=== PATIENT | female | born 1965 | race Caucasian/White ===

== ENCOUNTER 2020-02-12 15:29 | Inpatient (IN) | payer OTHER, SELFPAY ==
--- NOTE | ~2020-02-12 | XR_ITS ---
EXAMINATION: XR chest 2V DATE: 02/12/2020 16:31 INDICATION: Chest pain. TECHNIQUE: Frontal and lateral views of the chest were obtained. COMPARISON: Chest 2 views 07/15/18 FINDINGS: The chest demonstrates clear lungs without pneumonia, pleural effusion, or pneumothorax. Th e heart size is normal. Surgical clips in the right upper quadrant are likely from cholecystectomy. T here are changes of anterior fusion procedure in cervical spine. There is mild pectus excavatum. IMPRESSION: 1. No acute cardiopulmonary disease. Reviewed, dictated and finalized at location B. D WINDER
--- NOTE | ~2020-02-12 | US_ITS ---
EXAMINATION: US right upper quadrant EXAM DATE: 02/13/2020 10:02 INDICATION: Pancreatitis. TECHNIQUE: Multiple grayscale and Doppler images of the abdomen right upper quadrant were obtained (apollo y a technologist who performed the scan) and subsequently reviewed. Correlation is made to CT abdomen 2012. FINDINGS: The pancreatic head and body are normal in appearance. The pancreatic tail is not visualized. The l iver has normal echogenicity and contour. There are no focal liver lesions identified. There is mi ld intrahepatic biliary duct dilation. Portal venous flow was seen in the hepatopedal, normal direct ion and has normal Doppler waveform. No right-sided hydronephrosis. Common bile duct measures 11 mm, which is dilated, but common finding following cholecystectomy. IMPRESSION: Some biliary dilation, could be postcholecystectomy status. Obstructive CBD stone not exc ludable. Is there known explanation for patient's pancreatitis? If there is elevated bilirubin consid er MRCP. Reviewed, dictated and finalized at location B. RAL SERVICE MANAGER IMPRESSION: Some biliary dilation, could be postcholecystectomy status. Obstruc tive CBD stone not excludable. Is there known explanation for patient's pancrea titis? If there is elevated bilirubin consider MRCP.
--- NOTE | ~2020-02-12 | MR_ITS ---
EXAMINATION: MR MRCP wo/w con/w 3D wo ind DATE: 02/13/2020 15:30 INDICATION: Pancreatitis. TECHNIQUE: Magnetic resonance imaging (MRI) of the abdomen was performed without intravenous contrast . Sequences included coronal T2-weighted FS FSE, coronal T2-weighted FSE, axial T1-weighted LAVA, cor onal FS FIESTA, axial dual-echo T1-weighted SPGR, coronal lava-FLEX, sagittal T2-weighted FSE, axial T2-weighted FSE, and axial DWI. Thick-slab T2-weighted FSE images were obtained for magnetic resonanc e cholangiopancreatography (MRCP). Maximum intensity projection 3-D reconstructions of the volumetric data were created by the technologist. Postcontrast sequences included coronal LAVA-flex and time co urse of axial T1-weighted LAVA. COMPARISON: Ultrasound 02/13/2020, CT abdomen and pelvis 02/13/2012 FINDINGS: ABDOMEN MRI: There is moderate intrahepatic biliary duct dilatation. The common duct is dilated to 12 mm. No choledocholithiasis. The gallbladder is absent. The spleen, pancreas, and right adrenal gland are normal. There is a 1.8 cm mass in left adrenal gland containing microscopic fat, consistent with an adenoma. Right kidney is normal. There is a 1.5 cm cyst in left kidney. There are no dilated loop s of bowel. There are no pathologically enlarged lymph nodes. There is no free intraperitoneal fluid. ABDOMEN MRCP: The common duct is dilated to 12 mm. No choledocholithiasis. IMPRESSION: 1. Moderate intrahepatic and extrahepatic biliary duct dilatation status post cholecystectomy. No cho ledocholithiasis. Reviewed, dictated and finalized at location A. P MAINT ENG IMPRESSION: 1. Moderate intrahepatic and extrahepatic biliary duct dilatation status post c holecystectomy. No choledocholithiasis.
[2020-02-12 15:33] VITALS: BP 178/70; PULSE 63; RESP 18; TEMP 36.3; O2SAT 99
--- NOTE | 2020-02-12 16:10 | ECG_ITS ---
Measurements Intervals [place] Rate: 60 P: 83 CT: 157 QRS: 9 QRSD: 87 T: 75 QT: 459 QTc: 462 Interpretive Statements SINUS RHYTHM PEAKED T WAVES- CONSIDER HYPERKALEMIA OR ISCHEMIA BASELINE ARTIFACT- V4-V6 ABNORMAL ECG Electronically Signed On 02-13-2020 8:58:42 TANK CLEANING SUPERVISOR by Jose Osei D.O.
--- NOTE | 2020-02-12 16:36 | ED.CHESTPAIN ---
HPI - Chest Pain General Chief Complaint: Chest Pain Stated Complaint: CP Time Seen by Provider: 02/12/20 16:08 Source: patient Mode of arrival: ambulatory Limitations: no limitations History of Present Illness HPI narrative: Patient is a 54-year-old female complaining of chest pain midsternal, 6 out of 10, tightness, radiating to left arm that started today. Patient denies any shortness of breath, abdominal pain, nausea, vomiting or diaphoresis. Patient denies fever or chills. Related Data Allergies Allergy/AdvReac Type Severity Reaction Status Date / Time butalbital Allergy Unknown hives Verified 07/15/18 16:26 caffeine Allergy Unknown hives Verified 07/15/18 16:26 ibuprofen Allergy Unknown Verified 07/15/18 16:26 naproxen Allergy Unknown Verified 07/15/18 16:26 sumatriptan Allergy Unknown Verified 07/15/18 16:26 KETOROLAC TROMETHAMINE Allergy Unknown Uncoded 07/15/18 16:26 SUMATRIPTAN SUCCINATE Allergy Unknown Uncoded 07/15/18 16:26 Review of Systems Review of Systems: All systems reviewed & are unremarkable except as noted in HPI and below Constitutional: Constitutional: Denies body ache(s), Denies chills, Denies excessive sweating, Denies fatigue, Denies fever(s), Denies headache(s), Denies lethargy, Denies malaise, Denies weakness and Denies weight loss Eyes: Eyes: Denies blurry vision, Denies change in vision and Denies loss of vision ENT: Denies dizziness, Denies ear discharge, Denies headache(s), Denies lip swelling, Denies epistaxis, Denies nasal congestion, Denies neck pain, Denies throat swelling and Denies tongue swelling Cardiovascular: Cardiovascular: Denies diaphoresis, Denies rapid heart rate, Denies edema, Denies irregular heart rhythm, Denies lightheadedness, Denies palpitations, Denies dyspnea and Denies dyspnea on exertion Respiratory: Respiratory: Denies chest congestion, Denies cough, Denies hemoptysis, Denies dyspnea and Denies dyspnea on exertion Gastrointestinal: Gastrointestinal: Denies abdominal pain, Denies melena, Denies hematochezia, Denies diarrhea, Denies nausea, Denies vomiting and Denies hematemesis Musculoskeletal: Musculoskeletal: Denies abnormal gait, Denies deformity, Denies joint swelling, Denies limited range of motion, Denies neck pain and Denies numbness Neurologic: Denies Abnormal speech present, Denies abnormal gait, Denies confusion, Denies dizziness, Denies headache(s), Denies focal weakness, Denies loss of vision, Denies numbness, Denies Other visual disturbances, Denies Sensory deficit (Neuro) and Denies weakness Psychiatric: Psychiatric: Denies confusion, Denies depression, Denies auditory hallucinations, Denies homicidal ideation and Denies suicidal ideation Endocrine: Endocrine: Denies cold intolerance, Denies excessive sweating, Denies fatigue, Denies heat intolerance and Denies palpitations Hematologic/Lymphatic: Hematologic/Lymphatic: Denies easy bleeding and Denies easy bruising Allergic/Immunologic: Allergic/Immunologic: Denies lip swelling, Denies throat swelling and Denies tongue swelling Exam Const: General: cooperative, healthy appearing, comfortable, no acute distress, well developed, alert and awake; No confusion Orientation/consciousness: oriented to person, oriented to place, oriented to time, patient oriented x3 and No confusion Limitations: no limitations HENMT: Head: normal to inspection, normocephalic and atraumatic Ears: hearing grossly normal bilaterally, TM normal on the right and TM normal on the left General nose exam: Normal external nose present, Normal nares present and No nasal discharge present Face and sinus: normal facial exam Mouth: Yes Normal oral and palatal mucosa present, Yes lip normal, Yes tongue normal and Yes oropharynx normal Throat: posterior oropharynx normal, tonsils normal and uvula midline Eyes: General: appearance normal, both eyes and all related structures Pupils: Equal, round and reactive pupils present EOM: EOMs intact bilat
[2020-02-12 17:07] LABS: Basophils Absolute Auto 0.1 K/mm3 (0.0-0.1); Basophils Percent Auto 0.4 % (0.2-1.2); Eosinophils Absolute Auto 0.2 K/mm3 (0-0.3); Eosinophils Percent Auto 1.2 % (0-4.4); Hematocrit 36.9 % (37.0-47.0); Hemoglobin 12.5 g/dL (12.0-15.0); Immature Granulocyte Absolute 0.03 K/mm3 (0.00-0.031); Immature Granulocyte Percent A 0.2 % (0-0.5); Lymphocytes Percent Auto 18.2 % (18.3-44.2); Mean Corpuscular HGB Conc 33.9 g/dl (32-36); Mean Corpuscular Hemoglobin 30.9 pg (26-34); Mean Corpuscular Volume 91.1 fl (80-100); Mean Platelet Volume 9.4 fl (7.4-10.4); Monocytes Percent Auto 7.2 % (2.6-8.5); Neutrophils Percent Auto 72.8 % (45.5-73.1); Platelet Count Result 396 k/mm3 (150-375); Red Blood Count 4.05 M/mm3 (4.2-5.4); Red Cell Distribution Width 14.5 % (11.5-14.5); White Blood Count 13.7 K/mm3 (4.5-10.0)
[2020-02-12 17:10] LABS: INR 0.9
[2020-02-12 17:11] LABS: Partial Thromboplastin Time 26.6 SECONDS (22.3-36.8)
[2020-02-12 17:14] LABS: Alanine Aminotransferase 51 U/L (4-35); Albumin Level 4.4 g/dL (3.5-5.1); Alkaline Phosphatase 79 U/L (38-126); Anion Gap 5 mmol/L (8-16); Aspartate Amino Transferase 120 U/L (14-36); Bilirubin,Total 0.5 mg/dL (0.2-1.3); Blood Urea Nitrogen 12 mg/dL (7-17); Calcium 9.5 mg/dL (8.4-10.2); Carbon Dioxide 32 mmol/L (22-30); Chloride 105 mmol/L (98-107); Estimated CRCL calculation 67 ml/min; Estimated Glomerular Filt Rate > 60; Glucose 105 mg/dL (65-105); Potassium 4.1 mmol/L (3.4-5.0); Sodium 142 mmol/L (137-145)
[2020-02-12 17:26] LABS: NT Pro B Type Natriuretic Pept 218 PG/ML (5-100); Troponin I < 0.012 ng/mL (0.000-0.034)
[2020-02-12 17:56] VITALS: BP 178/80; PULSE 77; RESP 18; O2SAT 98
--- NOTE | 2020-02-12 18:12 | PC.NURSE ---
PATIENT MAKING NUMEROUS REQUESTS FOR PAIN MEDICATION. ERP AWARE NO NEW ORDER
[2020-02-12] MEDS: MORPHINE SULFATE (*CRX) 2 MG/ML INJ IV PUSH (18:29)
[2020-02-12] MEDS: ONDANSETRON INJ 4 MG/2 ML VIAL IV PUSH (19:23)
[2020-02-12 19:56] LABS: Troponin I < 0.012 ng/mL (0.000-0.034)
--- NOTE | 2020-02-12 20:42 | PM.IMHP ---
H&P: HPI History of Present Illness Date/Time: 02/12/20 20:42 Chief complaint: CP Narrative: Anny Palmer is a 54 year old female this is a patient that I have seen in the past. Patient was seen here July 2018 for complaints of chest pain. The patient stated back in 2016 she had had a heart attack but did not require any cardiac stents. She stated that she had a cardiac catheterization at [facility] where she had the catheterization but there was no intervention performed at that time. She had a borderline EKG at that time and cardiology was consulted. She was admitted for chest pain and hypokalemia at that time. The patient told me that she had had 2 cardiac stents since then. However when I read her discharge summary from the dates she was here her troponins were all negative. 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 Patient also has a lot of stress and anxiety. Her enzymes were negative and her stress echo with dobutamine infusion was negative per Cardiology at the time sure it was admitted 2018. She does not have any cardiac catheterization or stents placed here. The patient came into ER here tonight with complaints of chest pain that was midsternal 6/10. His rating aiding down her left arm. She said it went around her left breast from the midsternal to the left shoulder line. She was given morphine and stated that she had relief of discomfort. EKG was interpreted as a normal rate no ectopy number sinus rhythm. Chest x-ray was read as no acute cardiopulmonary disease. First troponin negative. Patient was nauseated when I came to the room. Pain. Date of service 02/12/2020 Review of Systems Review of Systems: All systems reviewed & are unremarkable except as noted in HPI and below Constitutional: Constitutional: Reports as per HPI and Reports no additional constitutional complaints Eyes: Eyes: Reports as per HPI and Reports no additional eye complaints ENT: Reports system reviewed and no additional complaints, except as documented and Reports Normal hearing present Cardiovascular: Cardiovascular: Reports no additional cardiovascular complaints Respiratory: Respiratory: Reports no additional respiratory complaints and Reports no additional respiratory complaints Gastrointestinal: Gastrointestinal: Reports as per HPI and Reports no additional gastrointestinal complaints Musculoskeletal: Musculoskeletal: Reports no additional musculoskeletal complaints Integumentary/Breasts: Skin/Breast: Reports system reviewed and no additional complaints, except as docu and Reports as per HPI Neurologic: Reports system reviewed and no additional complaints, except as documented, Reports as per HPI and Reports Normal hearing present Psychiatric: Psychiatric: Reports no additional psychiatric complaints and Reports as per HPI Endocrine: Endocrine: Reports no additional endocrine complaints Hematologic/Lymphatic: Hematologic/Lymphatic: Reports no additional hematologic/lymphatic complaints Allergic/Immunologic: Allergic/Immunologic: Reports no additional allergic/immunologic complaints PMFSH Past Medical History Medical History Anxiety HTN (hypertension), malignant Migraines Tobacco use Surgical History Surgical History (Updated 02/12/20 @ 21:01 by Bhumi Akins NP) H/O elbow surgery H/O: hysterectomy History of ankle surgery x2 she stated Hx of cholecystectomy Family History Family History (Updated 02/12/20 @ 21:03 by Bhumi Akins NP) Mother Hypertension Hyperlipidemia Rheumatic fever Kidney disease Heart murmur Sibling Kidney disease Alcoholism Social History Social History (Updated 02/12/20 @ 21:04 by Bhumi Akins NP) Social History: the patient stated that her is the same age and is in the snf. She has 4 sons. She has use marijuana to help with her pain to her knees and her
[2020-02-12 20:50] VITALS: BP 129/50; PULSE 72; RESP 18; O2SAT 99
--- NOTE | 2020-02-12 21:58 | ADMGEN ---
This patient, Anny Palmer, was admitted to IMU Room 202-01. Patient/family oriented to hospital policies and general routines including ID bracelet, bed and alarms, visiting hours, pain management, procedures, bathroom and other care routines, personal items, smoking policy, room service/diet, and visiting hours. Information on how to activate the Rapid Response Team has been discussed. Patient/Family are encouraged to report perceived risks to care and to ask questions if they do not understand what they are told or what they should do.
[2020-02-12 22:00] VITALS: PULSE 58
[2020-02-12 22:04] VITALS: BP 155/72; PULSE 76; RESP 18; TEMP 36.4; O2SAT 98
[2020-02-12 22:05] VITALS: BMI 21.2
[2020-02-12] MEDS: FAMOTIDINE 20 MG/2 ML VIAL IV PUSH (22:21)
[2020-02-12] MEDS: LORazepam INJ (*CRX) 2 MG/ML VIAL 0.5 MG IV PUSH (22:27)
[2020-02-12 23:19] LABS: Troponin I < 0.012 ng/mL (0.000-0.034)
[2020-02-13] VITALS (13 sets, daily range): BP systolic 119–145; BP diastolic 49–94; PULSE 48–66; RESP 13–18; TEMP 36.2–37.1; O2SAT 96–100
--- NOTE | 2020-02-13 | ECHO_ITS ---
Patient Info Name: Anny Palmer Age: 54 years : 1965 Gender: Female Ht: 67 in Wt: 135 lbs BSA: 1.70 m2 HR: 50 bpm BP: 137 / 60 mmHg Technical Quality: Good Exam Date: 02/13/2020 10:09 AM Exam Location: [facility] Patient Status: Inpatient Admit Date: 02/12/2020 Staff Ordering Physician: Titi Cochran MD Flat Cutter: Pedro Boyd RDCS, RT Attending Provider: Eliseo Tian MD Exam Type: CA echo doppler color flow Study Info Complete two-dimensional, color flow and Doppler transthoracic echocardiogram is performed. Strain analysis performed. Summary 1. Complete two-dimensional, color flow and Doppler transthoracic echocardiogram is performed. 2. Left atrial chamber dimension is moderately enlarged. 3. There is mild aortic valve stenosis with a peak velocity of 252 cm/s, mean gradient of 9 mmHg, and aortic valve area of 1.4 cm2. 4. The mitral valve has thickened leaflets. 5. There is mild mitral valve regurgitation. 6. There is mild tricuspid valve regurgitation. 7. TDS. 8. Left ventricular systolic function is hyperdynamic with an estimated ejection fraction of 6570.0 %. 9. Left ventricular chamber dimension is normal. 10. Normal left venticular systolic function with no regional wall motion abnormalities. Left Ventricle Left ventricular wall thickness is normal. Left ventricular chamber dimension is normal. Left ventricular systolic function is hyperdynamic with an estimated ejection fraction of 6570.0 %. Normal left venticular systolic function with no regional wall motion abnormalities. Right Ventricle Right ventricle chamber size, wall thickness and systolic and diastolic function are normal. Left Atria Left atrial chamber dimension is moderately enlarged. Right Atria Right atrial chamber dimension is normal. Aortic Valve There is mild aortic valve stenosis with a peak velocity of 252 cm/s, mean gradient of 9 mmHg, and aortic valve area of 1.4 cm2. Aortic valve is not well visualized. Pulmonic Valve Pulmonary valve is not well visualized. Mitral Valve The mitral valve has thickened leaflets. There is mild mitral valve regurgitation. Tricuspid Valve There is mild tricuspid valve regurgitation. The tricuspid valve is not well visualized. Pericardium/Pleural Pericardium is normal in appearance with no evidence for significant pericardial effusion. Left Ventricular Outflow Tract Name Value Normal LVOT 2D LVOT Diameter 1.9 cm LVOT Doppler LVOT Peak Gradient 6 mmHg LVOT Mean Gradient 3 mmHg LVOT VTI 30 cm LVOT VTI/AV VTI Ratio 0.5 LVOT Stroke Volume 82 ml LVOT CO 4.0 l/min LVOT CI 2.3 l/min/m2 Mitral Valve Name Value Normal MV Doppler
[2020-02-13 04:30] LABS: Basophils Percent Auto 0.5 % (0.2-1.2); Eosinophils Absolute Auto 0.1 K/mm3 (0-0.3); Eosinophils Percent Auto 1.2 % (0-4.4); Hematocrit 35.7 % (37.0-47.0); Hemoglobin 12.2 g/dL (12.0-15.0); Immature Granulocyte Absolute 0.02 K/mm3 (0.00-0.031); Immature Granulocyte Percent A 0.3 % (0-0.5); Lymphocytes Absolute Auto 1.15 K/mm3 (0.9-3.2); Lymphocytes Percent Auto 17.9 % (18.3-44.2); Mean Corpuscular HGB Conc 34.2 g/dl (32-36); Mean Corpuscular Hemoglobin 31.1 pg (26-34); Mean Corpuscular Volume 91.1 fl (80-100); Mean Platelet Volume 9.3 fl (7.4-10.4); Monocytes Absolute Auto 0.7 K/mm3 (0.1-0.6); Monocytes Percent Auto 10.2 % (2.6-8.5); Neutrophils Absolute Auto 4.5 K/mm3 (1.3-6.7); Neutrophils Percent Auto 69.9 % (45.5-73.1); Platelet Count Result 392 k/mm3 (150-375); Red Blood Count 3.92 M/mm3 (4.2-5.4); Red Cell Distribution Width 14.5 % (11.5-14.5); White Blood Count 6.4 K/mm3 (4.5-10.0)
[2020-02-13 04:57] LABS: LDL Cholesterol Direct 89 mg/dL
[2020-02-13 05:11] LABS: Alanine Aminotransferase 410 U/L (4-35); Albumin Level 4.2 g/dL (3.5-5.1); Alkaline Phosphatase 113 U/L (38-126); Anion Gap 4 mmol/L (8-16); Aspartate Amino Transferase 618 U/L (14-36); Bilirubin,Total 1.4 mg/dL (0.2-1.3); Blood Urea Nitrogen 14 mg/dL (7-17); Calcium 9.4 mg/dL (8.4-10.2); Carbon Dioxide 34 mmol/L (22-30); Chloride 103 mmol/L (98-107); Cholesterol 196 mg/dL (0-200); Estimated CRCL calculation 54 ml/min; Estimated Glomerular Filt Rate 58; Glucose 108 mg/dL (65-105); HDL Direct 77 mg/dL; Lactate Dehydrogenase 1723 U/L (313-618); Magnesium 2.2 mg/dL (1.6-2.3); Potassium 4.1 mmol/L (3.4-5.0); Sodium 141 mmol/L (137-145); Triglycerides 70 mg/dL (<150)
[2020-02-13] MEDS: MORPHINE SULFATE (*CRX) 2 MG/ML INJ 1 MG IV PUSH ×5 (05:37→23:05)
[2020-02-13 05:56] LABS: Lipase 4093 U/L (23-300)
--- NOTE | 2020-02-13 08:59 | PCCARD ---
DOBUTAMINE STRESS ECHO CANCELLED PER DR ROSEN
--- NOTE | 2020-02-13 09:07 | PM.CNCAR ---
Assessment and Plan Assessment and plan (1) Anxiety: Code(s): F41.9 - Anxiety disorder, unspecified Status: Chronic (2) Chest pain: Qualifiers: Chest pain type: chest pain due to myocardial ischemia Ischemic chest pain type: stable angina pectoris Qualified Code(s): I20.8 - Other forms of angina pectoris Code(s): R07.9 - Chest pain, unspecified Status: Acute Assessment and Plan: CE negative no acute EKG changes will arrange for ECHO to evaluate LV function and r/o WMA we will try to obtain cardiac medical records pt may benefit from further cardiac evaluation when medically stable on outpatient basis Cont meds (3) HTN (hypertension), malignant: Code(s): I10 - Essential (primary) hypertension Status: Chronic Assessment and Plan: initially now well controlled cont meds (4) Pancreatitis: Code(s): K85.90 - Acute pancreatitis without necrosis or infection, unspecified Status: Acute Assessment and Plan: Lipase > 4000 liver enzymes elevated Management per Thank you for consult. Santos coyne. (5) Elevated WBC count: Code(s): D72.829 - Elevated white blood cell count, unspecified Status: Acute (6) Positive urine drug screen: Code(s): R82.5 - Elevated urine levels of drugs, medicaments and biological substances Status: Acute History of Present Illness History of Present Illness Consult date/time: 02/13/20 Ms. Palmer is a pleasant 54 y/o WF with PMH of HTN, CAD, smoking who presented to [facility] last night due to chest discomfort. Pt is a poor historian and history is obtained predominantly from medical records and nursing staff. She states that had episodes of sharp chest discomfort not related to physical activity, States that her symptoms resolved yesterday after she was given morphine. Never took NTG for her symptoms. States that she could reproduce her symptoms when sitting up . According to notes had some nausea, no vomiting. Lab results today showed elevated lipase (> 4000) and liver enzymes. States that is allergic to ibuprofen. Pt admits that she smokes. Less than before but including MJ. Regarding her cardiac hx she states that had two stents placed in her heart about two years ago. She presented to [facility] and then was transferred to [facility] in [place]. She follows with manager data in [place]. She does not recall name. According to notes she had had two cardiac catheterizations last year. No records available at this point. Pt was seen and examined, chart was reviewed, case was d/w hospitalist (Dr. Tian) and pt's nurse. Reason For Visit: Chest Pain Review of Systems Review of Systems: All systems reviewed & are unremarkable except as noted in HPI and below Constitutional: Constitutional: Reports as per HPI Eyes: Eyes: Reports as per HPI ENT: Reports system reviewed and no additional complaints, except as documented and Reports as per HPI Cardiovascular: Cardiovascular: Reports as per HPI Respiratory: Respiratory: Reports as per HPI Gastrointestinal: Gastrointestinal: Reports as per HPI Genitourinary: Genitourinary: Reports as per HPI Musculoskeletal: Musculoskeletal: Reports as per HPI PMFSH Past Medical History Medical History Anxiety HTN (hypertension), malignant Migraines Tobacco use Surgical History Surgical History (Updated 02/12/20 @ 21:01 by Bhumi Akins NP) H/O elbow surgery H/O: hysterectomy History of ankle surgery x2 she stated Hx of cholecystectomy Family History Family History Mother Hypertension Hyperlipidemia Rheumatic fever Kidney disease Heart murmur Sibling Kidney disease Alcoholism Social History Social History (Updated 02/12/20 @ 21:04 by Bhumi Akins NP) Social History: the patient stated that her is the s
[2020-02-13] MEDS: amLODIPine BESYLATE 5 MG TABLET PO (10:13)
[2020-02-13] MEDS: ENOXAPARIN 40 MG/0.4 ML SYRINGE SUB-Q (10:13)
[2020-02-13] MEDS: FAMOTIDINE 20 MG/2 ML VIAL IV PUSH ×2 (10:13→20:55)
[2020-02-13] MEDS: GABAPENTIN 300 MG CAPSULE PO ×3 (10:13→18:10)
[2020-02-13] MEDS: hydroCHLOROthiazide 25 MG TABLET PO (10:14)
[2020-02-13] MEDS: lisinopriL 20 MG TABLET PO (10:14)
--- NOTE | 2020-02-13 12:29 | PM.IMPN ---
Progress Note: A&P Assessment and Plan (1) Pancreatitis: Code(s): K85.90 - Acute pancreatitis without necrosis or infection, unspecified Status: Acute Assessment and Plan: Patient's lipase elevated this morning at 4093. She has no hx of pancreatitis. She is s/p CCY. TG level normal. Denies alcohol use. AST 120 and ALT 51 on admission but climbed to 618 and 410 respectfully. Consider choledochylithiasis or sludge related. Consider viral. Will keep NPO and check RUQ US. Trend Lipase. GI consult RUQ showing biliary dilation. Obstructive CBD stone not excludable. MRCP recommended. MRCP moderate intrahepatic and extrahepatic biliary duct dilatation status post cholecystectomy. No choledocholithiasis. (2) Elevated liver enzymes: Code(s): R74.8 - Abnormal levels of other serum enzymes Status: Acute Assessment and Plan: Elevated LFTs as mentioned above. Continue to follow. (3) Chest pain: Qualifiers: Chest pain type: chest pain due to myocardial ischemia Ischemic chest pain type: stable angina pectoris Qualified Code(s): I20.8 - Other forms of angina pectoris Code(s): R07.9 - Chest pain, unspecified Status: Acute Assessment and Plan: CP mostly lower chest and upper abdominal region. Suspect related to pancreatitis and not cardiac. Troponin negative x3. EKG showing peaked T waves but with normal potassium. CXR clear. A stress echo was ordered but held due to the fact she more likely has pancreatitis. Discussed with cardiology and they are in agreement. Echo showing EF 65-70%. (4) HTN (hypertension), malignant: Code(s): I10 - Essential (primary) hypertension Status: Chronic Assessment and Plan: Patient's BP reviewed on 02/12. BP well controlled. Continue Norvasc, lisinopril and HCTZ. (5) Elevated WBC count: Code(s): D72.829 - Elevated white blood cell count, unspecified Status: Acute Assessment and Plan: WBC elevated to 13.7 on admission felt realted to above. Repeat value normal today. Continue to monitor. (6) Anxiety: Code(s): F41.9 - Anxiety disorder, unspecified Status: Chronic Assessment and Plan: Mood stable. Continue P.r.n. Ativan. (7) Positive urine drug screen: Code(s): R82.5 - Elevated urine levels of drugs, medicaments and biological substances Status: Acute Assessment and Plan: Patient with positive UDS for marijuana and opiates. (8) Tobacco use: Code(s): Z72.0 - Tobacco use Status: Acute Assessment and Plan: Patient educated about the benefits of smoking cessation. (9) DVT prophylaxis: Code(s): Z29.9 - Encounter for prophylactic measures, unspecified Status: Acute Assessment and Plan: Lovenox Subjective Date/time seen: 02/13/20 12:29 Interval history: Date of service 02/12 54yo female with HTN here for chest pain and found to have pancreatitis. She states her pain is lower chest and upper abd. No hx of pancreatiitis. Hx of CCY. Denies alcohol use. Recent fever last week but no other associated symptoms. No dysuria or cough. No new meds. Feels better today. Exam Narrative: Exam Narrative: AF 98.6 121/49 51 16 96% ra Gen - NARD Chest - CTA bilaterally, nml RR CV - RRR S1/S2 Abd - Soft, ND, minimal epigastric pain. Ext - No pedal edema, 2+ DP bilaterally Psych - Nml mood and affect Skin - Warm and dry Objective Data Vital Signs Vital Signs: Vital Signs - 24 hr 02/12/20 15:33 02/12/20 17:56 02/12/20 20:50 Temperature 97.3 F L Pulse Rate 63 77 72 Respiratory Rate 18 18 18 Blood Pressure 178/70 H 178/80 H 129/50 L Pulse Oximetry 99 98 99 02/12/20 22:00 02/12/20 22:04 02/13/20 00:00 Temperature 97.6 F 97.1 F L Pulse Rate 58 L 76 66 Respiratory Rate 18 18 Blood Pressure 155/72 H 122/59 L Pulse Oximetry 98 97 02/13/20 02:00 02/12
--- NOTE | 2020-02-13 14:40 | PC.NURSE ---
Patient received from IMU after she received her MRI, patient resting, call light within reach
--- NOTE | 2020-02-13 15:31 | PC.NURSE ---
This patient, Anny Palmer, was transferred to [[facility] ] on 02/13/20 at 1430. Personal belongings sent with patient. Report given to [Kamla ]. Appropriate documentation sent with patient.
--- NOTE | 2020-02-13 16:41 | WPDGICN ---
Assessment and Plan Assessment and plan (1) Pancreatitis: Code(s): K85.90 - Acute pancreatitis without necrosis or infection, unspecified Status: Acute Assessment and Plan: mrcp reviewed, expected dilated BD from previous cholecystectomy, no need to proceed with ercp she is hungry, ok to try liquid diet and continue to monitor liver enzymes she denies drinking alcohol, no previous h/o pancreatiits TG level normal (2) Chest pain: Qualifiers: Chest pain type: chest pain due to myocardial ischemia Ischemic chest pain type: stable angina pectoris Qualified Code(s): I20.8 - Other forms of angina pectoris Code(s): R07.9 - Chest pain, unspecified Status: Acute Assessment and Plan: cardiology on board (3) Elevated liver enzymes: Code(s): R74.8 - Abnormal levels of other serum enzymes Status: Acute Assessment and Plan: will get hepatitis panel (4) Positive urine drug screen: Code(s): R82.5 - Elevated urine levels of drugs, medicaments and biological substances Status: Acute Assessment and Plan: marijuana and opiates, she denies using other illicits GI Consult Note Consult date/time: 02/13/20 16:41 Reason for consult: pancreatitis HPI: Anny Palmer is a 54 year old female with history of HTN, CAD with stents, smoker and cholecystectomy few years ago admitted here with chest and epigastric pain that has been going on for some time (she is not the best historian). Cardiology evaluation did not reveal acute findings. Blood work c/w pancreatitis, lipases 4000, ast 600, alt 400, TB 1.5. Ultrasound revealed dilated BD post cholecystectomy. MRCP with similar findings, CBD 12 mm, no choledocholithiasis, no mass and normal pancreas. She also says that has chronic diarrhea, 4-6 times a day mostly post-prandial, also weight loss. Never had a colonoscopy. She thinks that had an EGD last year with possible ulcers but she is not quite sure about it. Review of Systems Constitutional: Constitutional: Denies headache(s) and Denies weakness Eyes: Eyes: Denies blurry vision ENT: Reports Normal hearing present, Denies headache(s) and Denies neck pain Cardiovascular: Cardiovascular: Reports chest pain and Denies dyspnea Respiratory: Respiratory: Denies dyspnea Gastrointestinal: Gastrointestinal: Reports abdominal pain, Denies hematochezia and Denies vomiting Genitourinary: Genitourinary: Denies dysuria Musculoskeletal: Musculoskeletal: Denies neck pain Integumentary/Breasts: Skin/Breast: Denies dry skin Neurologic: Reports Normal hearing present, Denies headache(s) and Denies weakness Psychiatric: Psychiatric: Denies anxiety Endocrine: Endocrine: Denies change in body appearance Hematologic/Lymphatic: Hematologic/Lymphatic: Denies easy bleeding Allergic/Immunologic: Allergic/Immunologic: Denies urticaria PMFSH Past Medical History Medical History Anxiety HTN (hypertension), malignant Migraines Tobacco use Surgical History Surgical History (Updated 02/12/20 @ 21:01 by Bhumi Akins NP) H/O elbow surgery H/O: hysterectomy History of ankle surgery x2 she stated Hx of cholecystectomy Family History Family History Mother Hypertension Hyperlipidemia Rheumatic fever Kidney disease Heart murmur Sibling Kidney disease Alcoholism Social History Social History (Updated 02/12/20 @ 21:04 by Bhumi Akins NP) Social History: the patient stated that her is the same age and is in the snf. She has 4 sons. She has use marijuana to help with her pain to her knees and her ankles. 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 She is a full code but does not have a durable power of patent attorney for healthcare. She is on disability. She denies alcohol. Years smoked: 30 Smoking
[2020-02-13] MEDS: BACLOFEN 10 MG TABLET PO (18:10)
[2020-02-13] MEDS: LORazepam INJ (*CRX) 2 MG/ML VIAL 0.5 MG IV PUSH (21:01)
[2020-02-14] VITALS (13 sets, daily range): BP systolic 124–153; BP diastolic 50–64; PULSE 50–103; RESP 16; TEMP 36.5–37.2; O2SAT 94–100
[2020-02-14] MEDS: MORPHINE SULFATE (*CRX) 2 MG/ML INJ 1 MG IV PUSH ×4 (04:55→21:33)
[2020-02-14 05:21] LABS: Basophils Percent Auto 0.9 % (0.2-1.2); Eosinophils Absolute Auto 0.2 K/mm3 (0-0.3); Eosinophils Percent Auto 3.8 % (0-4.4); Hematocrit 37.5 % (37.0-47.0); Hemoglobin 12.9 g/dL (12.0-15.0); Immature Granulocyte Absolute 0.01 K/mm3 (0.00-0.031); Immature Granulocyte Percent A 0.2 % (0-0.5); Lymphocytes Absolute Auto 2.13 K/mm3 (0.9-3.2); Lymphocytes Percent Auto 50.5 % (18.3-44.2); Mean Corpuscular HGB Conc 34.4 g/dl (32-36); Mean Corpuscular Hemoglobin 30.6 pg (26-34); Mean Corpuscular Volume 88.9 fl (80-100); Mean Platelet Volume 9.3 fl (7.4-10.4); Monocytes Absolute Auto 0.4 K/mm3 (0.1-0.6); Monocytes Percent Auto 8.8 % (2.6-8.5); Neutrophils Absolute Auto 1.5 K/mm3 (1.3-6.7); Neutrophils Percent Auto 35.8 % (45.5-73.1); Platelet Count Result 436 k/mm3 (150-375); Red Blood Count 4.22 M/mm3 (4.2-5.4); Red Cell Distribution Width 14.3 % (11.5-14.5); White Blood Count 4.2 K/mm3 (4.5-10.0)
[2020-02-14 05:25] LABS: Cholesterol 230 mg/dL (0-200); HDL Direct 85 mg/dL; Triglycerides 73 mg/dL (<150)
[2020-02-14 05:29] LABS: Alanine Aminotransferase 343 U/L (4-35); Albumin Level 4.7 g/dL (3.5-5.1); Alkaline Phosphatase 145 U/L (38-126); Anion Gap 5 mmol/L (8-16); Aspartate Amino Transferase 267 U/L (14-36); Bilirubin Indirect 1.3 mg/dL (0-1.1); Bilirubin,Total 1.3 mg/dL (0.2-1.3); Blood Urea Nitrogen 17 mg/dL (7-17); Calcium 9.9 mg/dL (8.4-10.2); Carbon Dioxide 33 mmol/L (22-30); Chloride 101 mmol/L (98-107); Estimated CRCL calculation 50 ml/min; Estimated Glomerular Filt Rate 52; Glucose 93 mg/dL (65-105); Lipase 420 U/L (23-300); Potassium 4.3 mmol/L (3.4-5.0); Sodium 139 mmol/L (137-145)
[2020-02-14 05:36] LABS: LDL Cholesterol Direct 110 mg/dL
[2020-02-14 07:11] LABS: Hepatitis B Surface Antigen Negative (Negative)
[2020-02-14 07:16] LABS: HAV RESULT Negative (Negative); Hepatitis B Core IgM Result Negative (Negative)
[2020-02-14 07:28] LABS: Hepatitis C Virus Antibody Negative (Negative)
--- NOTE | 2020-02-14 08:49 | PM.IMPN ---
Progress Note: A&P Assessment and Plan (1) Pancreatitis: Code(s): K85.90 - Acute pancreatitis without necrosis or infection, unspecified Status: Acute Assessment and Plan: Patient's lipase elevated this morning at 4093. She has no hx of pancreatitis. She is s/p CCY. TG level normal. Denies alcohol use. AST 120 and ALT 51 on admission but climbed to 618 and 410 respectfully on 02/12 - levels better today at 267 and 343. Hepatitis panel negative. RUQ showing biliary dilation. Obstructive CBD stone not excludable. MRCP recommended. MRCP showing moderate intrahepatic and extrahepatic biliary duct dilatation status post cholecystectomy. No choledocholithiasis. Pancreas appears normal. Consider viral etiology or possibly passed stone. Repeat Lipase today at 420. Still with some pain. Will advacne diet. (2) Elevated liver enzymes: Code(s): R74.8 - Abnormal levels of other serum enzymes Status: Acute Assessment and Plan: Elevated LFTs as mentioned above. Continue to follow. (3) Chest pain: Qualifiers: Chest pain type: chest pain due to myocardial ischemia Ischemic chest pain type: stable angina pectoris Qualified Code(s): I20.8 - Other forms of angina pectoris Code(s): R07.9 - Chest pain, unspecified Status: Acute Assessment and Plan: CP mostly lower chest and upper abdominal region. Suspect related to pancreatitis and not cardiac. Troponin negative x3. EKG showing peaked T waves but with normal potassium. CXR clear. A stress echo was ordered but held due to the fact she more likely has pancreatitis. Discussed with cardiology and they are in agreement. Surface Echo showing EF 65-70%. Okay to stop tele if okay with cardiology. (4) HTN (hypertension), malignant: Code(s): I10 - Essential (primary) hypertension Status: Chronic Assessment and Plan: Patient's BP reviewed on 02/13 BP well controlled. Continue Norvasc, lisinopril and HCTZ. (5) Elevated WBC count: Code(s): D72.829 - Elevated white blood cell count, unspecified Status: Acute Assessment and Plan: WBC elevated to 13.7 on admission felt realted to above. Repeat value slightly low today as 4.2. Continue to monitor. (6) Anxiety: Code(s): F41.9 - Anxiety disorder, unspecified Status: Chronic Assessment and Plan: Mood stable. Continue P.r.n. Ativan. (7) Positive urine drug screen: Code(s): R82.5 - Elevated urine levels of drugs, medicaments and biological substances Status: Acute Assessment and Plan: Patient with positive UDS for marijuana and opiates. She admits to using marijuana as outpatient but denies opiate use. She gets her marijuana from a dispensary (8) Tobacco use: Code(s): Z72.0 - Tobacco use Status: Acute Assessment and Plan: Patient educated about the benefits of smoking cessation. (9) DVT prophylaxis: Code(s): Z29.9 - Encounter for prophylactic measures, unspecified Status: Acute Assessment and Plan: Lovenox Subjective Date/time seen: 02/14/20 08:49 Interval history: Date of service 02/13 54yo female with HTN here for chest pain and found to have pancreatitis. Patient feels better. still with abd pain that is positional at times. some mild nausea with clear liquids but feels she could eat more solid foods. No CP or SOB. No BMs since admission. Exam Narrative: Exam Narrative: AF 98.5 129/64 98 16 98% ra Gen - NARD Chest - CTA bilaterally, nml RR CV - RRR S1/S2; tele showing bradycardia Abd - Soft, ND, tenderness and guarding in the epigastric and LUQ areas. +BS Ext - No pedal edema, 2+ DP bilaterally Psych - becomes anxious and tearful when talking about how bad the pain is Skin - Warm and dry Objective Data Vital Signs Vital Signs: Vital Signs - 24 hr 02/13/20 10:00 02/13/20 12:00
[2020-02-14] MEDS: DEXTROSE 5%/0.9% SOD CHL 1,000 ML 100 ML IV CONT ×2 (09:36→18:44)
[2020-02-14] MEDS: hydroCHLOROthiazide 25 MG TABLET PO (09:40)
[2020-02-14] MEDS: ENOXAPARIN 40 MG/0.4 ML SYRINGE SUB-Q (09:40)
[2020-02-14] MEDS: GABAPENTIN 300 MG CAPSULE PO ×3 (09:40→16:48)
[2020-02-14] MEDS: amLODIPine BESYLATE 5 MG TABLET PO (09:40)
[2020-02-14] MEDS: FAMOTIDINE 20 MG/2 ML VIAL IV PUSH ×2 (09:40→21:38)
[2020-02-14] MEDS: lisinopriL 20 MG TABLET PO (09:40)
--- NOTE | 2020-02-14 09:41 | WPDGIPROGNO ---
Progress Note: A&P Assessment and Plan (1) Pancreatitis: Code(s): K85.90 - Acute pancreatitis without necrosis or infection, unspecified Status: Acute Assessment and Plan: MRCP showed normal pancreas, also dilated BD without stones or filling defect (sometimes expected finding after cholecystectomy), no need to do ERCP. Denies alcohol use. probably she passed stone, liver enzymes trending down and also lipase ok to advance diet she also says that has h/o diarrhea, never had a colonoscopy. After she goes home then I can schedule egd and colonoscopy as outpatient. (2) Elevated liver enzymes: Code(s): R74.8 - Abnormal levels of other serum enzymes Status: Acute Assessment and Plan: hepatitis panel negative and trending down. (3) Chest pain: Qualifiers: Chest pain type: chest pain due to myocardial ischemia Ischemic chest pain type: stable angina pectoris Qualified Code(s): I20.8 - Other forms of angina pectoris Code(s): R07.9 - Chest pain, unspecified Status: Acute (4) Anxiety: Code(s): F41.9 - Anxiety disorder, unspecified Status: Chronic (5) Tobacco use: Code(s): Z72.0 - Tobacco use Status: Acute Subjective Date/time seen: 02/14/20 09:41 Interval history: still with some pain but no nausea and tolerating clear liquid diet, she is hungry. She claims that she had long standing diarrhea but no BM since admission Review of Systems Review of Systems: All systems reviewed & are unremarkable except as noted in HPI and below Exam Const: General: cooperative, comfortable, no acute distress, awake, anxious and other (cachectic); No acute distress HENMT: Head: normal to inspection and atraumatic Ears: hearing grossly normal bilaterally Face and sinus: normal facial exam Eyes: General: appearance normal, both eyes and all related structures Pupils: Equal, round and reactive pupils present EOM: EOMs intact bilaterally Neck: Neck: normal visual inspection and no JVD Chest: Chest palpation & inspection: normal inspection of the chest Resp: Effort & Inspection: normal respiratory effort and no respiratory distress Auscultation: clear to auscultation bilaterally Cardio: Jugular venous distension: no JVD Rate: regular rate Heart sounds: S1 normal heart sound present, S2 normal heart sound present and no murmurs GI: Inspection: normal to inspection GI Palp: Yes Soft to palpation, No Tenderness to palpation present (GI) and Yes No hepatosplenomegaly present Auscultation: normal bowel sounds Skin: General skin exam: normal color Neuro: Cranial nerves: Yes Equal, round and reactive pupils present Speech: normal speech Extrem: General: normal to inspection and no clubbing, cyanosis or edema Psych: Affect: Anxious affect present Other: tearful Objective Data Vital Signs Vital Signs: Vital Signs - 24 hr 02/13/20 10:00 02/13/20 12:00 02/13/20 14:00 Temperature 98.6 F Pulse Rate 53 L 53 L 53 L Respiratory Rate 13 Blood Pressure 121/49 L Pulse Oximetry 96 02/13/20 16:00 02/13/20 18:00 02/13/20 20:00 Temperature 98.4 F Pulse Rate 48 L 55 L 63 Respiratory Rate 18 Blood Pressure 145/68 H Pulse Oximetry 98 02/13/20 22:00 02/13/20 23:03 02/14/20 00:00 Temperature 98.3 F 98.8 F Pulse Rate 61 51 L Respiratory Rate 16 Blood Pressure 135/52 L Pulse Oximetry 99 02/14/20 02:00 02/14/20 04:00 02/14/20 06:00 Temperature 98.9 F 98.5 F Pulse Rate 52 L 50 L 98 Respiratory Rate 16 16 Blood Pressure 124/56 L 129/64 Pulse Oximetry 98 98 Intake/Output Intake/Output: Intake & Output 02/11/20 02/12/20 02/13/20 02/14/20 23:59 23:59 23:59 23:59 Intake Total 222 300 Output Total 950 Balance 222 -650 Meds/Results Medications: Active Medications Generic Name Dose Route Start Last Admin Trade Name Freq PRN Reason Stop Dose Admin Amlodipine Besylate 5 mg 02/13/20 09:00 02/12
[2020-02-14] MEDS: LORazepam INJ (*CRX) 2 MG/ML VIAL 0.5 MG IV PUSH ×2 (12:21→18:43)
[2020-02-14] MEDS: BACLOFEN 10 MG TABLET PO (18:44)
[2020-02-15] VITALS (12 sets, daily range): BP systolic 114–150; BP diastolic 47–68; PULSE 47–70; RESP 16–20; TEMP 36.2–36.9; O2SAT 97–100
[2020-02-15] MEDS: MORPHINE SULFATE (*CRX) 2 MG/ML INJ 1 MG IV PUSH ×5 (04:41→21:37)
[2020-02-15] MEDS: LORazepam INJ (*CRX) 2 MG/ML VIAL 0.5 MG IV PUSH ×3 (04:42→18:43)
[2020-02-15] MEDS: DEXTROSE 5%/0.9% SOD CHL 1,000 ML 100 ML IV CONT (04:44)
[2020-02-15 06:18] LABS: Alanine Aminotransferase 218 U/L (4-35); Albumin Level 4.1 g/dL (3.5-5.1); Alkaline Phosphatase 119 U/L (38-126); Anion Gap 7 mmol/L (8-16); Aspartate Amino Transferase 128 U/L (14-36); Bilirubin,Total 0.6 mg/dL (0.2-1.3); Blood Urea Nitrogen 14 mg/dL (7-17); Calcium 9.1 mg/dL (8.4-10.2); Carbon Dioxide 29 mmol/L (22-30); Chloride 105 mmol/L (98-107); Estimated CRCL calculation 60 ml/min; Estimated Glomerular Filt Rate > 60; Glucose 107 mg/dL (65-105); Potassium 3.8 mmol/L (3.4-5.0); Sodium 141 mmol/L (137-145)
[2020-02-15 06:29] LABS: Lipase 260 U/L (23-300)
[2020-02-15] MEDS: FAMOTIDINE 20 MG/2 ML VIAL IV PUSH ×2 (08:45→20:18)
[2020-02-15] MEDS: hydroCHLOROthiazide 25 MG TABLET PO (08:45)
[2020-02-15] MEDS: amLODIPine BESYLATE 5 MG TABLET PO (08:45)
[2020-02-15] MEDS: GABAPENTIN 300 MG CAPSULE PO ×3 (08:46→16:57)
[2020-02-15] MEDS: lisinopriL 20 MG TABLET PO (08:46)
[2020-02-15] MEDS: ENOXAPARIN 40 MG/0.4 ML SYRINGE SUB-Q (08:48)
--- NOTE | 2020-02-15 10:57 | PM.IMPN ---
Progress Note: A&P Assessment and Plan (1) Pancreatitis: Code(s): K85.90 - Acute pancreatitis without necrosis or infection, unspecified Status: Acute Assessment and Plan: Patient's lipase elevated to 4093. She has no hx of pancreatitis. She is s/p CCY. TG level normal. Denies alcohol use. AST 120 and ALT 51 on admission but climbed to 618 and 410 respectfully on 02/12. Hepatitis panel negative. RUQ showing biliary dilation. Obstructive CBD stone not excludable. MRCP showing moderate intrahepatic and extrahepatic biliary duct dilatation status post cholecystectomy. No choledocholithiasis. Pancreas appears normal. Consider viral etiology or possibly passed stone. Repeat Lipase today is normal. Toelrating diet now. GI recommending EGD in the morning. Continue Pepcid. Will hold IV fluids and resume when NPO. (2) Elevated liver enzymes: Code(s): R74.8 - Abnormal levels of other serum enzymes Status: Acute Assessment and Plan: Elevated LFTs as mentioned above. Levels trending down. Continue to follow. (3) Chest pain: Qualifiers: Chest pain type: chest pain due to myocardial ischemia Ischemic chest pain type: stable angina pectoris Qualified Code(s): I20.8 - Other forms of angina pectoris Code(s): R07.9 - Chest pain, unspecified Status: Acute Assessment and Plan: CP mostly left lower chest and upper abdominal region. Suspect related to pancreatitis and not cardiac. Troponin negative x3. EKG showing peaked T waves but with normal potassium. CXR clear. A stress echo was ordered but held due to the fact she more likely has pancreatitis. Discussed with cardiology and they are in agreement. Surface Echo showing EF 65-70%. Okay to stop tele (4) HTN (hypertension), malignant: Code(s): I10 - Essential (primary) hypertension Status: Chronic Assessment and Plan: Patient's BP reviewed on 02/14 BP mildly elevated at times but overall well controlled. Continue Norvasc, lisinopril and HCTZ. (5) Elevated WBC count: Code(s): D72.829 - Elevated white blood cell count, unspecified Status: Acute Assessment and Plan: WBC elevated to 13.7 on admission felt realted to above. Repeat value better. Monitor periodically (6) Anxiety: Code(s): F41.9 - Anxiety disorder, unspecified Status: Chronic Assessment and Plan: Anxiety worse and asking for Ativan regularly. Continue P.r.n. Ativan. Add lexapro. (7) Tobacco use: Code(s): Z72.0 - Tobacco use Status: Acute Assessment and Plan: Patient educated about the benefits of smoking cessation. (8) DVT prophylaxis: Code(s): Z29.9 - Encounter for prophylactic measures, unspecified Status: Acute Assessment and Plan: Lovenox Subjective Date/time seen: 02/15/20 10:57 Interval history: Date of service 02/14 54yo female with HTN here for chest pain and found to have pancreatitis. Still with abdominal pain even with the full liquids. She does state that she feels she could toelrate diet advance. Still with the nausea as well. She complains of lwer chest pain that she points to the left lower parasternal area and states that it hurts to touch. She also complains of epigastric pain that radiates to under her left breast. No overlying skin lesions. she has had shingles in the past and this does not feel that way. She feels very anxious. She has never been on medciations in the past for depression or anxiety but is willing to start. Exam Narrative: Exam Narrative: AF 97.1 114/49 58 20 100% ra Gen - NARD lying flat in bed Chest - CTA bilaterally, nml RR CV - RRR S1/S2: tele showing occas bradycardia o/w no significnat dysrhtyhmias. point tenderness left lower parasternal border but no overlying skin abnormalities Abd - soft, ND, +BS, mild epigastric pain but no overlying skin abnormali
--- NOTE | 2020-02-15 11:26 | WPDGIPROGNO ---
Progress Note: A&P Assessment and Plan (1) Pancreatitis: Code(s): K85.90 - Acute pancreatitis without necrosis or infection, unspecified Status: Acute Assessment and Plan: MRCP showed normal pancreas, also dilated BD without stones or filling defect (sometimes expected finding after cholecystectomy), no need to do ERCP. Denies alcohol use. probably she passed stone as her liver enzymes trending down and lipase normal today ok to advance diet. She is tearful and still c/o pain, she says that if going home without knowing etiology of pain may come back. Will do EGD tomorrow to make sure no ulcers, esophagitis, etc. She also uses marijuana at home. (2) Elevated liver enzymes: Code(s): R74.8 - Abnormal levels of other serum enzymes Status: Acute Assessment and Plan: hepatitis panel negative and trending down. Denies etoh (3) Chest pain: Qualifiers: Chest pain type: chest pain due to myocardial ischemia Ischemic chest pain type: stable angina pectoris Qualified Code(s): I20.8 - Other forms of angina pectoris Code(s): R07.9 - Chest pain, unspecified Status: Acute (4) Anxiety: Code(s): F41.9 - Anxiety disorder, unspecified Status: Chronic Assessment and Plan: tearful (5) Tobacco use: Code(s): Z72.0 - Tobacco use Status: Acute (6) Colon cancer screening: Code(s): Z12.11 - Encounter for screening for malignant neoplasm of colon Status: Acute Assessment and Plan: we can arrange a colonoscopy as outpatient since she never had one. Subjective Date/time seen: 02/15/20 11:26 Interval history: still with similar epigastric/chest pain, tolerated liquid diet and willing to advance. She is quite tearful and worried about pain. No report of diarrhea. Review of Systems Review of Systems: All systems reviewed & are unremarkable except as noted in HPI and below Exam Const: General: cooperative, comfortable, no acute distress, awake, anxious and other (cachectic); No acute distress Other: tearful, anxious HENMT: Head: normal to inspection and atraumatic Ears: hearing grossly normal bilaterally Face and sinus: normal facial exam Eyes: General: appearance normal, both eyes and all related structures Pupils: Equal, round and reactive pupils present EOM: EOMs intact bilaterally Neck: Neck: normal visual inspection and no JVD Chest: Chest palpation & inspection: normal inspection of the chest Resp: Effort & Inspection: normal respiratory effort and no respiratory distress Auscultation: clear to auscultation bilaterally Cardio: Jugular venous distension: no JVD Rate: regular rate Heart sounds: S1 normal heart sound present, S2 normal heart sound present and no murmurs GI: Inspection: normal to inspection GI Palp: Yes Soft to palpation, No Tenderness to palpation present (GI) and Yes No hepatosplenomegaly present Auscultation: normal bowel sounds Skin: General skin exam: normal color Neuro: Cranial nerves: Yes Equal, round and reactive pupils present Speech: normal speech Extrem: General: normal to inspection and no clubbing, cyanosis or edema Psych: Affect: Anxious affect present Other: tearful Objective Data Vital Signs Vital Signs: Vital Signs - 24 hr 02/14/20 12:00 02/14/20 14:00 02/14/20 16:00 Temperature 97.7 F Pulse Rate 103 H 55 L 58 L Respiratory Rate 16 Blood Pressure 125/58 L Pulse Oximetry 98 02/14/20 18:00 02/14/20 20:00 02/14/20 22:00 Temperature 97.9 F 98.0 F Pulse Rate 54 L 64 57 L Respiratory Rate 16 16 Blood Pressure 153/50 H 144/56 H Pulse Oximetry 100 99 02/15/20 00:00 02/15/20 02:00 02/15/20 04:00 Temperature 98.1 F Pulse Rate 64 52 L 48 L Respiratory Rate 16 Blood Pressure 125/50 L Pulse Oximetry 100 02/15/20 06:00 02/15/20 08:00 Temperature 97.1 F L Pulse Rate 47 L 58 L Respiratory Rate 20 Blood Pressure 114/49 L Pulse Oximetry 100
[2020-02-15] MEDS: ESCITALOPRAM OXALATE 10 MG TABLET PO (13:13)
[2020-02-15] MEDS: BACLOFEN 10 MG TABLET PO (16:57)
[2020-02-16] VITALS (11 sets, daily range): BP systolic 123–178; BP diastolic 33–72; PULSE 45–56; RESP 16–20; TEMP 36–36.7; O2SAT 98–100
[2020-02-16] MEDS: DEXTROSE 5%/0.9% SOD CHL 1,000 ML 70 ML IV CONT (00:51)
[2020-02-16] MEDS: LORazepam INJ (*CRX) 2 MG/ML VIAL 0.5 MG IV PUSH ×2 (00:56→08:37)
[2020-02-16 05:43] LABS: Alanine Aminotransferase 178 U/L (4-35); Albumin Level 4.2 g/dL (3.5-5.1); Alkaline Phosphatase 109 U/L (38-126); Anion Gap 8 mmol/L (8-16); Aspartate Amino Transferase 84 U/L (14-36); Bilirubin,Total 0.5 mg/dL (0.2-1.3); Blood Urea Nitrogen 11 mg/dL (7-17); Calcium 9.3 mg/dL (8.4-10.2); Carbon Dioxide 29 mmol/L (22-30); Chloride 104 mmol/L (98-107); Estimated CRCL calculation 60 ml/min; Estimated Glomerular Filt Rate > 60; Glucose 104 mg/dL (65-105); Potassium 3.8 mmol/L (3.4-5.0); Sodium 141 mmol/L (137-145)
[2020-02-16] MEDS: MORPHINE SULFATE (*CRX) 2 MG/ML INJ 1 MG IV PUSH ×2 (06:39→10:57)
[2020-02-16] MEDS: lisinopriL 20 MG TABLET PO (08:19)
[2020-02-16] MEDS: GABAPENTIN 300 MG CAPSULE PO ×2 (08:19→14:05)
[2020-02-16] MEDS: hydroCHLOROthiazide 25 MG TABLET PO (08:19)
[2020-02-16] MEDS: ESCITALOPRAM OXALATE 10 MG TABLET PO (08:19)
[2020-02-16] MEDS: amLODIPine BESYLATE 5 MG TABLET PO (08:19)
[2020-02-16] MEDS: FAMOTIDINE 20 MG/2 ML VIAL IV PUSH (08:19)
[2020-02-16] MEDS: ENOXAPARIN 40 MG/0.4 ML SYRINGE SUB-Q (08:20)
--- NOTE | 2020-02-16 08:22 | PM.IMPN ---
Progress Note: A&P Assessment and Plan (1) Pancreatitis: Code(s): K85.90 - Acute pancreatitis without necrosis or infection, unspecified Status: Acute (2) Elevated liver enzymes: Code(s): R74.8 - Abnormal levels of other serum enzymes Status: Acute Assessment and Plan: Elevated LFTs as mentioned above. Continue to follow. (3) Chest pain: Qualifiers: Chest pain type: chest pain due to myocardial ischemia Ischemic chest pain type: stable angina pectoris Qualified Code(s): I20.8 - Other forms of angina pectoris Code(s): R07.9 - Chest pain, unspecified Status: Acute Assessment and Plan: CP mostly lower chest and upper abdominal region. Suspect related to pancreatitis and not cardiac. Troponin negative x3. EKG showing peaked T waves but with normal potassium. CXR clear. A stress echo was ordered but held due to the fact she more likely has pancreatitis. Discussed with cardiology and they are in agreement. Surface Echo showing EF 65-70%. Okay to stop tele if okay with cardiology. (4) HTN (hypertension), malignant: Code(s): I10 - Essential (primary) hypertension Status: Chronic Assessment and Plan: Patient's BP reviewed on 02/13 BP well controlled. Continue Norvasc, lisinopril and HCTZ. (5) Aortic stenosis: Code(s): I35.0 - Nonrheumatic aortic (valve) stenosis Status: Acute (6) Elevated WBC count: Code(s): D72.829 - Elevated white blood cell count, unspecified Status: Acute Assessment and Plan: WBC elevated to 13.7 on admission felt realted to above. Repeat value slightly low today as 4.2. Continue to monitor. (7) Anxiety: Code(s): F41.9 - Anxiety disorder, unspecified Status: Chronic Assessment and Plan: Mood stable. Continue P.r.n. Ativan. (8) Tobacco use: Code(s): Z72.0 - Tobacco use Status: Acute Assessment and Plan: Patient educated about the benefits of smoking cessation. (9) DVT prophylaxis: Code(s): Z29.9 - Encounter for prophylactic measures, unspecified Status: Acute Assessment and Plan: Lovenox Subjective Date/time seen: 02/16/20 08:22 Interval history: Date of service 02/15 54yo female with HTN here for chest pain and found to have pancreatitis. Patient complains o abd pain in the epigastric but no longer radiates to the left flank (under the left breast). She states that on further reflection that she believes she has had this epigastric pain over year. She still has nausea. She is asking for discharge after the EGD. Exam Narrative: Exam Narrative: AF 96.8 123/66 51 8 98% ra Gen - NARD Chest - CTA bilaterally, nml RR CV - RRR S1/S2 with a 2/6 systolic murmur USB Abd - soft, ND, +BS, mild epigastric pain Ext - No pedal edema, 2+ DP bilaterally Psych - less anxious this morning Skin - Warm and dry Objective Data Vital Signs Vital Signs: Vital Signs - 24 hr 02/15/20 10:00 02/15/20 12:00 02/15/20 14:00 Temperature 97.4 F L 97.1 F L Pulse Rate 64 61 70 Respiratory Rate 16 20 Blood Pressure 150/47 H 128/48 L Pulse Oximetry 99 100 02/15/20 16:00 02/15/20 18:00 02/15/20 20:00 Temperature 98.5 F Pulse Rate 53 L 69 51 L Respiratory Rate 16 Blood Pressure 143/64 H Pulse Oximetry 100 02/15/20 21:32 02/16/20 00:00 02/16/20 03:11 Temperature 97.8 F 97.6 F Pulse Rate 56 L 49 L 52 L Respiratory Rate 16 16 Blood Pressure 140/68 132/71 Pulse Oximetry 97 98 02/16/20 04:00 02/16/20 06:00 Temperature 96.8 F L Pulse Rate 45 L 51 L Respiratory Rate 18 Blood Pressure 123/66 Pulse Oximetry 98 Intake/Output Intake/Output: Intake & Output 02/13/20 02/14/20 02/15/20 02/16/20 23:59 23:59 23:59 23:59 Intake Total 222 2950 3460 649 Output Total 2650 1300 850 Balance 370 615 9598 -201 Meds/Results Medications: Active Medications Generic
[2020-02-16] MEDS: LACTATED RINGERS 1,000 ML 150 ML IV CONT (12:46)
--- NOTE | 2020-02-16 12:51 | WPDANESEPPF ---
Anes - Initial Pre Proc Eval Procedure: Operation Date: 02/16/20 13:45 Proposed Procedures p Esophagogastroduodenoscopy - Marciano Lozada MD Date/Time: 02/16/20 12:51 Surgeon: Adi Tian MD Pre Op Diagnosis: Chest Pain Patient Data Age: 54 Gender: F Height: 5 ft 7 in Weight: 63.2 kg Last Vital Signs Temp 97.5 F L 02/16/20 12:48 Pulse 56 L 02/16/20 12:48 Resp 16 02/16/20 12:48 BP 158/33 H 02/16/20 12:48 Pulse Ox 98 02/16/20 12:48 Allergies Allergy/AdvReac Type Severity Reaction Status Date / Time butalbital Allergy Unknown hives Verified 02/16/20 12:47 ibuprofen Allergy Unknown Hives Verified 02/16/20 12:47 ketorolac Allergy Unknown Hives Verified 02/16/20 12:47 naproxen Allergy Unknown Hives Verified 02/16/20 12:47 sumatriptan Allergy Unknown Hives Verified 02/16/20 12:47 Home Medications Medication Instructions Recorded Confirmed Type amlodipine 5 mg PO DAILY 02/12/20 02/12/20 History baclofen 10 mg PO QPM 02/12/20 02/12/20 History gabapentin 300 mg PO TID 02/12/20 02/12/20 History lisinopril-hydrochlorothiazide 1 tablet PO DAILY 02/12/20 02/12/20 History Laboratory Tests 02/16/20 04:56 Sodium 141 mmol/L mmol/L (137-145) Potassium 3.8 mmol/L mmol/L (3.4-5.0) Chloride 104 mmol/L mmol/L (98-107) Carbon Dioxide 29 mmol/L mmol/L (22-30) Anion Gap 8 mmol/L mmol/L (8-16) BUN 11 mg/dL mg/dL (7-17) Creatinine 0.90 mg/dL mg/dL (0.7-1.0) Estim Creat Clear Calc 60 ml/min ml/min Estimated GFR > 60 (59 - ) Glucose 104 mg/dL mg/dL (65-105) Calcium 9.3 mg/dL mg/dL (8.4-10.2) Total Bilirubin 0.5 mg/dL mg/dL (0.2-1.3) AST 84 U/L H U/L (14-36) ALT 178 U/L H U/L (4-35) Alkaline Phosphatase 109 U/L U/L (38-126) Total Protein 7.0 g/dL g/dL (6.3-8.2) Albumin 4.2 g/dL g/dL (3.5-5.1) Patient hx anesthesia problems: none Family hx anesthesia problems: none [facility] Past Medical History Medical History Anxiety Colon cancer screening Elevated liver enzymes HTN (hypertension), malignant Migraines Tobacco use Surgical History Surgical History (Updated 02/12/20 @ 21:01 by Bhumi Akins NP) H/O elbow surgery H/O: hysterectomy History of ankle surgery x2 she stated Hx of cholecystectomy Family History Family History Mother Hypertension Hyperlipidemia Rheumatic fever Kidney disease Heart murmur Sibling Kidney disease Alcoholism Social History Social History (Updated 02/12/20 @ 21:04 by Bhumi Akins NP) Social History: the patient stated that her is the same age and is in the custodial. She has 4 sons. She has use marijuana to help with her pain to her knees and her ankles. 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 She is a full code but does not have a durable power of environmental attorney for healthcare. She is on disability. She denies alcohol. Years smoked: 30 Smoking status: Current every day smoker Tobacco type: cigarettes Alcohol intake: never Substance use: former Substance use type: marijuana Living arrangements: with family Gender identity (if verbalized by the patient): Female Spiritual care concerns: No Anes - Eval Final PreProcedure Day of Procedure 02/16/20 12:51 Patient weight: normal Heart: regular rate and rhythm Lungs: clear to auscultation Airway: Mallampati scale class II Neurological: alert and oriented Last oral intake: >/= 8 hours ASA classification: III Emergent: no Anesthetic plan: proceed Anesthesia type and monitoring: general GIVS and standard monitoring Informed Consent: The patient's anesthetic plan and its attendant risks and benefits were discussed with the patient/family/POA. Questions were solicited and answers provided to the satisfaction of the p
--- NOTE | 2020-02-16 14:42 | PM.DS ---
DS: Admitting Diagnosis Admitting Diagnosis Admitting Diagnosis: Chest Pain DS: Discharge Diagnosis Discharge Diagnosis (1) Pancreatitis: Code(s): K85.90 - Acute pancreatitis without necrosis or infection, unspecified Status: Acute Assessment and Plan: Patient's lipase elevated [place] 4093 on admission. She has no hx of pancreatitis. She is s/p CCY. TG level normal. Denies alcohol use. AST 120 and ALT 51 on admission but climbed to 618 and 410 respectfully on 02/12. Hepatitis panel negative. RUQ showing biliary dilation. Obstructing CBD stone not excludable. MRCP showing moderate intrahepatic and extrahepatic biliary duct dilatation status post cholecystectomy. No choledocholithiasis. Pancreas appears normal. Consider viral etiology or possibly passed stone. She was made NPO and Lipase trended. Her Lipase normalized. Her diet was advanced but she contiued to have abdominal pain. She had EGD showing esophagitis and gastritis. She feels much better overall and is requesting discharge. (2) Elevated liver enzymes: Code(s): R74.8 - Abnormal levels of other serum enzymes Status: Acute Assessment and Plan: Elevated LFTs as mentioned above. Levels continue to trend down. (3) Chest pain: Qualifiers: Chest pain type: chest pain due to myocardial ischemia Ischemic chest pain type: stable angina pectoris Qualified Code(s): I20.8 - Other forms of angina pectoris Code(s): R07.9 - Chest pain, unspecified Status: Acute Assessment and Plan: CP mostly left lower chest and upper abdominal region. Troponin negative x3. EKG showing peaked T waves but with normal potassium. CXR clear. A stress echo was ordered but held due to the fact she more likely has pancreatitis. Suspect related to pancreatitis and not cardiac. Discussed with cardiology and they are in agreement. Surface Echo showing EF 65-70% and mild with valve area 1.4. (4) HTN (hypertension), malignant: Code(s): I10 - Essential (primary) hypertension Status: Chronic Assessment and Plan: Patient's BP was monitored closely BP mildly elevated at times but overall well controlled. We continued Norvasc, lisinopril and HCTZ. (5) Aortic stenosis: Code(s): I35.0 - Nonrheumatic aortic (valve) stenosis Status: Acute Assessment and Plan: Patient with mild with valve area 1.4cm2. Will need to be followed by her PCP. (6) Elevated WBC count: Code(s): D72.829 - Elevated white blood cell count, unspecified Status: Acute Assessment and Plan: WBC elevated to 13.7 on admission felt realted to above. Repeat value better. (7) Anxiety: Code(s): F41.9 - Anxiety disorder, unspecified Status: Chronic Assessment and Plan: Anxiety worse and asking for Ativan regularly. After long discussion about risks/benefits, we added Lexapro. (8) Tobacco use: Code(s): Z72.0 - Tobacco use Status: Acute Assessment and Plan: Patient educated about the benefits of smoking cessation. DS: Summary Hospital Course Reason for hospitalization: 54yo female here for upper abdominal and lower chest pain and found to have pancreatitis. please see H&P for details Hospital Course: As detailed above. Status at Discharge Cognitive/behavioral status at discharge: PATIENT IS STABLE FOR DISCHARGE Time Spent with Patient Time attestation: Total time spent providing and/or coordinating discharge services: 35 minutes Time spent: Greater than 30 minutes Exam Narrative: Exam Narrative: AF 96.8 123/66 51 8 98% ra Gen - NARD Chest - CTA bilaterally, nml RR CV - RRR S1/S2 with a 2/6 systolic murmur USB Abd - soft, ND, +BS, mild epigastric pain Ext - No pedal edema, 2+ DP bilaterally Psych - less anxious this morning Skin - Warm and dry DS: Data Data Completed and Pending Pending studies at discharge: Pending
== END 2020-02-16 16:28 | disposition home or self-care (01) | DRG 282 ==
LOC: ANHED 18:27 → ANHIMU 21:37 → ANH2MED 02-13 14:35
PROVIDERS: Internal Medicine Cardiovascular Disease; Internal Medicine Gastroenterology; Nurse Practitioner; Admitting Provider Internal Medicine; Emergency Provider Emergency Medicine; Visit Provider Internal Medicine
PROC: 0DJ08ZZ Inspection of Upper Intestinal Tract, Via Natural or Artificial Opening Endoscopic (ICD-10-PCS; CPT 43235; principal; 2020-02-16 13:45)
DX: K85.90 Acute pancreatitis without necrosis or infection, unspecified (principal); R07.89 Other chest pain; K20.90 Esophagitis, unspecified without bleeding; K29.70 Gastritis, unspecified, without bleeding; I35.0 Nonrheumatic aortic (valve) stenosis; I25.10 Atherosclerotic heart disease of native coronary artery without angina pectoris; R74.8 Abnormal levels of other serum enzymes; F41.9 Anxiety disorder, unspecified; I10 Essential (primary) hypertension; F17.210 Nicotine dependence, cigarettes, uncomplicated; D72.829 Elevated white blood cell count, unspecified; Z79.899 Other long term (current) drug therapy; Z95.5 Presence of coronary angioplasty implant and graft; Z90.49 Acquired absence of other specified parts of digestive tract
CPT/HCPCS: 36415; 71046; 74183; 76376; 76705; 80053; 80061; 80074; 83615; 83690; 83735; 83880; 84443; 84484; 85025; 85610; 85730; 88305; 93005; 93306; 96361; 96372; 96374; 96375; 96376; 99285; A9270; A9577; G0378; G0379; J1650; J2060; J2270; J2405; J2704; J7042; J7120

== ENCOUNTER 2021-02-10 12:48 | Observation (INO) | payer OTHER, SELFPAY ==
[2021-02-10] VITALS (17 sets, daily range): BP systolic 139–189; BP diastolic 73–121; PULSE 41–70; RESP 15–28; TEMP 36.6–36.8; O2SAT 98–100; BMI 20.7
--- NOTE | ~2021-02-10 | XR_ITS ---
EXAMINATION: XR chest 2V 02/10/2021 13:22 INDICATION: Chest pain PROCEDURE: 2 view chest COMPARISON: Comparison to multiple prior studies sequentially, with oldest reviewed study dated 12/19. FINDINGS: The lungs are clear. The cardiomediastinal silhouette is within normal limits. There are no pleural effusions. There is no pneumothorax suspected. IMPRESSION: 1: NO ACUTE CARDIOPULMONARY DISEASE. Reviewed, dictated and finalized at location A. HOUSE SHIPPING RECEIVING CLERK
--- NOTE | ~2021-02-10 | XR_ITS ---
EXAMINATION: XR humerus LT EXAM DATE: 02/10/2021 16:57 INDICATION: Pain Prox Humerus, Bump Proximal Humeral Shaft, No Injury. TECHNIQUE: 2 orthogonal projections left humerus. There is no prior study for comparison. FINDINGS: There are no acute left humerus fractures or dislocations identified. No humeral exostosis. There is no subcutaneous gas. The soft tissue is unremarkable. There are no radiopaque foreign quang dies. IMPRESSION: Unremarkable left humerus. Reviewed, dictated and finalized at location A. AL ASSAULT COUNSELOR IMPRESSION: Unremarkable left humerus.
--- NOTE | ~2021-02-10 | US_ITS ---
EXAMINATION: US soft tissue UE LT EXAM DATE: 02/11/2021 16:35 INDICATION: Pain and nodularity left arm. TECHNIQUE: Multiple grayscale and Doppler images of the left upper extremity symptomatic region were obtained (by a technologist who performed the scan) and subsequently reviewed. There is no prior jeanie dy for comparison. FINDINGS: Scanning in the area of concern left upper arm proximally demonstrated normal-appearing skin, subcuta neous fat, and musculature. Artifact from humerus demonstrated. No mass or abscess. IMPRESSION: No sonographic abnormality. Reviewed, dictated and finalized at location A. ROOM SPAWN MAKER IMPRESSION: No sonographic abnormality.
--- NOTE | ~2021-02-10 | NM_ITS ---
EXAMINATION: NM brandi stress w perfusion DATE: 02/11/2021 13:28 INDICATION: Chest pain. TECHNIQUE: Rest images were obtained following intravenous administration of 10.2 mCi Tc99m tetrofosm in (Myoview). The patient was infused intravenously with Lexiscan (regadenoson). Then, 33.3 mCi Tc99m tetrofosmin (Myoview) was administered intravenously, and stress images were obtained. Data was dior nstructed into short axis and horizontal and vertical long axis SPECT images. Gated SPECT images were also obtained. COMPARISON: None. FINDINGS: There is no definite reversible or fixed perfusion abnormality to suggest ischemia or infar ction. There is no segmental wall motion abnormality. Left ventricular ejection fraction measures > 70%. IMPRESSION: 1. No definite ischemia or infarct. 2. Normal left ventricular ejection fraction measuring >70%. Reviewed, dictated and finalized at location A. MOBILE DEVELOPER
--- NOTE | 2021-02-10 12:53 | ECG_ITS ---
Measurements Intervals [place] Rate: 63 P: 44 WV: 146 QRS: -13 QRSD: 112 T: 67 QT: 421 QTc: 432 Interpretive Statements SINUS RHYTHM INCOMPLETE RIGHT BUNDLE BRANCH BLOCK DELAYED PRECORDIAL R/S TRANSITION BORDERLINE ST-T WAVE ABNORMALITY- HIGH LATERAL LEADS BORDERLINE ECG Electronically Signed On 02-10-2021 20:09:00 CORRESPONDENCE TRANSCRIBER by Jose Osei D.O.
[2021-02-10 16:27] LABS: Basophils Percent Auto 0.5 % (0.2-1.2); Eosinophils Absolute Auto 0.1 K/mm3 (0-0.3); Eosinophils Percent Auto 0.8 % (0-4.4); Hematocrit 34.7 % (37.0-47.0); Hemoglobin 12.1 g/dL (12.0-15.0); Immature Granulocyte Absolute 0.02 K/mm3 (0.00-0.031); Immature Granulocyte Percent A 0.2 % (0-0.5); Lymphocytes Absolute Auto 2.62 K/mm3 (0.9-3.2); Lymphocytes Percent Auto 31.6 % (18.3-44.2); Mean Corpuscular HGB Conc 34.9 g/dl (32-36); Mean Corpuscular Hemoglobin 34.9 pg (26-34); Mean Platelet Volume 9.3 fl (7.4-10.4); Monocytes Absolute Auto 0.6 K/mm3 (0.1-0.6); Monocytes Percent Auto 7.3 % (2.6-8.5); Neutrophils Absolute Auto 4.9 K/mm3 (1.3-6.7); Neutrophils Percent Auto 59.6 % (45.5-73.1); Platelet Count Result 352 k/mm3 (150-375); Red Blood Count 3.47 M/mm3 (4.2-5.4); Red Cell Distribution Width 15.1 % (11.5-14.5); White Blood Count 8.3 K/mm3 (4.5-10.0)
[2021-02-10 16:39] LABS: Anion Gap 8 mmol/L (8-16); Blood Urea Nitrogen 14 mg/dL (7-17); Calcium 9.6 mg/dL (8.4-10.2); Carbon Dioxide 22 mmol/L (22-30); Chloride 112 mmol/L (98-107); Estimated CRCL calculation 57 ml/min; Estimated Glomerular Filt Rate > 60; Glucose 93 mg/dL (65-110); Potassium 3.8 mmol/L (3.4-5.0); Sodium 142 mmol/L (137-145)
[2021-02-10 16:43] LABS: INR 0.9; Prothrombin Time 12.3 Seconds (11.1-14.7)
[2021-02-10 16:44] LABS: Partial Thromboplastin Time 26.7 SECONDS (22.3-36.8)
[2021-02-10 16:52] LABS: Troponin I < 0.012 ng/mL (0.000-0.034)
--- NOTE | 2021-02-10 18:47 | ED.CHESTPAIN ---
HPI - Chest Pain General Chief Complaint: Chest Pain Stated Complaint: chest pain x couple days Time Seen by Provider: 02/10/21 16:17 Source: patient Mode of arrival: ambulatory Limitations: no limitations History of Present Illness HPI narrative: 55-year-old female Here for evaluation of chest pain Patient states a previous history of a STEMI that was treated with 2 stents at [facility] 3 or 4 years ago Also had a history of pancreatitis and of anxiety She notes a 3-day history of episodes of moderate exertional chest pain which radiates to her left arm No accompanying diaphoresis shortness of breath or nausea Additionally she complains of just pain in her left arm which is just distal to the deltoid insertion, no history of injury Related Data Home Medications Medication Instructions Recorded Confirmed amlodipine 5 mg PO DAILY 02/12/20 02/12/20 baclofen 10 mg PO QPM 02/12/20 02/12/20 gabapentin 300 mg PO TID 02/12/20 02/12/20 lisinopril-hydrochlorothiazide 1 tablet PO DAILY 02/12/20 02/12/20 Allergies Allergy/AdvReac Type Severity Reaction Status Date / Time butalbital Allergy Unknown hives Verified 03/18/20 08:24 ibuprofen Allergy Unknown Hives Verified 03/18/20 08:24 ketorolac Allergy Unknown Hives Verified 03/18/20 08:24 naproxen Allergy Unknown Hives Verified 03/18/20 08:24 sumatriptan Allergy Unknown Hives Verified 03/18/20 08:24 Review of Systems Review of Systems: All systems reviewed & are unremarkable except as noted in HPI and below Constitutional: Constitutional: Reports no additional constitutional complaints, Denies chills, Denies fever(s) and Denies headache(s) Eyes: Eyes: Reports no additional eye complaints and Denies change in vision ENT: Denies headache(s) and Denies sore throat Cardiovascular: Cardiovascular: Reports chest pain, Reports radiating jaw, neck or arm pain and Denies dyspnea Respiratory: Respiratory: Denies cough and Denies dyspnea Gastrointestinal: Gastrointestinal: Denies abdominal pain, Denies diarrhea, Denies nausea and Denies vomiting Genitourinary: Genitourinary: Denies urinary frequency and Denies dysuria Musculoskeletal: Musculoskeletal: Reports myalgias, Denies deformity, Reports arthralgias, Reports joint swelling and Denies numbness Integumentary/Breasts: Skin/Breast: Denies rash and Denies wounds Neurologic: Denies headache(s), Denies focal weakness and Denies numbness Psychiatric: Psychiatric: Reports no additional psychiatric complaints Endocrine: Endocrine: Reports no additional endocrine complaints Hematologic/Lymphatic: Hematologic/Lymphatic: Reports no additional hematologic/lymphatic complaints Allergic/Immunologic: Allergic/Immunologic: Reports no additional allergic/immunologic complaints PMFSH Past Medical History Medical History Anxiety Colon cancer screening Elevated liver enzymes HTN (hypertension), malignant Migraines Tobacco use Surgical History Surgical History H/O elbow surgery H/O: hysterectomy History of ankle surgery x2 she stated Hx of cholecystectomy Family History Family History Mother Hypertension Hyperlipidemia Rheumatic fever Kidney disease Heart murmur Sibling Kidney disease Alcoholism Social History Social History Social History: the patient stated that her is the same age and is in the alf. She has 4 sons. She has use marijuana to help with her pain to her knees and her ankles. 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 She is a full code but does not have a durable power of commercial real estate attorney for healthcare. She is on disability. She denies alcohol. Years smoked: 30 Smoking status: Current every day smoker Tobacco type: cigarettes Alcoho
[2021-02-10] MEDS: NITROGLYCERIN SL 0.4 MG TABLET SUBLINGUAL (18:58)
[2021-02-10] MEDS: ACETAMINOPHEN 500 MG TABLET 1000 MG PO (18:58)
[2021-02-10 19:06] LABS: Alanine Aminotransferase 13 U/L (4-35); Albumin Level 4.4 g/dL (3.5-5.1); Alkaline Phosphatase 61 U/L (38-126); Aspartate Amino Transferase 23 U/L (14-36); Bilirubin,Total 0.4 mg/dL (0.2-1.3); Lipase 66 U/L (23-300)
--- NOTE | 2021-02-10 19:39 | PC.NURSE ---
patient continues to c/o pain. erp made aware. no new orders
[2021-02-10] MEDS: ONDANSETRON INJ 4 MG/2 ML VIAL IV PUSH (19:56)
--- NOTE | 2021-02-10 20:00 | PM.IMHP ---
H&P: HPI History of Present Illness Date/Time: 02/10/21 20:00 Chief Complaint: Left chest and arm pain. Narrative: This is a 55-year-old female smoker with history of coronary artery disease, hypertension, GERD, pancreatitis, and anxiety who presented to the emergency department earlier today via private vehicle from home for evaluation of left chest and arm pain. At the time my evaluation the patient is in tears due to pain and is somewhat difficult to get a good history from her. From what I can gather, she has pain in the left mid upper arm where she has ?a knot? that is causing severe, sharp and stabbing pain radiating to the shoulder and down the left anterior chest. When the pain is especially bad she feels her heart racing and pounding and will feel short of breath. She has also experienced some nausea. On exam she is exquisitely tender to even mild palpation in the same regions that she describes the pain though she denies injury and fall. She gives no other aggravating factors. Nitroglycerin and acetaminophen given in the emergency department provided her with no relief and she currently rates her pain 10/10. No syncope or near-syncope. She denies sweats and vomiting. No lower extremity or pain. No history of DVT or PE. Patient states compliance with her home medication although her blood pressure is 210/110 at the time my evaluation. Review of Systems Review of Systems: Twelve systems were reviewed. No fever, chills, or sweats. No cold or flu symptoms. She denies sick contacts. No headache. She denies vertigo, paresthesias, focal weakness, auditory and visual changes. Except as documented, all other systems were reviewed and are negative. [facility] Past Medical History Medical History Anxiety Arthritis Coronary artery disease History of stent x2. Gastroesophageal reflux disease Hypertension Migraines Mild aortic valve stenosis Aortic valve area of 1.4 cm2 on echocardiogram in February 2020. Pancreatitis Tobacco use Surgical History Surgical History (Updated 02/10/21 @ 22:05 by Leta Cai PA-C) History of cardiac catheterization History of cholecystectomy History of esophagogastroduodenoscopy (02/16/20) Unspecified esophagitis and gastritis. History of heart artery stent (2016) Performed at [facility] in [place]. History of hysterectomy History of open reduction and internal fixation (ORIF) procedure Right ankle fracture. Left elbow fracture. Family History Family History Mother Hypertension Hyperlipidemia Rheumatic fever Kidney disease Heart murmur Sibling Kidney disease Alcoholism Social History Social History (Updated 02/10/21 @ 22:07 by Leta Cai PA-C) Social History: Surrogate decision maker: Code status: Full code. Smoking packs per day: 1 Smoking cigarettes per day: 20.0 Years smoked: 30 Smoking pack-years: 30.00 Smoking status: Current every day smoker Tobacco type: cigarettes Additional smoking assessment comments: Patient reports smoking about 2 cigarettes a day. She also vapes. Alcohol intake: never Substance use: current Substance use type: marijuana Other substance usage details: Medical marijuana for chronic pain. Additional living arrangements comments: The patient lives in [place] with her significant other. She has 4 sons. Additional occupation/education comments: Disabled. Meds Home Medications and Allergies Home Medications Medication Instructions Recorded Confirmed Type baclofen 10 mg PO QPM 02/12/20 02/12/20 History gabapentin 300 mg PO TID 02/12/20 02/12/20 History lisinopril-hydrochlorothiazide 1 tablet PO DAILY 02/12/20 02/12/20 History pantoprazole 40 mg PO QAM #30 tablet 02/16/20 Rx acyclovir 800 mg PO DAILY 02/10/21 02/10/21 History ropinirole 0.5 mg PO HS 02/10/21 02/10/21 History Allergies Allergy/AdvReac Type Severity Reacti
[2021-02-10 20:14] LABS: Troponin I < 0.012 ng/mL (0.000-0.034)
[2021-02-10] MEDS: MORPHINE SULFATE (*CRX) 4 MG/ML INJ IV PUSH (22:37)
[2021-02-10] MEDS: BACLOFEN 10 MG TABLET PO (22:38)
[2021-02-10 23:05] LABS: Lipase 65 U/L (23-300)
[2021-02-10 23:18] LABS: Troponin I < 0.012 ng/mL (0.000-0.034)
[2021-02-11] VITALS (14 sets, daily range): BP systolic 137–174; BP diastolic 59–90; PULSE 46–55; RESP 16–20; TEMP 36.3–37.1; O2SAT 97–100; BMI 20.7
[2021-02-11] MEDS: rOPINIRole HCL 0.5 MG TABLET PO (00:08)
[2021-02-11] MEDS: NITROGLYCERIN OINTMENT 1 INCH DOSE TRANSDERM ×2 (00:08→05:31)
[2021-02-11] MEDS: GABAPENTIN 300 MG CAPSULE PO ×3 (00:08→14:01)
[2021-02-11] MEDS: LORazepam INJ (*CRX) 2 MG/ML VIAL 1 MG IV PUSH (01:05)
[2021-02-11 05:29] LABS: Hematocrit 32.8 % (37.0-47.0); Hemoglobin 11.3 g/dL (12.0-15.0); Mean Corpuscular HGB Conc 34.5 g/dl (32-36); Mean Corpuscular Hemoglobin 34.1 pg (26-34); Mean Corpuscular Volume 99.1 fl (80-100); Mean Platelet Volume 9.5 fl (7.4-10.4); Platelet Count Result 366 k/mm3 (150-375); Red Blood Count 3.31 M/mm3 (4.2-5.4); Red Cell Distribution Width 14.8 % (11.5-14.5); White Blood Count 8.2 K/mm3 (4.5-10.0)
[2021-02-11 05:46] LABS: Anion Gap 6 mmol/L (8-16); Blood Urea Nitrogen 17 mg/dL (7-17); Calcium 9.1 mg/dL (8.4-10.2); Carbon Dioxide 25 mmol/L (22-30); Chloride 110 mmol/L (98-107); Cholesterol 176 mg/dL (0-200); Estimated CRCL calculation 58 ml/min; Estimated Glomerular Filt Rate > 60; Glucose 97 mg/dL (65-110); HDL Direct 59 mg/dL; Magnesium 2.1 mg/dL (1.6-2.3); Sodium 141 mmol/L (137-145); Triglycerides 68 mg/dL (<150)
[2021-02-11 05:57] LABS: LDL Cholesterol Direct 84 mg/dL
--- NOTE | 2021-02-11 06:11 | PC.NURSE ---
This patient, Anny Palmer, was admitted to IMU Room 206-01. Patient/family oriented to hospital policies and general routines including ID bracelet, bed and alarms, visiting hours, pain management, procedures, bathroom and other care routines, personal items, smoking policy, room service/diet, and visiting hours. Information on how to activate the Rapid Response Team has been discussed. Patient/Family are encouraged to report perceived risks to care and to ask questions if they do not understand what they are told or what they should do.
[2021-02-11] MEDS: MORPHINE SULFATE (*CRX) 4 MG/ML INJ IV PUSH ×3 (06:30→15:41)
--- NOTE | 2021-02-11 07:36 | PM.IMPN ---
Progress Note: A&P Assessment and Plan (1) Chest pain: Code(s): R07.9 - Chest pain, unspecified Status: Acute Assessment and Plan: The patient presented to the emergency department today for evaluation of pain in her left anterior chest radiating to an area in the left mid biceps muscle where she feels a ?knot? however I was unable to palpate such. Her initial troponin was within normal limits. EKG showed borderline ST T-wave abnormalities in the high lateral leads. On lexiscan there is no evidence of ischemia. Discharge on ASA, and ACEI. (2) Coronary artery disease: Code(s): I25.10 - Atherosclerotic heart disease of [place] coronary artery without angina pectoris Status: Acute Assessment and Plan: Patient reports history of stent x2 done at [facility] proximally 3 to 4 years ago. She does not take a beta-meenu, statin, or aspirin at home for unclear reasons, though she does report having an ibuprofen allergy. Records requested from her pit hand for review. Check lipid levels in a.m. Consider beta-meenu as well depending on her blood pressure trends. (3) Hypertension: Code(s): I10 - Essential (primary) hypertension Status: Acute Assessment and Plan: Her blood pressures were reviewed and they have been running quite high ; they have improved tp the 146/90-174/69 range. Discharge on lisinopril. (4) Anxiety: Code(s): F41.9 - Anxiety disorder, unspecified Status: Chronic Assessment and Plan: Continue escitalopram. (5) Gastroesophageal reflux disease: Code(s): K21.9 - Gastro-esophageal reflux disease without esophagitis Status: Acute Assessment and Plan: No acute issues. Continue pantoprazole. (6) Tobacco use: Code(s): Z72.0 - Tobacco use Status: Acute Assessment and Plan: Smoking cessation is encouraged and was discussed. She declines the need for a nicotine patch. (7) Arm pain, left: Code(s): M79.602 - Pain in left arm Status: Acute Assessment and Plan: Xray unrevealing. Obtain US. Continue pain management. Plan for discharge. Subjective Date/time seen: 02/11/21 07:36 S: Patient is examined at the bedside. She reports LUE pain and swelling. Review of Systems Review of Systems: All systems reviewed & are unremarkable except as noted in HPI and below Constitutional: Constitutional: Reports as per HPI and Reports no additional constitutional complaints Eyes: Eyes: Reports as per HPI and Reports no additional eye complaints ENT: Reports system reviewed and no additional complaints, except as documented and Reports as per HPI Cardiovascular: Cardiovascular: Reports as per HPI and Reports no additional cardiovascular complaints Respiratory: Respiratory: Reports as per HPI and Reports no additional respiratory complaints Gastrointestinal: Gastrointestinal: Reports as per HPI and Reports no additional gastrointestinal complaints Musculoskeletal: Musculoskeletal: Reports no additional musculoskeletal complaints and Reports as per HPI Integumentary/Breasts: Skin/Breast: Reports system reviewed and no additional complaints, except as docu and Reports as per HPI Neurologic: Reports system reviewed and no additional complaints, except as documented and Reports as per HPI Psychiatric: Psychiatric: Reports no additional psychiatric complaints and Reports as per HPI Endocrine: Endocrine: Reports no additional endocrine complaints and Reports as per HPI Hematologic/Lymphatic: Hematologic/Lymphatic: Reports no additional hematologic/lymphatic complaints and Reports as per HPI Allergic/Immunologic: Allergic/Immunologic: Reports no additional allergic/immunologic complaints and Reports as per HPI Exam Narrative: General: Well-developed female sitting up in bed in moderate pain. She is tearful. Appears a bit older than her stated age. Weight: 60 kg. BMI: 20.7. HEENT
[2021-02-11] MEDS: ACYCLOVIR 400 MG TABLET 800 MG PO (08:37)
--- NOTE | 2021-02-11 08:37 | EST_ITS ---
Patient Info Name: Anny Palmer Age: 55 years : 1965 Gender: Female Ht: 67 in Wt: 132 lbs BSA: 1.68 m2 HR: 47 bpm BP: 126 / 76 mmHg Heart Rhythm: Sinus Rhythm Exam Date: 02/11/2021 12:11 PM Exam Location: [facility] Stress Patient Status: Inpatient Admit Date: 02/10/2021 Staff Ordering Physician: Sarah Haas MD Attending Provider: Cathy Aggarwal MD Exercise Technologist: Heather Tabares CT Exercise Physician: Julian Munoz MD Exam Type: CA stress brandi w NM Study Info Indications R07.9 - Chest pain, unspecified A regadenoson stress test was performed. Summary 1. Sinus bradycardia. 2. Otherwise normal. 3. No abnormal ST/T wave changes with exercise. 4. None. 5. Myocardial perfusion images to be reported by radiology. Max Pred HR: 164 bpm Target HR: 139 bpm BP Response: Normal blood pressure response Termination Reason: Completed protocol Cardiac Symptoms: None Resting ECG Sinus bradycardia. Otherwise normal. Stress ECG No abnormal ST/T wave changes with exercise. Arrhythmias None. Report Signatures
[2021-02-11] MEDS: hydroCHLOROthiazide 25 MG TABLET PO (08:38)
[2021-02-11] MEDS: PANTOPRAZOLE 40 MG TABLET PO (08:38)
[2021-02-11] MEDS: lisinopriL 20 MG TABLET PO (08:38)
[2021-02-11] MEDS: ASPIRIN 81 MG CHEWABLE TABLET PO (08:40)
[2021-02-11 09:17] LABS: Add Urine Microscopic? YES; Appearance Urine Cloudy (Clear); Bacteria Urine 3+ /hpf; Bilirubin Urine Negative (Negative); Blood Urine 1+ (Negative); Color Urine Yellow (Yellow); Glucose Urine UA Negative (Negative); Ketones Urine Negative (Negative); Leukocyte Esterase Ur Negative LEU/UL (Negative); Nitrate Urine Positive (Negative); Protein Urine Negative (Negative); RBC Urine 0-2 /hpf (0-2); Squamous Epithelial Cell Urine Few /hpf (Few); Urobilinogen Urine Negative mg/dL (<2.0)
--- NOTE | 2021-02-11 12:41 | PM.CNCAR ---
Assessment and Plan Additional Plan 55-year-old lady with: Intermittent chest pain for several days beginning in the left arm and the radiating into the shoulder and into the chest. The symptoms are highly atypical of myocardial ischemia. Apparently the shoulder was very tender to palpation when she came into the hospital. Despite the symptoms there is no evidence of acute coronary syndrome. She has a history of coronary disease with percutaneous revascularization in the past at another hospital. We have of course have none of those records. Her she had already had a Lexiscan nuclear stress test performed today the results of which are pending. The study was ordered by the primary team. If that is favorable she can be discharged in my opinion. 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 If she does not wish to she can follow-up with us in our office. Since she has coronary disease at this time I would at a minimum recommend aspirin and statin therapy Julian Munoz MD [facility] History of Present Illness History of Present Illness Consult date/time: 02/11/21 12:41 Consult reason: chest pain Reason For Visit: Chest pain Narrative: This is a 55-year-old woman who I am seeing at the request of the hospitalist because of chest pain. She came to the emergency room and was admitted yesterday because of these complaints. She states that she was in her usual state when she considers to be relatively good health several days ago when she suddenly noticed the onset of severe jabbing knife-like pain in the region of her upper left arm into the left shoulder and across the chest. This began several days ago while she was showering she said she had to get out of the shower and sit down. She had the sensation that there was some kind of a lump or mass in the upper part of her arm when this was occurring. She became very concerned about these episodes in last evening finally came into the emergency room for evaluation. This symptom is not occurring in an exertional fashion the hospitalist to examine the patient felt that the region of this complaint was exquisitely tender to palpation when she came into the hospital last evening. In the face of this her electrocardiogram does not show any change of acute injury or ischemia. Her biomarkers do not show any evidence of acute myocardial necrosis. She reports a history of coronary artery disease with treatment elsewhere. She says that a couple of years ago she underwent evaluation had stenting of 2 of her coronary arteries at [facility]. I do not have any of those records at my availability as I dictate this note. For reasons that are not clear she said she did not have any follow-up with the doctor who did her procedure since the intervention. Presumably she had access to anti-platelet therapy because she has a PCP who is practicing elsewhere. She is currently not taking any anti-platelet therapy her medical regimen cardiac pagan only consists of an CLARI-inhibitor. She says that she is a long-standing cigarette smoker she has hypertension no evidence of diabetes. The chart indicates she has a history of pancreatitis. I saw the patient in the stress test lab the hospitalist already ordered a Lexiscan nuclear stress test for further evaluation of this. During the Lexiscan injection she became nauseated as a result of the Lexiscan this was self-limited and required no intervention. Obviously the results of the scans are pending as I dictate this note. Review of Systems Constitutional: Constitutional: Reports lethargy Eyes: Eyes: Reports no additional eye complaints ENT: Reports system reviewed and no additional complaints, except as documented Cardiovascular: Cardiovascular: Reports no additional cardiovascular complaints Respiratory: Respiratory: Reports dyspnea on exertion Gastrointestinal: Gastrointestinal: Reports no additional gastrointestinal complaints Musculoskeletal
[2021-02-11] MEDS: ROSUVASTATIN 10 MG TABLET PO (14:01)
[2021-02-11] MEDS: ONDANSETRON INJ 4 MG/2 ML VIAL IV PUSH (14:01)
--- NOTE | 2021-02-11 14:15 | PC.NURSE ---
On 02/11/21, the student, [Priya Watson], provided care and completed [facility] documentation on this patient. I have reviewed the student's documentation and agree with the findings.
--- NOTE | 2021-02-14 07:36 | PCNSR ---
On 02/14/21, the student, Lydia Fraser, provided care and completed [facility] documentation on this patient. I have reviewed the student's documentation and agree with the findings.
--- NOTE | 2021-02-15 17:14 | PM.DS ---
DS: Admitting Diagnosis Discharge Date 02/11/21 Admitting Diagnosis Chest pain DS: Discharge Diagnosis Discharge Diagnosis (1) Chest pain: Code(s): R07.9 - Chest pain, unspecified Status: Acute Assessment and Plan: The patient presented to the emergency department today for evaluation of pain in her left anterior chest radiating to an area in the left mid biceps muscle where she feels a ?knot? however I was unable to palpate such. Her initial troponin was within normal limits. EKG showed borderline ST T-wave abnormalities in the high lateral leads. On lexiscan there is no evidence of ischemia. Discharge on ASA, and ACEI. (2) Coronary artery disease: Code(s): I25.10 - Atherosclerotic heart disease of [place] coronary artery without angina pectoris Status: Acute Assessment and Plan: Patient reports history of stent x2 done at [facility] proximally 3 to 4 years ago. She does not take a beta-meenu, statin, or aspirin at home for unclear reasons, though she does report having an ibuprofen allergy. Records requested from her industrial relations commissioner for review. Check lipid levels in a.m. Consider beta-meenu as well depending on her blood pressure trends. (3) Hypertension: Code(s): I10 - Essential (primary) hypertension Status: Acute Assessment and Plan: Her blood pressures were reviewed and they have been running quite high ; they have improved tp the 146/90-174/69 range. Discharge on lisinopril. (4) Anxiety: Code(s): F41.9 - Anxiety disorder, unspecified Status: Chronic Assessment and Plan: Continue escitalopram. (5) Gastroesophageal reflux disease: Code(s): K21.9 - Gastro-esophageal reflux disease without esophagitis Status: Acute Assessment and Plan: No acute issues. Continue pantoprazole. (6) Tobacco use: Code(s): Z72.0 - Tobacco use Status: Acute Assessment and Plan: Smoking cessation is encouraged and was discussed. She declines the need for a nicotine patch. (7) Arm pain, left: Code(s): M79.602 - Pain in left arm Status: Acute Assessment and Plan: Xray unrevealing. Obtain US. Continue pain management. Plan for discharge. DS: Summary Hospital Course Reason for hospitalization: Chest pain Hospital Course: Please refer to admission H& P. Briefly,this is a 55-year-old female smoker with history of coronary artery disease, hypertension, GERD, pancreatitis, and anxiety who presented to the emergency department earlier today via private vehicle from home for evaluation of left chest and arm pain. At the time my evaluation the patient is in tears due to pain and is somewhat difficult to get a good history from her. From what I can gather, she has pain in the left mid upper arm where she has ?a knot? that is causing severe, sharp and stabbing pain radiating to the shoulder and down the left anterior chest. When the pain is especially bad she feels her heart racing and pounding and will feel short of breath. She has also experienced some nausea. On exam she is exquisitely tender to even mild palpation in the same regions that she describes the pain though she denies injury and fall. She gives no other aggravating factors. Nitroglycerin and acetaminophen given in the emergency department provided her with no relief and she currently rates her pain 10/10. No syncope or near-syncope. She denies sweats and vomiting. No lower extremity or pain. No history of DVT or PE. Patient states compliance with her home medication although her blood pressure is 210/110 at the time my evaluation. Patient was started on lisinopril in addition to her regular home meds. She underwent a Lexiscan which was completely normal. She was discharged home with [place] p[facility]r.[facility] for pain. Time spent discussing smoking cessation with patient: more than 10 minutes Status at Discharge Functional status at discharge: independent am
== END 2021-02-11 18:46 | disposition home or self-care (01) ==
LOC: ANHED 18:54 → ANHIMU 23:28
PROVIDERS: Emergency Medicine; Physician Assistant; Admitting Provider Family Medicine; Emergency Provider Emergency Medicine; PCP Internal Medicine; Visit Provider Internal Medicine
DX: R07.9 Chest pain, unspecified (principal); I25.10 Atherosclerotic heart disease of native coronary artery without angina pectoris; I10 Essential (primary) hypertension; K21.9 Gastro-esophageal reflux disease without esophagitis; K85.90 Acute pancreatitis without necrosis or infection, unspecified; F41.9 Anxiety disorder, unspecified; M79.602 Pain in left arm; F17.210 Nicotine dependence, cigarettes, uncomplicated; Z95.5 Presence of coronary angioplasty implant and graft; Z79.899 Other long term (current) drug therapy
CPT/HCPCS: 36415; 71046; 73060; 76882; 78452; 80048; 80061; 80076; 81001; 83690; 83735; 84443; 84484; 85025; 85027; 85610; 85730; 87077; 87086; 87088; 87186; 93005; 93017; 96374; 96375; 96376; 99285; A9270; A9502; G0378; G0379; J2060; J2270; J2405; J2785

== ENCOUNTER 2021-02-20 12:51 | Emergency (ER) | payer OTHER, SELFPAY ==
[2021-02-20 13:01] VITALS: BP 177/73; PULSE 70; RESP 16; TEMP 36.4; O2SAT 99
--- NOTE | 2021-02-20 13:07 | ED.ABDPAIN ---
HPI - Abdominal Pain General Chief Complaint: Abdominal Pain Stated Complaint: abd pain Time Seen by Provider: 02/20/21 13:02 Source: patient, RN notes reviewed and old records reviewed Mode of arrival: ambulatory Limitations: no limitations History of Present Illness HPI narrative: 55-year-old female presents to the [facility] with complaints of generalized abdominal pain, nausea, vomiting and diarrhea. Patient states I am here just for a pain shot. Patient reports that every time she eats or drinks it just comes out of her butt. Reports that she was just discharged from the hospital and cannot afford her medications. States that she feels like her abdomen is full of acid. Keeps asking for a pain shot because she has having the worst pain of her life. Patient reports that she is currently under treatment for a blood clot in her left arm. Has a history of hypertension, GERD and high cholesterol. Patient states she has been unable to eat or drink since being released from the hospital without vomiting and diarrhea MD elicited complaint: abdominal pain Related Data Home Medications Medication Instructions Recorded Confirmed baclofen 10 mg PO QPM 02/12/20 02/10/21 gabapentin 300 mg PO TID 02/12/20 02/10/21 lisinopril-hydrochlorothiazide 1 tablet PO DAILY 02/12/20 02/10/21 acyclovir 800 mg PO DAILY 02/10/21 02/10/21 ropinirole 0.5 mg PO HS 02/10/21 02/10/21 Allergies Allergy/AdvReac Type Severity Reaction Status Date / Time butalbital Allergy Unknown hives Verified 02/20/21 13:42 ibuprofen Allergy Unknown Hives Verified 02/20/21 13:42 ketorolac Allergy Unknown Hives Verified 02/20/21 13:42 naproxen Allergy Unknown Hives Verified 02/20/21 13:42 sumatriptan Allergy Unknown Hives Verified 02/20/21 13:42 Fish Containing Products Allergy Hives Verified 02/20/21 13:42 Review of Systems Review of Systems: All systems reviewed & are unremarkable except as noted in HPI and below Constitutional: Constitutional: Reports no additional constitutional complaints, Denies chills and Denies fever(s) Eyes: Eyes: Reports no additional eye complaints ENT: Reports system reviewed and no additional complaints, except as documented Cardiovascular: Cardiovascular: Reports no additional cardiovascular complaints and Denies chest pain Respiratory: Respiratory: Reports no additional respiratory complaints, Denies cough and Denies dyspnea Gastrointestinal: Gastrointestinal: Reports abdominal pain, Reports diarrhea, Reports nausea and Reports vomiting Genitourinary: Genitourinary: Reports no additional female genitourinary complaints Musculoskeletal: Musculoskeletal: Reports no additional musculoskeletal complaints Integumentary/Breasts: Skin/Breast: Reports system reviewed and no additional complaints, except as docu Neurologic: Reports system reviewed and no additional complaints, except as documented Psychiatric: Psychiatric: Reports as per HPI and Reports anxiety Allergic/Immunologic: Allergic/Immunologic: Reports no additional allergic/immunologic complaints [facility] Past Medical History Medical History Anxiety Arthritis Coronary artery disease History of stent x2. Gastroesophageal reflux disease Hypertension Migraines Mild aortic valve stenosis Aortic valve area of 1.4 cm2 on echocardiogram in February 2020. Pancreatitis Tobacco use Surgical History Surgical History History of cardiac catheterization History of cholecystectomy History of esophagogastroduodenoscopy (02/16/20) Unspecified esophagitis and gastritis. History of heart artery stent (2015) Performed at [facility] in [place]. History of hysterectomy History of open reduction and internal fixation (ORIF) procedure Right ankle fracture. Left elbow fracture. Family History Family History Mother Hypertension Hyperlipidemia Rheumatic fever Kid
== END 2021-02-20 13:25 | disposition short-term general hospital (02) ==
PROVIDERS: Emergency Provider Nurse Practitioner; PCP Internal Medicine
DX: R10.84 Generalized abdominal pain (principal); F17.210 Nicotine dependence, cigarettes, uncomplicated; M19.90 Unspecified osteoarthritis, unspecified site; I25.10 Atherosclerotic heart disease of native coronary artery without angina pectoris; Z95.5 Presence of coronary angioplasty implant and graft; I10 Essential (primary) hypertension
CPT/HCPCS: 99212; G0463

== ENCOUNTER 2021-02-20 13:42 | Inpatient (IN) | payer OTHER, SELFPAY ==
[2021-02-20] VITALS (8 sets, daily range): BP systolic 162–190; BP diastolic 70–95; PULSE 60–85; RESP 16–20; TEMP 35.6–36.4; O2SAT 99–100; BMI 20.2
--- NOTE | ~2021-02-20 | CT_ITS ---
EXAMINATION: CT abdomen pelvis wo con DATE: 02/20/2021 16:25 INDICATION: Right lower quadrant pain and diarrhea TECHNIQUE: Computed tomography (CT) of the abdomen and pelvis was performed without intravenous contr ast. Automated exposure control and iterative reconstruction technique were employed. The dose-length product was 223.95 mGy-cm. COMPARISON: CT dated 02/13/2012 and MRI dated 02/13/2020 FINDINGS: Mild dependent atelectasis in the left lower lobe. Normal small intrafissural lymph node along the in ferior right major fissure. Heart size is normal. No pericardial or pleural effusion. Cholecystectomy clips the gallbladder fossa. Liver, spleen, pancreas and right adrenal gland are normal. Chronic 2 c m low-attenuation left adrenal adenoma. Mild cortical scarring at the upper pole of the left kidney. 1 mm stone at the lower pole calyx of the left kidney. Unchanged very mild left hydronephrosis with n o evident obstructing stone at the transition point at the ureteropelvic junction. Right kidney is no rmal with no nephrolithiasis or hydronephrosis. Bladder and left ovary are normal. The uterus and rig ht ovary are not identified and has likely been surgically resected. Small amount of fluid in the pro ximal to mid aspect of the otherwise normal-appearing colon consistent with nonspecific diarrhea. Sma ll bowel and appendix are normal. No free intraperitoneal gas or fluid. No pathologically enlarged ab dominal or pelvic lymphadenopathy. Minimal to mild scattered degenerative skeletal changes in the spi ne and pelvis. IMPRESSION: 1. Small amount of fluid in the otherwise normal-appearing colon consistent with nonspecific diarrhea of indeterminate etiology. 2. Chronic mild left hydronephrosis with 1 mm nonobstructing stone at the lower pole but no evident s tone at the transition point at the ureteral junction. Reviewed, dictated and finalized at location A. PUMPER IMPRESSION: 1. Small amount of fluid in the otherwise normal-appearing colon consistent wit h nonspecific diarrhea of indeterminate etiology. 2. Chronic mild left hydronephrosis with 1 mm nonobstructing stone at the lower pole but no evident stone at the transition point at the ureteral junction.
--- NOTE | ~2021-02-20 | MR_ITS ---
EXAMINATION: MR MRCP wo con/w 3D wo ind pp DATE: 02/22/2021 16:02 INDICATION: Abdominal pain. Nausea. Weight loss. TECHNIQUE: Magnetic resonance imaging (MRI) of the abdomen was performed without intravenous contrast . Sequences included coronal T2-weighted FS FSE, coronal T2-weighted FSE, axial T1-weighted LAVA, cor onal FS FIESTA, axial dual-echo T1-weighted SPGR, coronal lava-FLEX, sagittal T2-weighted FSE, axial T2-weighted FSE, and axial DWI. Thick-slab T2-weighted FSE images were obtained for magnetic resonanc e cholangiopancreatography (MRCP). Maximum intensity projection 3-D reconstructions of the volumetric data were created by the technologist. COMPARISON: MRCP 02/13/2020, CT abdomen and pelvis 02/20/2021 FINDINGS: ABDOMEN MRI: There is a small right pleural effusion. There is periportal edema in the liver. There i s mild intrahepatic biliary duct dilatation. The common duct is dilated to 12 mm. There is edema arou nd the head of the pancreas, consistent with acute interstitial pancreatitis. The spleen and right ad renal gland are normal. There is a chronic 1.8 cm mass in left adrenal gland containing microscopic f at, consistent with an adenoma. Right kidney is normal. There is mild atrophy of left kidney. There a re no dilated loops of bowel. There is a small volume of ascites. ABDOMEN MRCP: There is mild intrahepatic and extrahepatic biliary duct dilatation, stable from . No choledocholithiasis. IMPRESSION: 1. Acute interstitial pancreatitis. 2. Small volume of ascites. 3. Small right pleural effusion. 4. Chronic mild intrahepatic and extrahepatic biliary duct dilatation status post cholecystectomy. No choledocholithiasis. Reviewed, dictated and finalized at location B. E LOADER IMPRESSION: 1. Acute interstitial pancreatitis. 2. Small volume of ascites. 3. Small right pleural effusion. 4. Chronic mild intrahepatic and extrahepatic biliary duct dilatation status po st cholecystectomy. No choledocholithiasis.
--- NOTE | ~2021-02-20 | US_ITS ---
EXAMINATION: US renal BI DATE: 02/21/2021 10:51 INDICATION: Acute renal failure. TECHNIQUE: Multiple ultrasound grayscale images of the kidneys were obtained. COMPARISON: CT abdomen and pelvis 02/20/2021, 02/13/2012 FINDINGS: The right kidney measures 11.8 x 4.8 x 5.9 cm. The left kidney measures 10.0 x 5.7 x 5.2 cm. The kidn eys demonstrate normal parenchymal echogenicity. There is cortical thinning of left kidney. There is an extrarenal pelvis on the left. There is no hydronephrosis. The bladder is normal. IMPRESSION: 1. Mild atrophy of left kidney. No hydronephrosis. Reviewed, dictated and finalized at location B. ING ESTIMATOR
--- NOTE | ~2021-02-20 | US_ITS ---
EXAMINATION: US abdomen limited DATE: 02/21/2021 16:04 INDICATION: Cholecystectomy with elevated liver enzymes TECHNIQUE: Multiple grayscale and Doppler ultrasound images of the abdomen were obtained. COMPARISON: CT dated 02/20/2021 FINDINGS: The pancreatic head and body are normal in appearance. The pancreatic tail is not visualized. The ma in pancreatic duct measures 2-2.5 cm at the body of the pancreas which is within normal limits. Liver has normal echogenicity and contour, with a smooth surface. No liver lesion identified. Mild intrahe patic biliary ductal dilation. Portal venous flow was seen in the hepatopetal, normal direction and h as normal Doppler waveform. Gallbladder is not visualized and reportedly surgically absent. There is dilation of the midline bile duct which measures 10 mm proximally increasing to 12 mm in the mid to d istal common bile duct. No evident shadowing choledocholithiasis. The visualized proximal inferior ve na cava is normal. IMPRESSION: 1. Mild intra and extrahepatic biliary ductal dilation without evident choledocholithiasis. This can be a normal finding post cholecystectomy and sphincterotomy. If there is continued clinical concern f or biliary obstruction would consider MRCP for more definitive determination. Reviewed, dictated and finalized at location A. LY CHAIN GENERALIST IMPRESSION: 1. Mild intra and extrahepatic biliary ductal dilation without evident choledoc holithiasis. This can be a normal finding post cholecystectomy and sphincteroto my. If there is continued clinical concern for biliary obstruction would consid er MRCP for more definitive determination.
--- NOTE | 2021-02-20 15:37 | ED.ABDPAIN ---
HPI - Abdominal Pain General Chief Complaint: Abdominal Pain Stated Complaint: abd pain Time Seen by Provider: 02/20/21 15:34 Source: patient Mode of arrival: ambulatory Limitations: no limitations History of Present Illness HPI narrative: Patient is a 55-year-old female complaining of right lower quadrant pain, 8 out of 10, sharp, nonradiating accompanied by diarrhea described as loose watery, nonbloody and nausea that started yesterday. Patient denies any chest pain, shortness of breath, urinary symptoms, fever or chills. Patient states that she is vaccinated from [employer]. Related Data Home Medications Medication Instructions Recorded Confirmed baclofen 10 mg PO QPM 02/12/20 02/10/21 gabapentin 300 mg PO TID 02/12/20 02/10/21 lisinopril-hydrochlorothiazide 1 tablet PO DAILY 02/12/20 02/10/21 acyclovir 800 mg PO DAILY 02/10/21 02/10/21 ropinirole 0.5 mg PO HS 02/10/21 02/10/21 Allergies Allergy/AdvReac Type Severity Reaction Status Date / Time butalbital Allergy Unknown hives Verified 02/20/21 13:42 ibuprofen Allergy Unknown Hives Verified 02/20/21 13:42 ketorolac Allergy Unknown Hives Verified 02/20/21 13:42 naproxen Allergy Unknown Hives Verified 02/20/21 13:42 sumatriptan Allergy Unknown Hives Verified 02/20/21 13:42 Fish Containing Products Allergy Hives Verified 02/20/21 13:42 Review of Systems Review of Systems: All systems reviewed & are unremarkable except as noted in HPI and below Constitutional: Constitutional: Denies body ache(s), Denies chills, Denies excessive sweating, Denies fatigue, Denies fever(s), Denies headache(s), Denies lethargy, Denies malaise, Denies weakness and Denies weight loss Eyes: Eyes: Denies blurry vision, Denies change in vision and Denies loss of vision ENT: Denies dizziness, Denies ear discharge, Denies headache(s), Denies lip swelling, Denies epistaxis, Denies nasal congestion, Denies neck pain, Denies throat swelling and Denies tongue swelling Cardiovascular: Cardiovascular: Denies chest pain, Denies chest pain at rest, Denies chest pain with activity, Denies diaphoresis, Denies rapid heart rate, Denies edema, Denies irregular heart rhythm, Denies lightheadedness, Denies palpitations, Denies dyspnea and Denies dyspnea on exertion Respiratory: Respiratory: Denies chest congestion, Denies cough, Denies hemoptysis, Denies dyspnea and Denies dyspnea on exertion Gastrointestinal: Gastrointestinal: Denies melena, Denies hematochezia, Denies vomiting and Denies hematemesis Musculoskeletal: Musculoskeletal: Denies abnormal gait, Denies deformity, Denies joint swelling, Denies limited range of motion, Denies neck pain and Denies numbness Neurologic: Denies Abnormal speech present, Denies abnormal gait, Denies confusion, Denies dizziness, Denies headache(s), Denies focal weakness, Denies loss of vision, Denies numbness, Denies Other visual disturbances, Denies Sensory deficit (Neuro) and Denies weakness Psychiatric: Psychiatric: Denies confusion, Denies depression, Denies auditory hallucinations, Denies homicidal ideation and Denies suicidal ideation Endocrine: Endocrine: Denies cold intolerance, Denies excessive sweating, Denies fatigue, Denies heat intolerance and Denies palpitations Hematologic/Lymphatic: Hematologic/Lymphatic: Denies easy bleeding and Denies easy bruising Allergic/Immunologic: Allergic/Immunologic: Denies lip swelling, Denies throat swelling and Denies tongue swelling PMFSH Past Medical History Medical History Anxiety Arthritis Coronary artery disease History of stent x2. Gastroesophageal reflux disease Hypertension Migraines Mild aortic valve stenosis Aortic valve area of 1.4 cm2 on echocardiogram in February 2020. Pancreatitis Tobacco use Surgical History Surgical History History of cardiac catheterization History of cholecystectomy History of esophagogastroduodenoscopy (02/16/20) Unspecified esophagitis and
[2021-02-20 15:50] LABS: Basophils Absolute Auto 0.1 K/mm3 (0.0-0.1); Basophils Percent Auto 0.6 % (0.2-1.2); Eosinophils Percent Auto 0.3 % (0-4.4); Hematocrit 37.2 % (37.0-47.0); Hemoglobin 12.8 g/dL (12.0-15.0); Immature Granulocyte Absolute 0.02 K/mm3 (0.00-0.031); Immature Granulocyte Percent A 0.2 % (0-0.5); Lymphocytes Absolute Auto 2.57 K/mm3 (0.9-3.2); Lymphocytes Percent Auto 29.4 % (18.3-44.2); Mean Corpuscular HGB Conc 34.4 g/dl (32-36); Mean Corpuscular Hemoglobin 34.4 pg (26-34); Monocytes Percent Auto 11.2 % (2.6-8.5); Neutrophils Absolute Auto 5.1 K/mm3 (1.3-6.7); Neutrophils Percent Auto 58.3 % (45.5-73.1); Platelet Count Result 265 k/mm3 (150-375); Red Blood Count 3.72 M/mm3 (4.2-5.4); Red Cell Distribution Width 14.6 % (11.5-14.5); White Blood Count 8.7 K/mm3 (4.5-10.0)
[2021-02-20] MEDS: ONDANSETRON INJ 4 MG/2 ML VIAL IV PUSH ×2 (15:51→22:50)
[2021-02-20] MEDS: MORPHINE SULFATE (*CRX) 2 MG/ML INJ IV PUSH (15:51)
[2021-02-20 16:03] LABS: Alanine Aminotransferase 17 U/L (4-35); Albumin Level 5.1 g/dL (3.5-5.1); Alkaline Phosphatase 84 U/L (38-126); Anion Gap 10 mmol/L (8-16); Aspartate Amino Transferase 35 U/L (14-36); Bilirubin,Total 0.6 mg/dL (0.2-1.3); Blood Urea Nitrogen 27 mg/dL (7-17); Carbon Dioxide 20 mmol/L (22-30); Chloride 108 mmol/L (98-107); Estimated CRCL calculation 16 ml/min; Estimated Glomerular Filt Rate 15; Glucose 94 mg/dL (65-110); Lipase 140 U/L (23-300); Potassium 4.4 mmol/L (3.4-5.0); Sodium 138 mmol/L (137-145)
[2021-02-20] MEDS: SODIUM CHLORIDE 0.9% IV 1,000 ML 999 ML IV CONT (17:41)
[2021-02-20] MEDS: LACTATED RINGERS 1,000 ML 999 ML IV CONT (17:42)
[2021-02-20 17:43] LABS: Add Urine Microscopic? YES; Appearance Urine Cloudy (Clear); Bacteria Urine Trace /hpf; Bilirubin Urine Negative (Negative); Blood Urine 1+ (Negative); Color Urine Straw (Yellow); Glucose Urine UA Negative (Negative); Ketones Urine Negative (Negative); Leukocyte Esterase Ur Negative LEU/UL (Negative); Mucus Urine Rare /lpf; Nitrate Urine Positive (Negative); Protein Urine Negative (Negative); Specific Grav Ur 1.004 (1.001-1.035); Squamous Epithelial Cell Urine Few /hpf (Few); Urobilinogen Urine Negative mg/dL (<2.0); WBC Urine 0-3 /hpf
[2021-02-20] MEDS: HYDROmorphone HCL INJ (*CRX) 1 MG/ML SYR 0.5 MG IV PUSH (17:46)
[2021-02-20] MEDS: DICYCLOMINE HCL INJ 20 MG/2 ML VIAL IM (17:47)
--- NOTE | 2021-02-20 18:54 | ADMGEN ---
This patient, Anny Palmer, was admitted to Medical Room 347-01. Patient/family oriented to hospital policies and general routines including ID bracelet, bed and alarms, visiting hours, pain management, procedures, bathroom and other care routines, personal items, smoking policy, room service/diet, and visiting hours. Information on how to activate the Rapid Response Team has been discussed. Patient/Family are encouraged to report perceived risks to care and to ask questions if they do not understand what they are told or what they should do.
[2021-02-20] MEDS: LACTATED RINGERS 1,000 ML 125 ML IV CONT (19:07)
--- NOTE | 2021-02-20 19:16 | PM.IMHP ---
H&P: HPI History of Present Illness Date/Time: 02/20/21 19:16 this is a 55-year-old female patient who came in today with right lower quadrant pain. The patient stated that this pain started yesterday but today was worse. Her pain was 8/10. She has not had any previous his history of any kidney stones. The patient stated that she has had loose watery stools since yesterday. She went to work yesterday and was able to work through today but today she was unable to make it through the rest of her shift. The patient denies any fever chills. She has been fully vaccinated for COVID. The patient stated that she has been having darker stools as well. The patient stated that she is having severe abdominal cramps. Her creatinine is 3.2 BUN 27. Chloride 108. Carbon dioxide 20. GFR is 15. Abdominal pelvis CT was read as small amount of fluid in the otherwise normal appearing colon consistent with non specific diarrhea of indeterminate etiology. Chronic mild left hydronephrosis with 1 mm nonobstructing stone at the lower pole but no evidence stone at the transition point at the ureteral junction. The patient was given morphine, Zofran lactated Ringer's, normal saline, Dilaudid and Bentyl in the emergency room. The patient is being admitted to inpatient services on the date of service of 02/20/2021. Chief Complaint: Nausea vomiting diarrhea Review of Systems Review of Systems: All systems reviewed & are unremarkable except as noted in HPI and below Constitutional: Constitutional: Reports as per HPI and Reports no additional constitutional complaints Eyes: Eyes: Reports as per HPI and Reports no additional eye complaints ENT: Reports system reviewed and no additional complaints, except as documented and Reports Normal hearing present Cardiovascular: Cardiovascular: Reports no additional cardiovascular complaints Respiratory: Respiratory: Reports no additional respiratory complaints and Reports no additional respiratory complaints Gastrointestinal: Gastrointestinal: Reports as per HPI and Reports no additional gastrointestinal complaints Musculoskeletal: Musculoskeletal: Reports no additional musculoskeletal complaints Integumentary/Breasts: Skin/Breast: Reports system reviewed and no additional complaints, except as docu and Reports as per HPI Neurologic: Reports system reviewed and no additional complaints, except as documented, Reports as per HPI and Reports Normal hearing present Psychiatric: Psychiatric: Reports no additional psychiatric complaints and Reports as per HPI Endocrine: Endocrine: Reports no additional endocrine complaints Hematologic/Lymphatic: Hematologic/Lymphatic: Reports no additional hematologic/lymphatic complaints Allergic/Immunologic: Allergic/Immunologic: Reports no additional allergic/immunologic complaints [facility] Past Medical History Medical History Anxiety Arthritis Coronary artery disease History of stent x2. Gastroesophageal reflux disease Hypertension Migraines Mild aortic valve stenosis Aortic valve area of 1.4 cm2 on echocardiogram in February 2020. Pancreatitis Tobacco use Surgical History Surgical History History of cardiac catheterization History of cholecystectomy History of esophagogastroduodenoscopy (02/16/20) Unspecified esophagitis and gastritis. History of heart artery stent (2015) Performed at [facility] in [place]. History of hysterectomy History of open reduction and internal fixation (ORIF) procedure Right ankle fracture. Left elbow fracture. Family History Family History Mother Hypertension Hyperlipidemia Rheumatic fever Kidney disease Heart murmur Sibling Kidney disease Alcoholism Social History Social History (Updated 02/20/21 @ 19:40 by Bhumi Akins NP) Social History: The patient stated that she quit smoking approximately 4
[2021-02-20] MEDS: HYDROmorphone HCL INJ (*CRX) 1 MG/ML SYR IV PUSH ×2 (19:39→22:51)
[2021-02-20] MEDS: rOPINIRole HCL 0.5 MG TABLET PO (22:49)
[2021-02-20] MEDS: PANTOPRAZOLE SODIUM IV 40 MG VIAL IV PUSH (22:49)
[2021-02-20] MEDS: hydrALAZINE HCL 20 MG/ML VIAL 10 MG IV PUSH (22:50)
[2021-02-21 02:22] VITALS: BP 155/96
[2021-02-21 03:10] VITALS: BP 150/65; PULSE 74; RESP 17; TEMP 37.1; O2SAT 100
[2021-02-21] MEDS: LACTATED RINGERS 1,000 ML 125 ML IV CONT ×3 (03:50→21:05)
[2021-02-21] MEDS: HYDROmorphone HCL INJ (*CRX) 1 MG/ML SYR IV PUSH ×6 (03:50→20:59)
[2021-02-21 05:43] LABS: Basophils Percent Auto 0.5 % (0.2-1.2); Eosinophils Percent Auto 0.5 % (0-4.4); Hematocrit 33.9 % (37.0-47.0); Hemoglobin 11.6 g/dL (12.0-15.0); Immature Granulocyte Absolute 0.04 K/mm3 (0.00-0.031); Immature Granulocyte Percent A 0.5 % (0-0.5); Lymphocytes Absolute Auto 1.71 K/mm3 (0.9-3.2); Lymphocytes Percent Auto 19.6 % (18.3-44.2); Mean Corpuscular HGB Conc 34.2 g/dl (32-36); Mean Corpuscular Hemoglobin 33.9 pg (26-34); Mean Corpuscular Volume 99.1 fl (80-100); Mean Platelet Volume 9.5 fl (7.4-10.4); Monocytes Absolute Auto 0.9 K/mm3 (0.1-0.6); Monocytes Percent Auto 9.7 % (2.6-8.5); Neutrophils Percent Auto 69.2 % (45.5-73.1); Platelet Count Result 312 k/mm3 (150-375); Red Blood Count 3.42 M/mm3 (4.2-5.4); Red Cell Distribution Width 14.2 % (11.5-14.5); White Blood Count 8.7 K/mm3 (4.5-10.0)
[2021-02-21 06:23] LABS: Alanine Aminotransferase 47 U/L (4-35); Alkaline Phosphatase 72 U/L (38-126); Anion Gap 6 mmol/L (8-16); Aspartate Amino Transferase 77 U/L (14-36); Bilirubin,Total 0.5 mg/dL (0.2-1.3); Blood Urea Nitrogen 23 mg/dL (7-17); Carbon Dioxide 23 mmol/L (22-30); Chloride 110 mmol/L (98-107); Estimated CRCL calculation 17 ml/min; Estimated Glomerular Filt Rate 16; Glucose 103 mg/dL (65-110); Lactate Dehydrogenase 528 U/L (313-618); Magnesium 1.8 mg/dL (1.6-2.3); Sodium 139 mmol/L (137-145)
[2021-02-21 06:43] LABS: Lipase 3368 U/L (23-300)
[2021-02-21] MEDS: ONDANSETRON INJ 4 MG/2 ML VIAL IV PUSH ×3 (08:04→17:41)
[2021-02-21] MEDS: PANTOPRAZOLE SODIUM IV 40 MG VIAL IV PUSH ×2 (08:05→20:59)
[2021-02-21] MEDS: ROSUVASTATIN 10 MG TABLET PO (08:05)
[2021-02-21] MEDS: GABAPENTIN 300 MG CAPSULE PO ×3 (08:05→17:50)
[2021-02-21 12:31] VITALS: BMI 20.2
--- NOTE | 2021-02-21 14:05 | PM.IMPN ---
Progress Note: A&P Assessment and Plan (1) Acute renal failure: Qualifiers: Acute renal failure type: unspecified Qualified Code(s): N17.9 - Acute kidney failure, unspecified Code(s): N17.9 - Acute kidney failure, unspecified Status: Acute Assessment and Plan: Reports nausea vomiting and diarrhea for the past 3 days. Most likely pre renal azotemia or acute dehydration Baseline BUN/Cr 12-18/0.8-1 Current BUN/creatinine 23/3.10 GFR 16 Renal ultrasound Mild atrophy of left kidney. No hydronephrosis Nephrology consult thank you for your support Abdominal CT shows chronic hydronephrosis on left side with a 1 mm Kidney stones which is nonobstructing. Hold lisinopril and hydrochlorothiazide at this time Acyclovir can cause BUN and creatinine elevation will hold for now Avoid nephrotoxic medications Trend labs (2) Abdominal pain: Qualifiers: Abdominal location: generalized Qualified Code(s): R10.84 - Generalized abdominal pain Code(s): R10.9 - Unspecified abdominal pain Status: Inactive Assessment and Plan: abdominal pain reported Lipase elevated at 3368 liver enzymes AST/ALT 77/47 Dilaudid 1 mg Q 3 p.r.n. Probably related to pancreatitis CT does not indicate pancreatitis (3) Gastroesophageal reflux disease: Code(s): K21.9 - Gastro-esophageal reflux disease without esophagitis Status: Acute Assessment and Plan: Continue with IV Protonix (4) HTN (hypertension), malignant: Code(s): I10 - Essential (primary) hypertension Status: Chronic Assessment and Plan: P.r.n. hydralazine hold lisinopril and hydrochlorothiazide due to renal function Trend blood pressure Adjust therapy as needed (5) Anxiety: Code(s): F41.9 - Anxiety disorder, unspecified Status: Chronic Assessment and Plan: P.r.n. Ativan. (6) Pancreatitis: Code(s): K85.90 - Acute pancreatitis without necrosis or infection, unspecified Status: Acute Assessment and Plan: Lipase elevated at 3368 Right upper quadrant ultrasound ordered No gallbladder present GI consult thank you for recommendations LR at 125 mL/hour Trend lipase NPO diet Pain control (7) Elevated liver enzymes: Code(s): R74.8 - Abnormal levels of other serum enzymes Status: Acute Assessment and Plan: AST/ALT 77/47 Trend labs Labs in the am RUQ ultrasound (8) Vomiting and diarrhea: Code(s): R11.10 - Vomiting, unspecified; R19.7 - Diarrhea, unspecified Status: Acute Assessment and Plan: Patient reports coffee-ground emesis and stool Occult blood ordered GI consult thank you for your help Trend hemoglobin hematocrit Current H&H 11.6/33.9 Transfuse if less than 7 Time Spent With Patient Time with patient: Greater than 35 minutes Subjective Date/time seen: 02/21/21 14:05 Interval history: Date/Time: 02/20/21 19:16 This is a 55-year-old female patient who came in today with right lower quadrant pain. The patient stated that this pain started yesterday but today was worse. Her pain was 8/10. She has not had any previous his history of any kidney stones. The patient stated that she has had loose watery stools since yesterday. She went to work yesterday and was able to work through today but today she was unable to make it through the rest of her shift. The patient denies any fever chills. She has been fully vaccinated for COVID. The patient stated that she has been having darker stools as well. The patient stated that she is having severe abdominal cramps. Her creatinine is 3.2 BUN 27. Chloride 108. Carbon dioxide 20. GFR is 15. Abdominal pelvis CT was read as small amount of fluid in the otherwise normal appearing colon consistent with non specific diarrhea of indeterminate etiology. Chronic mild left hydronephros
--- NOTE | 2021-02-21 14:05 | P.PNIM_ITS ---
Progress Note: A&P Assessment and Plan (1) Acute renal failure: Qualifiers: Acute renal failure type: unspecified Qualified Code(s): N17.9 - Acute kidney failure, unspecified Code(s): N17.9 - Acute kidney failure, unspecified Status: Acute Assessment and Plan: * Reports nausea vomiting and diarrhea for the past 3 days. * Most likely pre renal azotemia or acute dehydration * Baseline BUN/Cr 12-18/0.8-1 * Current BUN/creatinine 23/3.10 GFR 16 * Renal ultrasound Mild atrophy of left kidney. No hydronephrosis * Nephrology consult thank you for your support * Abdominal CT shows chronic hydronephrosis on left side with a 1 mm Kidney stones which is nonobstructing. * Hold lisinopril and hydrochlorothiazide at this time * Acyclovir can cause BUN and creatinine elevation will hold for now * Avoid nephrotoxic medications * Trend labs (2) Abdominal pain: Qualifiers: Abdominal location: generalized Qualified Code(s): R10.84 - Generalized abdominal pain Code(s): R10.9 - Unspecified abdominal pain Status: Inactive Assessment and Plan: * abdominal pain reported * Lipase elevated at 3368 liver enzymes AST/ALT 77/47 * Dilaudid 1 mg Q 3 p.r.n. * Probably related to pancreatitis * CT does not indicate pancreatitis (3) Gastroesophageal reflux disease: Code(s): K21.9 - Gastro-esophageal reflux disease without esophagitis Status: Acute Assessment and Plan: * Continue with IV Protonix (4) HTN (hypertension), malignant: Code(s): I10 - Essential (primary) hypertension Status: Chronic Assessment and Plan: * P.r.n. hydralazine * hold lisinopril and hydrochlorothiazide due to renal function * Trend blood pressure * Adjust therapy as needed (5) Anxiety: Code(s): F41.9 - Anxiety disorder, unspecified Status: Chronic Assessment and Plan: * P.r.n. Ativan. (6) Pancreatitis: Code(s): K85.90 - Acute pancreatitis without necrosis or infection, unspecified Status: Acute Assessment and Plan: * Lipase elevated at 3368 * Right upper quadrant ultrasound ordered * No gallbladder present * GI consult thank you for recommendations * LR at 125 mL/hour * Trend lipase * NPO diet * Pain control (7) Elevated liver enzymes: Code(s): R74.8 - Abnormal levels of other serum enzymes Status: Acute Assessment and Plan: * AST/ALT 77/47 * Trend labs * Labs in the am * RUQ ultrasound (8) Vomiting and diarrhea: Code(s): R11.10 - Vomiting, unspecified; R19.7 - Diarrhea, unspecified Status: Acute Assessment and Plan: * Patient reports coffee-ground emesis and stool * Occult blood ordered * GI consult thank you for your help * Trend hemoglobin hematocrit * Current H&H 11.6/33.9 * Transfuse if less than 7 Time Spent With Patient Time with patient: Greater than 35 minutes Subjective Date/time seen: 02/21/21 14:05 Interval history: Date/Time: 02/20/21 19:16 This is a 55-year-old female patient who came in today with right lower quadrant pain. The patient stated that this pain started yesterday but today was worse. Her pain was 8/10. She has not had any previous his history of any kidney stones. The patient stated that she has had loose watery stools since yesterday. She went to work yesterday and was able to work t
[2021-02-21 15:16] VITALS: BP 164/82; PULSE 61; RESP 20; TEMP 36.3; O2SAT 100
--- NOTE | 2021-02-21 15:16 | PM.CNNEP ---
Assessment and Plan Assessment and plan (1) SOL (acute kidney injury): Code(s): N17.9 - Acute kidney failure, unspecified Status: Acute Assessment and Plan: baseline creatinine normal suspect due to volume depletion/dehydration given issues with #2 for the past few days possible worsening due to concurrent use of CLARI-I, HCTZ, and possibly acyclovir imaging notable for chronic left hydronephrosis but no other acute findings follow-up on urine electrolytes agree with IVF hydration -- follow repeat labs and UOP (2) Nausea and vomiting: Code(s): R11.2 - Nausea with vomiting, unspecified Status: Acute Assessment and Plan: IV emetics continue supportive therapy follow symptoms (3) Pancreatitis: Code(s): K85.90 - Acute pancreatitis without necrosis or infection, unspecified Status: Acute Assessment and Plan: etiology of #2(?) lipase is trending down as is LFTs pain control advance diet as tolerated (4) Hypertension: Code(s): I10 - Essential (primary) hypertension Status: Deleted Assessment and Plan: elevated at this time however, lisinopril/HCTZ is on hold furthermore, pain control may be contributing as well use PRN hydralazine for now (5) Gastroesophageal reflux disease: Code(s): K21.9 - Gastro-esophageal reflux disease without esophagitis Status: Acute Assessment and Plan: on IV PPI Will continue to follow. History of Present Illness Reason for Consult Consult date: 02/21/21 Reason for consult: acute renal failure Chief Complaint Chief complaint: Acute Renal Failure History of Present Illness Narrative: The patient is a 55-year-old female with a past medical history as outlined below who presented to [facility] Emergency room with complaints of abdominal pain. The patient stated that the pain started the day before admission and was localized to the right lower quadrant. She rated the pain as a data 10 and stated that nothing really relieved the pain and everything seem to make it worse. associated symptoms included loose watery stools / diarrhea. As the symptoms seem to be progressively getting worse, she presented to the emergency room for further evaluation Workup and evaluation in the emergency room demonstrated the patient to be hemodynamically stable and she was in mild distress secondary to her abdominal pain. Routine blood test demonstrated markedly elevated BUN and creatinine from her normal baseline and a CT scan of the abdomen and pelvis demonstrated evidence of chronic mild left hydronephrosis. It was also noted that her lipase was quite elevated. Given these constellation of symptoms, she was given pain medications, IV antiemetics, and IV fluids and subsequent admitted the hospital for further evaluation and therapy. Renal consultation was requested due to her acute kidney injury/acute renal failure. Has already mentioned, the patient has normal kidney function at baseline and she really does not have any significant risk factors for kidney disease. The assumption is that her acute kidney injury secondary to volume depletion given the symptoms that led to her presentation in the 1st place. Hence, she has been continued on IV fluids as she is currently NPO to the concerns for possible pancreatitis given her elevated lipase. Currently, her major complaint is that of abdominal pain / cramping which is what led to her presentation.. Review of Systems Review of Systems: As per HPI. [facility] Past Medical History Medical History (Updated 02/24/21 @ 10:59 by Marciano Lozada MD) Anxiety Arthritis Coronary artery disease History of stent x2. Diarrhea Elevated lipase Gastroesophageal reflux disease Marijuana smoker Migraines Mild aortic valve stenosis Aortic valve area of 1.4 cm2 on echocardiogram in February 2020. Pancreatitis Tobacco use Weight loss
[2021-02-21] MEDS: BACLOFEN 10 MG TABLET PO (17:50)
[2021-02-21 20:58] VITALS: BP 149/82; PULSE 69; RESP 18; TEMP 36.8; O2SAT 100
[2021-02-21] MEDS: rOPINIRole HCL 0.5 MG TABLET PO (20:59)
[2021-02-22 04:28] VITALS: BP 162/61; PULSE 65; RESP 18; TEMP 36.9; O2SAT 98
[2021-02-22] MEDS: ONDANSETRON INJ 4 MG/2 ML VIAL IV PUSH ×2 (04:32→12:19)
[2021-02-22] MEDS: HYDROmorphone HCL INJ (*CRX) 1 MG/ML SYR IV PUSH ×5 (04:33→19:54)
[2021-02-22] MEDS: LACTATED RINGERS 1,000 ML 125 ML IV CONT ×3 (04:36→21:48)
[2021-02-22 06:15] LABS: Basophils Percent Auto 0.7 % (0.2-1.2); Eosinophils Absolute Auto 0.1 K/mm3 (0-0.3); Eosinophils Percent Auto 2.1 % (0-4.4); Hematocrit 31.1 % (37.0-47.0); Hemoglobin 10.6 g/dL (12.0-15.0); Immature Granulocyte Absolute 0.01 K/mm3 (0.00-0.031); Immature Granulocyte Percent A 0.2 % (0-0.5); Lymphocytes Absolute Auto 2.31 K/mm3 (0.9-3.2); Lymphocytes Percent Auto 40.7 % (18.3-44.2); Mean Corpuscular HGB Conc 34.1 g/dl (32-36); Mean Corpuscular Hemoglobin 33.8 pg (26-34); Mean Platelet Volume 9.8 fl (7.4-10.4); Monocytes Absolute Auto 0.6 K/mm3 (0.1-0.6); Monocytes Percent Auto 9.9 % (2.6-8.5); Neutrophils Absolute Auto 2.6 K/mm3 (1.3-6.7); Neutrophils Percent Auto 46.4 % (45.5-73.1); Platelet Count Result 287 k/mm3 (150-375); Red Blood Count 3.14 M/mm3 (4.2-5.4); Red Cell Distribution Width 14.3 % (11.5-14.5); White Blood Count 5.7 K/mm3 (4.5-10.0)
[2021-02-22 06:37] LABS: Alanine Aminotransferase 36 U/L (4-35); Albumin Level 3.9 g/dL (3.5-5.1); Alkaline Phosphatase 74 U/L (38-126); Anion Gap 8 mmol/L (8-16); Aspartate Amino Transferase 39 U/L (14-36); Bilirubin,Total 0.5 mg/dL (0.2-1.3); Blood Urea Nitrogen 16 mg/dL (7-17); Calcium 9.4 mg/dL (8.4-10.2); Carbon Dioxide 21 mmol/L (22-30); Chloride 110 mmol/L (98-107); Estimated CRCL calculation 22 ml/min; Estimated Glomerular Filt Rate 21; Glucose 93 mg/dL (65-110); Lipase 309 U/L (23-300); Magnesium 1.7 mg/dL (1.6-2.3); Potassium 4.1 mmol/L (3.4-5.0); Sodium 139 mmol/L (137-145)
[2021-02-22] MEDS: ROSUVASTATIN 10 MG TABLET PO (08:01)
[2021-02-22] MEDS: PANTOPRAZOLE SODIUM IV 40 MG VIAL IV PUSH ×2 (08:02→19:55)
[2021-02-22] MEDS: GABAPENTIN 300 MG CAPSULE PO ×3 (08:02→17:58)
--- NOTE | 2021-02-22 08:45 | P.PNIM_ITS ---
Progress Note: A&P Assessment and Plan (1) Acute renal failure: Qualifiers: Acute renal failure type: unspecified Qualified Code(s): N17.9 - Acute kidney failure, unspecified Code(s): N17.9 - Acute kidney failure, unspecified Status: Acute Assessment and Plan: * Reports nausea vomiting and diarrhea for the past 3 days. * Most likely pre renal azotemia or acute dehydration * Baseline BUN/Cr 12-18/0.8-1 * Current BUN/creatinine 16/2.40 GFR 21 * Renal ultrasound Mild atrophy of left kidney. No hydronephrosis * Nephrology consult thank you for your support * Abdominal CT shows chronic hydronephrosis on left side with a 1 mm Kidney stones which is nonobstructing. * Hold lisinopril and hydrochlorothiazide at this time * Acyclovir can cause BUN and creatinine elevation will hold for now * Avoid nephrotoxic medications * Trend labs * Urine electrolytes ordered * Seems to be correcting (2) Abdominal pain: Qualifiers: Abdominal location: generalized Qualified Code(s): R10.84 - Generalized abdominal pain Code(s): R10.9 - Unspecified abdominal pain Status: Inactive Assessment and Plan: * abdominal pain reported * Lipase elevated at 3368 liver enzymes AST/ALT 77/47 * Lipase and AST/ALT trending down, 309 and 39/36 * Dilaudid 1 mg Q 3 p.r.n. * Probably related to pancreatitis * CT does not indicate pancreatitis * EGD/Colonoscopy ordered for today (3) Gastroesophageal reflux disease: Code(s): K21.9 - Gastro-esophageal reflux disease without esophagitis Status: Acute Assessment and Plan: * Continue with IV Protonix (4) HTN (hypertension), malignant: Code(s): I10 - Essential (primary) hypertension Status: Chronic Assessment and Plan: * BP 162/61 * P.r.n. hydralazine * hold lisinopril and hydrochlorothiazide due to renal function * Trend blood pressure * Adjust therapy as needed (5) Anxiety: Code(s): F41.9 - Anxiety disorder, unspecified Status: Chronic Assessment and Plan: * P.r.n. Ativan. (6) Pancreatitis: Code(s): K85.90 - Acute pancreatitis without necrosis or infection, unspecified Status: Acute Assessment and Plan: * Lipase elevated at 3368, trending down 309 today * Right upper quadrant ultrasound Mild intra and extrahepatic biliary ductal dilation without evident choledocholithiasis, consider MRCP. * No gallbladder present * GI consult thank you for recommendations * LR at 125 mL/hour * Trend lipase * NPO diet * Pain control * MRCP shows acute pancreatitis (7) Elevated liver enzymes: Code(s): R74.8 - Abnormal levels of other serum enzymes Status: Acute Assessment and Plan: * AST/ALT 77/47, trending down to 39/36 * Trend labs * Labs in the am * RUQ ultrasound Mild intra and extrahepatic biliary ductal dilation without evident choledocholithiasis. (8) Vomiting and diarrhea: Code(s): R11.10 - Vomiting, unspecified; R19.7 - Diarrhea, unspecified Status: Acute Assessment and Plan: * Patient reports coffee-ground emesis and stool * Occult blood ordered * GI consult thank you for your help * Trend hemoglobin hematocrit * Current H&H 10.6/31.1, which is down one from yesterday, appears that it could be dilutional * Protonix 40mg IV BID * No reports of vomiting or diarrhea today. * Transfuse if less t
--- NOTE | 2021-02-22 08:45 | PM.IMPN ---
Progress Note: A&P Assessment and Plan (1) Acute renal failure: Qualifiers: Acute renal failure type: unspecified Qualified Code(s): N17.9 - Acute kidney failure, unspecified Code(s): N17.9 - Acute kidney failure, unspecified Status: Acute Assessment and Plan: Reports nausea vomiting and diarrhea for the past 3 days. Most likely pre renal azotemia or acute dehydration Baseline BUN/Cr 12-18/0.8-1 Current BUN/creatinine 16/2.40 GFR 21 Renal ultrasound Mild atrophy of left kidney. No hydronephrosis Nephrology consult thank you for your support Abdominal CT shows chronic hydronephrosis on left side with a 1 mm Kidney stones which is nonobstructing. Hold lisinopril and hydrochlorothiazide at this time Acyclovir can cause BUN and creatinine elevation will hold for now Avoid nephrotoxic medications Trend labs Urine electrolytes ordered Seems to be correcting (2) Abdominal pain: Qualifiers: Abdominal location: generalized Qualified Code(s): R10.84 - Generalized abdominal pain Code(s): R10.9 - Unspecified abdominal pain Status: Inactive Assessment and Plan: abdominal pain reported Lipase elevated at 3368 liver enzymes AST/ALT 77/47 Lipase and AST/ALT trending down, 309 and 39/36 Dilaudid 1 mg Q 3 p.r.n. Probably related to pancreatitis CT does not indicate pancreatitis EGD/Colonoscopy ordered for today (3) Gastroesophageal reflux disease: Code(s): K21.9 - Gastro-esophageal reflux disease without esophagitis Status: Acute Assessment and Plan: Continue with IV Protonix (4) HTN (hypertension), malignant: Code(s): I10 - Essential (primary) hypertension Status: Chronic Assessment and Plan: BP 162/61 P.r.n. hydralazine hold lisinopril and hydrochlorothiazide due to renal function Trend blood pressure Adjust therapy as needed (5) Anxiety: Code(s): F41.9 - Anxiety disorder, unspecified Status: Chronic Assessment and Plan: P.r.n. Ativan. (6) Pancreatitis: Code(s): K85.90 - Acute pancreatitis without necrosis or infection, unspecified Status: Acute Assessment and Plan: Lipase elevated at 3368, trending down 309 today Right upper quadrant ultrasound Mild intra and extrahepatic biliary ductal dilation without evident choledocholithiasis, consider MRCP. No gallbladder present GI consult thank you for recommendations LR at 125 mL/hour Trend lipase NPO diet Pain control MRCP shows acute pancreatitis (7) Elevated liver enzymes: Code(s): R74.8 - Abnormal levels of other serum enzymes Status: Acute Assessment and Plan: AST/ALT 77/47, trending down to 39/36 Trend labs Labs in the am RUQ ultrasound Mild intra and extrahepatic biliary ductal dilation without evident choledocholithiasis. (8) Vomiting and diarrhea: Code(s): R11.10 - Vomiting, unspecified; R19.7 - Diarrhea, unspecified Status: Acute Assessment and Plan: Patient reports coffee-ground emesis and stool Occult blood ordered GI consult thank you for your help Trend hemoglobin hematocrit Current H&H 10..1, which is down one from yesterday, appears that it could be dilutional Protonix 40mg IV BID No reports of vomiting or diarrhea today. Transfuse if less than 7 (9) Anemia: Code(s): D64.9 - Anemia, unspecified Status: Acute Assessment and Plan: H/H continues to decline, 10.6/31.1 today Think that it could be dilutional Will get anemia labs Patient reported GI bleeding with vomiting and diarrhea Trend labs transfuse as needed (10) Marijuana smoker: Code(s): F12.90 - Cannabis use, unspecified, uncomplicated Status: Acute Assessment and Plan: Current user Can cause GI symptoms Cessation education (11) Hypertension:
--- NOTE | 2021-02-22 11:00 | P.PNNP_ITS ---
Progress Note: A&P Assessment and Plan (1) SOL (acute kidney injury): Code(s): N17.9 - Acute kidney failure, unspecified Status: Acute Assessment and Plan: * slowly improving * baseline creatinine normal * suspect due to volume depletion/dehydration given issues with #2 for the past few days * possible worsening due to concurrent use of CLARI-I, HCTZ, and possibly acyclovir * imaging notable for chronic left hydronephrosis but no other acute findings * follow-up on urine electrolytes * agree with IVF hydration -- follow repeat labs and UOP (2) Nausea and vomiting: Code(s): R11.2 - Nausea with vomiting, unspecified Status: Acute Assessment and Plan: * IV emetics * continue supportive therapy * follow symptoms (3) Pancreatitis: Code(s): K85.90 - Acute pancreatitis without necrosis or infection, unspecified Status: Acute Assessment and Plan: * etiology of #2(?) * lipase is trending down as is LFTs * pain control * advance diet as tolerated (4) Hypertension: Code(s): I10 - Essential (primary) hypertension Status: Deleted Assessment and Plan: * elevated at this time * however, lisinopril/HCTZ is on hold * furthermore, pain control may be contributing as well * use PRN hydralazine for now (5) Gastroesophageal reflux disease: Code(s): K21.9 - Gastro-esophageal reflux disease without esophagitis Status: Acute Assessment and Plan: * on IV PPI Will continue to follow. Subjective Date/time seen: 02/22/21 11:00 Overall, seems to be doing a bit better at this time; still with abdominal pain but medications make this tolerable; sleeping a bit better and more so overnight in comparison to previously; she feels her appetite is slowly returning as well. Exam Narrative: General: WD/WN female in NAD Heart: normal S1 and S2; no rub Lungs: clear to auscultation Abdomen: soft, nontender, nondistended, positive bowel sounds Extremities: no cyanosis or clubbing; no edema Skin: warm and dry Objective Data Vital Signs Vital Signs: Vital Signs Temp Pulse Resp BP Pulse Ox 02/22/21 04:28 36.9 C 65 18 162/61 H 98 02/21/21 20:58 36.8 C 69 18 149/82 H 100 02/21/21 15:16 36.3 C L 61 20 164/82 H 100 Intake/Output Intake/Output: Intake & Output 02/19/21 02/20/21 02/21/21 02/22/21 23:59 23:59 23:59 23:59 Intake Total 4800 1000 Output Total 2500 1200 Balance 2300 -200 Meds/Results Medications: Active Medications Generic Name Dose Route Start Last Admin Trade Name Freq PRN Reason Stop Dose Admin Baclofen 10 mg 02/21/21 18:00 02/21/21 17:50 Baclofen 10 Mg Tablet PO 10 mg QPM PRIMITIVO Administration Gabapentin 300 mg 02/21/21 09:00 02/22/21 08:02 Gabapentin 300 Mg Capsule PO 300 mg TID PRIMITIVO Administration Hydralazine HCl 10 mg 02/20/21 19:15 02/20/21 22:50 Hydralazine Hcl 20 Mg/Ml Vial IV PUSH 10 mg Q8H PRN Administration Blood Pressure - High Hydralazine HCl 10 mg 02/22/21 09:16 Hydralazine Hcl 20 Mg/Ml Vial IV PUSH Q8H PRN Blood Pressure - High Hydromorphone HCl 1 mg 02/20/21 17:33 02/22/21 07:58
--- NOTE | 2021-02-22 11:00 | PM.PNNEP ---
Progress Note: A&P Assessment and Plan (1) SOL (acute kidney injury): Code(s): N17.9 - Acute kidney failure, unspecified Status: Acute Assessment and Plan: slowly improving baseline creatinine normal suspect due to volume depletion/dehydration given issues with #2 for the past few days possible worsening due to concurrent use of CLARI-I, HCTZ, and possibly acyclovir imaging notable for chronic left hydronephrosis but no other acute findings follow-up on urine electrolytes agree with IVF hydration -- follow repeat labs and UOP (2) Nausea and vomiting: Code(s): R11.2 - Nausea with vomiting, unspecified Status: Acute Assessment and Plan: IV emetics continue supportive therapy follow symptoms (3) Pancreatitis: Code(s): K85.90 - Acute pancreatitis without necrosis or infection, unspecified Status: Acute Assessment and Plan: etiology of #2(?) lipase is trending down as is LFTs pain control advance diet as tolerated (4) Hypertension: Code(s): I10 - Essential (primary) hypertension Status: Deleted Assessment and Plan: elevated at this time however, lisinopril/HCTZ is on hold furthermore, pain control may be contributing as well use PRN hydralazine for now (5) Gastroesophageal reflux disease: Code(s): K21.9 - Gastro-esophageal reflux disease without esophagitis Status: Acute Assessment and Plan: on IV PPI Will continue to follow. Subjective Date/time seen: 02/22/21 11:00 Overall, seems to be doing a bit better at this time; still with abdominal pain but medications make this tolerable; sleeping a bit better and more so overnight in comparison to previously; she feels her appetite is slowly returning as well. Exam Narrative: General: WD/WN female in NAD Heart: normal S1 and S2; no rub Lungs: clear to auscultation Abdomen: soft, nontender, nondistended, positive bowel sounds Extremities: no cyanosis or clubbing; no edema Skin: warm and dry Objective Data Vital Signs Vital Signs: Vital Signs Temp Pulse Resp BP Pulse Ox 02/22/21 04:28 36.9 C 65 18 162/61 H 98 02/21/21 20:58 36.8 C 69 18 149/82 H 100 02/21/21 15:16 36.3 C L 61 20 164/82 H 100 Intake/Output Intake/Output: Intake & Output 02/19/21 02/20/21 02/21/21 02/22/21 23:59 23:59 23:59 23:59 Intake Total 4800 1000 Output Total 2500 1200 Balance 2300 -200 Meds/Results Medications: Active Medications Generic Name Dose Route Start Last Admin Trade Name Freq PRN Reason Stop Dose Admin Baclofen 10 mg 02/21/21 18:00 02/21/21 17:50 Baclofen 10 Mg Tablet PO 10 mg QPM PRIMITIVO Administration Gabapentin 300 mg 02/21/21 09:00 02/22/21 08:02 Gabapentin 300 Mg Capsule PO 300 mg TID PRIMITIVO Administration Hydralazine HCl 10 mg 02/20/21 19:15 02/20/21 22:50 Hydralazine Hcl 20 Mg/Ml Vial IV PUSH 10 mg Q8H PRN Administration Blood Pressure - High Hydralazine HCl 10 mg 02/22/21 09:16 Hydralazine Hcl 20 Mg/Ml Vial IV PUSH Q8H PRN Blood Pressure - High Hydromorphone HCl 1 mg 02/20/21 17:33 02/22/21 07:58 Hydromorphone Hcl Inj (*Crx) 1 Mg/Ml Syr IV PUSH 1 mg Q3HR PRN Administration pain 4-7 Lactated Ringer's 1,000 mls @ 125 mls/hr 02/20/21 17:20 02/22/21 04:36 Lr - Lactated Ringers Iv IV CONT 125 mls/hr .Q8H PRIMITIVO Administration Lorazepam 0.5 mg 02/20/21 19:49 Lorazepam Inj (*Crx) 2 Mg/Ml Vial IV PUSH Q6H PRN Anxiety Ondansetron HCl 4 mg 02/20/21 17:33 02/22/21 04:32 Ondansetron Inj 4 Mg/2 Ml Vial IV PUSH 4 mg Q4HR PRN Administration nausea Pantoprazole Sodium 40 mg 02/20/21 21:00 02/22/21 08:02 Pantoprazole Sodium Iv 40 Mg Vial IV PUSH 40 mg Q12HR PRIMITIVO Administration Ropinirole HCl 0.5 mg 02/20/21 21:00 02/21/21 20:59 Ropinirole Hcl 0.5 Mg Tablet PO 0.5 mg HS PRIMITIVO Administration Ro
--- NOTE | 2021-02-22 12:47 | WPDGICN ---
Assessment and Plan Assessment and plan (1) Vomiting and diarrhea: Code(s): R11.10 - Vomiting, unspecified; R19.7 - Diarrhea, unspecified Status: Acute Assessment and Plan: profuse diarrhea but also chronic component and never had colonoscopy agreeable to have one tomorrow, assess if colitis, etc duodenal bx in the past no evidence of celiac (2) Nausea and vomiting: Code(s): R11.2 - Nausea with vomiting, unspecified Status: Acute Assessment and Plan: last egd with gastritis will repeat tomorrow also noted that she is daily marijuana smoker that can contribute with gi symptoms (3) SOL (acute kidney injury): Code(s): N17.9 - Acute kidney failure, unspecified Status: Acute Assessment and Plan: on admission and improving (4) Coronary artery disease: Code(s): I25.10 - Atherosclerotic heart disease of [place] coronary artery without angina pectoris Status: Acute (5) Elevated liver enzymes: Code(s): R74.8 - Abnormal levels of other serum enzymes Status: Acute (6) Elevated lipase: Code(s): R74.8 - Abnormal levels of other serum enzymes Status: Acute Assessment and Plan: again with dilated lipase and mild elevation of transaminases, mrcp last year dilated bile duct. ultrasound again with dilated bile duct but now she says that had significant weight loss. Will get MRCP to assess pancreas with biliary system, rule out malignant or any other lesion she is post cholecystecomy (7) Hypertension: Code(s): I10 - Essential (primary) hypertension Status: Acute (8) Marijuana smoker: Code(s): F12.90 - Cannabis use, unspecified, uncomplicated Status: Acute (9) Weight loss: Code(s): R63.4 - Abnormal weight loss Status: Acute GI Consult Note Consult date/time: 02/22/21 12:47 Reason for consult: diarrhea, abdominal pain HPI: Anny Palmer is a 55 year old female with history of HTN, CAD with stents, smoker and also marijuana daily (for chronic leg pain) and cholecystectomy few years ago. I met her first when she was admitted to hospital last year with chest pain and epigastric pain and diagnosed with acute pancreatitis. MRCP showed normal pancreas, also mild dilated BD without stones or filling defect (expected in post cholecystectomy state). EGD with gastritis started on pantoprazole (bx showed gastritis, no h pylori, duodenal bx normal, esophageal bx unremarkable). She also has chronic diarrhea but last 3 days several episodes even with accidents, also more diffuse crampy abdominal pain and nausea. Blood showed mild elevated transaminases 70's, SOL with creatinine 3, normal wbc, normal bili. She also is worried because significant weight loss last month. CT scan a/p reviewed, small amount of fluid in the otherwise normal-appearing colon consistent with nonspecific diarrhea, chronic mild left hydronephrosis with 1 mm nonobstructing stone at the lower pole. US showed dilated bile duct again. Last time I saw her in office recommended colonoscopy but never had it. Review of Systems Constitutional: Constitutional: Reports weight loss Eyes: Eyes: Denies blurry vision ENT: Reports Normal hearing present Cardiovascular: Cardiovascular: Denies chest pain Respiratory: Respiratory: Denies dyspnea Gastrointestinal: Gastrointestinal: Reports abdominal pain, Reports diarrhea and Reports nausea Genitourinary: Genitourinary: Denies hematuria Musculoskeletal: Musculoskeletal: Denies neck pain Integumentary/Breasts: Skin/Breast: Denies dry skin Neurologic: Denies headache(s) Psychiatric: Psychiatric: Reports anxiety [facility] Past Medical History Medical History (Updated 02/22/21 @ 12:57 by Marciano Lozada MD) Anxiety Arthritis Coronary artery disease History of stent x2. Elevated lipase Gastroesophageal reflux disease Marijuana smoker Migraines Mild aortic valve stenosis Aortic valve area
[2021-02-22 13:09] LABS: Creatinine Urine 71.8 mg/dL; Urea Random Urine 228 MG/DL
[2021-02-22 13:33] LABS: Sodium Urine Random 129 meq/L
[2021-02-22 14:00] VITALS: BP 174/87; PULSE 70; RESP 16; TEMP 36.8; O2SAT 98
[2021-02-22 14:16] LABS: Eosinophil Urine None Seen % (None Seen)
[2021-02-22] MEDS: BISACODYL 5 MG TABLET EC 20 MG PO (17:58)
[2021-02-22] MEDS: BACLOFEN 10 MG TABLET PO (17:58)
[2021-02-22] MEDS: polyethylene glycoL 3350 238 GM BOTTLE PO (18:51)
[2021-02-22] MEDS: rOPINIRole HCL 0.5 MG TABLET PO (19:55)
[2021-02-22 20:00] VITALS: PULSE 94; RESP 22; O2SAT 100
[2021-02-22 22:00] VITALS: BP 157/85; PULSE 94; RESP 22; TEMP 36.4; O2SAT 100
[2021-02-22 23:01] VITALS: O2SAT 98
[2021-02-23] VITALS (10 sets, daily range): BP systolic 161–208; BP diastolic 54–87; PULSE 44–110; RESP 14–24; TEMP 36.3–36.8; O2SAT 96–100
[2021-02-23] MEDS: HYDROmorphone HCL INJ (*CRX) 1 MG/ML SYR IV PUSH ×6 (01:15→21:09)
[2021-02-23] MEDS: ONDANSETRON INJ 4 MG/2 ML VIAL IV PUSH ×5 (04:56→21:30)
[2021-02-23] MEDS: LACTATED RINGERS 1,000 ML 125 ML IV CONT ×3 (05:02→23:13)
[2021-02-23] MEDS: hydrALAZINE HCL 20 MG/ML VIAL 10 MG IV PUSH ×4 (05:49→20:40)
[2021-02-23 06:12] LABS: Basophils Percent Auto 0.6 % (0.2-1.2); Eosinophils Absolute Auto 0.2 K/mm3 (0-0.3); Eosinophils Percent Auto 3.7 % (0-4.4); Hemoglobin 10.5 g/dL (12.0-15.0); Immature Granulocyte Absolute 0.01 K/mm3 (0.00-0.031); Immature Granulocyte Percent A 0.2 % (0-0.5); Lymphocytes Absolute Auto 2.28 K/mm3 (0.9-3.2); Lymphocytes Percent Auto 35.2 % (18.3-44.2); Mean Corpuscular Volume 97.1 fl (80-100); Mean Platelet Volume 9.9 fl (7.4-10.4); Monocytes Absolute Auto 0.7 K/mm3 (0.1-0.6); Neutrophils Absolute Auto 3.3 K/mm3 (1.3-6.7); Neutrophils Percent Auto 50.3 % (45.5-73.1); Platelet Count Result 268 k/mm3 (150-375); Red Blood Count 3.09 M/mm3 (4.2-5.4); White Blood Count 6.5 K/mm3 (4.5-10.0)
[2021-02-23 06:20] LABS: Alanine Aminotransferase 28 U/L (4-35); Albumin Level 3.9 g/dL (3.5-5.1); Alkaline Phosphatase 67 U/L (38-126); Anion Gap 7 mmol/L (8-16); Aspartate Amino Transferase 30 U/L (14-36); Bilirubin,Total 0.5 mg/dL (0.2-1.3); Blood Urea Nitrogen 10 mg/dL (7-17); Calcium 9.5 mg/dL (8.4-10.2); Carbon Dioxide 24 mmol/L (22-30); Chloride 108 mmol/L (98-107); Estimated CRCL calculation 31 ml/min; Estimated Glomerular Filt Rate 31; Glucose 99 mg/dL (65-110); Magnesium 1.4 mg/dL (1.6-2.3); Potassium 3.6 mmol/L (3.4-5.0); Sodium 139 mmol/L (137-145)
[2021-02-23] MEDS: MAGNESIUM SULF 4 GM/WATER100ML 4 GM/100 ML BAG IVPB (07:24)
--- NOTE | 2021-02-23 07:45 | PM.IMPN ---
Progress Note: A&P Assessment and Plan (1) Acute renal failure: Qualifiers: Acute renal failure type: unspecified Qualified Code(s): N17.9 - Acute kidney failure, unspecified Code(s): N17.9 - Acute kidney failure, unspecified Status: Acute Assessment and Plan: Reports nausea vomiting and diarrhea for the past 3 days. Most likely pre renal azotemia or acute dehydration Baseline BUN/Cr 12-18/0.8-1 Current BUN/creatinine 10/1.70 GFR 31 Renal ultrasound Mild atrophy of left kidney. No hydronephrosis Nephrology consult thank you for your support Abdominal CT shows chronic hydronephrosis on left side with a 1 mm Kidney stones which is nonobstructing. Hold lisinopril and hydrochlorothiazide at this time Acyclovir can cause BUN and creatinine elevation will hold for now Avoid nephrotoxic medications Trend labs Urine electrolytes Ur Na 129, Ur urea 228, Ur Creatinine 71.8 Seems to be correcting (2) Abdominal pain: Qualifiers: Abdominal location: generalized Qualified Code(s): R10.84 - Generalized abdominal pain Code(s): R10.9 - Unspecified abdominal pain Status: Inactive Assessment and Plan: abdominal pain reported Lipase elevated at 3368 liver enzymes AST/ALT 77/47 Lipase and AST/ALT trending down, and 30/28 Dilaudid 1 mg Q 3 p.r.n. Probably related to pancreatitis MRCP shows acute pancreatitis CT does not indicate pancreatitis EGD/Colonoscopy ordered for today (3) Gastroesophageal reflux disease: Code(s): K21.9 - Gastro-esophageal reflux disease without esophagitis Status: Acute Assessment and Plan: Continue with IV Protonix (4) HTN (hypertension), malignant: Code(s): I10 - Essential (primary) hypertension Status: Chronic Assessment and Plan: BP 208/65 P.r.n. hydralazine 10mg IV hydralazine ordered now, trending down after hydralazine hold lisinopril and hydrochlorothiazide due to renal function Trend blood pressure Adjust therapy as needed (5) Anxiety: Code(s): F41.9 - Anxiety disorder, unspecified Status: Chronic Assessment and Plan: P.r.n. Ativan. (6) Pancreatitis: Code(s): K85.90 - Acute pancreatitis without necrosis or infection, unspecified Status: Acute Assessment and Plan: Lipase elevated at 3368, 520 today Right upper quadrant ultrasound Mild intra and extrahepatic biliary ductal dilation without evident choledocholithiasis, consider MRCP. No gallbladder present GI consult thank you for recommendations LR at 125 mL/hour Trend lipase NPO diet Pain control MRCP shows acute pancreatitis (7) Elevated liver enzymes: Code(s): R74.8 - Abnormal levels of other serum enzymes Status: Acute Assessment and Plan: AST/ALT 77/47, trending down to 30/28 Trend labs Labs in the am RUQ ultrasound Mild intra and extrahepatic biliary ductal dilation without evident choledocholithiasis. (8) Vomiting and diarrhea: Code(s): R11.10 - Vomiting, unspecified; R19.7 - Diarrhea, unspecified Status: Acute Assessment and Plan: Patient reports coffee-ground emesis and stool Occult blood ordered GI consult thank you for your help Trend hemoglobin hematocrit Current H&H 10.6/31.1, which is down one from yesterday, appears that it could be dilutional Protonix 40mg IV BID No reports of vomiting or diarrhea today. Transfuse if less than 7 Zofran PRN ordered (9) Anemia: Code(s): D64.9 - Anemia, unspecified Status: Acute Assessment and Plan: H/H continues to decline, 10.5/30.0 today Think that it could be dilutional anemia labs: Iron 93, TIBC 363,% saturation 26, transferrin 259, ferritin 61, B12 327, folate 8.1, normal Patient reported GI bleeding with vomiting and diarrhea Trend labs transfuse as needed (10)
--- NOTE | 2021-02-23 07:45 | P.PNIM_ITS ---
Progress Note: A&P Assessment and Plan (1) Acute renal failure: Qualifiers: Acute renal failure type: unspecified Qualified Code(s): N17.9 - Acute kidney failure, unspecified Code(s): N17.9 - Acute kidney failure, unspecified Status: Acute Assessment and Plan: * Reports nausea vomiting and diarrhea for the past 3 days. * Most likely pre renal azotemia or acute dehydration * Baseline BUN/Cr 12-18/0.8-1 * Current BUN/creatinine 10/1.70 GFR 31 * Renal ultrasound Mild atrophy of left kidney. No hydronephrosis * Nephrology consult thank you for your support * Abdominal CT shows chronic hydronephrosis on left side with a 1 mm Kidney stones which is nonobstructing. * Hold lisinopril and hydrochlorothiazide at this time * Acyclovir can cause BUN and creatinine elevation will hold for now * Avoid nephrotoxic medications * Trend labs * Urine electrolytes Ur Na 129, Ur urea 228, Ur Creatinine 71.8 * Seems to be correcting (2) Abdominal pain: Qualifiers: Abdominal location: generalized Qualified Code(s): R10.84 - Generalized abdominal pain Code(s): R10.9 - Unspecified abdominal pain Status: Inactive Assessment and Plan: * abdominal pain reported * Lipase elevated at 3368 liver enzymes AST/ALT 77/47 * Lipase and AST/ALT trending down, and 30/28 * Dilaudid 1 mg Q 3 p.r.n. * Probably related to pancreatitis * MRCP shows acute pancreatitis * CT does not indicate pancreatitis * EGD/Colonoscopy ordered for today (3) Gastroesophageal reflux disease: Code(s): K21.9 - Gastro-esophageal reflux disease without esophagitis Status: Acute Assessment and Plan: * Continue with IV Protonix (4) HTN (hypertension), malignant: Code(s): I10 - Essential (primary) hypertension Status: Chronic Assessment and Plan: * BP 208/65 * P.r.n. hydralazine * 10mg IV hydralazine ordered now, trending down after hydralazine * hold lisinopril and hydrochlorothiazide due to renal function * Trend blood pressure * Adjust therapy as needed (5) Anxiety: Code(s): F41.9 - Anxiety disorder, unspecified Status: Chronic Assessment and Plan: * P.r.n. Ativan. (6) Pancreatitis: Code(s): K85.90 - Acute pancreatitis without necrosis or infection, unspecified Status: Acute Assessment and Plan: * Lipase elevated at 3368, 520 today * Right upper quadrant ultrasound Mild intra and extrahepatic biliary ductal dilation without evident choledocholithiasis, consider MRCP. * No gallbladder present * GI consult thank you for recommendations * LR at 125 mL/hour * Trend lipase * NPO diet * Pain control * MRCP shows acute pancreatitis (7) Elevated liver enzymes: Code(s): R74.8 - Abnormal levels of other serum enzymes Status: Acute Assessment and Plan: * AST/ALT 77/47, trending down to 30/28 * Trend labs * Labs in the am * RUQ ultrasound Mild intra and extrahepatic biliary ductal dilation without evident choledocholithiasis. (8) Vomiting and diarrhea: Code(s): R11.10 - Vomiting, unspecified; R19.7 - Diarrhea, unspecified Status: Acute Assessment and Plan: * Patient reports coffee-ground emesis and stool * Occult blood ordered * GI consult thank you for your help * Trend hemoglobin hematocrit * Current H&H 10.6/31.1, which is down one from yesterday, appears that it co
[2021-02-23 08:31] LABS: Immature Reticulocyte Fraction 11.2 % (3.0-15.9); Reticulocyte Hemoglobin Conten 39.9 pg (28.2-35.7); Reticulocyte Percent 0.93 % (0.7-4.3); Reticulocytes Absolute 0.03 B/L (32.2-175.7)
[2021-02-23 08:46] LABS: Lipase 520 U/L (23-300)
[2021-02-23 08:51] LABS: Iron 93 ug/dL (37-170)
[2021-02-23 08:57] LABS: Transferrin 259 mg/dL (206-381)
[2021-02-23 09:05] LABS: Percent Iron Saturation 26 % (20-50)
[2021-02-23] MEDS: METOCLOPRAMIDE HCL INJ 10 MG/2 ML VIAL 5 MG IV PUSH (09:08)
[2021-02-23] MEDS: PANTOPRAZOLE SODIUM IV 40 MG VIAL IV PUSH (09:09)
--- NOTE | 2021-02-23 09:35 | PC.NURSE ---
Pt to GI lab with Kamla
[2021-02-23] MEDS: LACTATED RINGERS 1,000 ML 150 ML IV CONT (09:45)
--- NOTE | 2021-02-23 09:46 | WPDANESEPPF ---
Anes - Initial Pre Proc Eval Procedure: Operation Date: 02/23/21 13:30 Proposed Procedures p Esophagogastroduodenoscopy & Colonoscopy - Marciano Lozada MD Date/Time: 02/23/21 09:46 Surgeon: Leela Gracia MD Pre Op Diagnosis: Acute Renal Failure Patient Data Age: 55 Gender: F Height: 1.7 m Weight: 58.6 kg Last Vital Signs Temp 36.8 C 02/23/21 09:41 Pulse 110 H 02/23/21 09:41 Resp 18 02/23/21 09:41 BP 199/87 H 02/23/21 09:41 Pulse Ox 98 02/23/21 09:41 Allergies Allergy/AdvReac Type Severity Reaction Status Date / Time butalbital Allergy Unknown hives Verified 02/20/21 13:42 ibuprofen Allergy Unknown Hives Verified 02/20/21 13:42 ketorolac Allergy Unknown Hives Verified 02/20/21 13:42 naproxen Allergy Unknown Hives Verified 02/20/21 13:42 sumatriptan Allergy Unknown Hives Verified 02/20/21 13:42 Fish Containing Products Allergy Hives Verified 02/20/21 13:42 Home Medications Medication Instructions Recorded Confirmed Type baclofen 10 mg PO QPM 02/12/20 02/20/21 History gabapentin 300 mg PO TID 02/12/20 02/20/21 History lisinopril-hydrochlorothiazide 1 tablet PO DAILY 02/12/20 02/20/21 History pantoprazole 40 mg PO QAM #30 tablet 02/16/20 02/20/21 Rx acyclovir 800 mg PO DAILY 02/10/21 02/20/21 History ropinirole 0.5 mg PO HS 02/10/21 02/20/21 History aspirin [Children's Aspirin] 81 mg PO DAILY@0800 #30 tablet 02/11/21 02/20/21 Rx rosuvastatin [Crestor] 10 mg PO QAM #30 tablet 02/11/21 02/20/21 Rx Laboratory Tests 02/22/21 02/22/21 02/22/21 12:33 12:33 12:33 WBC RBC Hgb Hct MCV MCH MCHC RDW Plt Count MPV Immature Gran % (Auto) Neut % (Auto) Lymph % (Auto) Forrest % (Auto) Eos % (Auto) Baso % (Auto) Lymph # (Auto) Forrest # (Auto) Eos # (Auto) Baso # (Auto) Abs Immat Gran (auto) Absolute Neuts (auto) Absolute Nucleated RBC Nucleated RBC % Absolute Retic Percent Retic Immature Retic Fraction Retic Hgb Content Sodium Potassium Chloride Carbon Dioxide Anion Gap BUN Creatinine Estim Creat Clear Calc Estimated GFR Glucose Calcium Magnesium Iron TIBC % Saturation Transferrin Ferritin Total Bilirubin AST ALT Alkaline Phosphatase Total Protein Albumin Lipase Vitamin B12 Folate TSH (Reflex) Urine Eosinophils None seen % % (None Seen) Urine Osmolality Pending Ur Random Creatinine Pending Ur Random Sodium 129 meq/L meq/L Ur Random Chloride Pending U Random Chloride/Creat Pending Ur Random Urea 228 MG/DL MG/DL Urine Creatinine 71.8 mg/dL mg/dL 02/23/21 02/23/21 02/23/21 05:44 05:44 07:48 WBC 6.5 K/mm3 K/mm3 (4.5-10.0) RBC 3.09 M/mm3 L M/mm3 (4.2-5.4) Hgb 10.5 g/dL L g/dL (12.0-15.0) Hct 30.0 % L % (37.0-47.0) MCV 97.1 fl fl (80-100) MCH 34.0 pg pg (26-34) MCHC 35.0 g/dl g/dl (32-36) RDW 14.0 % % (11.5-14.5) Plt Count 268 k/mm3 k/mm3 (150-375) MPV 9.9 fl fl (7.4-10.4) Immature Gran % (Auto) 0.2 % % (0-0.5) Neut % (Auto) 50.3 % % (45.5-73.1) Lymph % (Auto) 35.2 % % (18.3-44.2) Forrest % (Auto) 10.0 % H % (2.6-8.5) Eos % (Auto) 3.7 % % (0-4.4)
[2021-02-23 09:54] LABS: Folic Acid 8.1 ng/mL (2.76->20)
--- NOTE | 2021-02-23 11:03 | SUR.OPER ---
EGD started at 1021 and ended at 1024. Colonoscopy started at 1029 and ended at 1043.
--- NOTE | 2021-02-23 11:29 | PC.NURSE ---
Patient back from GI lab
[2021-02-23] MEDS: GABAPENTIN 300 MG CAPSULE PO ×2 (12:16→17:29)
--- NOTE | 2021-02-23 13:19 | P.PNNP_ITS ---
Progress Note: A&P Assessment and Plan (1) SOL (acute kidney injury): Code(s): N17.9 - Acute kidney failure, unspecified Status: Acute Assessment and Plan: * slowly improving * baseline creatinine normal * suspect due to volume depletion/dehydration given issues with #2 for the past few days * possible worsening due to concurrent use of CLARI-I, HCTZ, and possibly acyclovir * imaging notable for chronic left hydronephrosis but no other acute findings * follow-up on urine electrolytes * agree with IVF hydration -- follow repeat labs and UOP (2) Nausea and vomiting: Code(s): R11.2 - Nausea with vomiting, unspecified Status: Acute Assessment and Plan: * IV emetics * s/p EGD and colonoscopy - found to have mild gastritis with normal colon (with pending biopsies) * continue supportive therapy * follow symptoms (3) Pancreatitis: Code(s): K85.90 - Acute pancreatitis without necrosis or infection, unspecified Status: Acute Assessment and Plan: * etiology of #2(?) * lipase is trending down as is LFTs * MRCP confirms diagnosis * pain control * advance diet as tolerated (4) Hypertension: Code(s): I10 - Essential (primary) hypertension Status: Deleted Assessment and Plan: * elevated at this time * however, lisinopril/HCTZ is on hold * furthermore, pain issues likely contributing as well * use PRN hydralazine for now (5) Gastroesophageal reflux disease: Code(s): K21.9 - Gastro-esophageal reflux disease without esophagitis Status: Acute Assessment and Plan: * on IV PPI Will continue to follow. Subjective Date/time seen: 02/23/21 13:19 Seen by GI and s/p EGD and colonoscopy today for further evaluation of her ongoing GI symptoms (results noted); still with abdominal pain and nausea with minimal improvement with current medication regiment; no other issues/events overnight or earlier this AM. Exam Narrative: General: WD/WN female in NAD Heart: normal S1 and S2; no rub Lungs: clear to auscultation Abdomen: soft, nontender, nondistended, positive bowel sounds Extremities: no cyanosis or clubbing; no edema Skin: warm and intact Objective Data Vital Signs Vital Signs: Vital Signs Temp Pulse Resp BP Pulse Ox 02/23/21 11:08 71 24 H 168/78 H 100 02/23/21 10:58 77 16 172/82 H 100 02/23/21 10:48 75 16 161/81 H 96 02/23/21 09:41 36.8 C 110 H 18 199/87 H 98 02/23/21 08:00 179/70 H 02/23/21 07:20 179/70 H 02/23/21 06:23 179/54 H 02/23/21 05:39 36.5 C 44 L 14 208/65 H 99 02/22/21 23:01 98 02/22/21 22:00 36.4 C L 94 22 H 157/85 H 100 02/22/21 20:00 94 22 H 100 02/22/21 14:00 36.8 C 70 16 174/87 H 98 Intake/Output Intake/Output: Intake & Output 02/20/21 02/21/21 02/22/21 02/23/21 23:59 23:59 23:59 23:59 Intake Total 4800 3960 1100 Output Total 2500 1200 800 Balance 2300 2760 300 Meds/Results Medications: Active Medications Generic Name Dose Route Start Last Admin Trade Name Arnel PRN Reason Stop Dose Admin Baclofen 10 mg 02/21/21 18:00 02/22/21 17:58 Baclofen 10 Mg Tablet PO 10 mg QPM PRIMITIVO
--- NOTE | 2021-02-23 13:19 | PM.PNNEP ---
Progress Note: A&P Assessment and Plan (1) SOL (acute kidney injury): Code(s): N17.9 - Acute kidney failure, unspecified Status: Acute Assessment and Plan: slowly improving baseline creatinine normal suspect due to volume depletion/dehydration given issues with #2 for the past few days possible worsening due to concurrent use of CLARI-I, HCTZ, and possibly acyclovir imaging notable for chronic left hydronephrosis but no other acute findings follow-up on urine electrolytes agree with IVF hydration -- follow repeat labs and UOP (2) Nausea and vomiting: Code(s): R11.2 - Nausea with vomiting, unspecified Status: Acute Assessment and Plan: IV emetics s/p EGD and colonoscopy - found to have mild gastritis with normal colon (with pending biopsies) continue supportive therapy follow symptoms (3) Pancreatitis: Code(s): K85.90 - Acute pancreatitis without necrosis or infection, unspecified Status: Acute Assessment and Plan: etiology of #2(?) lipase is trending down as is LFTs MRCP confirms diagnosis pain control advance diet as tolerated (4) Hypertension: Code(s): I10 - Essential (primary) hypertension Status: Deleted Assessment and Plan: elevated at this time however, lisinopril/HCTZ is on hold furthermore, pain issues likely contributing as well use PRN hydralazine for now (5) Gastroesophageal reflux disease: Code(s): K21.9 - Gastro-esophageal reflux disease without esophagitis Status: Acute Assessment and Plan: on IV PPI Will continue to follow. Subjective Date/time seen: 02/23/21 13:19 Seen by GI and s/p EGD and colonoscopy today for further evaluation of her ongoing GI symptoms (results noted); still with abdominal pain and nausea with minimal improvement with current medication regiment; no other issues/events overnight or earlier this AM. Exam Narrative: General: WD/WN female in NAD Heart: normal S1 and S2; no rub Lungs: clear to auscultation Abdomen: soft, nontender, nondistended, positive bowel sounds Extremities: no cyanosis or clubbing; no edema Skin: warm and intact Objective Data Vital Signs Vital Signs: Vital Signs Temp Pulse Resp BP Pulse Ox 02/23/21 11:08 71 24 H 168/78 H 100 02/23/21 10:58 77 16 172/82 H 100 02/23/21 10:48 75 16 161/81 H 96 02/23/21 09:41 36.8 C 110 H 18 199/87 H 98 02/23/21 08:00 179/70 H 02/23/21 07:20 179/70 H 02/23/21 06:23 179/54 H 02/23/21 05:39 36.5 C 44 L 14 208/65 H 99 02/22/21 23:01 98 02/22/21 22:00 36.4 C L 94 22 H 157/85 H 100 02/22/21 20:00 94 22 H 100 02/22/21 14:00 36.8 C 70 16 174/87 H 98 Intake/Output Intake/Output: Intake & Output 02/20/21 02/21/21 02/22/21 02/23/21 23:59 23:59 23:59 23:59 Intake Total 4800 3960 1100 Output Total 2500 1200 800 Balance 2300 2760 300 Meds/Results Medications: Active Medications Generic Name Dose Route Start Last Admin Trade Name Fre PRN Reason Stop Dose Admin Baclofen 10 mg 02/21/21 18:00 02/22/21 17:58 Baclofen 10 Mg Tablet PO 10 mg QPM PRIMITIVO Administration Gabapentin 300 mg 02/21/21 09:00 02/23/21 12:16 Gabapentin 300 Mg Capsule PO 300 mg TID PRIMITIVO Administration Hydralazine HCl 10 mg 02/22/21 09:16 Hydralazine Hcl 20 Mg/Ml Vial IV PUSH Q8H PRN Blood Pressure - High Hydromorphone HCl 1 mg 02/20/21 17:33 02/23/21 12:13 Hydromorphone Hcl Inj (*Crx) 1 Mg/Ml Syr IV PUSH 1 mg Q3HR PRN Administration pain 4-7 Lactated Ringer's 1,000 mls @ 125 mls/hr 02/20/21 17:20 02/23/21 11:30 Lr - Lactated Ringers Iv IV CONT 125 mls/hr .Q8H PRIMITIVO Infusion Lorazepam 0.5 mg 02/20/21 19:49 Lorazepam Inj (*Crx) 2 Mg/Ml Vial IV PUSH Q6H PRN Anxiety Ondansetron HCl 4 mg 02/20/21 17:33 02/23/21 13:08 Ondansetron Inj 4 Mg/2 Ml Vial IV PUSH
[2021-02-23] MEDS: BACLOFEN 10 MG TABLET PO (17:29)
[2021-02-23] MEDS: rOPINIRole HCL 0.5 MG TABLET PO (20:16)
[2021-02-24] MEDS: HYDROmorphone HCL INJ (*CRX) 1 MG/ML SYR IV PUSH ×5 (00:33→20:06)
[2021-02-24 03:43] VITALS: BP 193/58; PULSE 78; RESP 18; TEMP 37; O2SAT 99
[2021-02-24] MEDS: hydrALAZINE HCL 20 MG/ML VIAL 10 MG IV PUSH ×2 (03:46→20:40)
[2021-02-24 04:18] VITALS: BP 167/57
[2021-02-24 05:50] LABS: Basophils Percent Auto 0.5 % (0.2-1.2); Eosinophils Absolute Auto 0.2 K/mm3 (0-0.3); Eosinophils Percent Auto 2.9 % (0-4.4); Hematocrit 28.7 % (37.0-47.0); Hemoglobin 9.9 g/dL (12.0-15.0); Immature Granulocyte Absolute 0.01 K/mm3 (0.00-0.031); Immature Granulocyte Percent A 0.2 % (0-0.5); Lymphocytes Absolute Auto 1.98 K/mm3 (0.9-3.2); Lymphocytes Percent Auto 30.6 % (18.3-44.2); Mean Corpuscular HGB Conc 34.5 g/dl (32-36); Mean Corpuscular Hemoglobin 34.1 pg (26-34); Mean Platelet Volume 9.9 fl (7.4-10.4); Monocytes Absolute Auto 0.7 K/mm3 (0.1-0.6); Monocytes Percent Auto 11.3 % (2.6-8.5); Neutrophils Absolute Auto 3.5 K/mm3 (1.3-6.7); Neutrophils Percent Auto 54.5 % (45.5-73.1); Platelet Count Result 257 k/mm3 (150-375); Red Cell Distribution Width 14.2 % (11.5-14.5); White Blood Count 6.5 K/mm3 (4.5-10.0)
[2021-02-24 06:17] LABS: Alanine Aminotransferase 22 U/L (4-35); Albumin Level 3.6 g/dL (3.5-5.1); Alkaline Phosphatase 58 U/L (38-126); Anion Gap 5 mmol/L (8-16); Aspartate Amino Transferase 24 U/L (14-36); Bilirubin,Total 0.4 mg/dL (0.2-1.3); Blood Urea Nitrogen 4 mg/dL (7-17); Calcium 8.6 mg/dL (8.4-10.2); Carbon Dioxide 28 mmol/L (22-30); Chloride 102 mmol/L (98-107); Estimated CRCL calculation 40 ml/min; Estimated Glomerular Filt Rate 42; Glucose 134 mg/dL (65-110); Lipase 278 U/L (23-300); Magnesium 1.5 mg/dL (1.6-2.3); Potassium 3.3 mmol/L (3.4-5.0); Sodium 135 mmol/L (137-145)
[2021-02-24] MEDS: LACTATED RINGERS 1,000 ML 125 ML IV CONT ×2 (07:17→23:39)
[2021-02-24] MEDS: GABAPENTIN 300 MG CAPSULE PO ×3 (08:40→17:15)
[2021-02-24] MEDS: ROSUVASTATIN 10 MG TABLET PO (08:40)
[2021-02-24] MEDS: PANTOPRAZOLE SODIUM IV 40 MG VIAL IV PUSH (08:41)
--- NOTE | 2021-02-24 10:10 | P.PNIM_ITS ---
Progress Note: A&P Assessment and Plan (1) Acute renal failure: Qualifiers: Acute renal failure type: unspecified Qualified Code(s): N17.9 - Acute kidney failure, unspecified Code(s): N17.9 - Acute kidney failure, unspecified Status: Acute Assessment and Plan: * Acute nonoliguric kidney failure. * Baseline creatinine is normal * Creatinine is improving from 3.1 admission down to 1.3 today. * Reports nausea vomiting and diarrhea for the past 3 days. * Most likely pre renal azotemia or acute dehydration * Renal ultrasound Mild atrophy of left kidney. No hydronephrosis * Avoid nephrotoxic medications. (2) Abdominal pain: Qualifiers: Abdominal location: generalized Qualified Code(s): R10.84 - Generalized abdominal pain Code(s): R10.9 - Unspecified abdominal pain Status: Inactive Assessment and Plan: * Epigastric abdominal pain reported. It may be related to pancreatitis; however patient denies etoh, MRCP reviewed and stable dilated bile duct without other findings than pancreatitis; liver enzymes have improved down to normal range now. She would like to eat more, we will advance diet but patient was advised to eat small portions as tolerated * Lipase elevated at 3368 liver enzymes AST/ALT 77/47 * Continue pain management with Dilaudid 1 mg Q 3 p.r.n. * (3) Gastroesophageal reflux disease: Code(s): K21.9 - Gastro-esophageal reflux disease without esophagitis Status: Acute Assessment and Plan: For switched to p.o. Protonix. (4) HTN (hypertension), malignant: Code(s): I10 - Essential (primary) hypertension Status: Chronic Assessment and Plan: * Uncontrolled hypertension. Today the blood pressure is the wound in the 167/57-193/58 range. * Start amlodipine 10 mg p.o. daily. * Continue to hold lisinopril and hydrochlorothiazide in the setting of SOL * Trend blood pressure * Adjust therapy as needed (5) Anxiety: Code(s): F41.9 - Anxiety disorder, unspecified Status: Chronic Assessment and Plan: * P.r.n. Ativan. (6) Pancreatitis: Code(s): K85.90 - Acute pancreatitis without necrosis or infection, unspecified Status: Acute Assessment and Plan: * Lipase elevated at 3368, 520 today * Right upper quadrant ultrasound Mild intra and extrahepatic biliary ductal dilation without evident choledocholithiasis * MRCP suggest pancreatitis. * Continue supportive care, pain management. * No gallbladder present * GI consult thank you for recommendations * LR at 125 mL/hour * Trend lipase * Advance diet as tolerated. (7) Elevated liver enzymes: Code(s): R74.8 - Abnormal levels of other serum enzymes Status: Acute Assessment and Plan: * AST/ALT 77/47, trending down to 30/28 * Trend labs * Labs in the am * RUQ ultrasound Mild intra and extrahepatic biliary ductal dilation without evident choledocholithiasis. (8) Vomiting and diarrhea: Code(s): R11.10 - Vomiting, unspecified; R19.7 - Diarrhea, unspecified Status: Acute Assessment and Plan: * Patient reports coffee-ground emesis and profused diarrhea * Occult blood ordered * Unclear etiology. * Zofran PRN ordered (9) Anemia: Code(s): D64.9 - Anemia, unspecified Status: Acute Assessment and Plan: * H/H continues to decline, 9.9/28.7 today * There m
--- NOTE | 2021-02-24 10:10 | PM.IMPN ---
Progress Note: A&P Assessment and Plan (1) Acute renal failure: Qualifiers: Acute renal failure type: unspecified Qualified Code(s): N17.9 - Acute kidney failure, unspecified Code(s): N17.9 - Acute kidney failure, unspecified Status: Acute Assessment and Plan: Acute nonoliguric kidney failure. Baseline creatinine is normal Creatinine is improving from 3.1 admission down to 1.3 today. Reports nausea vomiting and diarrhea for the past 3 days. Most likely pre renal azotemia or acute dehydration Renal ultrasound Mild atrophy of left kidney. No hydronephrosis Avoid nephrotoxic medications. (2) Abdominal pain: Qualifiers: Abdominal location: generalized Qualified Code(s): R10.84 - Generalized abdominal pain Code(s): R10.9 - Unspecified abdominal pain Status: Inactive Assessment and Plan: Epigastric abdominal pain reported. It may be related to pancreatitis; however patient denies etoh, MRCP reviewed and stable dilated bile duct without other findings than pancreatitis; liver enzymes have improved down to normal range now. She would like to eat more, we will advance diet but patient was advised to eat small portions as tolerated Lipase elevated at 3368 liver enzymes AST/ALT 77/47 Continue pain management with Dilaudid 1 mg Q 3 p.r.n. (3) Gastroesophageal reflux disease: Code(s): K21.9 - Gastro-esophageal reflux disease without esophagitis Status: Acute Assessment and Plan: For switched to p.o. Protonix. (4) HTN (hypertension), malignant: Code(s): I10 - Essential (primary) hypertension Status: Chronic Assessment and Plan: Uncontrolled hypertension. Today the blood pressure is the wound in the 167/57-193/58 range. Start amlodipine 10 mg p.o. daily. Continue to hold lisinopril and hydrochlorothiazide in the setting of SOL Trend blood pressure Adjust therapy as needed (5) Anxiety: Code(s): F41.9 - Anxiety disorder, unspecified Status: Chronic Assessment and Plan: P.r.n. Ativan. (6) Pancreatitis: Code(s): K85.90 - Acute pancreatitis without necrosis or infection, unspecified Status: Acute Assessment and Plan: Lipase elevated at 3368, 520 today Right upper quadrant ultrasound Mild intra and extrahepatic biliary ductal dilation without evident choledocholithiasis MRCP suggest pancreatitis. Continue supportive care, pain management. No gallbladder present GI consult thank you for recommendations LR at 125 mL/hour Trend lipase Advance diet as tolerated. (7) Elevated liver enzymes: Code(s): R74.8 - Abnormal levels of other serum enzymes Status: Acute Assessment and Plan: AST/ALT 77/47, trending down to 30/28 Trend labs Labs in the am RUQ ultrasound Mild intra and extrahepatic biliary ductal dilation without evident choledocholithiasis. (8) Vomiting and diarrhea: Code(s): R11.10 - Vomiting, unspecified; R19.7 - Diarrhea, unspecified Status: Acute Assessment and Plan: Patient reports coffee-ground emesis and profused diarrhea Occult blood ordered Unclear etiology. Zofran PRN ordered (9) Anemia: Code(s): D64.9 - Anemia, unspecified Status: Acute Assessment and Plan: H/H continues to decline, 9.9/28.7 today There may be a dilutional element Iron stores are repleted: Iron 93, TIBC 363,% saturation 26, transferrin 259, ferritin 61, B12 327, and folate is 8.1, normal Patient reported GI bleeding with vomiting and diarrhea. Upper and lower endoscopic studies did not identify a source of bleeding. (10) Marijuana smoker: Code(s): F12.90 - Cannabis use, unspecified, uncomplicated Status: Acute Assessment and Plan: Current user Can cause GI symptoms Cessation education given for 10 minutes (11) Hypomagnesem
--- NOTE | 2021-02-24 10:57 | WPDGIPROGNO ---
Progress Note: A&P Assessment and Plan (1) Pancreatitis: Code(s): K85.90 - Acute pancreatitis without necrosis or infection, unspecified Status: Acute Assessment and Plan: wonder if pain could be due to pancreatitis denies etoh, MRCP reviewed and stable dilated bile duct without other findings than pancreatitis liver enzymes down to normal now she would like to eat more, will advance diet but advised to eat small portions as tolerated (2) Nausea and vomiting: Code(s): R11.2 - Nausea with vomiting, unspecified Status: Acute Assessment and Plan: egd only mild gastritis (3) Diarrhea: Code(s): R19.7 - Diarrhea, unspecified Status: Acute Assessment and Plan: colonoscopy unremarkable- pending biopsies will start creon tid with meals to see if will help (4) Nausea: Code(s): R11.0 - Nausea Status: Acute Assessment and Plan: multifactorial (pancreatitis, marijuana use, meds related, etc) (5) Hypomagnesemia: Code(s): E83.42 - Hypomagnesemia Status: Acute Assessment and Plan: repleting (6) SOL (acute kidney injury): Code(s): N17.9 - Acute kidney failure, unspecified Status: Acute Assessment and Plan: improving (7) Marijuana smoker: Code(s): F12.90 - Cannabis use, unspecified, uncomplicated Status: Acute Subjective Date/time seen: 02/24/21 10:57 Interval history: yesterday with almost unremarkable egd and colonoscopy (mild gastritis, normal colon with pending biopsies). Still with similar diarrhea, also epigastric discomfort. MRCP also showed pancreatitis. Review of Systems Review of Systems: All systems reviewed & are unremarkable except as noted in HPI and below Exam Const: General: comfortable and no acute distress HENMT: General nose exam: Normal nares present Eyes: General: appearance normal, both eyes and all related structures Neck: Neck: no JVD Resp: Auscultation: clear to auscultation bilaterally Cardio: Rate: regular rate Rhythm: regular rhythm GI: Inspection: non-distended GI Palp: Yes Soft to palpation and Yes Tenderness to palpation present (GI) (mild ttp in epigastric, no rebound) Auscultation: normal bowel sounds Skin: General skin exam: normal color Neuro: General: gait normal Speech: normal speech Extrem: General: normal to inspection Psych: Mental Status: mental status grossly normal Objective Data Vital Signs Vital Signs: Vital Signs - 24 hr 02/23/21 10:58 02/23/21 11:08 02/23/21 14:00 Temperature 97.4 F L Pulse Rate 77 71 88 Respiratory Rate 16 24 H 18 Blood Pressure 172/82 H 168/78 H 183/69 H Pulse Oximetry 100 100 99 02/23/21 20:16 02/24/21 03:43 02/24/21 04:18 Temperature 97.6 F 98.6 F Pulse Rate 79 78 Respiratory Rate 18 18 Blood Pressure 190/58 H 193/58 H 167/57 H Pulse Oximetry 99 99 Intake/Output Intake/Output: Intake & Output 02/21/21 02/22/21 02/23/21 02/24/21 23:59 23:59 23:59 23:59 Intake Total 4800 3960 4010 1750 Output Total 2500 1200 807 Balance 2300 2760 3203 1750 Meds/Results Medications: Active Medications Generic Name Dose Route Start Last Admin Trade Name Freq PRN Reason Stop Dose Admin Lipase/Protease/Amylase 1 cap 02/24/21 12:00 Lipase/Amylase/Protease 12,000 Units Cap PO TIDWM PRIMITIVO Baclofen 10 mg 02/21/21 18:00 02/23/21 17:29 Baclofen 10 Mg Tablet PO 10 mg QPM PRIMITIVO Administration Gabapentin 300 mg 02/21/21 09:00 02/24/21 08:40 Gabapentin 300 Mg Capsule PO 300 mg TID PRIMITIVO Administration Hydralazine HCl 10 mg 02/22/21 09:16 02/24/21 03:46 Hydralazine Hcl 20 Mg/Ml Vial IV PUSH 10 mg Q8H PRN Administration Blood Pressure - High Hydromorphone HCl 1 mg 02/20/21 17:33 02/24/21 10:38 Hydromorphone Hcl Inj (*Crx) 1 Mg/Ml Syr IV PUSH 1 mg Q3HR PRN Administration pain 4-7 Lactated Ringer's 1,000 mls @ 125 mls/hr 02/20/21 17:20 11
[2021-02-24] MEDS: LIPASE/AMYLASE/PROTEASE 12,000 UNITS CAP 1 CAP PO ×2 (12:10→17:15)
--- NOTE | 2021-02-24 13:09 | PM.PNNEP ---
Progress Note: A&P Assessment and Plan (1) SOL (acute kidney injury): Code(s): N17.9 - Acute kidney failure, unspecified Status: Acute Assessment and Plan: slowly improving baseline creatinine normal suspect due to volume depletion/dehydration given issues with #2 for the past few days possible worsening due to concurrent use of CLARI-I, HCTZ, and possibly acyclovir imaging notable for chronic left hydronephrosis but no other acute findings continue IVF hydration -- follow repeat labs and UOP (2) Nausea and vomiting: Code(s): R11.2 - Nausea with vomiting, unspecified Status: Acute Assessment and Plan: IV emetics s/p EGD and colonoscopy - found to have mild gastritis with normal colon (with pending biopsies) continue supportive therapy follow symptoms (3) Pancreatitis: Code(s): K85.90 - Acute pancreatitis without necrosis or infection, unspecified Status: Acute Assessment and Plan: etiology of #2(?) lipase is trending down as is LFTs MRCP confirms diagnosis pain control advance diet as tolerated (4) Hypertension: Code(s): I10 - Essential (primary) hypertension Status: Deleted Assessment and Plan: elevated at this time however, lisinopril/HCTZ is on hold furthermore, pain issues likely contributing as well use PRN hydralazine for now (5) Gastroesophageal reflux disease: Code(s): K21.9 - Gastro-esophageal reflux disease without esophagitis Status: Acute Assessment and Plan: on IV PPI Will continue to follow. Subjective Date/time seen: 02/24/21 13:09 S/P EGD and colonoscopy yesterday with results noted; still with abdominal pain along with diarrhea as well; pain control seems to continue fluctuate/persist; she feels her BP issues are more related to her pain; no new issues to report at this time. Exam Narrative: General: WD/WN female in NAD Heart: normal S1 and S2; no rub Lungs: clear to auscultation Abdomen: soft, nontender, nondistended, positive bowel sounds Extremities: no cyanosis or clubbing; no edema Skin: no rash or nodules Objective Data Vital Signs Vital Signs: Vital Signs Temp Pulse Resp BP Pulse Ox 02/24/21 04:18 167/57 H 02/24/21 03:43 37.0 C 78 18 193/58 H 99 02/23/21 20:16 36.4 C 79 18 190/58 H 99 Intake/Output Intake/Output: Intake & Output 02/21/21 02/22/21 02/23/21 02/24/21 23:59 23:59 23:59 23:59 Intake Total 4800 3960 4010 1989 Output Total 2500 1200 807 Balance 2300 2760 3203 1989 Meds/Results Medications: Active Medications Generic Name Dose Route Start Last Admin Trade Name Freq PRN Reason Stop Dose Admin Lipase/Protease/Amylase 1 cap 02/24/21 12:00 02/24/21 12:10 Lipase/Amylase/Protease 12,000 Units Cap PO 1 cap TIDWM PRIMITIVO Administration Baclofen 10 mg 02/21/21 18:00 02/23/21 17:29 Baclofen 10 Mg Tablet PO 10 mg QPM PRIMITIVO Administration Gabapentin 300 mg 02/21/21 09:00 02/24/21 12:10 Gabapentin 300 Mg Capsule PO 300 mg TID PRIMITIVO Administration Hydralazine HCl 10 mg 02/22/21 09:16 02/24/21 03:46 Hydralazine Hcl 20 Mg/Ml Vial IV PUSH 10 mg Q8H PRN Administration Blood Pressure - High Hydromorphone HCl 1 mg 02/20/21 17:33 02/24/21 14:01 Hydromorphone Hcl Inj (*Crx) 1 Mg/Ml Syr IV PUSH 1 mg Q3HR PRN Administration pain 4-7 Lactated Ringer's 1,000 mls @ 125 mls/hr 02/20/21 17:20 02/24/21 07:17 Lr - Lactated Ringers Iv IV CONT 125 mls/hr .Q8H PRIMITIVO Administration Lorazepam 0.5 mg 02/20/21 19:49 Lorazepam Inj (*Crx) 2 Mg/Ml Vial IV PUSH Q6H PRN Anxiety Ondansetron HCl 4 mg 02/20/21 17:33 02/23/21 21:30 Ondansetron Inj 4 Mg/2 Ml Vial IV PUSH 4 mg Q4HR PRN Administration nausea Pantoprazole Sodium 40 mg 02/24/21 09:00 02/24/21 08:41 Pantoprazole Sodium Iv 40 Mg Vial IV PUSH 40 mg QAM PRIMITIVO Administration Rop
--- NOTE | 2021-02-24 13:09 | P.PNNP_ITS ---
Progress Note: A&P Assessment and Plan (1) SOL (acute kidney injury): Code(s): N17.9 - Acute kidney failure, unspecified Status: Acute Assessment and Plan: * slowly improving * baseline creatinine normal * suspect due to volume depletion/dehydration given issues with #2 for the past few days * possible worsening due to concurrent use of CLARI-I, HCTZ, and possibly acyclovir * imaging notable for chronic left hydronephrosis but no other acute findings * continue IVF hydration -- follow repeat labs and UOP (2) Nausea and vomiting: Code(s): R11.2 - Nausea with vomiting, unspecified Status: Acute Assessment and Plan: * IV emetics * s/p EGD and colonoscopy - found to have mild gastritis with normal colon (with pending biopsies) * continue supportive therapy * follow symptoms (3) Pancreatitis: Code(s): K85.90 - Acute pancreatitis without necrosis or infection, unspecified Status: Acute Assessment and Plan: * etiology of #2(?) * lipase is trending down as is LFTs * MRCP confirms diagnosis * pain control * advance diet as tolerated (4) Hypertension: Code(s): I10 - Essential (primary) hypertension Status: Deleted Assessment and Plan: * elevated at this time * however, lisinopril/HCTZ is on hold * furthermore, pain issues likely contributing as well * use PRN hydralazine for now (5) Gastroesophageal reflux disease: Code(s): K21.9 - Gastro-esophageal reflux disease without esophagitis Status: Acute Assessment and Plan: * on IV PPI Will continue to follow. Subjective Date/time seen: 02/24/21 13:09 S/P EGD and colonoscopy yesterday with results noted; still with abdominal pain along with diarrhea as well; pain control seems to continue fluctuate/persist; she feels her BP issues are more related to her pain; no new issues to report at this time. Exam Narrative: General: WD/WN female in NAD Heart: normal S1 and S2; no rub Lungs: clear to auscultation Abdomen: soft, nontender, nondistended, positive bowel sounds Extremities: no cyanosis or clubbing; no edema Skin: no rash or nodules Objective Data Vital Signs Vital Signs: Vital Signs Temp Pulse Resp BP Pulse Ox 02/24/21 04:18 167/57 H 02/24/21 03:43 37.0 C 78 18 193/58 H 99 02/23/21 20:16 36.4 C 79 18 190/58 H 99 Intake/Output Intake/Output: Intake & Output 02/21/21 02/22/21 02/23/21 02/24/21 23:59 23:59 23:59 23:59 Intake Total 4800 3960 4010 1989 Output Total 2500 1200 807 Balance 2300 2760 3203 1989 Meds/Results Medications: Active Medications Generic Name Dose Route Start Last Admin Trade Name Freq PRN Reason Stop Dose Admin Lipase/Protease/Amylase 1 cap 02/24/21 12:00 02/24/21 12:10 Lipase/Amylase/Protease 12,000 Units Cap PO 1 cap TIDWM PRIMITIVO Administration Baclofen 10 mg 02/21/21 18:00 02/23/21 17:29 Baclofen 10 Mg Tablet PO 10 mg QPM PRIMITIVO Administration Gabapentin 300 mg 02/21/21 09:00 02/24/21 12:10 Gabapentin 300 Mg Capsule PO 300 mg TID PRIMITIVO Administration Hydralazine HCl 10 mg 02/22/21 09:16 02/24/21 03:46 Hydralazine Hcl 20 Mg/Ml Vial IV PUSH 10 mg
[2021-02-24] MEDS: MAGNESIUM SULF 2 GM/WATER 50ML 2 GM/50 ML BAG IVPB (13:30)
[2021-02-24 14:45] VITALS: BP 165/88; PULSE 67; RESP 20; TEMP 37; O2SAT 97
[2021-02-24] MEDS: BACLOFEN 10 MG TABLET PO (17:15)
[2021-02-24] MEDS: ONDANSETRON INJ 4 MG/2 ML VIAL IV PUSH (17:21)
[2021-02-24] MEDS: rOPINIRole HCL 0.5 MG TABLET PO (20:05)
[2021-02-24 20:18] VITALS: BP 225/66; PULSE 72; RESP 16; TEMP 36.2; O2SAT 97
[2021-02-24] MEDS: LORazepam INJ (*CRX) 2 MG/ML VIAL 0.5 MG IV PUSH (21:51)
[2021-02-25] MEDS: HYDROmorphone HCL INJ (*CRX) 1 MG/ML SYR IV PUSH ×6 (02:07→20:31)
[2021-02-25] MEDS: ONDANSETRON INJ 4 MG/2 ML VIAL IV PUSH ×4 (02:07→20:48)
[2021-02-25 03:15] VITALS: BP 154/65; PULSE 57; RESP 17; TEMP 37.1; O2SAT 98
[2021-02-25] MEDS: LACTATED RINGERS 1,000 ML 125 ML IV CONT ×2 (08:58→20:30)
[2021-02-25] MEDS: LIPASE/AMYLASE/PROTEASE 12,000 UNITS CAP 1 CAP PO ×3 (08:59→16:17)
[2021-02-25] MEDS: ROSUVASTATIN 10 MG TABLET PO (08:59)
[2021-02-25] MEDS: GABAPENTIN 300 MG CAPSULE PO ×3 (08:59→16:17)
[2021-02-25] MEDS: PANTOPRAZOLE SODIUM IV 40 MG VIAL IV PUSH (08:59)
--- NOTE | 2021-02-25 10:08 | WPDGIPROGNO ---
Progress Note: A&P Assessment and Plan (1) Pancreatitis: Code(s): K85.90 - Acute pancreatitis without necrosis or infection, unspecified Status: Acute Assessment and Plan: pain most likely due to pancreatitis- liquid diet again, she says that more tender after advanced her diet denies etoh, normal TG level, MRCP reviewed and stable dilated bile duct without other findings than pancreatitis will get IgG4 liver enzymes down to normal (2) Nausea and vomiting: Code(s): R11.2 - Nausea with vomiting, unspecified Status: Acute Assessment and Plan: egd only mild gastritis still some nausea liquid diet as tolerated (3) Diarrhea: Code(s): R19.7 - Diarrhea, unspecified Status: Acute Assessment and Plan: colonoscopy unremarkable- pending biopsies started creon tid with meals to see if will help (4) Nausea: Code(s): R11.0 - Nausea Status: Acute Assessment and Plan: multifactorial (pancreatitis, marijuana use, meds related, etc) (5) Hypomagnesemia: Code(s): E83.42 - Hypomagnesemia Status: Acute Assessment and Plan: repleting (6) SOL (acute kidney injury): Code(s): N17.9 - Acute kidney failure, unspecified Status: Acute Assessment and Plan: improving (7) Marijuana smoker: Code(s): F12.90 - Cannabis use, unspecified, uncomplicated Status: Acute Subjective Date/time seen: 02/25/21 10:08 Interval history: more pain after she tried diet and would like to go back again to liquid diet, diarrhea better. Review of Systems Review of Systems: All systems reviewed & are unremarkable except as noted in HPI and below Exam Const: General: comfortable and no acute distress HENMT: General nose exam: Normal nares present Eyes: General: appearance normal, both eyes and all related structures Neck: Neck: no JVD Resp: Auscultation: clear to auscultation bilaterally Cardio: Rate: regular rate Rhythm: regular rhythm GI: Inspection: non-distended GI Palp: Yes Soft to palpation and Yes Tenderness to palpation present (GI) (mild ttp in epigastric, no rebound) Auscultation: normal bowel sounds Skin: General skin exam: normal color Neuro: General: gait normal Speech: normal speech Extrem: General: normal to inspection Psych: Mental Status: mental status grossly normal Objective Data Vital Signs Vital Signs: Vital Signs - 24 hr 02/24/21 14:45 02/24/21 20:18 02/25/21 03:15 Temperature 98.6 F 97.1 F L 98.8 F Pulse Rate 67 72 57 L Respiratory Rate 20 16 17 Blood Pressure 165/88 H 225/66 H 154/65 H Pulse Oximetry 97 97 98 Intake/Output Intake/Output: Intake & Output 02/22/21 02/23/21 02/24/21 02/25/21 23:59 23:59 23:59 23:59 Intake Total 3960 4010 3230 1444 Output Total 1200 807 Balance 2760 3203 3230 1444 Meds/Results Medications: Active Medications Generic Name Dose Route Start Last Admin Trade Name Freq PRN Reason Stop Dose Admin Lipase/Protease/Amylase 1 cap 02/24/21 12:00 02/25/21 08:59 Lipase/Amylase/Protease 12,000 Units Cap PO 1 cap TIDWM PRIMITIVO Administration Baclofen 10 mg 02/21/21 18:00 02/24/21 17:15 Baclofen 10 Mg Tablet PO 10 mg QPM PRIMITIVO Administration Gabapentin 300 mg 02/21/21 09:00 02/25/21 08:59 Gabapentin 300 Mg Capsule PO 300 mg TID PRIMITIVO Administration Hydralazine HCl 10 mg 02/22/21 09:16 02/24/21 20:40 Hydralazine Hcl 20 Mg/Ml Vial IV PUSH 10 mg Q8H PRN Administration Blood Pressure - High Hydromorphone HCl 1 mg 02/20/21 17:33 02/25/21 09:59 Hydromorphone Hcl Inj (*Crx) 1 Mg/Ml Syr IV PUSH 1 mg Q3HR PRN Administration pain 4-7 Lactated Ringer's 1,000 mls @ 125 mls/hr 02/20/21 17:20 02/25/21 08:58 Lr - Lactated Ringers Iv IV CONT 125 mls/hr .Q8H PRIMITIVO Administration Lorazepam 0.5 mg 02/20/21 19:49 02/24/21 21:51 Lorazepam Inj (*Crx) 2 Mg/Ml Vial IV PUSH 0.5 mg Q6H PRN
--- NOTE | 2021-02-25 12:36 | P.PNNP_ITS ---
Progress Note: A&P Assessment and Plan (1) SOL (acute kidney injury): Code(s): N17.9 - Acute kidney failure, unspecified Status: Acute Assessment and Plan: * slowly improving * baseline creatinine normal * suspect due to volume depletion/dehydration given issues with #2 for the past few days * possible worsening due to concurrent use of CLARI-I, HCTZ, and possibly acyclovir * imaging notable for chronic left hydronephrosis but no other acute findings * continue IVF hydration -- follow repeat labs and UOP (2) Nausea and vomiting: Code(s): R11.2 - Nausea with vomiting, unspecified Status: Acute Assessment and Plan: * IV emetics * s/p EGD and colonoscopy - found to have mild gastritis with normal colon (with pending biopsies) * continue supportive therapy * follow symptoms (3) Pancreatitis: Code(s): K85.90 - Acute pancreatitis without necrosis or infection, unspecified Status: Acute Assessment and Plan: * etiology of #2(?) * lipase is trending down as is LFTs * MRCP confirms diagnosis * pain control * advance diet as tolerated (4) Hypertension: Code(s): I10 - Essential (primary) hypertension Status: Deleted Assessment and Plan: * elevated at this time * however, lisinopril/HCTZ is on hold * furthermore, pain issues likely contributing as well * use PRN hydralazine for now (5) Gastroesophageal reflux disease: Code(s): K21.9 - Gastro-esophageal reflux disease without esophagitis Status: Acute Assessment and Plan: * on IV PPI Will continue to follow. Subjective Date/time seen: 02/25/21 12:36 When diet was advanced, she had more abdominal pain so currently back on liquid diet; nausea seems better but still with intermittent diarrhea. Exam Narrative: General: WD/WN female in NAD Heart: normal S1 and S2; no rub Lungs: clear to auscultation Abdomen: soft, nontender, nondistended, positive bowel sounds Extremities: no cyanosis or clubbing; no edema Skin: warm and dry Objective Data Vital Signs Vital Signs: Vital Signs Temp Pulse Resp BP Pulse Ox 02/25/21 03:15 37.1 C 57 L 17 154/65 H 98 02/24/21 20:18 36.2 C L 72 16 225/66 H 97 Intake/Output Intake/Output: Intake & Output 02/22/21 02/23/21 02/24/21 02/25/21 23:59 23:59 23:59 23:59 Intake Total 3960 4010 3230 1831 Output Total 1200 807 Balance 2760 3203 3230 1831 Meds/Results Medications: Active Medications Generic Name Dose Route Start Last Admin Trade Name Freq PRN Reason Stop Dose Admin Lipase/Protease/Amylase 1 cap 02/24/21 12:00 02/25/21 16:17 Lipase/Amylase/Protease 12,000 Units Cap PO 1 cap TIDWM PRIMITIVO Administration Baclofen 10 mg 02/21/21 18:00 02/24/21 17:15 Baclofen 10 Mg Tablet PO 10 mg QPM PRIMITIVO Administration Gabapentin 300 mg 02/21/21 09:00 02/25/21 16:17 Gabapentin 300 Mg Capsule PO 300 mg TID PRIMITIVO Administration Hydralazine HCl 10 mg 02/22/21 09:16 02/24/21 20:40 Hydralazine Hcl 20 Mg/Ml Vial IV PUSH 10 mg Q8H PRN Administration Blood Pressure - High Hydromorphone HCl 1 mg 02/20/21 17:33 02/25/21 13:24 Hydromorphone Hcl Inj
--- NOTE | 2021-02-25 12:36 | PM.PNNEP ---
Progress Note: A&P Assessment and Plan (1) SOL (acute kidney injury): Code(s): N17.9 - Acute kidney failure, unspecified Status: Acute Assessment and Plan: slowly improving baseline creatinine normal suspect due to volume depletion/dehydration given issues with #2 for the past few days possible worsening due to concurrent use of CLARI-I, HCTZ, and possibly acyclovir imaging notable for chronic left hydronephrosis but no other acute findings continue IVF hydration -- follow repeat labs and UOP (2) Nausea and vomiting: Code(s): R11.2 - Nausea with vomiting, unspecified Status: Acute Assessment and Plan: IV emetics s/p EGD and colonoscopy - found to have mild gastritis with normal colon (with pending biopsies) continue supportive therapy follow symptoms (3) Pancreatitis: Code(s): K85.90 - Acute pancreatitis without necrosis or infection, unspecified Status: Acute Assessment and Plan: etiology of #2(?) lipase is trending down as is LFTs MRCP confirms diagnosis pain control advance diet as tolerated (4) Hypertension: Code(s): I10 - Essential (primary) hypertension Status: Deleted Assessment and Plan: elevated at this time however, lisinopril/HCTZ is on hold furthermore, pain issues likely contributing as well use PRN hydralazine for now (5) Gastroesophageal reflux disease: Code(s): K21.9 - Gastro-esophageal reflux disease without esophagitis Status: Acute Assessment and Plan: on IV PPI Will continue to follow. Subjective Date/time seen: 02/25/21 12:36 When diet was advanced, she had more abdominal pain so currently back on liquid diet; nausea seems better but still with intermittent diarrhea. Exam Narrative: General: WD/WN female in NAD Heart: normal S1 and S2; no rub Lungs: clear to auscultation Abdomen: soft, nontender, nondistended, positive bowel sounds Extremities: no cyanosis or clubbing; no edema Skin: warm and dry Objective Data Vital Signs Vital Signs: Vital Signs Temp Pulse Resp BP Pulse Ox 02/25/21 03:15 37.1 C 57 L 17 154/65 H 98 02/24/21 20:18 36.2 C L 72 16 225/66 H 97 Intake/Output Intake/Output: Intake & Output 02/22/21 02/23/21 02/24/21 02/25/21 23:59 23:59 23:59 23:59 Intake Total 3960 4010 3230 1831 Output Total 1200 807 Balance 2760 3203 3230 1831 Meds/Results Medications: Active Medications Generic Name Dose Route Start Last Admin Trade Name Freq PRN Reason Stop Dose Admin Lipase/Protease/Amylase 1 cap 02/24/21 12:00 02/25/21 16:17 Lipase/Amylase/Protease 12,000 Units Cap PO 1 cap TIDWM PRIMITIVO Administration Baclofen 10 mg 02/21/21 18:00 02/24/21 17:15 Baclofen 10 Mg Tablet PO 10 mg QPM PRIMITIVO Administration Gabapentin 300 mg 02/21/21 09:00 02/25/21 16:17 Gabapentin 300 Mg Capsule PO 300 mg TID PRIMITIVO Administration Hydralazine HCl 10 mg 02/22/21 09:16 02/24/21 20:40 Hydralazine Hcl 20 Mg/Ml Vial IV PUSH 10 mg Q8H PRN Administration Blood Pressure - High Hydromorphone HCl 1 mg 02/20/21 17:33 02/25/21 13:24 Hydromorphone Hcl Inj (*Crx) 1 Mg/Ml Syr IV PUSH 1 mg Q3HR PRN Administration pain 4-7 Lactated Ringer's 1,000 mls @ 125 mls/hr 02/20/21 17:20 02/25/21 08:58 Lr - Lactated Ringers Iv IV CONT 125 mls/hr .Q8H PRIMITIVO Administration Lorazepam 0.5 mg 02/20/21 19:49 02/24/21 21:51 Lorazepam Inj (*Crx) 2 Mg/Ml Vial IV PUSH 0.5 mg Q6H PRN Administration Anxiety Ondansetron HCl 4 mg 02/20/21 17:33 02/25/21 10:14 Ondansetron Inj 4 Mg/2 Ml Vial IV PUSH 4 mg Q4HR PRN Administration nausea Pantoprazole Sodium 40 mg 02/24/21 09:00 02/25/21 08:59 Pantoprazole Sodium Iv 40 Mg Vial IV PUSH 40 mg QAM PRIMITIVO Administration Ropinirole HCl 0.5 mg 02/20/21 21:00 02/24/21 20:05 Ropinirole Hcl 0.5 Mg Tablet PO 0.5 mg HS PRIMITIVO
[2021-02-25] MEDS: MAGNESIUM SULF 2 GM/WATER 50ML 2 GM/50 ML BAG IVPB (13:19)
[2021-02-25] MEDS: POTASSIUM CHLORIDE 20 MEQ PACKET (FOR LIQUID) 40 MEQ PO (13:19)
[2021-02-25 15:28] VITALS: BP 153/55; PULSE 60; RESP 20; TEMP 36.2; O2SAT 97
[2021-02-25] MEDS: BACLOFEN 10 MG TABLET PO (17:11)
--- NOTE | 2021-02-25 18:22 | P.PNIM_ITS ---
Progress Note: A&P Assessment and Plan (1) Acute renal failure: Qualifiers: Acute renal failure type: unspecified Qualified Code(s): N17.9 - Acute kidney failure, unspecified Code(s): N17.9 - Acute kidney failure, unspecified Status: Acute Assessment and Plan: * Acute nonoliguric kidney failure. * Baseline creatinine is normal * Creatinine is improving from 3.1 admission down to 1.3. * Reports nausea vomiting and diarrhea for the past 3 days. * Most likely pre renal azotemia or acute dehydration * Renal ultrasound Mild atrophy of left kidney. No hydronephrosis * Avoid nephrotoxic medications. (2) Abdominal pain: Qualifiers: Abdominal location: generalized Qualified Code(s): R10.84 - Generalized abdominal pain Code(s): R10.9 - Unspecified abdominal pain Status: Inactive Assessment and Plan: * Epigastric abdominal pain reported. It may be related to pancreatitis; however patient denies etoh, MRCP reviewed and stable dilated bile duct without other findings than pancreatitis; liver enzymes have improved down to normal range now. This pain most likely due to pancreatitis. We are restarting liquid diet again. She previously denied etoh, has normal TG level, MRCP reviewed and stable dilated bile duct without other findings than pancreatitis. Per GI recommendations, we will obtain IgG4 * Lipase elevated at 3368 liver enzymes AST/ALT 77/47 * Continue pain management with Dilaudid 1 mg Q 3 p.r.n. (3) Gastroesophageal reflux disease: Code(s): K21.9 - Gastro-esophageal reflux disease without esophagitis Status: Acute Assessment and Plan: For switched to p.o. Protonix. (4) HTN (hypertension), malignant: Code(s): I10 - Essential (primary) hypertension Status: Chronic Assessment and Plan: * improved blood pressure control. Today the blood pressure is 153/55. * Continue amlodipine 10 mg p.o. daily. * Continue to hold lisinopril and hydrochlorothiazide in the setting of SOL * Trend blood pressure * Adjust therapy as needed (5) Anxiety: Code(s): F41.9 - Anxiety disorder, unspecified Status: Chronic Assessment and Plan: * P.r.n. Ativan. (6) Pancreatitis: Code(s): K85.90 - Acute pancreatitis without necrosis or infection, unspecified Status: Acute Assessment and Plan: * Lipase elevated at 3368, to 78 yesterday. * Right upper quadrant ultrasound Mild intra and extrahepatic biliary ductal dilation without evident choledocholithiasis * MRCP suggest pancreatitis. * Continue supportive care, pain management. * No gallbladder present * GI consult thank you for recommendations * Continue LR at 125 mL/hour * Trend lipase * Advance diet as tolerated. (7) Elevated liver enzymes: Code(s): R74.8 - Abnormal levels of other serum enzymes Status: Acute Assessment and Plan: * AST/ALT 77/47, trending down to 30/28 * Trend labs * Labs in the am * RUQ ultrasound Mild intra and extrahepatic biliary ductal dilation without evident choledocholithiasis. (8) Vomiting and diarrhea: Code(s): R11.10 - Vomiting, unspecified; R19.7 - Diarrhea, unspecified Status: Acute Assessment and Plan: * Patient reports coffee-ground emesis and profused diarrhea * Occult blood ordered * Unclear etiology. * Zofran PRN ordered (9) Anemia: Code(s): D
--- NOTE | 2021-02-25 18:22 | PM.IMPN ---
Progress Note: A&P Assessment and Plan (1) Acute renal failure: Qualifiers: Acute renal failure type: unspecified Qualified Code(s): N17.9 - Acute kidney failure, unspecified Code(s): N17.9 - Acute kidney failure, unspecified Status: Acute Assessment and Plan: Acute nonoliguric kidney failure. Baseline creatinine is normal Creatinine is improving from 3.1 admission down to 1.3. Reports nausea vomiting and diarrhea for the past 3 days. Most likely pre renal azotemia or acute dehydration Renal ultrasound Mild atrophy of left kidney. No hydronephrosis Avoid nephrotoxic medications. (2) Abdominal pain: Qualifiers: Abdominal location: generalized Qualified Code(s): R10.84 - Generalized abdominal pain Code(s): R10.9 - Unspecified abdominal pain Status: Inactive Assessment and Plan: Epigastric abdominal pain reported. It may be related to pancreatitis; however patient denies etoh, MRCP reviewed and stable dilated bile duct without other findings than pancreatitis; liver enzymes have improved down to normal range now. This pain most likely due to pancreatitis. We are restarting liquid diet again. She previously denied etoh, has normal TG level, MRCP reviewed and stable dilated bile duct without other findings than pancreatitis. Per GI recommendations, we will obtain IgG4 Lipase elevated at 3368 liver enzymes AST/ALT 77/47 Continue pain management with Dilaudid 1 mg Q 3 p.r.n. (3) Gastroesophageal reflux disease: Code(s): K21.9 - Gastro-esophageal reflux disease without esophagitis Status: Acute Assessment and Plan: For switched to p.o. Protonix. (4) HTN (hypertension), malignant: Code(s): I10 - Essential (primary) hypertension Status: Chronic Assessment and Plan: improved blood pressure control. Today the blood pressure is 153/55. Continue amlodipine 10 mg p.o. daily. Continue to hold lisinopril and hydrochlorothiazide in the setting of SOL Trend blood pressure Adjust therapy as needed (5) Anxiety: Code(s): F41.9 - Anxiety disorder, unspecified Status: Chronic Assessment and Plan: P.r.n. Ativan. (6) Pancreatitis: Code(s): K85.90 - Acute pancreatitis without necrosis or infection, unspecified Status: Acute Assessment and Plan: Lipase elevated at 3368, to 78 yesterday. Right upper quadrant ultrasound Mild intra and extrahepatic biliary ductal dilation without evident choledocholithiasis MRCP suggest pancreatitis. Continue supportive care, pain management. No gallbladder present GI consult thank you for recommendations Continue LR at 125 mL/hour Trend lipase Advance diet as tolerated. (7) Elevated liver enzymes: Code(s): R74.8 - Abnormal levels of other serum enzymes Status: Acute Assessment and Plan: AST/ALT 77/47, trending down to 30/28 Trend labs Labs in the am RUQ ultrasound Mild intra and extrahepatic biliary ductal dilation without evident choledocholithiasis. (8) Vomiting and diarrhea: Code(s): R11.10 - Vomiting, unspecified; R19.7 - Diarrhea, unspecified Status: Acute Assessment and Plan: Patient reports coffee-ground emesis and profused diarrhea Occult blood ordered Unclear etiology. Zofran PRN ordered (9) Anemia: Code(s): D64.9 - Anemia, unspecified Status: Acute Assessment and Plan: H/H stable, 9.9/28.7 on 02/24/2021. Repeat CBC in AM. There may be a dilutional element Iron stores are repleted: Iron 93, TIBC 363,% saturation 26, transferrin 259, ferritin 61, B12 327, and folate is 8.1, normal Patient reported GI bleeding with vomiting and diarrhea. Upper and lower endoscopic studies did not identify a source of bleeding. (10) Marijuana smoker: Code(s): F12.90 - Cannabis use, unspecified, uncomplica
[2021-02-25] MEDS: rOPINIRole HCL 0.5 MG TABLET PO (20:31)
[2021-02-25] MEDS: LORazepam INJ (*CRX) 2 MG/ML VIAL 0.5 MG IV PUSH (20:34)
[2021-02-25 20:59] VITALS: BP 198/68; PULSE 57; RESP 18; TEMP 36.6; O2SAT 97
[2021-02-26] MEDS: HYDROmorphone HCL INJ (*CRX) 1 MG/ML SYR IV PUSH ×6 (01:52→23:53)
[2021-02-26 05:10] VITALS: BP 123/108; PULSE 59; RESP 18; TEMP 36.3; O2SAT 100
[2021-02-26 06:10] LABS: Basophils Absolute Auto 0.1 K/mm3 (0.0-0.1); Basophils Percent Auto 0.9 % (0.2-1.2); Eosinophils Absolute Auto 0.2 K/mm3 (0-0.3); Eosinophils Percent Auto 3.2 % (0-4.4); Hematocrit 27.7 % (37.0-47.0); Hemoglobin 9.4 g/dL (12.0-15.0); Immature Granulocyte Absolute 0.01 K/mm3 (0.00-0.031); Immature Granulocyte Percent A 0.2 % (0-0.5); Lymphocytes Absolute Auto 1.99 K/mm3 (0.9-3.2); Lymphocytes Percent Auto 35.9 % (18.3-44.2); Mean Corpuscular HGB Conc 33.9 g/dl (32-36); Mean Corpuscular Hemoglobin 33.8 pg (26-34); Mean Corpuscular Volume 99.6 fl (80-100); Monocytes Absolute Auto 0.6 K/mm3 (0.1-0.6); Monocytes Percent Auto 11.4 % (2.6-8.5); Neutrophils Absolute Auto 2.7 K/mm3 (1.3-6.7); Neutrophils Percent Auto 48.4 % (45.5-73.1); Platelet Count Result 246 k/mm3 (150-375); Red Blood Count 2.78 M/mm3 (4.2-5.4); Red Cell Distribution Width 14.1 % (11.5-14.5); White Blood Count 5.6 K/mm3 (4.5-10.0)
[2021-02-26 06:34] LABS: Alanine Aminotransferase 16 U/L (4-35); Albumin Level 3.3 g/dL (3.5-5.1); Alkaline Phosphatase 52 U/L (38-126); Anion Gap 6 mmol/L (8-16); Aspartate Amino Transferase 18 U/L (14-36); Bilirubin,Total 0.2 mg/dL (0.2-1.3); Blood Urea Nitrogen 14 mg/dL (7-17); Calcium 8.9 mg/dL (8.4-10.2); Carbon Dioxide 28 mmol/L (22-30); Chloride 104 mmol/L (98-107); Estimated CRCL calculation 37 ml/min; Estimated Glomerular Filt Rate 39; Glucose 111 mg/dL (65-110); Magnesium 1.7 mg/dL (1.6-2.3); Potassium 3.8 mmol/L (3.4-5.0); Sodium 138 mmol/L (137-145)
[2021-02-26] MEDS: LACTATED RINGERS 1,000 ML 125 ML IV CONT ×3 (06:36→21:42)
[2021-02-26] MEDS: hydrALAZINE HCL 20 MG/ML VIAL 10 MG IV PUSH ×3 (06:56→21:58)
--- NOTE | 2021-02-26 09:51 | PCNFU ---
Nutrition Follow-Up Complete: Unintended weight loss as related to pain/poor po intake as evidenced by greater than 5% weight loss in the past 30 days. Goal: Adequate Intake of at least 75% of meals/supplements Pt is progressing towards goal. No new goal at this time. Pt current nutrition is Full liquid diet, low fat diet, and dietary supplement of ensure clear TID. Last recorded weight is 58.6 kg. Bowel Motility: 02/23 Labs Reviewed: Hgb 9.4, Hct 27.7, Alb 3.3, GFR 39, Cr 1.4, Glu 111 Meds Noted: apresoline hcl Skin: WNL Additional Notes: Unable to meet with pt. Per EMR, last BM was 02/23. Spoke with nursing who reports that pt has most likely had a BM since 02/23 but has been flushing them. Per EMR, pt is eating 100% x2, 25%, 75%, and 50%. Pt is progressing towards goal and RDN agrees with diet order at this time. Will continue to follow. RD will monitor every 5 days.
[2021-02-26] MEDS: ROSUVASTATIN 10 MG TABLET PO (10:29)
[2021-02-26] MEDS: GABAPENTIN 300 MG CAPSULE PO ×2 (10:30→12:57)
[2021-02-26] MEDS: PANTOPRAZOLE SODIUM IV 40 MG VIAL IV PUSH (10:30)
[2021-02-26] MEDS: ONDANSETRON INJ 4 MG/2 ML VIAL IV PUSH ×3 (10:30→20:28)
[2021-02-26 11:32] LABS: Osmolality, Urine 371 mOsm/kg (50-1200)
--- NOTE | 2021-02-26 12:11 | P.PNNP_ITS ---
Progress Note: A&P Assessment and Plan (1) SOL (acute kidney injury): Code(s): N17.9 - Acute kidney failure, unspecified Status: Acute Assessment and Plan: * baseline creatinine normal * urine sodium is not low. However she was on diuretics when she was admitted. Urine creatinine is pending. * Renal ultrasound shows mild atrophy of the left kidney. * suspect due to volume depletion/dehydration given issues with #2 for the past few days * possible worsening due to concurrent use of CLARI-I, HCTZ, and possibly acyclovir * imaging notable for chronic left hydronephrosis but no other acute findings * Continue IV fluids for now , especially since she is not eating very well. (2) Nausea and vomiting: Code(s): R11.2 - Nausea with vomiting, unspecified Status: Acute Assessment and Plan: * IV emetics * continue supportive therapy * follow symptoms (3) Pancreatitis: Code(s): K85.90 - Acute pancreatitis without necrosis or infection, unspecified Status: Acute Assessment and Plan: * etiology of #2(?) * lipase is trending down as is LFTs * pain control * advance diet as tolerated (4) Hypertension: Code(s): I10 - Essential (primary) hypertension Status: Deleted Assessment and Plan: * elevated at this time . * Oral meds are on hold and also the patient is in pain. * Will try clonidine patch. * use PRN hydralazine for now (5) Gastroesophageal reflux disease: Code(s): K21.9 - Gastro-esophageal reflux disease without esophagitis Status: Acute Assessment and Plan: * on IV PPI Will continue to follow. Subjective Date/time seen: 02/26/21 12:11 Interval history: Patient feels okay today. She is in some pain. She just told the nurse. Exam Narrative: General: WD/WN female in NAD Heart: normal S1 and S2; no rub or gallop Lungs: clear to auscultation Abdomen: soft, nontender, nondistended, positive bowel sounds Extremities: no cyanosis or clubbing; no edema Skin: No rash Objective Data Vital Signs Vital Signs: Vital Signs - 24 hr 02/25/21 15:28 02/25/21 20:59 02/26/21 05:10 Temperature 36.2 C L 36.6 C 36.3 C L Pulse Rate 60 57 L 59 L Respiratory Rate 20 18 18 Blood Pressure 153/55 H 198/68 H 123/108 H Pulse Oximetry 97 97 100 Intake/Output Intake/Output: Intake & Output 02/23/21 02/24/21 02/25/21 02/26/21 23:59 23:59 23:59 23:59 Intake Total 4010 3230 2981 1390 Output Total 807 Balance 3203 3230 2981 1390 Meds/Results Medications: Active Medications Generic Name Dose Route Start Last Admin Trade Name Freq PRN Reason Stop Dose Admin Lipase/Protease/Amylase 1 cap 02/24/21 12:00 02/26/21 10:30 Lipase/Amylase/Protease 12,000 Units Cap PO Not Given TIDWM PRIMITIVO Baclofen 10 mg 02/21/21 18:00 02/25/21 17:11 Baclofen 10 Mg Tablet PO 10 mg QPM PRIMITIVO Administration Gabapentin 300 mg 02/21/21 09:00 02/26/21 10:30 Gabapentin 300 Mg Capsule PO 300 mg TID PRIMITIVO Administration Hydralazine HCl 10 mg 02/22/21 09:16 02/26/21 06:56 Hydralazine Hcl 20 Mg/Ml Vial IV PUSH 10 mg Q8H PRN Administration Blood Pressure - High Hydromorphone
--- NOTE | 2021-02-26 12:11 | PM.PNNEP ---
Progress Note: A&P Assessment and Plan (1) SOL (acute kidney injury): Code(s): N17.9 - Acute kidney failure, unspecified Status: Acute Assessment and Plan: baseline creatinine normal urine sodium is not low. However she was on diuretics when she was admitted. Urine creatinine is pending. Renal ultrasound shows mild atrophy of the left kidney. suspect due to volume depletion/dehydration given issues with #2 for the past few days possible worsening due to concurrent use of CLARI-I, HCTZ, and possibly acyclovir imaging notable for chronic left hydronephrosis but no other acute findings Continue IV fluids for now , especially since she is not eating very well. (2) Nausea and vomiting: Code(s): R11.2 - Nausea with vomiting, unspecified Status: Acute Assessment and Plan: IV emetics continue supportive therapy follow symptoms (3) Pancreatitis: Code(s): K85.90 - Acute pancreatitis without necrosis or infection, unspecified Status: Acute Assessment and Plan: etiology of #2(?) lipase is trending down as is LFTs pain control advance diet as tolerated (4) Hypertension: Code(s): I10 - Essential (primary) hypertension Status: Deleted Assessment and Plan: elevated at this time . Oral meds are on hold and also the patient is in pain. Will try clonidine patch. use PRN hydralazine for now (5) Gastroesophageal reflux disease: Code(s): K21.9 - Gastro-esophageal reflux disease without esophagitis Status: Acute Assessment and Plan: on IV PPI Will continue to follow. Subjective Date/time seen: 02/26/21 12:11 Interval history: Patient feels okay today. She is in some pain. She just told the nurse. Exam Narrative: General: WD/WN female in NAD Heart: normal S1 and S2; no rub or gallop Lungs: clear to auscultation Abdomen: soft, nontender, nondistended, positive bowel sounds Extremities: no cyanosis or clubbing; no edema Skin: No rash Objective Data Vital Signs Vital Signs: Vital Signs - 24 hr 02/25/21 15:28 02/25/21 20:59 02/26/21 05:10 Temperature 36.2 C L 36.6 C 36.3 C L Pulse Rate 60 57 L 59 L Respiratory Rate 20 18 18 Blood Pressure 153/55 H 198/68 H 123/108 H Pulse Oximetry 97 97 100 Intake/Output Intake/Output: Intake & Output 02/23/21 02/24/21 02/25/21 02/26/21 23:59 23:59 23:59 23:59 Intake Total 4010 3230 2981 1390 Output Total 807 Balance 3203 3230 2981 1390 Meds/Results Medications: Active Medications Generic Name Dose Route Start Last Admin Trade Name Freq PRN Reason Stop Dose Admin Lipase/Protease/Amylase 1 cap 02/24/21 12:00 02/26/21 10:30 Lipase/Amylase/Protease 12,000 Units Cap PO Not Given TIDWM PRIMITIVO Baclofen 10 mg 02/21/21 18:00 02/25/21 17:11 Baclofen 10 Mg Tablet PO 10 mg QPM PRIMITIVO Administration Gabapentin 300 mg 02/21/21 09:00 02/26/21 10:30 Gabapentin 300 Mg Capsule PO 300 mg TID PRIMITIVO Administration Hydralazine HCl 10 mg 02/22/21 09:16 02/26/21 06:56 Hydralazine Hcl 20 Mg/Ml Vial IV PUSH 10 mg Q8H PRN Administration Blood Pressure - High Hydromorphone HCl 1 mg 02/20/21 17:33 02/26/21 10:38 Hydromorphone Hcl Inj (*Crx) 1 Mg/Ml Syr IV PUSH 1 mg Q3HR PRN Administration pain 4-7 Lactated Ringer's 1,000 mls @ 125 mls/hr 02/20/21 17:20 02/26/21 06:36 Lr - Lactated Ringers Iv IV CONT 125 mls/hr .Q8H PRIMITIVO Administration Lorazepam 0.5 mg 02/20/21 19:49 02/25/21 20:34 Lorazepam Inj (*Crx) 2 Mg/Ml Vial IV PUSH 0.5 mg Q6H PRN Administration Anxiety Ondansetron HCl 4 mg 02/20/21 17:33 02/26/21 10:30 Ondansetron Inj 4 Mg/2 Ml Vial IV PUSH 4 mg Q4HR PRN Administration nausea Pantoprazole Sodium 40 mg 02/24/21 09:00 02/26/21 10:30 Pantoprazole Sodium Iv 40 Mg Vial IV PUSH 40 mg QAM PRIMITIVO Administration Ropinirole HCl 0.5 mg
--- NOTE | 2021-02-26 12:54 | P.PNIM_ITS ---
Progress Note: A&P Assessment and Plan (1) Acute renal failure: Qualifiers: Acute renal failure type: unspecified Qualified Code(s): N17.9 - Acute kidney failure, unspecified Code(s): N17.9 - Acute kidney failure, unspecified Status: Acute Assessment and Plan: * Acute nonoliguric kidney failure. * Baseline creatinine is normal * Recovering acute kidney injury. Creatinine is improving from 3.1 admission down to 1.3-1.4.. * Reports persistent right upper quadrant abdominal pain nausea vomiting and diarrhea for the past 3 days. * Most likely pre renal azotemia, acute dehydration, volume depletion/dehydration given issues with the MARISSA, vomiting and poor oral intake at the time of presentation. Patient is still not tolerating oral intake well. Per Nephrology recommendation we will continue IV fluids for now. * There may be an element of possible worsening due to concurrent use of CLARI-I, HCTZ, and possibly acyclovir. These medication have been on hold. Absolutely pain has been started for blood pressure management while kidney function is improving. * Renal ultrasound Mild atrophy of left kidney. No hydronephrosis * Avoid nephrotoxic medications. (2) Abdominal pain: Qualifiers: Abdominal location: generalized Qualified Code(s): R10.84 - Generalized abdominal pain Code(s): R10.9 - Unspecified abdominal pain Status: Inactive Assessment and Plan: * Epigastric abdominal pain he still being reported. It may be related to pancreatitis; however patient denies current etoh consumption, MRCP reviewed and stable dilated bile duct without other findings than pancreatitis; liver enzymes have improved down to normal range now. This pain most likely due to pancreatitis. We are reinstating a liquid diet again. She previously denied etoh, has normal TG level, MRCP reviewed and stable dilated bile duct without other findings than pancreatitis. Per GI recommendations, we will obtain IgG4 * Lipase elevated at 3368 liver enzymes AST/ALT 77/47 * Continue pain management with Dilaudid 1 mg Q 3 p.r.n. (3) Gastroesophageal reflux disease: Code(s): K21.9 - Gastro-esophageal reflux disease without esophagitis Status: Acute Assessment and Plan: Continue p.o. Protonix. (4) HTN (hypertension), malignant: Code(s): I10 - Essential (primary) hypertension Status: Chronic Assessment and Plan: * improved blood pressure control. Today the blood pressure is 123/108. * Continue amlodipine 10 mg p.o. daily. * Continue to hold lisinopril and hydrochlorothiazide in the setting of SOL * Trend blood pressure * Adjust therapy as needed (5) Anxiety: Code(s): F41.9 - Anxiety disorder, unspecified Status: Chronic Assessment and Plan: * P.r.n. Ativan. (6) Pancreatitis: Code(s): K85.90 - Acute pancreatitis without necrosis or infection, unspecified Status: Acute Assessment and Plan: * Lipase elevated at 3368, to 78 yesterday. * Right upper quadrant ultrasound Mild intra and extrahepatic biliary ductal dilation without evident choledocholithiasis * MRCP suggest pancreatitis. * Continue supportive care, pain management. * No gallbladder present * GI consult thank you for recommendations * Continue LR at 125 mL/hour * Trend lipase * Advance diet as tolerated. (7) Elevated liver enzymes: Code(s): R74.8 - Abnormal levels of other serum enzymes Status: Acute
--- NOTE | 2021-02-26 12:54 | PM.IMPN ---
Progress Note: A&P Assessment and Plan (1) Acute renal failure: Qualifiers: Acute renal failure type: unspecified Qualified Code(s): N17.9 - Acute kidney failure, unspecified Code(s): N17.9 - Acute kidney failure, unspecified Status: Acute Assessment and Plan: Acute nonoliguric kidney failure. Baseline creatinine is normal Recovering acute kidney injury. Creatinine is improving from 3.1 admission down to 1.3-1.4.. Reports persistent right upper quadrant abdominal pain nausea vomiting and diarrhea for the past 3 days. Most likely pre renal azotemia, acute dehydration, volume depletion/dehydration given issues with the MARISSA, vomiting and poor oral intake at the time of presentation. Patient is still not tolerating oral intake well. Per Nephrology recommendation we will continue IV fluids for now. There may be an element of possible worsening due to concurrent use of CLARI-I, HCTZ, and possibly acyclovir. These medication have been on hold. Absolutely pain has been started for blood pressure management while kidney function is improving. Renal ultrasound Mild atrophy of left kidney. No hydronephrosis Avoid nephrotoxic medications. (2) Abdominal pain: Qualifiers: Abdominal location: generalized Qualified Code(s): R10.84 - Generalized abdominal pain Code(s): R10.9 - Unspecified abdominal pain Status: Inactive Assessment and Plan: Epigastric abdominal pain he still being reported. It may be related to pancreatitis; however patient denies current etoh consumption, MRCP reviewed and stable dilated bile duct without other findings than pancreatitis; liver enzymes have improved down to normal range now. This pain most likely due to pancreatitis. We are reinstating a liquid diet again. She previously denied etoh, has normal TG level, MRCP reviewed and stable dilated bile duct without other findings than pancreatitis. Per GI recommendations, we will obtain IgG4 Lipase elevated at 3368 liver enzymes AST/ALT 77/47 Continue pain management with Dilaudid 1 mg Q 3 p.r.n. (3) Gastroesophageal reflux disease: Code(s): K21.9 - Gastro-esophageal reflux disease without esophagitis Status: Acute Assessment and Plan: Continue p.o. Protonix. (4) HTN (hypertension), malignant: Code(s): I10 - Essential (primary) hypertension Status: Chronic Assessment and Plan: improved blood pressure control. Today the blood pressure is 123/108. Continue amlodipine 10 mg p.o. daily. Continue to hold lisinopril and hydrochlorothiazide in the setting of SOL Trend blood pressure Adjust therapy as needed (5) Anxiety: Code(s): F41.9 - Anxiety disorder, unspecified Status: Chronic Assessment and Plan: P.r.n. Ativan. (6) Pancreatitis: Code(s): K85.90 - Acute pancreatitis without necrosis or infection, unspecified Status: Acute Assessment and Plan: Lipase elevated at 3368, to 78 yesterday. Right upper quadrant ultrasound Mild intra and extrahepatic biliary ductal dilation without evident choledocholithiasis MRCP suggest pancreatitis. Continue supportive care, pain management. No gallbladder present GI consult thank you for recommendations Continue LR at 125 mL/hour Trend lipase Advance diet as tolerated. (7) Elevated liver enzymes: Code(s): R74.8 - Abnormal levels of other serum enzymes Status: Acute Assessment and Plan: AST/ALT 77/47, trending down to 30/28 Trend labs Labs in the am RUQ ultrasound Mild intra and extrahepatic biliary ductal dilation without evident choledocholithiasis. (8) Vomiting and diarrhea: Code(s): R11.10 - Vomiting, unspecified; R19.7 - Diarrhea, unspecified Status: Acute Assessment and Plan: Patient reports coffee-ground emesis and profused diarrhea at presentation. Occult blood order
[2021-02-26] MEDS: LIPASE/AMYLASE/PROTEASE 12,000 UNITS CAP 1 CAP PO (12:57)
[2021-02-26] MEDS: cloNIDine 0.2 MG/24 HR PATCH 1 PATCH TRANSDERM (12:58)
[2021-02-26 13:46] LABS: Chloride Rand Ur 133 mmol/L (32-290); Chloride/Creatinine Rand Ur 193 (38-318); Creatinine Random Urine 69 mg/dL (20-275)
--- NOTE | 2021-02-26 13:51 | WPDGIPROGNO ---
Progress Note: A&P Assessment and Plan (1) Pancreatitis: Code(s): K85.90 - Acute pancreatitis without necrosis or infection, unspecified Status: Acute Assessment and Plan: still with pain, told her to have only liquid diet as tolerated denies etoh, normal TG level, MRCP reviewed and stable dilated bile duct without other findings than pancreatitis IgG4 pending liver enzymes down to normal also on pancreatic enzymes (2) Nausea and vomiting: Code(s): R11.2 - Nausea with vomiting, unspecified Status: Acute Assessment and Plan: egd only mild gastritis still some nausea liquid diet as tolerated antiemetics prn (3) Diarrhea: Code(s): R19.7 - Diarrhea, unspecified Status: Acute Assessment and Plan: colonoscopy unremarkable- pending biopsies now on creon tid with meals (4) Nausea: Code(s): R11.0 - Nausea Status: Acute Assessment and Plan: multifactorial (pancreatitis, marijuana use, meds related, etc) (5) Hypomagnesemia: Code(s): E83.42 - Hypomagnesemia Status: Acute (6) SOL (acute kidney injury): Code(s): N17.9 - Acute kidney failure, unspecified Status: Acute Assessment and Plan: creatinine 1.4 nephrology on board (7) Marijuana smoker: Code(s): F12.90 - Cannabis use, unspecified, uncomplicated Status: Acute Subjective Date/time seen: 02/26/21 13:51 Interval history: still with upper abdomen after eating, only on liquid diet Review of Systems Review of Systems: All systems reviewed & are unremarkable except as noted in HPI and below Exam Const: General: comfortable and no acute distress HENMT: General nose exam: Normal nares present Eyes: General: appearance normal, both eyes and all related structures Neck: Neck: no JVD Resp: Auscultation: clear to auscultation bilaterally Cardio: Rate: regular rate Rhythm: regular rhythm GI: Inspection: non-distended GI Palp: Yes Soft to palpation and Yes Tenderness to palpation present (GI) (mild ttp in epigastric, no rebound) Auscultation: normal bowel sounds Skin: General skin exam: normal color Neuro: General: gait normal Speech: normal speech Extrem: General: normal to inspection Psych: Mental Status: mental status grossly normal Objective Data Vital Signs Vital Signs: Vital Signs - 24 hr 02/25/21 15:28 02/25/21 20:59 02/26/21 05:10 Temperature 97.2 F L 98 F 97.3 F L Pulse Rate 60 57 L 59 L Respiratory Rate 20 18 18 Blood Pressure 153/55 H 198/68 H 123/108 H Pulse Oximetry 97 97 100 Intake/Output Intake/Output: Intake & Output 02/23/21 02/24/21 02/25/21 02/26/21 23:59 23:59 23:59 23:59 Intake Total 4010 3230 2981 2390 Output Total 807 Balance 3203 3230 2981 2390 Meds/Results Medications: Active Medications Generic Name Dose Route Start Last Admin Trade Name Freq PRN Reason Stop Dose Admin Lipase/Protease/Amylase 1 cap 02/24/21 12:00 02/26/21 12:57 Lipase/Amylase/Protease 12,000 Units Cap PO 1 cap TIDWM PRIMITIVO Administration Baclofen 10 mg 02/21/21 18:00 02/25/21 17:11 Baclofen 10 Mg Tablet PO 10 mg QPM PRIMITIVO Administration Clonidine HCl 1 patch 02/26/21 09:00 02/26/21 12:58 Clonidine 0.2 Mg/24 Hr Patch TRANSDERM 1 patch WEEKLY PRIMITIVO Administration Gabapentin 300 mg 02/21/21 09:00 02/26/21 12:57 Gabapentin 300 Mg Capsule PO 300 mg TID PRIMITIVO Administration Hydralazine HCl 10 mg 02/22/21 09:16 02/26/21 06:56 Hydralazine Hcl 20 Mg/Ml Vial IV PUSH 10 mg Q8H PRN Administration Blood Pressure - High Hydromorphone HCl 1 mg 02/20/21 17:33 02/26/21 13:29 Hydromorphone Hcl Inj (*Crx) 1 Mg/Ml Syr IV PUSH 1 mg Q3HR PRN Administration pain 4-7 Lactated Ringer's 1,000 mls @ 125 mls/hr 02/20/21 17:20 02/26/21 13:34 Lr - Lactated Ringers Iv IV CONT 125 mls/hr .Q8H PRIMITIVO Administration Lorazepam 0.5 mg 02/20/21 19:49 02/25/21 20:3
[2021-02-26 14:00] VITALS: BP 212/80; PULSE 56; RESP 18; TEMP 36.8; O2SAT 100
[2021-02-26] MEDS: LORazepam INJ (*CRX) 2 MG/ML VIAL 0.5 MG IV PUSH ×2 (15:25→21:58)
[2021-02-26 21:11] VITALS: BP 205/69; PULSE 64; RESP 18; TEMP 36.9; O2SAT 100
[2021-02-27 00:59] VITALS: BP 142/53
[2021-02-27] MEDS: HYDROmorphone HCL INJ (*CRX) 1 MG/ML SYR IV PUSH ×6 (03:15→21:38)
[2021-02-27] MEDS: LACTATED RINGERS 1,000 ML 125 ML IV CONT (05:51)
[2021-02-27 05:53] LABS: Basophils Percent Auto 0.9 % (0.2-1.2); Eosinophils Absolute Auto 0.1 K/mm3 (0-0.3); Eosinophils Percent Auto 2.6 % (0-4.4); Hematocrit 26.8 % (37.0-47.0); Hemoglobin 9.2 g/dL (12.0-15.0); Immature Granulocyte Absolute 0.01 K/mm3 (0.00-0.031); Immature Granulocyte Percent A 0.2 % (0-0.5); Lymphocytes Absolute Auto 1.82 K/mm3 (0.9-3.2); Lymphocytes Percent Auto 38.9 % (18.3-44.2); Mean Corpuscular HGB Conc 34.3 g/dl (32-36); Mean Corpuscular Hemoglobin 33.6 pg (26-34); Mean Corpuscular Volume 97.8 fl (80-100); Mean Platelet Volume 10.3 fl (7.4-10.4); Monocytes Absolute Auto 0.4 K/mm3 (0.1-0.6); Monocytes Percent Auto 9.2 % (2.6-8.5); Neutrophils Absolute Auto 2.3 K/mm3 (1.3-6.7); Neutrophils Percent Auto 48.2 % (45.5-73.1); Platelet Count Result 261 k/mm3 (150-375); Red Blood Count 2.74 M/mm3 (4.2-5.4); Red Cell Distribution Width 14.3 % (11.5-14.5); White Blood Count 4.7 K/mm3 (4.5-10.0)
[2021-02-27 06:00] VITALS: BP 127/53; PULSE 60; RESP 16; TEMP 36.9; O2SAT 98
[2021-02-27 06:13] LABS: Alanine Aminotransferase 14 U/L (4-35); Albumin Level 3.2 g/dL (3.5-5.1); Alkaline Phosphatase 47 U/L (38-126); Anion Gap 3 mmol/L (8-16); Aspartate Amino Transferase 18 U/L (14-36); Bilirubin,Total 0.3 mg/dL (0.2-1.3); Blood Urea Nitrogen 10 mg/dL (7-17); Calcium 8.8 mg/dL (8.4-10.2); Carbon Dioxide 28 mmol/L (22-30); Chloride 106 mmol/L (98-107); Estimated CRCL calculation 47 ml/min; Estimated Glomerular Filt Rate 51; Glucose 108 mg/dL (65-110); Phosphorus 4.5 mg/dL (2.5-4.5); Potassium 3.8 mmol/L (3.4-5.0); Sodium 137 mmol/L (137-145)
[2021-02-27] MEDS: ONDANSETRON INJ 4 MG/2 ML VIAL IV PUSH (07:58)
[2021-02-27] MEDS: LIPASE/AMYLASE/PROTEASE 12,000 UNITS CAP 1 CAP PO ×3 (08:03→17:26)
[2021-02-27] MEDS: PANTOPRAZOLE SODIUM IV 40 MG VIAL IV PUSH (08:04)
[2021-02-27] MEDS: GABAPENTIN 300 MG CAPSULE PO ×3 (08:04→17:26)
[2021-02-27] MEDS: ROSUVASTATIN 10 MG TABLET PO (08:04)
--- NOTE | 2021-02-27 09:45 | P.PNIM_ITS ---
Progress Note: A&P Assessment and Plan (1) Acute renal failure: Qualifiers: Acute renal failure type: unspecified Qualified Code(s): N17.9 - Acute kidney failure, unspecified Code(s): N17.9 - Acute kidney failure, unspecified Status: Acute Assessment and Plan: * Acute nonoliguric kidney failure. * Baseline creatinine is normal * Recovering acute kidney injury. Creatinine is improving from 3.1 admission down to 1.3-1.4.. * Reports persistent right upper quadrant abdominal pain nausea vomiting and diarrhea for the past 3 days. * Most likely pre renal azotemia, acute dehydration, volume depletion/dehydration given issues with the MARISSA, vomiting and poor oral intake at the time of presentation. Patient is still not tolerating oral intake well. Per Nephrology recommendation we will continue IV fluids for now. * There may be an element of possible worsening due to concurrent use of CLARI-I, HCTZ, and possibly acyclovir. These medication have been on hold. Absolutely pain has been started for blood pressure management while kidney function is improving. * Renal ultrasound Mild atrophy of left kidney. No hydronephrosis * Avoid nephrotoxic medications. 02/27/2021 Renal failure is improving, will continue with IV fluid and hydration. (2) Abdominal pain: Qualifiers: Abdominal location: generalized Qualified Code(s): R10.84 - Generalized abdominal pain Code(s): R10.9 - Unspecified abdominal pain Status: Inactive Assessment and Plan: * Epigastric abdominal pain he still being reported. It may be related to pancreatitis; however patient denies current etoh consumption, MRCP reviewed and stable dilated bile duct without other findings than pancreatitis; liver enzymes have improved down to normal range now. This pain most likely due to pancreatitis. We are reinstating a liquid diet again. She previously denied etoh, has normal TG level, MRCP reviewed and stable dilated bile duct without other findings than pancreatitis. Per GI recommendations, we will obtain IgG4 * Lipase elevated at 3368 liver enzymes AST/ALT 77/47 * Continue pain management with Dilaudid 1 mg Q 3 p.r.n. 02/27/2021 Patient abdominal pain is much better now, mild nausea still persists. Will continue with current plan of care and treatment, increase diet as tolerated. (3) Gastroesophageal reflux disease: Code(s): K21.9 - Gastro-esophageal reflux disease without esophagitis Status: Acute Assessment and Plan: Continue p.o. Protonix. (4) HTN (hypertension), malignant: Code(s): I10 - Essential (primary) hypertension Status: Chronic Assessment and Plan: * improved blood pressure control. Today the blood pressure is 123/108. * Continue amlodipine 10 mg p.o. daily. * Continue to hold lisinopril and hydrochlorothiazide in the setting of SOL * Trend blood pressure * Adjust therapy as needed (5) Anxiety: Code(s): F41.9 - Anxiety disorder, unspecified Status: Chronic Assessment and Plan: * P.r.n. Ativan. (6) Pancreatitis: Code(s): K85.90 - Acute pancreatitis without necrosis or infection, unspecified Status: Acute Assessment and Plan: * Lipase elevated at 3368, to 78 yesterday. * Right upper quadrant ultrasound Mild intra and extrahepatic biliary ductal dilation without evident choledocholithiasis * MRCP suggest pancreatitis. * Continue supportive care, pain management. * No gallbladder present * GI consult t
--- NOTE | 2021-02-27 09:45 | PM.IMPN ---
Progress Note: A&P Assessment and Plan (1) Acute renal failure: Qualifiers: Acute renal failure type: unspecified Qualified Code(s): N17.9 - Acute kidney failure, unspecified Code(s): N17.9 - Acute kidney failure, unspecified Status: Acute Assessment and Plan: Acute nonoliguric kidney failure. Baseline creatinine is normal Recovering acute kidney injury. Creatinine is improving from 3.1 admission down to 1.3-1.4.. Reports persistent right upper quadrant abdominal pain nausea vomiting and diarrhea for the past 3 days. Most likely pre renal azotemia, acute dehydration, volume depletion/dehydration given issues with the MARISSA, vomiting and poor oral intake at the time of presentation. Patient is still not tolerating oral intake well. Per Nephrology recommendation we will continue IV fluids for now. There may be an element of possible worsening due to concurrent use of CLARI-I, HCTZ, and possibly acyclovir. These medication have been on hold. Absolutely pain has been started for blood pressure management while kidney function is improving. Renal ultrasound Mild atrophy of left kidney. No hydronephrosis Avoid nephrotoxic medications. 02/27/2021 Renal failure is improving, will continue with IV fluid and hydration. (2) Abdominal pain: Qualifiers: Abdominal location: generalized Qualified Code(s): R10.84 - Generalized abdominal pain Code(s): R10.9 - Unspecified abdominal pain Status: Inactive Assessment and Plan: Epigastric abdominal pain he still being reported. It may be related to pancreatitis; however patient denies current etoh consumption, MRCP reviewed and stable dilated bile duct without other findings than pancreatitis; liver enzymes have improved down to normal range now. This pain most likely due to pancreatitis. We are reinstating a liquid diet again. She previously denied etoh, has normal TG level, MRCP reviewed and stable dilated bile duct without other findings than pancreatitis. Per GI recommendations, we will obtain IgG4 Lipase elevated at 3368 liver enzymes AST/ALT 77/47 Continue pain management with Dilaudid 1 mg Q 3 p.r.n. 02/27/2021 Patient abdominal pain is much better now, mild nausea still persists. Will continue with current plan of care and treatment, increase diet as tolerated. (3) Gastroesophageal reflux disease: Code(s): K21.9 - Gastro-esophageal reflux disease without esophagitis Status: Acute Assessment and Plan: Continue p.o. Protonix. (4) HTN (hypertension), malignant: Code(s): I10 - Essential (primary) hypertension Status: Chronic Assessment and Plan: improved blood pressure control. Today the blood pressure is 123/108. Continue amlodipine 10 mg p.o. daily. Continue to hold lisinopril and hydrochlorothiazide in the setting of SOL Trend blood pressure Adjust therapy as needed (5) Anxiety: Code(s): F41.9 - Anxiety disorder, unspecified Status: Chronic Assessment and Plan: P.r.n. Ativan. (6) Pancreatitis: Code(s): K85.90 - Acute pancreatitis without necrosis or infection, unspecified Status: Acute Assessment and Plan: Lipase elevated at 3368, to 78 yesterday. Right upper quadrant ultrasound Mild intra and extrahepatic biliary ductal dilation without evident choledocholithiasis MRCP suggest pancreatitis. Continue supportive care, pain management. No gallbladder present GI consult thank you for recommendations Continue LR at 125 mL/hour Trend lipase Advance diet as tolerated. (7) Elevated liver enzymes: Code(s): R74.8 - Abnormal levels of other serum enzymes Status: Acute Assessment and Plan: AST/ALT 77/47, trending down to 30/28 Trend labs Labs in the am RUQ ultrasound Mild intra and extrahepatic biliary ductal dilation without evident choledocholithiasis. (8)
--- NOTE | 2021-02-27 10:47 | PM.PNNEP ---
Progress Note: A&P Assessment and Plan (1) SOL (acute kidney injury): Code(s): N17.9 - Acute kidney failure, unspecified Status: Acute Assessment and Plan: baseline creatinine normal urine sodium is not low. However she was on diuretics when she was admitted. Urine creatinine is pending. Renal ultrasound shows mild atrophy of the left kidney and chronic left hydronephrosis. suspect due to volume depletion/dehydration given issues with #2 for the past few days possible worsening due to concurrent use of CLARI-I, HCTZ, and possibly acyclovir still has vomiting after clear liquids. Will continue IV fluids. (2) Nausea and vomiting: Code(s): R11.2 - Nausea with vomiting, unspecified Status: Acute Assessment and Plan: IV emetics continue supportive therapy follow symptoms (3) Pancreatitis: Code(s): K85.90 - Acute pancreatitis without necrosis or infection, unspecified Status: Acute Assessment and Plan: etiology of #2(?) lipase is trending down as is LFTs pain control gastroenterology notes appreciated (4) Hypertension: Code(s): I10 - Essential (primary) hypertension Status: Deleted Assessment and Plan: improved with the clonidine patch. Also on p.r.n. hydralazine (5) Gastroesophageal reflux disease: Code(s): K21.9 - Gastro-esophageal reflux disease without esophagitis Status: Acute Assessment and Plan: on IV PPI Will continue to follow. Subjective Date/time seen: 02/27/21 10:47 Interval history: Patient Still has belly pain. She vomits whenever she drinks even clear fluids. Exam Narrative: General: WD/WN female in NAD Heart: normal S1 and S2; no rub or gallop Lungs: clear to auscultation Abdomen: soft, nontender, nondistended, positive bowel sounds Extremities: no cyanosis or clubbing; no edema Skin: No rash Objective Data Vital Signs Vital Signs: Vital Signs - 24 hr 02/26/21 14:00 02/26/21 21:11 02/27/21 00:59 Temperature 36.8 C 36.9 C Pulse Rate 56 L 64 Respiratory Rate 18 18 Blood Pressure 212/80 H 205/69 H 142/53 H Pulse Oximetry 100 100 02/27/21 06:00 Temperature 36.9 C Pulse Rate 60 Respiratory Rate 16 Blood Pressure 127/53 L Pulse Oximetry 98 Intake/Output Intake/Output: Intake & Output 02/24/21 02/25/21 02/26/21 02/27/21 23:59 23:59 23:59 23:59 Intake Total 3230 2981 3390 2200 Output Total 150 Balance 3230 2981 3240 2200 Meds/Results Medications: Active Medications Generic Name Dose Route Start Last Admin Trade Name Freq PRN Reason Stop Dose Admin Lipase/Protease/Amylase 1 cap 02/24/21 12:00 02/27/21 08:03 Lipase/Amylase/Protease 12,000 Units Cap PO 1 cap TIDWM PRIMITIVO Administration Baclofen 10 mg 02/21/21 18:00 02/26/21 17:17 Baclofen 10 Mg Tablet PO Not Given QPM PRIMITIVO Clonidine HCl 1 patch 02/26/21 09:00 02/26/21 12:58 Clonidine 0.2 Mg/24 Hr Patch TRANSDERM 1 patch WEEKLY PRIMITIVO Administration Enoxaparin Sodium 40 mg 02/27/21 09:50 Enoxaparin 40 Mg/0.4 Ml Syringe SUB-Q DAILY PRIMITIVO Gabapentin 300 mg 02/21/21 09:00 02/27/21 08:04 Gabapentin 300 Mg Capsule PO 300 mg TID PRIMITIVO Administration Hydralazine HCl 10 mg 02/22/21 09:16 02/26/21 21:58 Hydralazine Hcl 20 Mg/Ml Vial IV PUSH 10 mg Q8H PRN Administration Blood Pressure - High Hydromorphone HCl 1 mg 02/20/21 17:33 02/27/21 08:00 Hydromorphone Hcl Inj (*Crx) 1 Mg/Ml Syr IV PUSH 1 mg Q3HR PRN Administration pain 4-7 Lactated Ringer's 1,000 mls @ 80 mls/hr 02/20/21 17:20 02/27/21 05:51 Lr - Lactated Ringers Iv IV CONT 125 mls/hr .[id number] PRIMITIVO Administration Lorazepam 0.5 mg 02/20/21 19:49 02/26/21 21:58 Lorazepam Inj (*Crx) 2 Mg/Ml Vial IV PUSH 0.5 mg Q6H PRN Administration Anxiety Ondansetron HCl 4 mg 02/20/21 17:33 02/27/21 07:58 Ondansetron Inj 4 Mg/2 Ml Via
--- NOTE | 2021-02-27 11:16 | WPDGIPROGNO ---
Progress Note: A&P Assessment and Plan (1) Pancreatitis: Code(s): K85.90 - Acute pancreatitis without necrosis or infection, unspecified Status: Acute Assessment and Plan: still with similar pain- from pancreatitis but normalization of liver enzymes only CL liquid as tolerated- she is not hardly eating because still uncomfortable IgG4 pending also on pancreatic enzymes (2) Nausea and vomiting: Code(s): R11.2 - Nausea with vomiting, unspecified Status: Acute Assessment and Plan: egd only mild gastritis still some nausea, zofran prn liquid diet as tolerated (3) Diarrhea: Code(s): R19.7 - Diarrhea, unspecified Status: Acute Assessment and Plan: colonoscopy unremarkable- pending biopsies now on creon tid with meals denies any more diarrhea (4) Hypomagnesemia: Code(s): E83.42 - Hypomagnesemia Status: Acute (5) SOL (acute kidney injury): Code(s): N17.9 - Acute kidney failure, unspecified Status: Acute Assessment and Plan: creatinine 1.2 and improved nephrology on board (6) Marijuana smoker: Code(s): F12.90 - Cannabis use, unspecified, uncomplicated Status: Acute Subjective Date/time seen: 02/27/21 11:16 Interval history: still nauseous and pain after drinking, no major changes. Denies any more diarrhea. Review of Systems Review of Systems: All systems reviewed & are unremarkable except as noted in HPI and below Exam Const: General: comfortable and no acute distress HENMT: General nose exam: Normal nares present Eyes: General: appearance normal, both eyes and all related structures Neck: Neck: no JVD Resp: Auscultation: clear to auscultation bilaterally Cardio: Rate: regular rate Rhythm: regular rhythm GI: Inspection: non-distended GI Palp: Yes Soft to palpation and Yes Tenderness to palpation present (GI) (mild ttp in epigastric, no rebound) Auscultation: normal bowel sounds Skin: General skin exam: normal color Neuro: General: gait normal Speech: normal speech Extrem: General: normal to inspection Psych: Mental Status: mental status grossly normal Objective Data Vital Signs Vital Signs: Vital Signs - 24 hr 02/26/21 14:00 02/26/21 21:11 02/27/21 00:59 Temperature 98.2 F 98.4 F Pulse Rate 56 L 64 Respiratory Rate 18 18 Blood Pressure 212/80 H 205/69 H 142/53 H Pulse Oximetry 100 100 02/27/21 06:00 Temperature 98.5 F Pulse Rate 60 Respiratory Rate 16 Blood Pressure 127/53 L Pulse Oximetry 98 Intake/Output Intake/Output: Intake & Output 02/24/21 02/25/21 02/26/21 02/27/21 23:59 23:59 23:59 23:59 Intake Total 3230 2981 3390 2200 Output Total 150 Balance 3230 2981 3240 2200 Meds/Results Medications: Active Medications Generic Name Dose Route Start Last Admin Trade Name Freq PRN Reason Stop Dose Admin Lipase/Protease/Amylase 1 cap 02/24/21 12:00 02/27/21 08:03 Lipase/Amylase/Protease 12,000 Units Cap PO 1 cap TIDWM PRIMITIVO Administration Baclofen 10 mg 02/21/21 18:00 02/26/21 17:17 Baclofen 10 Mg Tablet PO Not Given QPM PRIMITIVO Clonidine HCl 1 patch 02/26/21 09:00 02/26/21 12:58 Clonidine 0.2 Mg/24 Hr Patch TRANSDERM 1 patch WEEKLY PRIMITIVO Administration Enoxaparin Sodium 40 mg 02/27/21 09:50 Enoxaparin 40 Mg/0.4 Ml Syringe SUB-Q DAILY [facility] Gabapentin 300 mg 02/21/21 09:00 02/27/21 08:04 Gabapentin 300 Mg Capsule PO 300 mg TID PRIMITIVO Administration Hydralazine HCl 10 mg 02/22/21 09:16 02/26/21 21:58 Hydralazine Hcl 20 Mg/Ml Vial IV PUSH 10 mg Q8H PRN Administration Blood Pressure - High Hydromorphone HCl 1 mg 02/20/21 17:33 02/27/21 08:00 Hydromorphone Hcl Inj (*Crx) 1 Mg/Ml Syr IV PUSH 1 mg Q3HR PRN Administration pain 4-7 Lactated Ringer's 1,000 mls @ 80 mls/hr 02/20/21 17:20 02/27/21 05:51 Lr - Lactated Ringers Iv IV CONT 125 mls/hr .[id number] PRIMITIVO Administration
[2021-02-27] MEDS: ENOXAPARIN 40 MG/0.4 ML SYRINGE SUB-Q (11:21)
[2021-02-27 14:00] VITALS: BP 200/78; PULSE 50; RESP 18; TEMP 36.7; O2SAT 100
[2021-02-27] MEDS: LORazepam INJ (*CRX) 2 MG/ML VIAL 0.5 MG IV PUSH (17:19)
[2021-02-27 17:22] VITALS: BP 172/65; PULSE 68
[2021-02-27] MEDS: BACLOFEN 10 MG TABLET PO (17:26)
[2021-02-27 19:51] VITALS: BP 160/62; PULSE 60; RESP 20; TEMP 36.7; O2SAT 99
[2021-02-27 20:57] VITALS: O2SAT 98
[2021-02-27] MEDS: rOPINIRole HCL 0.5 MG TABLET PO (21:08)
[2021-02-28] MEDS: LORazepam INJ (*CRX) 2 MG/ML VIAL 0.5 MG IV PUSH ×2 (00:32→11:10)
[2021-02-28] MEDS: ONDANSETRON INJ 4 MG/2 ML VIAL IV PUSH ×2 (00:32→06:05)
[2021-02-28] MEDS: HYDROmorphone HCL INJ (*CRX) 1 MG/ML SYR IV PUSH ×3 (00:33→09:08)
[2021-02-28 06:03] LABS: Basophils Percent Auto 0.8 % (0.2-1.2); Eosinophils Absolute Auto 0.1 K/mm3 (0-0.3); Eosinophils Percent Auto 2.2 % (0-4.4); Hematocrit 27.6 % (37.0-47.0); Hemoglobin 9.2 g/dL (12.0-15.0); Lymphocytes Percent Auto 40.9 % (18.3-44.2); Mean Corpuscular HGB Conc 33.3 g/dl (32-36); Mean Corpuscular Hemoglobin 34.2 pg (26-34); Mean Corpuscular Volume 102.6 fl (80-100); Mean Platelet Volume 9.9 fl (7.4-10.4); Monocytes Absolute Auto 0.4 K/mm3 (0.1-0.6); Neutrophils Absolute Auto 2.3 K/mm3 (1.3-6.7); Neutrophils Percent Auto 47.1 % (45.5-73.1); Platelet Count Result 248 k/mm3 (150-375); Red Blood Count 2.69 M/mm3 (4.2-5.4); Red Cell Distribution Width 14.2 % (11.5-14.5); White Blood Count 4.9 K/mm3 (4.5-10.0)
[2021-02-28] MEDS: LACTATED RINGERS 1,000 ML 80 ML IV CONT (06:05)
[2021-02-28 06:15] LABS: Alanine Aminotransferase 14 U/L (4-35); Albumin Level 3.4 g/dL (3.5-5.1); Alkaline Phosphatase 49 U/L (38-126); Anion Gap 6 mmol/L (8-16); Aspartate Amino Transferase 26 U/L (14-36); Bilirubin,Total 0.3 mg/dL (0.2-1.3); Blood Urea Nitrogen 9 mg/dL (7-17); Calcium 8.7 mg/dL (8.4-10.2); Carbon Dioxide 26 mmol/L (22-30); Chloride 105 mmol/L (98-107); Estimated CRCL calculation 43 ml/min; Estimated Glomerular Filt Rate 46; Glucose 101 mg/dL (65-110); Potassium 4.1 mmol/L (3.4-5.0); Sodium 137 mmol/L (137-145)
[2021-02-28 06:16] VITALS: BP 158/74; PULSE 50; RESP 18; TEMP 36.1; O2SAT 97
[2021-02-28 06:29] LABS: Immunoglobulin G, Serum 810 mg/dL (600-1640); Immunoglobulin G1 434 mg/dL (382-929); Immunoglobulin G2 239 mg/dL (241-700); Immunoglobulin G3 31 mg/dL (22-178); Immunoglobulin G4 43.5 mg/dL (4.0-86.0)
[2021-02-28] MEDS: LIPASE/AMYLASE/PROTEASE 12,000 UNITS CAP 1 CAP PO ×2 (09:08→11:58)
[2021-02-28] MEDS: GABAPENTIN 300 MG CAPSULE PO ×2 (09:08→11:58)
[2021-02-28] MEDS: PANTOPRAZOLE SODIUM IV 40 MG VIAL IV PUSH (09:09)
[2021-02-28] MEDS: ROSUVASTATIN 10 MG TABLET PO (09:09)
[2021-02-28] MEDS: ENOXAPARIN 40 MG/0.4 ML SYRINGE SUB-Q (09:10)
--- NOTE | 2021-02-28 09:59 | PM.PNNEP ---
Progress Note: A&P Assessment and Plan (1) SOL (acute kidney injury): Code(s): N17.9 - Acute kidney failure, unspecified Status: Acute Assessment and Plan: baseline creatinine normal urine sodium is not low. However she was on diuretics when she was admitted. Urine creatinine is pending. Renal ultrasound shows mild atrophy of the left kidney and chronic left hydronephrosis. suspect due to volume depletion/dehydration given issues with #2 for the past few days possible worsening due to concurrent use of CLARI-I, HCTZ, and possibly acyclovir Her creatinine is normal now. No more vomiting. I think we can stop the IV fluids. Renal will sign off. (2) Nausea and vomiting: Code(s): R11.2 - Nausea with vomiting, unspecified Status: Acute Assessment and Plan: IV emetics continue supportive therapy follow symptoms (3) Pancreatitis: Code(s): K85.90 - Acute pancreatitis without necrosis or infection, unspecified Status: Acute Assessment and Plan: etiology of #2(?) lipase is trending down as is LFTs pain control gastroenterology notes appreciated (4) Hypertension: Code(s): I10 - Essential (primary) hypertension Status: Deleted Assessment and Plan: improved with the clonidine patch. Also on p.r.n. hydralazine (5) Gastroesophageal reflux disease: Code(s): K21.9 - Gastro-esophageal reflux disease without esophagitis Status: Acute Assessment and Plan: on IV PPI Will continue to follow. Subjective Date/time seen: 02/28/21 09:59 Interval history: Patient Still has belly pain. Nursing says that she is eating well. She does not have any nausea or vomiting. Exam Narrative: General: WD/WN female in NAD Heart: normal S1 and S2; no rub or gallop Lungs: clear to auscultation Abdomen: soft, nontender, nondistended, positive bowel sounds Extremities: no cyanosis or clubbing; no edema Skin: No rash Objective Data Vital Signs Vital Signs: Vital Signs - 24 hr 02/27/21 14:00 02/27/21 17:22 02/27/21 19:51 Temperature 36.7 C 36.7 C Pulse Rate 50 L 68 60 Respiratory Rate 18 20 Blood Pressure 200/78 H 172/65 H 160/62 H Pulse Oximetry 100 99 02/27/21 20:57 02/28/21 06:16 Temperature 36.1 C L Pulse Rate 50 L Respiratory Rate 18 Blood Pressure 158/74 H Pulse Oximetry 98 97 Intake/Output Intake/Output: Intake & Output 02/25/21 02/26/21 02/27/21 02/28/21 23:59 23:59 23:59 23:59 Intake Total 2981 3390 3950 990 Output Total 150 Balance 2981 3240 3950 990 Meds/Results Medications: Active Medications Generic Name Dose Route Start Last Admin Trade Name Freq PRN Reason Stop Dose Admin Lipase/Protease/Amylase 1 cap 02/24/21 12:00 02/28/21 09:08 Lipase/Amylase/Protease 12,000 Units Cap PO 1 cap TIDWM PRIMITIVO Administration Baclofen 10 mg 02/21/21 18:00 02/27/21 17:26 Baclofen 10 Mg Tablet PO 10 mg QPM PRIMITIVO Administration Clonidine HCl 1 patch 02/26/21 09:00 02/26/21 12:58 Clonidine 0.2 Mg/24 Hr Patch TRANSDERM 1 patch WEEKLY PRIMITIVO Administration Enoxaparin Sodium 40 mg 02/27/21 09:50 02/28/21 09:10 Enoxaparin 40 Mg/0.4 Ml Syringe SUB-Q 40 mg DAILY PRIMITIVO Administration Gabapentin 300 mg 02/21/21 09:00 02/28/21 09:08 Gabapentin 300 Mg Capsule PO 300 mg TID PRIMITIVO Administration Hydralazine HCl 10 mg 02/22/21 09:16 02/26/21 21:58 Hydralazine Hcl 20 Mg/Ml Vial IV PUSH 10 mg Q8H PRN Administration Blood Pressure - High Hydromorphone HCl 1 mg 02/20/21 17:33 02/28/21 09:08 Hydromorphone Hcl Inj (*Crx) 1 Mg/Ml Syr IV PUSH 1 mg Q3HR PRN Administration pain 4-7 Lactated Ringer's 1,000 mls @ 80 mls/hr 02/20/21 17:20 02/28/21 06:05 Lr - Lactated Ringers Iv IV CONT 80 mls/hr .[id number] PRIMITIOV Administration Lorazepam 0.5 mg 02/20/21 19:49 02/28/21 00:32 Lorazepam Inj (*Crx) 2 Mg/Ml Via
--- NOTE | 2021-02-28 11:00 | WPDGIPROGNO ---
Progress Note: A&P Assessment and Plan (1) Pancreatitis: Code(s): K85.90 - Acute pancreatitis without necrosis or infection, unspecified Status: Acute Assessment and Plan: abdominal pain better today, tolerating more diet she will eat smaller portion and low fat diet also on pancreatic enzymes she can follow-up office in 4-6 weeks IgG4 level pending (2) Nausea and vomiting: Code(s): R11.2 - Nausea with vomiting, unspecified Status: Acute Assessment and Plan: egd only mild gastritis still some nausea, zofran prn but feeling better today (3) Diarrhea: Code(s): R19.7 - Diarrhea, unspecified Status: Acute Assessment and Plan: colonoscopy unremarkable- biopsies with normal mucosa now on creon tid with meals denies any more diarrhea Subjective Date/time seen: 02/28/21 11:00 Interval history: she is feeling better today and she is going home later today Review of Systems Review of Systems: All systems reviewed & are unremarkable except as noted in HPI and below Exam Const: General: comfortable and no acute distress HENMT: General nose exam: Normal nares present Eyes: General: appearance normal, both eyes and all related structures Neck: Neck: no JVD Resp: Auscultation: clear to auscultation bilaterally Cardio: Rate: regular rate Rhythm: regular rhythm GI: Inspection: non-distended GI Palp: Yes Soft to palpation and No Guarding due to palpation present (GI) Auscultation: normal bowel sounds Skin: General skin exam: normal color Neuro: Speech: normal speech Extrem: General: normal to inspection Psych: Mental Status: mental status grossly normal Objective Data Vital Signs Vital Signs: Vital Signs - 24 hr 02/27/21 17:22 02/27/21 19:51 02/27/21 20:57 Temperature 98.1 F Pulse Rate 68 60 Respiratory Rate 20 Blood Pressure 172/65 H 160/62 H Pulse Oximetry 99 98 02/28/21 06:16 Temperature 97 F L Pulse Rate 50 L Respiratory Rate 18 Blood Pressure 158/74 H Pulse Oximetry 97 Intake/Output Intake/Output: Intake & Output 02/25/21 02/26/21 02/27/21 02/28/21 23:59 23:59 23:59 23:59 Intake Total 2981 3390 3950 1230 Output Total 150 Balance 2981 3240 3950 1230 Meds/Results Radiology Results: ITS Impressions Abdomen/Pelvis CT 02/20/21 16:34 IMPRESSION: 1. Small amount of fluid in the otherwise normal-appearing colon consistent with nonspecific diarrhea of indeterminate etiology. 2. Chronic mild left hydronephrosis with 1 mm nonobstructing stone at the lower pole but no evident stone at the transition point at the ureteral junction. Renal Ultrasound 02/21/21 10:52 IMPRESSION: 1. Mild atrophy of left kidney. No hydronephrosis. Abdomen Ultrasound 02/21/21 16:10 IMPRESSION: 1. Mild intra and extrahepatic biliary ductal dilation without evident choledocholithiasis. This can be a normal finding post cholecystectomy and sphincterotomy. If there is continued clinical concern for biliary obstruction would consider MRCP for more definitive determination. MRCP 02/22/21 16:04 IMPRESSION: 1. Acute interstitial pancreatitis. 2. Small volume of ascites. 3. Small right pleural effusion. 4. Chronic mild intrahepatic and extrahepatic biliary duct dilatation status post cholecystectomy. No choledocholithiasis. Labs Labs: Laboratory Results - last 24 hr 02/25/21 02/28/21 02/28/21 06:16 05:51 05:51 WBC 4.9 RBC 2.69 L Hgb 9.2 L Hct 27.6 L MCV 102.6 H MCH 34.2 H MCHC 33.3 RDW 14.2 Plt Count 248 MPV 9.9 Immature Gran % (Auto) 0.0 Neut % (Auto) 47.1 Lymph % (Auto) 40.9 [place] % (Auto) 9.0 H Eos % (Auto) 2.2 Baso % (Auto) 0.8 Lymph # (Auto) 2.00 [place] # (Auto) 0.4 Eos # (Auto) 0.1 Baso # (Auto) 0.0 Abs Immat Gran (auto) 0.00 Absolute Neuts (auto) 2.3 Absolute Nucleated RBC 0.0 Nucleated RBC % 0.0 Sodium 137 Potassium
--- NOTE | 2021-02-28 12:44 | PM.DS ---
DS: Admitting Diagnosis Discharge Date 02/28/2021 Admitting Diagnosis Acute renal failure DS: Discharge Diagnosis Discharge Diagnosis (1) Acute renal failure: Qualifiers: Acute renal failure type: unspecified Qualified Code(s): N17.9 - Acute kidney failure, unspecified Code(s): N17.9 - Acute kidney failure, unspecified Status: Acute Assessment and Plan: Acute nonoliguric kidney failure. Baseline creatinine is normal Recovering acute kidney injury. Creatinine is improving from 3.2..admission down to 1.3-1.4-->1.2 Reports persistent right upper quadrant abdominal pain nausea vomiting and diarrhea for the past 3 days. Most likely pre renal azotemia, acute dehydration, volume depletion/dehydration given issues with the MARISSA, vomiting and poor oral intake at the time of presentation. Patient is still not tolerating oral intake well. Per Nephrology recommendation we will continue IV fluids for now. There may be an element of possible worsening due to concurrent use of CLARI-I, HCTZ, and possibly acyclovir. These medication have been on hold. Absolutely pain has been started for blood pressure management while kidney function is improving. Renal ultrasound Mild atrophy of left kidney. No hydronephrosis Avoid nephrotoxic medications. S/p IVF (2) Abdominal pain: Qualifiers: Abdominal location: generalized Qualified Code(s): R10.84 - Generalized abdominal pain Code(s): R10.9 - Unspecified abdominal pain Status: Inactive Assessment and Plan: Epigastric abdominal pain he still being resolved. Likely related to pancreatitis; however patient denies current etoh consumption, MRCP reviewed and stable dilated bile duct without other findings than pancreatitis; liver enzymes have improved down to normal range now. Tolerating p.o. She previously denied etoh, has normal TG level, MRCP reviewed and stable dilated bile duct without other findings than pancreatitis. Per GI recommendations IgG4 wnl Lipase elevated at 3368-->278 Liver enzymes AST/ALT Continue pain management with Dilaudid 1 mg Q 3 p.r.n. Denies abdominal pain, N/V/D (3) Gastroesophageal reflux disease: Code(s): K21.9 - Gastro-esophageal reflux disease without esophagitis Status: Acute Assessment and Plan: Continue p.o. Protonix. (4) HTN (hypertension), malignant: Code(s): I10 - Essential (primary) hypertension Status: Chronic Assessment and Plan: Stable Continue amlodipine 10 mg p.o. daily. Resume lisinopril and hydrochlorothiazide (5) Anxiety: Code(s): F41.9 - Anxiety disorder, unspecified Status: Chronic Assessment and Plan: P.r.n. Ativan. (6) Pancreatitis: Code(s): K85.90 - Acute pancreatitis without necrosis or infection, unspecified Status: Acute Assessment and Plan: Lipase elevated at 3368-->278 Right upper quadrant ultrasound Mild intra and extrahepatic biliary ductal dilation without evident choledocholithiasis MRCP suggest pancreatitis. Continue supportive care, pain management. No gallbladder present GI consult thank you for recommendations S/p LR at 125 mL/hour Trend lipase Advance diet as tolerated (7) Elevated liver enzymes: Code(s): R74.8 - Abnormal levels of other serum enzymes Status: Acute Assessment and Plan: AST/ALT 77/47, trended Trend labs Labs in the am RUQ ultrasound Mild intra and extrahepatic biliary ductal dilation without evident choledocholithiasis. (8) Vomiting and diarrhea: Code(s): R11.10 - Vomiting, unspecified; R19.7 - Diarrhea, unspecified Status: Acute Assessment and Plan: Patient reports coffee-ground emesis and profuse diarrhea at presentation. Occult blood ordered Unclear etiology S/p Flora (9) Anemia: Code(s): D64.9 - Anemia, unspecified Status: Acute Assessment and Plan: H/H stable, 9.4/27.7 on 02/24/2021. Repeat CBC
== END 2021-02-28 12:51 | disposition home or self-care (01) | DRG 469 ==
LOC: ANHED 17:49 → ANH3MED 19:40
PROVIDERS: Internal Medicine Gastroenterology; Internal Medicine Nephrology; Nurse Practitioner; Admitting Provider Family Medicine; Emergency Provider Emergency Medicine; PCP Internal Medicine; Visit Provider Internal Medicine
PROC: 0DJ08ZZ Inspection of Upper Intestinal Tract, Via Natural or Artificial Opening Endoscopic (ICD-10-PCS; CPT 43235; principal; 2021-02-23 13:30)
DX: K29.70 Gastritis, unspecified, without bleeding; K63.5 Polyp of colon; R19.7 Diarrhea, unspecified; R74.8 Abnormal levels of other serum enzymes; K21.9 Gastro-esophageal reflux disease without esophagitis; I10 Essential (primary) hypertension; I35.0 Nonrheumatic aortic (valve) stenosis; F41.9 Anxiety disorder, unspecified; I25.10 Atherosclerotic heart disease of native coronary artery without angina pectoris; D64.9 Anemia, unspecified; E83.42 Hypomagnesemia; N17.9 Acute kidney failure, unspecified; K85.90 Acute pancreatitis without necrosis or infection, unspecified; R63.4 Abnormal weight loss; N13.30 Unspecified hydronephrosis; F12.90 Cannabis use, unspecified, uncomplicated; Z87.891 Personal history of nicotine dependence; Z95.5 Presence of coronary angioplasty implant and graft; Z90.49 Acquired absence of other specified parts of digestive tract; Z79.899 Other long term (current) drug therapy
CPT/HCPCS: 36415; 74176; 74181; 76376; 76705; 76775; 80053; 81001; 82436; 82570; 82607; 82728; 82746; 82784; 82787; 83540; 83550; 83615; 83690; 83735; 83935; 84100; 84300; 84443; 84466; 84540; 85025; 85046; 85999; 88305; 96361; 96372; 96374; 96375; 96376; 99285; A9270; C9113; G0378; G0379; J0360; J0500; J1170; J1650; J2060; J2270; J2405; J2704; J2765; J3475; J3480; J7030; J7060; J7120

== ENCOUNTER 2021-08-10 11:52 | Emergency (ER) | payer OTHER, SELFPAY ==
[2021-08-10 12:04] VITALS: BP 216/114; PULSE 96; RESP 16; TEMP 36.2; O2SAT 97
--- NOTE | 2021-08-10 13:11 | ED.RECABL ---
HPI - Recheck/Abnormal Lab/Rx General Chief Complaint: Recheck/Abnormal Lab/Rx Stated Complaint: neck replacement, pain Time Seen by Provider: 08/10/21 13:11 Source: patient and EMS Mode of arrival: EMS Limitations: no limitations History of Present Illness HPI narrative: The patient is a 56-year-old female with history of hypertension, pancreatitis, anxiety, presenting to the emergency department for evaluation of neck pain. Patient states that she had cervical spine surgery with Dr. Portillo Machado at an outpatient surgery center on August 08. Patient states that her pain prescription medication was sent to [facility] pharmacy and is currently $91 for her to obtain the medications. Patient states that she cannot afford the cost of these medications and has only been taking Tylenol and ibuprofen since her surgery. She reports dull, aching pain at the site denies any neck swelling, difficulty with speech, upper extremity weakness she denies fever, chills. Patient reports minimal pain improvement with her symptoms. Patient is requesting pain medication. Related Data Home Medications Medication Instructions Recorded Confirmed baclofen 10 mg PO QPM 02/12/20 02/20/21 gabapentin 300 mg PO TID 02/12/20 02/20/21 lisinopril-hydrochlorothiazide 1 tablet PO DAILY 02/12/20 02/20/21 acyclovir 800 mg PO DAILY 02/10/21 02/20/21 ropinirole 0.5 mg PO HS 02/10/21 02/20/21 Allergies Allergy/AdvReac Type Severity Reaction Status Date / Time butalbital Allergy Unknown hives Verified 04/04/21 11:37 ibuprofen Allergy Unknown Hives Verified 04/04/21 11:37 ketorolac Allergy Unknown Hives Verified 04/04/21 11:37 naproxen Allergy Unknown Hives Verified 04/04/21 11:37 sumatriptan Allergy Unknown Hives Verified 04/04/21 11:37 Fish Containing Products Allergy Hives Verified 04/04/21 11:37 Review of Systems Review of Systems: CONSTITUTIONAL: Denies fever, chills, or sweats. EYES: Denies visual changes, redness, or discharge. ENT: Denies rhinorrhea, congestion, sore throat, or otalgia. Reports neck pain. Denies incisional pain. Denies discharge from the wound. Denies neck swelling. CARDIOVASCULAR: Denies chest pain, palpitations, or edema. RESPIRATORY: Denies cough or dyspnea. GASTROINTESTINAL: Denies abdominal pain, nausea, vomiting, or diarrhea. GENITOURINARY: Denies dysuria or hematuria. SKIN: Denies rash or itching. MUSCULOSKELETAL: Denies back pain, joint pain, or myalgia. NEUROLOGIC: Denies headache, numbness, or weakness. [facility] Past Medical History Medical History (Updated 08/10/21 @ 13:48 by Maria G Reeves MD) Acute renal failure Anxiety Aortic stenosis Arthritis Colon cancer screening Coronary artery disease History of stent x2. Diarrhea DVT prophylaxis Elevated lipase Elevated liver enzymes Elevated WBC count Gastroesophageal reflux disease HTN (hypertension), malignant Hypomagnesemia Marijuana smoker Migraines Mild aortic valve stenosis Aortic valve area of 1.4 cm2 on echocardiogram in February 2020. Pancreatitis Tobacco use Vomiting and diarrhea Weight loss Surgical History Surgical History (System 04/04/21 @ 11:37 by Freddie Oreilly) History of cardiac catheterization History of cholecystectomy History of esophagogastroduodenoscopy (02/16/20) Unspecified esophagitis and gastritis. History of heart artery stent (2015) Performed at [facility] in [place]. History of hysterectomy History of open reduction and internal fixation (ORIF) procedure Right ankle fracture. Left elbow fracture. Family History Family History Mother Hypertension Hyperlipidemia Rheumatic fever Kidney disease Heart murmur Sibling Kidney disease Alcoholism Social History Social History (System 04/04/21 @ 11:37 by Freddie Oreilly) Social History: The patient stated that she quit smoking approximately 4 months ago. Surrogate decision maker: Not known the patient
[2021-08-10] MEDS: oxyCODONE/ACETAMINOPHEN (*CRX) 5-325 MG TABLET 2 TABLET PO (13:36)
[2021-08-10 13:59] VITALS: BP 203/76; PULSE 80; RESP 16; O2SAT 96
[2021-08-10 14:32] VITALS: BP 207/76; PULSE 80; RESP 16
== END 2021-08-10 14:05 | disposition home or self-care (01) ==
PROVIDERS: Emergency Provider Emergency Medicine; PCP Internal Medicine
DX: G89.18 Other acute postprocedural pain (principal); M54.2 Cervicalgia; I10 Essential (primary) hypertension; I35.0 Nonrheumatic aortic (valve) stenosis; I25.10 Atherosclerotic heart disease of native coronary artery without angina pectoris; K21.9 Gastro-esophageal reflux disease without esophagitis; M19.90 Unspecified osteoarthritis, unspecified site; Z95.5 Presence of coronary angioplasty implant and graft; Z87.891 Personal history of nicotine dependence; Z79.82 Long term (current) use of aspirin
CPT/HCPCS: 99283; A9270

== ENCOUNTER 2021-10-10 11:33 | Emergency (ER) | payer OTHER, SELFPAY ==
[2021-10-10 11:37] VITALS: BP 207/57; PULSE 52; RESP 14; TEMP 36.6; O2SAT 100
[2021-10-10 12:01] VITALS: BP 207/91; PULSE 59; RESP 18; O2SAT 99
--- NOTE | 2021-10-10 12:30 | ED.GENADULT ---
HPI - General Adult General Chief complaint: Recheck/Abnormal Lab/Rx Stated complaint: HTN Time Seen by Provider: 10/10/21 12:25 History of Present Illness HPI narrative: 56-year-old female presents emergency room secondary hypertension. She was seen by her surgeon is can be doing surgery on her left foot. She broke her foot in 2 places back on Mother's Day. When she was seen by him her pain has been [id number] for days. As result of that her blood pressures been elevated. He told to come straight to the emergency room to get something out of pain under control. Gave her prescription and told her not to go get if able come straight here. She is got a history of hypertension been taking lisinopril 20 mg a day as prescribed. Related Data Home Medications Medication Instructions Recorded Confirmed baclofen 10 mg tablet 10 mg PO QPM 02/12/20 02/20/21 gabapentin 300 mg capsule 300 mg PO TID 02/12/20 02/20/21 lisinopril 20 1 tablet PO DAILY 02/12/20 02/20/21 mg-hydrochlorothiazide 25 mg tablet acyclovir 800 mg tablet 800 mg PO DAILY 02/10/21 02/20/21 ropinirole 0.5 mg tablet 0.5 mg PO HS 02/10/21 02/20/21 Allergies Allergy/AdvReac Type Severity Reaction Status Date / Time butalbital Allergy Unknown hives Verified 04/04/21 11:37 ibuprofen Allergy Unknown Hives Verified 04/04/21 11:37 ketorolac Allergy Unknown Hives Verified 04/04/21 11:37 naproxen Allergy Unknown Hives Verified 04/04/21 11:37 sumatriptan Allergy Unknown Hives Verified 04/04/21 11:37 Fish Containing Products Allergy Hives Verified 04/04/21 11:37 FOR[facility]LY [facility], [facility] Past Medical History Medical History (Updated 10/10/21 @ 13:11 by Brad Richardson DO) Acute renal failure Anxiety Aortic stenosis Arthritis Colon cancer screening Coronary artery disease History of stent x2. Diarrhea DVT prophylaxis Elevated lipase Elevated liver enzymes Elevated WBC count Gastroesophageal reflux disease HTN (hypertension), malignant Hypomagnesemia Marijuana smoker Migraines Mild aortic valve stenosis Aortic valve area of 1.4 cm2 on echocardiogram in February 2020. Pancreatitis Tobacco use Vomiting and diarrhea Weight loss Surgical History Surgical History (System 04/04/21 @ 11:37 by Freddie Oreilly) History of cardiac catheterization History of cholecystectomy History of esophagogastroduodenoscopy (02/16/20) Unspecified esophagitis and gastritis. History of heart artery stent (2016) Performed at [facility] in [place]. History of hysterectomy History of open reduction and internal fixation (ORIF) procedure Right ankle fracture. Left elbow fracture. Family History Family History Mother Hypertension Hyperlipidemia Rheumatic fever Kidney disease Heart murmur Sibling Kidney disease Alcoholism Social History Social History (System 04/04/21 @ 11:37 by Freddie Oreilly) Social History: The patient stated that she quit smoking approximately 4 months ago. 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 She lives with a significant other. The patient has 4 sons. 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 Code status: Full code. Smoking packs per day: 0.10 Smoking cigarettes per day: 2.0 Years smoked: 25 Smoking pack-years: 2.50 Smoking status: Former smoker Tobacco type: cigarettes Additional smoking assessment comments: was at 1ppd, but has cut down Alcohol intake: current Substance use: current Substance use type: marijuana Other substance usage details: occasional wine, rarely, marijuana once daily for pain management Last use: 02/10/21 Additional living arrangements comments: The patient lives in [place] with her significant other. She has 4 sons. Additional occupation/education comments: Disabled. Spiritual care concerns: No Course Vital Signs Vital signs: Vital Signs Temperature 97.9 F 10/10/21
[2021-10-10] MEDS: ACETAMINOPHEN 500 MG TABLET 1000 MG PO (12:41)
[2021-10-10] MEDS: HYDROcodone/acetaminophen (*CRX) 5-325 MG TABLET 1 TAB PO (12:41)
[2021-10-10 12:43] VITALS: BP 200/83; PULSE 56; RESP 18; O2SAT 99
[2021-10-10 13:11] VITALS: TEMP 36.6
[2021-10-10 13:16] VITALS: BP 167/76; PULSE 48; RESP 17; O2SAT 98
== END 2021-10-10 13:26 | disposition home or self-care (01) ==
PROVIDERS: Emergency Provider Emergency Medicine; PCP Internal Medicine
DX: I10 Essential (primary) hypertension (principal); M79.672 Pain in left foot; I08.0 Rheumatic disorders of both mitral and aortic valves; I25.10 Atherosclerotic heart disease of native coronary artery without angina pectoris; K21.9 Gastro-esophageal reflux disease without esophagitis; M19.90 Unspecified osteoarthritis, unspecified site; Z95.5 Presence of coronary angioplasty implant and graft; Z87.891 Personal history of nicotine dependence
CPT/HCPCS: 99283; A9270

== ENCOUNTER 2022-06-21 18:55 | Inpatient (IN) | payer OTHER, SELFPAY ==
[2022-06-21] VITALS (16 sets, daily range): BP systolic 138–194; BP diastolic 79–115; PULSE 68–129; RESP 11–22; TEMP 36.5–36.8; O2SAT 96–100; BMI 20.9
--- NOTE | ~2022-06-21 | XR_ITS ---
EXAMINATION: XR chest 1V portable Exam Date/Time: 06/21/2022 19:30 CDT HISTORY: Chest pain Comparison: 02/10/2021. RESULT: Lines, tubes, and devices: Cervical fusion hardware. Lungs and pleura: Clear. Cardiomediastinal silhouette: Stable. Other: No acute osseous or upper abdominal finding. IMPRESSION: No acute cardiopulmonary process. Reviewed, dictated and finalized at location K.
--- NOTE | ~2022-06-21 | NM_ITS ---
EXAMINATION: RAMILA cooper renal scan DATE: 06/23/2022 14:10 INDICATION: Left hydronephrosis TECHNIQUE: 8.4 mCi Tc-99m MAG3 was administered IV. 40 mg furosemide was administered IV immediately afterward. A posterior abdominal radionuclide angiogram was obtained. A subsequent time course of st atic images of the kidneys, ureters, and bladder was obtained. COMPARISON: Ultrasound dated 06/22/2022 and MRI dated 02/22/2021 FINDINGS: The posterior abdominal radionuclide angiogram and sequential static images show normal position, an d morphology of the kidneys. The left kidney is slightly smaller than the right consistent with mild atrophy as seen on prior imaging. Peak renal parenchymal uptake was 7.4 min in left kidney and 4.4 mi n in right kidney (normal peak 3-5 minutes). The relative early renal uptake was 42.6% on the left a nd 57.4% on the right (<40% is abnormal). No abnormalities of the ureters or bladder are seen. T1/2 for clearance of activity from the left kidney and proximal collecting system was 19 minutes. T1/2 for clearance of activity from the right kidney and proximal collecting system was 9 minutes. Notes on interpretation: T1/2 <10 minutes is normal, 10-15 minutes is low grade obstruction of questi onable clinical significance, 15-20 minutes is partial obstruction that is likely clinically signific ant, >20 minutes is high grade obstruction. Note that false positives may be seen with supine positio jay, dehydration, severely dilated nonobstructed kidney, atonic collecting system, poor renal functi on, and chronic furosemide use. IMPRESSION: 1. Mild left renal atrophy and mildly decreased left total renal function with left kidney contribut ing 42.6% of total renal function. 2. Delayed clearance of activity from the left kidney consistent with partial obstruction which is l ikely clinically significant. Reviewed, dictated and finalized at location A. IMPRESSION: 1. Mild left renal atrophy and mildly decreased left total renal function with left kidney contributing 42.6% of total renal function. 2. Delayed clearance of activity from the left kidney consistent with partial obstruction which is likely clinically significant.
--- NOTE | ~2022-06-21 | CT_ITS ---
EXAMINATION: CTA chest PE protocol DATE: 06/24/2022 18:59 INDICATION: Chest pain, elevated d-dimer TECHNIQUE: Computed tomography angiography (CTA) of the chest was performed with 100 mL Omnipaque-350 intravenous contrast timed to evaluate the pulmonary arteries. Coronal maximum intensity projection 3D-reconstructions were created by the technologist. Automated exposure control and iterative reconst ruction technique were employed. Exam dose: 171.65 mGy-cm total exam DLP. COMPARISON: 06/21/2022 portable AP chest FINDINGS: There is diagnostic contrast enhancement of the pulmonary arteries and no evidence of pulmo nary embolism. No thoracic aortic aneurysm or dissection. Normal heart size. No hilar or mediastinal mass lesion or lymphadenopathy. No pulmonary infiltrate or consolidation. Status post cholecystectomy. Status post lower anterior cervical spine surgical fusion. IMPRESSION: No evidence of pulmonary embolism Reviewed, dictated and finalized at Location A. Reviewed, dictated and finalized at location A.
--- NOTE | ~2022-06-21 | CT_ITS ---
EXAMINATION: CT abdomen pelvis wo con DATE: 06/23/2022 13:58 INDICATION: Abdominal pain TECHNIQUE: Computed tomography (CT) of the abdomen and pelvis was performed without intravenous contr ast. The dose-length product (DLP) was 217.45 mGy-cm. Automated exposure control and iterative recons truction technique were employed. COMPARISON: 02/20/2021 FINDINGS: Minimal dependent atelectasis is present in the lung bases. The heart size is normal. The g allbladder is surgically absent. There is mild enlargement of the common bile duct and central intrah epatic ducts which is likely due to post cholecystectomy state. The spleen, pancreas, and right adren al gland are normal. A chronic 2 cm mass of the left adrenal gland is consistent with an adenoma. The re is chronic mild enlargement of the renal pelves, left greater than right. There is scarring in the left kidney upper pole. No pathologically enlarged abdominal or pelvic lymph nodes are identified. T he appendix is normal. No free intraperitoneal gas or evidence of bowel obstruction. IMPRESSION: 1. No CT correlate for the patient's symptoms. Reviewed, dictated and finalized at location B.
--- NOTE | ~2022-06-21 | US_ITS ---
EXAMINATION: US right upper quadrant DATE: 06/25/2022 10:32 INDICATION: Elevated liver enzymes, pancreatitis TECHNIQUE: Multiple grayscale and Doppler ultrasound images of the abdomen were obtained. COMPARISON: CT, 06/23/2022 FINDINGS: The head and body of the pancreas are normal. The pancreatic tail is obscured by bowel gas. The liver is normal with normal echogenicity and echotexture. No surface nodularity. Normal hepatope corby flow in the main portal vein. The gallbladder is surgically absent The chronically dilated common bile duct measures 13 mm, consistent with post cholecystectomy state. IMPRESSION: 1. No sonographic correlate for the patient's symptoms. Reviewed, dictated and finalized at location A.
--- NOTE | ~2022-06-21 | US_ITS ---
EXAMINATION: US renal BI DATE: 06/22/2022 14:27 INDICATION: Acute kidney injury TECHNIQUE: Multiple grayscale and Doppler ultrasound images of the kidneys were obtained. COMPARISON: 02/21/2021 FINDINGS: The right kidney measures 10.6 x 4.4 x 4.3 cm. The left kidney measures 9.1 x 4.7 x 3.4 cm. The kidneys demonstrate normal parenchymal echogenicity. There is moderate left hydronephrosis. The bladder is normal. IMPRESSION: 1. Mild atrophy of the left kidney with moderate left hydronephrosis. Reviewed, dictated and finalized at location L.
--- NOTE | 2022-06-21 19:17 | ED.CHESTPAIN ---
HPI - Chest Pain General Chief Complaint: Chest Pain Stated Complaint: epigastric pain Time Seen by Provider: 06/21/22 19:03 History of Present Illness HPI narrative: She is being worked up this is a 56-year-old female with reported history of coronary artery disease, presenting to the emergency department complaining of chest pain beginning approximately 1 hour ago. The patient describes the pain as pressure-like, midline and radiating to the left arm. She states it began at rest and has no obvious aggravating or alleviating factors. Related Data Home Medications Medication Instructions Recorded Confirmed baclofen 10 mg tablet 10 mg PO QPM 02/12/20 06/21/22 gabapentin 300 mg capsule 300 mg PO TID 02/12/20 06/21/22 lisinopril 20 1 tablet PO DAILY 02/12/20 06/21/22 mg-hydrochlorothiazide 25 mg tablet acyclovir 800 mg tablet 800 mg PO DAILY 02/10/21 06/21/22 ropinirole 0.5 mg tablet 0.5 mg PO HS 02/10/21 06/21/22 Allergies Allergy/AdvReac Type Severity Reaction Status Date / Time butalbital Allergy Unknown hives Verified 04/04/21 11:37 ibuprofen Allergy Unknown Hives Verified 04/04/21 11:37 ketorolac Allergy Unknown Hives Verified 04/04/21 11:37 naproxen Allergy Unknown Hives Verified 04/04/21 11:37 sumatriptan Allergy Unknown Hives Verified 04/04/21 11:37 Fish Containing Products Allergy Hives Verified 04/04/21 11:37 Review of Systems Review of Systems: CONSTITUTIONAL: Denies fever, chills, or sweats. CARDIOVASCULAR: Chest pain Denies or edema. RESPIRATORY: Denies cough or dyspnea. GASTROINTESTINAL: Denies abdominal pain, nausea, vomiting, or diarrhea. GENITOURINARY: Denies dysuria or hematuria. SKIN: Denies rash or itching. MUSCULOSKELETAL: Denies back pain, joint pain, or myalgia. NEUROLOGIC: Denies headache, numbness, dizziness, or weakness. PSYCHIATRIC: Denies anxiety or depression. [facility] Past Medical History Medical History Acute renal failure Anxiety Aortic stenosis Arthritis Colon cancer screening Coronary artery disease History of stent x2. Diarrhea DVT prophylaxis Elevated lipase Elevated liver enzymes Elevated WBC count Gastroesophageal reflux disease HTN (hypertension), malignant Hypomagnesemia Marijuana smoker Migraines Mild aortic valve stenosis Aortic valve area of 1.4 cm2 on echocardiogram in February 2020. Pancreatitis Tobacco use Vomiting and diarrhea Weight loss Surgical History Surgical History History of cardiac catheterization History of cholecystectomy History of esophagogastroduodenoscopy (02/16/20) Unspecified esophagitis and gastritis. History of heart artery stent (2016) Performed at [facility] in [place]. History of hysterectomy History of open reduction and internal fixation (ORIF) procedure Right ankle fracture. Left elbow fracture. Family History Family History Mother Hypertension Hyperlipidemia Rheumatic fever Kidney disease Heart murmur Sibling Kidney disease Alcoholism Social History Social History Social History: The patient stated that she quit smoking approximately 4 months ago. 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 She lives with a significant other. The patient has 4 sons. 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 Code status: Full code. Smoking packs per day: 0.1 Smoking cigarettes per day: 2.0 Years smoked: 30 Smoking pack-years: 3.00 Smoking status: Current every day smoker Tobacco type: cigarettes Additional smoking assessment comments: was at 1ppd, but has cut down Alcohol intake: never Substance use: current Substance use type: marijuana Other substance usage details: occasional wine, rarely, marijuana once daily for pain
[2022-06-21] MEDS: ONDANSETRON INJ 4 MG/2 ML VIAL IV PUSH ×2 (19:21→22:05)
[2022-06-21] MEDS: NITROGLYCERIN OINTMENT 1 INCH DOSE 0.5 INCH TRANSDERM (19:22)
[2022-06-21] MEDS: HYDROmorphone HCL INJ (*CRX) 1 MG/ML SYR IV PUSH (19:27)
[2022-06-21 19:29] LABS: Basophils Percent Auto 0.5 % (0.2-1.2); Eosinophils Percent Auto 0.5 % (0-4.4); Hemoglobin 14.9 g/dL (12.0-15.0); Immature Granulocyte Absolute 0.02 K/mm3 (0.00-0.031); Immature Granulocyte Percent A 0.2 % (0-0.5); Lymphocytes Absolute Auto 2.57 K/mm3 (0.9-3.2); Lymphocytes Percent Auto 31.3 % (18.3-44.2); Mean Corpuscular HGB Conc 34.7 g/dl (32-36); Mean Corpuscular Hemoglobin 29.6 pg (26-34); Mean Corpuscular Volume 85.5 fl (80-100); Mean Platelet Volume 9.3 fl (7.4-10.4); Monocytes Absolute Auto 0.7 K/mm3 (0.1-0.6); Monocytes Percent Auto 8.7 % (2.6-8.5); Neutrophils Absolute Auto 4.8 K/mm3 (1.3-6.7); Neutrophils Percent Auto 58.8 % (45.5-73.1); Platelet Count Result 459 k/mm3 (150-375); Red Blood Count 5.03 M/mm3 (4.2-5.4); Red Cell Distribution Width 14.1 % (11.5-14.5); White Blood Count 8.2 K/mm3 (4.5-10.0)
[2022-06-21 19:37] LABS: Alanine Aminotransferase 19 U/L (6-35); Albumin Level 5.4 g/dL (3.5-5.1); Alkaline Phosphatase 138 U/L (38-126); Anion Gap 16 mmol/L (8-16); Aspartate Amino Transferase 31 U/L (14-36); Bilirubin,Total 0.6 mg/dL (0.2-1.3); Blood Urea Nitrogen 41 mg/dL (7-17); Calcium 10.1 mg/dL (8.4-10.2); Carbon Dioxide 19 mmol/L (22-30); Chloride 105 mmol/L (98-107); Estimated CRCL calculation 19 ml/min; Estimated Glomerular Filt Rate 17; Glucose 126 mg/dL (65-110); Potassium 3.5 mmol/L (3.4-5.0); Sodium 140 mmol/L (137-145)
[2022-06-21] MEDS: SODIUM CHLORIDE 0.9% IV 1,000 ML 999 ML IV CONT (19:39)
[2022-06-21 19:40] LABS: INR 1.1; Prothrombin Time 13.6 Seconds (11.1-14.7)
[2022-06-21 19:48] LABS: NT Pro B Type Natriuretic Pept 138 pg/mL (19.9-100); Troponin I < 0.012 ng/mL (0.000-0.034)
--- NOTE | 2022-06-21 19:48 | ECG_ITS ---
Measurements Intervals [place] Rate: 129 P: 78 AL: 150 QRS: -42 QRSD: 84 T: 86 QT: 301 QTc: 442 Interpretive Statements SINUS TACHYCARDIA LEFT AXIS DEVIATION DELAYED PRECORDIAL R/S TRANSITION ST ABNORMALITY IN ANTEROLAT/INF LEADS- CONSIDER ISCHEMIA BASELINE ARTIFACT- I, AVL, V1 ABNORMAL ECG COMPARED TO ECG 02/10/2021 13:00:39 SINUS TACHYCARDIA NOW PRESENT LEFT-AXIS DEVIATION NOW PRESENT ST ABNORMALITY NOW PRESENT Electronically Signed On 06-21-2022 20:59:49 CDT by Jose Osei D.O.
[2022-06-21 20:15] LABS: D Dimer 1.18 ug/mL (<0.48)
--- NOTE | 2022-06-21 20:16 | ECG_ITS ---
Measurements Intervals [place] Rate: 72 P: 69 CA: 161 QRS: -2 QRSD: 86 T: 82 QT: 385 QTc: 423 Interpretive Statements SINUS RHYTHM WITH SINUS ARRHYTHMIA BORDERLINE ST-T WAVE ABNORMALITY- HIGH LATERAL LEADS BORDERLINE ECG COMPARED TO ECG 06/21/2022 18:59:20 SINUS RHYTHM NOW PRESENT SINUS ARRHYTHMIA NOW PRESENT ST ABNORMALITY IMPROVED Electronically Signed On 06-22-2022 8:03:15 CDT by Jose Osei D.O.
--- NOTE | 2022-06-21 20:38 | PM.IMHP ---
H&P: HPI History of Present Illness Date/Time: 06/21/22 20:38 Chief Complaint: Chest pain Narrative: This is a 56-year-old female with past medical history significant for coronary artery disease status post PCI, hypertension, restless leg syndrome, dyslipidemia, tobacco dependence, chronic pancreatic insufficiency. Patient presents to the emergency room with precordial chest pain with radiation to the left arm occurred while at rest, patient denies any palpitations, any lightheadedness, no shortness of breath, no leg swelling, no orthopnea, patient denies any chest pain on and off in the last several weeks after having her PCI back in 2019 states that has been fine. In emergency room patient was found to have a systolic blood pressure in the 190s patient had nitro paste placed and her chest pain came down to a 5/10 in intensity. Preliminary workup was significant for chemistry panel BUN 41, creatinine 2.8, and electrocardiogram was reported as: SINUS TACHYCARDIA LEFT AXIS DEVIATION DELAYED PRECORDIAL R/S TRANSITION ST ABNORMALITY IN ANTEROLAT/INF LEADS- CONSIDER ISCHEMIA BASELINE ARTIFACT- I, AVL, V1 ABNORMAL ECG COMPARED TO ECG 02/10/2021 13:00:39 SINUS TACHYCARDIA NOW PRESENT LEFT-AXIS DEVIATION NOW PRESENT ST ABNORMALITY NOW PRESENT A chest x-ray was reported as: IMPRESSION: No acute cardiopulmonary process. Review of Systems Review of Systems: Precordial chest pain with radiation to the left arm Constitutional: Constitutional: Denies chills, Denies fatigue, Denies fever(s), Denies lethargy, Denies malaise, Denies night sweats, Denies poor appetite and Denies weakness Eyes: Eyes: Denies change in vision ENT: Denies dysphagia, Denies vertigo, Denies dizziness and Denies odynophagia Cardiovascular: Cardiovascular: Reports chest pain, Denies syncope, Denies irregular heart rhythm, Denies leg edema, Denies lightheadedness and Reports radiating jaw, neck or arm pain Respiratory: Respiratory: Denies change in phlegm color, Reports chest congestion, Reports cough and Denies excessive phlegm production Gastrointestinal: Gastrointestinal: Denies abdominal pain, Denies dyspepsia, Denies heartburn, Denies diarrhea, Denies nausea and Denies vomiting Genitourinary: Genitourinary: Denies dysuria Musculoskeletal: Musculoskeletal: Denies back pain, Denies joint swelling and Denies muscle weakness Integumentary/Breasts: Skin/Breast: Denies rash Neurologic: Denies focal weakness and Denies Sensory deficit (Neuro) Psychiatric: Psychiatric: Reports no additional psychiatric complaints and Reports as per HPI Endocrine: Endocrine: Denies cold intolerance, Denies fatigue, Denies flushing, Denies heat intolerance, Denies polyphagia, Denies polydipsia and Denies palpitations Hematologic/Lymphatic: Hematologic/Lymphatic: Reports no additional hematologic/lymphatic complaints and Reports as per HPI Allergic/Immunologic: Allergic/Immunologic: Reports no additional allergic/immunologic complaints and Reports as per HPI PMFSH Past Medical History Medical History Acute renal failure Anxiety Aortic stenosis Arthritis Colon cancer screening Coronary artery disease History of stent x2. Diarrhea DVT prophylaxis Elevated lipase Elevated liver enzymes Elevated WBC count Gastroesophageal reflux disease HTN (hypertension), malignant Hypomagnesemia Marijuana smoker Migraines Mild aortic valve stenosis Aortic valve area of 1.4 cm2 on echocardiogram in February 2020. Pancreatitis Tobacco use Vomiting and diarrhea Weight loss Surgical History Surgical History History of cardiac catheterization History of cholecystectomy History of esophagogastroduodenoscopy (02/16/20) Unspecified esophagitis and gastritis. History of heart artery stent (2015) Performed at [facility] in [place]. History of hysterectomy Hist
[2022-06-21] MEDS: NITROGLYCERIN OINTMENT 1 INCH DOSE TRANSDERM (20:45)
[2022-06-21] MEDS: MORPHINE SULFATE (*CRX) 4 MG/ML INJ IV PUSH ×2 (21:32→23:32)
[2022-06-21] MEDS: SODIUM CHLORIDE 0.9% IV 1,000 ML 125 ML IV CONT (22:05)
--- NOTE | 2022-06-21 22:13 | ADMGEN ---
This patient, Anny Palmer, was admitted to IMU Room 214-01. Patient/family oriented to hospital policies and general routines including ID bracelet, bed and alarms, visiting hours, pain management, procedures, bathroom and other care routines, personal items, smoking policy, room service/diet, and visiting hours. Information on how to activate the Rapid Response Team has been discussed. Patient/Family are encouraged to report perceived risks to care and to ask questions if they do not understand what they are told or what they should do.
[2022-06-21 22:22] LABS: Appearance Urine Cloudy (Clear); Bacteria Urine 4+ /hpf; Bilirubin Urine Negative (Negative); Blood Urine Negative (Negative); Color Urine Yellow (Yellow); Glucose Urine UA Negative (Negative); Hyaline Casts Urine Present /lpf; Ketones Urine Trace mg/dL (Negative); Leukocyte Esterase Ur Negative LEU/UL (Negative); Nitrate Urine Positive (Negative); Non Pathogenic Casts >20; Protein Urine 1+ mg/dL (Negative); RBC Urine 0-2 /hpf (0-2); Specific Grav Ur 1.026 (1.001-1.035); Squamous Epithelial Cell Urine Moderate /hpf (Few); Urobilinogen Urine 0.2 mg/dL (<2.0)
[2022-06-21 22:23] LABS: Add Urine Microscopic? YES
[2022-06-21 22:27] LABS: Amphetamine Screen Urine Negative (Negative); Barbiturate Screen Urine Negative (Negative); Benzodiazepines Screen Urine Negative (Negative); Cannabinoid Screen Urine Positive (Negative); Cocaine Screen Urine Negative (Negative); Methadone Screen Urine Negative (Negative); Opiate Screen Urine Positive (Negative); Phencyclidine Screen Urine Negative (Negative)
[2022-06-21 23:40] LABS: Troponin I < 0.012 ng/mL (0.000-0.034)
[2022-06-21] MEDS: rOPINIRole HCL 0.5 MG TABLET PO (23:43)
[2022-06-22] VITALS (18 sets, daily range): BP systolic 120–168; BP diastolic 57–106; PULSE 61–112; RESP 14–18; TEMP 36.3–37.1; O2SAT 95–100
--- NOTE | 2022-06-22 | ECHO_ITS ---
Patient Info Name: Anny Palmer Age: 56 years : 1965 Gender: Female Ht: 67 in Wt: 133 lbs BSA: 1.69 m2 HR: 62 bpm BP: 148 / 58 mmHg Heart Rhythm: Sinus Rhythm Exam Date: 06/22/2022 9:03 AM Exam Location: [facility] Patient Status: Outpatient Admit Date: 06/21/2022 Staff Ordering Physician: Guzman Chiu MD Master Esthetician: Pedro Boyd, COSME, RT Attending Provider: Guzman Chiu MD Referring Physician: Aram HEATH; Exam Type: CA echo doppler color flow Study Info Indications R06.02 - Shortness of breath Complete two-dimensional, color flow and Doppler transthoracic echocardiogram is performed. Strain analysis performed. Summary 1. Complete two-dimensional, color flow and Doppler transthoracic echocardiogram is performed. 2. Mild concentric left ventricular hypertrophy with normal systolic function and no wall motion abnormality. 3. Grade 1 diastolic noncompliance. 4. Compared with examination from the February of 2020 nothing has changed. Left Ventricle Left ventricular chamber dimension is normal. Left ventricular systolic function is normal, estimated at 65-70%. There is mild concentric increased left ventricular wall thickness. The left ventricular diastolic function is grade I diastolic dysfunction. Right Ventricle Right ventricular chamber dimension is normal. Left Atria Left atrial chamber dimension is normal. Right Atria Right atrial chamber dimension is normal. Aortic Valve The aortic valve is trileaflet. There is mild aortic valve sclerosis. Pulmonic Valve The pulmonic valve is not well visualized. Mitral Valve The mitral valve has normal leaflets. Tricuspid Valve The tricuspid valve leaflets are normal. Pericardium/Pleural The pericardium appears normal. Aorta The aortic root size at the sinus of Valsalva is normal. Left Ventricular Outflow Tract Name Value Normal LVOT 2D LVOT Diameter 1.9 cm LVOT Doppler LVOT Peak Gradient 6 mmHg LVOT Mean Gradient 3 mmHg LVOT VTI 29 cm LVOT VTI/AV VTI Ratio 0.6 LVOT Stroke Volume 81 ml LVOT CO 5.1 l/min LVOT CI 3.0 l/min/m2 Mitral Valve Name Value Normal MV Doppler MV Decel [place] 480 cm/s2 MV PHT 56 ms MV Area (PHT) 4.0 cm2 4.0-5.0 MV Diastolic Function MV E Peak Velocity 92 cm/s MV A Peak Velocity 82 cm/s MV E/A 1.1 MV Decel Time 192 ms
[2022-06-22] MEDS: MORPHINE SULFATE (*CRX) 4 MG/ML INJ IV PUSH ×8 (01:37→19:58)
[2022-06-22] MEDS: ONDANSETRON INJ 4 MG/2 ML VIAL IV PUSH ×6 (01:37→21:22)
[2022-06-22] MEDS: ALBUTEROL SULFATE NEB 2.5 MG/3 ML INH INHALATION ×3 (01:46→14:38)
[2022-06-22] MEDS: IPRATROPIUM BR 0.02% INH SOLN 0.5 MG/2.5 ML VIAL INHALATION ×3 (01:46→14:38)
[2022-06-22 01:48] LABS: Troponin I < 0.012 ng/mL (0.000-0.034)
[2022-06-22] MEDS: SODIUM CHLORIDE 0.9% IV 1,000 ML 125 ML IV CONT ×2 (05:21→15:22)
[2022-06-22 05:37] LABS: Alanine Aminotransferase 39 U/L (6-35); Albumin Level 4.4 g/dL (3.5-5.1); Alkaline Phosphatase 85 U/L (38-126); Anion Gap 7 mmol/L (8-16); Aspartate Amino Transferase 104 U/L (14-36); Bilirubin,Total 0.5 mg/dL (0.2-1.3); Blood Urea Nitrogen 41 mg/dL (7-17); Calcium 8.5 mg/dL (8.4-10.2); Carbon Dioxide 23 mmol/L (22-30); Chloride 108 mmol/L (98-107); Estimated CRCL calculation 24 ml/min; Estimated Glomerular Filt Rate 22; Glucose 113 mg/dL (65-110); Potassium 3.5 mmol/L (3.4-5.0); Sodium 138 mmol/L (137-145)
--- NOTE | 2022-06-22 09:25 | PM.CNCAR ---
Assessment and Plan Assessment and plan (1) Chest pain: Code(s): R07.9 - Chest pain, unspecified Status: Acute Plan This is a 56-year-old woman known to have coronary disease with percutaneous revascularization at [facility] back in 2015. She has not had any known ischemic problems since then. She came into the hospital understandably concerned about a chest pain episode that occurred yesterday at home while she was at rest. Despite this symptom there is no evidence of acute coronary syndrome with benign ECGs and with 3 normal troponin levels. She reports to be an active lady it does not report any symptoms suspicious for exertional ischemic chest pain. At this point I would continue her aspirin and statin for underlying coronary artery disease. Renal consultation has been appropriately requested again because her creatinine is once again elevated. The patient seems very tearful and upset that she cannot secure/arrange for follow-up of her coronary disease with the zoning assistant to did her previous procedure. I told her that we will be happy to follow her coronary disease in our office following discharge. Hopefully this will provide reassurance so she does not have to worry about lack of cardiac follow-up. Julian Frank MD [facility] History of Present Illness History of Present Illness Consult date/time: 06/22/22 09:25 Consult reason: chest pain Reason For Visit: Hypertensive emergency, SOL Narrative: This is a 56-year-old woman I am seeing at the request of the hospitalist because of chest pain with which she was seen in the emergency room yesterday afternoon and subsequently admitted to the hospital. The patient is known to me from a consultation a couple of years ago when she was here with symptoms of chest pain that were noncardiac by description and by noninvasive evaluation. She has a history of coronary artery disease with percutaneous since revascularization at [facility] [place] back in 2015. Records of that intervention are not available to me at as I dictate this note. We are physicians in our practice did not participate in that procedure. In any event she says that she has been not having any cardiac concerns or symptoms for a long time she reports being an active woman who does walk and actually ride bicycle for exercise without any exertional symptoms or difficulties. Specifically she denies any pattern of exertional chest pain. Yesterday evening she noted the a sudden onset of chest pain that she describes as a central dull pain in the chest that was associated with some sense of diaphoresis and nausea. The symptoms were very concerning to her given her cardiac history and she came to [place] emergency room for evaluation. Her presenting ECG showed some sinus tachycardia with right atrial enlargement [address] segment changes. Subsequent ECG was no longer tachycardic and looked essentially benign. She has had 3 sets of troponins done since she has been in the hospital which are all unremarkable. He is not having a chest pain this morning. As I came in the room to see her an echocardiogram is being done which will be read later but her LV systolic function is vigorous and there are no regional wall motion abnormalities. During her previous consultation when I saw the patient in 2020 she had a Lexiscan nuclear stress test performed here which was normal also showing vigorous LV systolic function at that time. Her laboratory data during this admission is concerning for worsening renal function with a BUN of 41 and a creatinine of 2.8. During her previous admissions here she was found to be volume depleted and her renal function improved with hydration and holding her lisinopril and thiazide. She also has a history of hypertension and a prior admission here with pancreatitis. She is taking pancreatic enzymes. The patient unfortunately continues to smoke cigarettes she does not smoke
[2022-06-22] MEDS: lisinopriL 20 MG TABLET PO (09:52)
[2022-06-22] MEDS: LIPASE/AMYLASE/PROTEASE 12,000 UNITS CAP 1 CAP PO ×3 (09:52→17:54)
[2022-06-22] MEDS: ASPIRIN 81 MG CHEWABLE TABLET PO (09:52)
[2022-06-22] MEDS: ROSUVASTATIN 10 MG TABLET PO (09:52)
[2022-06-22] MEDS: GABAPENTIN 300 MG CAPSULE PO ×3 (09:52→17:54)
[2022-06-22] MEDS: ACYCLOVIR 400 MG TABLET 800 MG BY MOUTH (09:52)
[2022-06-22] MEDS: hydroCHLOROthiazide 25 MG TABLET PO (09:53)
[2022-06-22] MEDS: PANTOPRAZOLE 40 MG TABLET PO (09:53)
[2022-06-22 12:16] LABS: Glucose Point of Care 98 mg/dl (65-105)
--- NOTE | 2022-06-22 12:43 | PM.CNNEP ---
Assessment and Plan Assessment and plan (1) Acute kidney injury: Code(s): N17.9 - Acute kidney failure, unspecified Status: Acute Assessment and Plan: normal creatinine at baseline etiology? evaluation to date noted: holding CLARI-I and HCTZ urine electrolytes not prerenal (but on HCTZ prior to admission) urine eosinophils negative renal ultrasound pending check CPK trial of IVFs follow trend of repeat labs and UOP (2) Chest pain: Code(s): R07.9 - Chest pain, unspecified Status: Acute Assessment and Plan: as noted by symptoms on admission interventions to date reviewed Cardiology recommendations noted (3) HTN (hypertension), malignant: Code(s): I10 - Essential (primary) hypertension Status: Chronic Assessment and Plan: little high but off lisinopril/HCTZ PRN hydralazine ordered follow trend of hemodynamics Will continue to follow. History of Present Illness Reason for Consult Consult date: 06/22/22 Reason for consult: acute renal failure Chief Complaint Chief complaint: Hypertensive emergency, SOL History of Present Illness Narrative: The patient is a 56-year-old female with past medical history?as outlined below who presented to [facility] ER with complaints of chest pain. The chest pain was localized to her precordium associated with with radiation to the left arm. The pain occurred? while at rest and did not appear any worse with activity. No other repored symptoms with regard to palpitations, lightheadedness, shortness of breath, PND, no orthopnea. She states the this the first time she has had chest pain since her cardiac intervention/CI back in 2019.? Given these symptoms, she presented to the ER for further assessment. Work-up and evaluation in the ER demonstrated the patient to be hypertensive with a systolic BP in the 190s. Nitropast was applied given her chest pain and elevated BP which improved BP and reduced the severity of her chest pain to a 5/10 in intensity.? Routine blood tests were significant for a BUN of 41 and creatinine of 2.8 with no critical electrolyte abnormalities. EKG, troponins, as well CXR results were essentially negative. She was subsequently admitted to for further evaluation and therapy. Renal consultation was requested due to her acute kidney injury/acute renal failure. The patient has normal renal function at baseline. I met the patient on one of her previous hospitalizations at [facility] when she had SOL/ARF which resolved with IVFs given her history was quite suggestive of volume depletion/dehydration. She does admit that she has not been drinking very well prior to this hospitalization as well. She has already been seen by Cardiology with recommendations noted and her renal function is a bit better with IVF resuscitation but still not back to baseline. Her risk factors for kidney disease include vascular disease (hyperlipidemia + CAD), hypertension, and smoking. Currently, at the time of my visit, she does not appear in any acute distress. Review of Systems Review of Systems: As per HPI. [facility] Past Medical History Medical History Acute renal failure Anxiety Aortic stenosis Arthritis Colon cancer screening Coronary artery disease History of stent x2. Diarrhea DVT prophylaxis Elevated lipase Elevated liver enzymes Elevated WBC count Gastroesophageal reflux disease HTN (hypertension), malignant Hypomagnesemia Marijuana smoker Migraines Mild aortic valve stenosis Aortic valve area of 1.4 cm2 on echocardiogram in February 2020. Pancreatitis Tobacco use Vomiting and diarrhea Weight loss Surgical History Surgical History History of cardiac catheterization History of cholecystectomy History of esophagogastroduodenoscopy (02/16/20) Unspecified esop
--- NOTE | 2022-06-22 14:23 | PM.IMPN ---
Progress Note: A&P Assessment and Plan (1) Chest pain: Code(s): R07.9 - Chest pain, unspecified Status: Acute Assessment and Plan: Typical/atypical. Hypertension. EKG with nonspecific ST-T changes. Admitted to IMU Nitro paste given Cardiology consulted History of coronary artery disease with stent placement in 2016 Troponins negative ruling out ACS Continue aspirin and statin Echo grade 1 diastolic dysfunction normal systolic function unchanged from previous D-dimer elevated 1.18 (2) Acute kidney injury: Code(s): N17.9 - Acute kidney failure, unspecified Status: Acute Assessment and Plan: Lisinopril hydrochlorothiazide on hold Creatinine 2 point in on admission improved today. Renal ultrasound with mild atrophy of left kidney with moderate left hydronephrosis. Consult Urology Nephrology consulted Baseline creatinine 1.2 in 2020. (3) HTN (hypertension), malignant: Code(s): I10 - Essential (primary) hypertension Status: Chronic Assessment and Plan: Holding lisinopril and hydrochlorothiazide Hydralazine p.r.n. Nitro paste (4) Gastroesophageal reflux disease: Code(s): K21.9 - Gastro-esophageal reflux disease without esophagitis Status: Acute Assessment and Plan: PPI (5) Tobacco use: Code(s): Z72.0 - Tobacco use Status: Acute Assessment and Plan: Patient is down from 1 pack a day to a 1 or 2 cigarettes a day Plan DVT prophylaxis Lovenox Coronary artery disease status post stent in the past Subjective Date/time seen: 06/22/22 14:23 Interval history: Feels okay. Still has some upper epigastric pain retrosternal chest pain. No cough fever chills Review of Systems Review of Systems: All systems reviewed & are unremarkable except as noted in HPI and below Exam Narrative: GENERAL: Well-appearing, well-nourished, appears anxious HEAD: Normocephalic, atraumatic. EYES: PERRLA and EOMI. ENT: Nares clear, no rhinorrhea or epistaxis.? Mucous membranes moist.? NECK: Supple.? No adenopathy or masses.? No carotid bruits or JVD CHEST: Clear to auscultation.? No respiratory distress.? No wheezes rales or rhonchi HEART: Tachycardic with regular rhythm.? No murmur heard.? Normal peripheral pulses. ABDOMEN: Soft, nontender, nondistended, normal active bowel sounds. EXTREMITIES: Normal range of motion.? No edema. SKIN: Warm, dry, no rash. NEURO: No focal deficits.? Alert and oriented x3. PSYCH: Normal mood and affect. Objective Data Vital Signs Vital Signs: Vital Signs - 24 hr 06/21/22 19:01 06/21/22 19:13 06/21/22 19:16 Temperature 98.3 F Pulse Rate 129 H 125 H Respiratory Rate 18 22 H Blood Pressure 194/105 H Pulse Oximetry 100 100 Oxygen Delivery Room Air Room Air 06/21/22 19:31 06/21/22 20:01 06/21/22 19:46 Temperature Pulse Rate 121 H 94 104 H Respiratory Rate 18 11 L 11 L Blood Pressure 168/104 H 138/85 152/98 H Pulse Oximetry 98 98 97 Oxygen Delivery 06/21/22 20:47 06/21/22 20:15 06/21/22 20:16 Temperature Pulse Rate 113 H 83 68 Respiratory Rate 20 12 14 Blood Pressure 184/115 H 163/85 H Pulse Oximetry 98 97 97 Oxygen Delivery 06/21/22 20:30 06/21/22 20:32 06/21/22 21:01 Temperature Pulse Rate 93 85 93 Respiratory Rate 15 17 16 Blood Pressure 172/102 H 147/79 H Pulse Oximetry 99 99 98 Oxygen Delivery 06/21/22 21:17 06/21/22 21:24 06/21/22 22:00 Temperature 98.0 F Pulse Rate 93 102 H 128 H Respiratory Rate 19 17 18 Blood Pressure 145/91 H 156/104 H Pulse Oximetry 100 99 Oxygen Delivery 06/21/22 22:03 06/21/22 23:48 06/22/22 00:00 Temperature 97.7 F Pulse Rate 108 H 110 H 110 H Respiratory Rate 18 Blood Pressure 163/84 H Pulse Oximetry 96 Oxygen Delivery 06/22/22 01:40 06/22/22 01:37 06/22/22 02:00 Temperature Pulse Rate 82 80 Respiratory Rate 16 Blood Pressure Pulse Oximetry 95 Oxygen Delivery Room Air
[2022-06-22 16:34] LABS: Glucose Point of Care 105 mg/dl (65-105)
[2022-06-22] MEDS: BACLOFEN 10 MG TABLET PO (17:54)
[2022-06-22 18:17] LABS: Creatinine Urine 171.5 mg/dL; Total Protein Urine Random 13 mg/dL; Ur Ttl Prot Creatinine Ratio 0.08 mg/mg (0-0.20); Urea Random Urine 749 MG/DL
[2022-06-22 18:18] LABS: Sodium Urine Random 140 meq/L
[2022-06-22 18:24] LABS: Eosinophil Urine None Seen % (None Seen); Urine Eos QC 2nd Tech Confirmed
[2022-06-22] MEDS: LORazepam INJ (*CRX) 2 MG/ML VIAL 0.5 MG IV PUSH (19:50)
[2022-06-23] VITALS (14 sets, daily range): BP systolic 132–180; BP diastolic 52–75; PULSE 50–83; RESP 14–20; TEMP 36.3–36.6; O2SAT 96–99
[2022-06-23] MEDS: SODIUM CHLORIDE 0.9% IV 1,000 ML 125 ML IV CONT ×2 (00:30→09:29)
[2022-06-23] MEDS: MORPHINE SULFATE (*CRX) 4 MG/ML INJ IV PUSH ×3 (00:31→12:02)
[2022-06-23] MEDS: LORazepam INJ (*CRX) 2 MG/ML VIAL 0.5 MG IV PUSH ×4 (00:31→21:47)
[2022-06-23] MEDS: ONDANSETRON INJ 4 MG/2 ML VIAL IV PUSH ×5 (02:12→20:36)
[2022-06-23 05:59] LABS: Basophils Percent Auto 0.5 % (0.2-1.2); Eosinophils Absolute Auto 0.1 K/mm3 (0-0.3); Eosinophils Percent Auto 1.4 % (0-4.4); Hematocrit 31.7 % (37.0-47.0); Hemoglobin 10.6 g/dL (12.0-15.0); Immature Granulocyte Absolute 0.01 K/mm3 (0.00-0.031); Immature Granulocyte Percent A 0.2 % (0-0.5); Lymphocytes Absolute Auto 1.92 K/mm3 (0.9-3.2); Lymphocytes Percent Auto 43.8 % (18.3-44.2); Mean Corpuscular HGB Conc 33.4 g/dl (32-36); Mean Corpuscular Hemoglobin 30.1 pg (26-34); Mean Corpuscular Volume 90.1 fl (80-100); Mean Platelet Volume 9.6 fl (7.4-10.4); Monocytes Absolute Auto 0.4 K/mm3 (0.1-0.6); Monocytes Percent Auto 8.2 % (2.6-8.5); Neutrophils Percent Auto 45.9 % (45.5-73.1); Platelet Count Result 287 k/mm3 (150-375); Red Blood Count 3.52 M/mm3 (4.2-5.4); Red Cell Distribution Width 14.2 % (11.5-14.5); White Blood Count 4.4 K/mm3 (4.5-10.0)
[2022-06-23 06:06] LABS: Alanine Aminotransferase 70 U/L (6-35); Albumin Level 3.9 g/dL (3.5-5.1); Alkaline Phosphatase 83 U/L (38-126); Anion Gap 6 mmol/L (8-16); Aspartate Amino Transferase 88 U/L (14-36); Bilirubin,Total 0.5 mg/dL (0.2-1.3); Blood Urea Nitrogen 21 mg/dL (7-17); Calcium 8.9 mg/dL (8.4-10.2); Carbon Dioxide 27 mmol/L (22-30); Chloride 108 mmol/L (98-107); Estimated CRCL calculation 52 ml/min; Estimated Glomerular Filt Rate 57; Glucose 107 mg/dL (65-110); Magnesium 1.9 mg/dL (1.6-2.3); Potassium 3.7 mmol/L (3.4-5.0); Sodium 141 mmol/L (137-145)
--- NOTE | 2022-06-23 07:28 | WPDURCON ---
Assessment and Plan Assessment and plan (1) Hydronephrosis: Code(s): N13.30 - Unspecified hydronephrosis Status: Acute Assessment and Plan: Chronic kidney disease and chronic mild left hydronephrosis. I suspect she has a underlying left UPJ obstruction. I will order a renal scan to quantitate the degree, and presents/ absence, of significant obstruction. Given her normalization of renal function overnight I do not think placement of ureteral stent is indicated at this time. Evaluation of left hydronephrosis can be done as outpateint Urology Consult Note HPI Date Seen: 06/23/22 Requesting Physician: Guzman Chiu MD Primary Care Provider: Chiquis Suarez, Consult Narrative Narrative: Anny Palmer is a 56 year old female With an interesting urological issue of intermittent mild left hydronephrosis and slight renal atrophy. Reviewing her imaging over the course of several years she has persistent mild left hydronephrosis. Over the past 2 years her left renal atrophy may have progress with reduction overall kidney size of 1 cm over the course of 2 years of. She has had several ultrasound and CT studies, most of which showed mild left hydronephrosis. Patient reports no knowledge of this and denies significant left flank pain / renal colic. She does have a history of chronic kidney disease with acute exacerbation on this admission. This is improved dramatically overnight with supportive care and hydration. Her serum creatinine this morning is 1.0. She denies a history of urinary tract infection or hematuria. Review of Systems Cardiovascular: Cardiovascular: Denies chest pain, Denies lightheadedness, Denies palpitations and Denies dyspnea Respiratory: Respiratory: Denies dyspnea Gastrointestinal: Gastrointestinal: Denies diarrhea, Denies nausea and Denies vomiting Genitourinary: Genitourinary: Denies hematuria and Denies dysuria Endocrine: Endocrine: Denies palpitations [facility] Past Medical History Medical History Acute renal failure Anxiety Aortic stenosis Arthritis Colon cancer screening Coronary artery disease History of stent x2. Diarrhea DVT prophylaxis Elevated lipase Elevated liver enzymes Elevated WBC count Gastroesophageal reflux disease HTN (hypertension), malignant Hypomagnesemia Marijuana smoker Migraines Mild aortic valve stenosis Aortic valve area of 1.4 cm2 on echocardiogram in February 2020. Pancreatitis Tobacco use Vomiting and diarrhea Weight loss Surgical History Surgical History History of cardiac catheterization History of cholecystectomy History of esophagogastroduodenoscopy (02/16/20) Unspecified esophagitis and gastritis. History of heart artery stent (2016) Performed at [facility] in [place]. History of hysterectomy History of open reduction and internal fixation (ORIF) procedure Right ankle fracture. Left elbow fracture. Family History Family History Mother Hypertension Hyperlipidemia Rheumatic fever Kidney disease Heart murmur Sibling Kidney disease Alcoholism Social History Social History Social History: The patient stated that she quit smoking approximately 4 months ago. 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 She lives with a significant other. The patient has 4 sons. 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 Code status: Full code. Smoking packs per day: 0.1 Smoking cigarettes per day: 2.0 Years smoked: 30 Smoking pack-years: 3.00 Smoking status: Current every day smoker Tobacco type: cigarettes Additional smoking assessment comments: was at 1ppd, but has cut down Alcohol intake: never Substance use: riya
[2022-06-23] MEDS: PANTOPRAZOLE 40 MG TABLET PO (09:35)
[2022-06-23] MEDS: GABAPENTIN 300 MG CAPSULE PO ×2 (09:35→17:10)
[2022-06-23] MEDS: ROSUVASTATIN 10 MG TABLET PO (09:35)
--- NOTE | 2022-06-23 09:41 | PM.PNCARD ---
Progress Note: A&P Assessment and Plan (1) Chest pain: Code(s): R07.9 - Chest pain, unspecified Status: Acute (2) Coronary artery disease: Code(s): I25.10 - Atherosclerotic heart disease of [place] coronary artery without angina pectoris Status: Acute Plan 56-year-old lady with coronary disease which is stable she underwent percutaneous revascularization in the remote past. At this point I would simply continue her aspirin and statin. Will defer to Nephrology regarding ongoing management of her hypertension. She had been on lisinopril/hydrochlorothiazide. Of course very happy to see that her creatinine has normalized with hydration. Told the patient that cardiac paagn she can be discharged per the primary team. We will arrange for follow-up of her coronary artery disease in our office. 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 Julian Munoz MD [facility] Subjective Date/time seen: Date of service: 06/23/22 09:41 Interval history: Follow-up visit in this 56-year-old woman with: Coronary artery disease with prior history of PCI at another hospital. She entered this hospital with an episode of atypical chest pain with no objective evidence of myocardial ischemia/injury. She feels well this morning and does not have any complaints. Very happy to report to the patient that her creatinine is normalized with some hydration. She was very concerned about this because the mother was a dialysis patient in the past. Exam Const: General: comfortable and no acute distress Other: Pleasant white female no distress eating her breakfast HENMT: Mouth: Yes moist mucous membranes Eyes: Sclera: sclerae normal Neck: Neck: supple and no JVD Resp: Effort & Inspection: normal respiratory effort Auscultation: clear to auscultation bilaterally Cardio: Rate: regular rate Rhythm: regular rhythm GI: GI Palp: Yes Soft to palpation Auscultation: normal bowel sounds Skin: General skin exam: normal color Neuro: Other: Alert and oriented x3 Extrem: Other: No edema, adequate pulses Objective Data Vital Signs Vital Signs: Vital Signs - 24 hr 06/22/22 12:00 06/22/22 14:39 06/22/22 10:00 Temperature 36.3 C L Pulse Rate 71 73 82 Respiratory Rate 18 16 Blood Pressure 168/106 H Pulse Oximetry 99 Oxygen Delivery 06/22/22 12:00 06/22/22 14:00 06/22/22 12:00 Temperature Pulse Rate 76 67 70 Respiratory Rate 16 Blood Pressure Pulse Oximetry 96 Oxygen Delivery Room Air 06/22/22 16:00 06/22/22 16:00 06/22/22 16:00 Temperature 37.1 C Pulse Rate 73 70 85 Respiratory Rate 16 14 Blood Pressure 139/57 L Pulse Oximetry 96 100 Oxygen Delivery Room Air 06/22/22 18:00 06/22/22 20:00 06/22/22 20:00 Temperature 36.6 C Pulse Rate 72 72 90 Respiratory Rate 14 18 Blood Pressure 149/74 H Pulse Oximetry 100 98 Oxygen Delivery Room Air 06/22/22 20:00 06/22/22 22:00 06/23/22 00:00 Temperature 36.5 C Pulse Rate 112 H 69 82 Respiratory Rate 18 Blood Pressure 132/60 Pulse Oximetry 97 Oxygen Delivery 06/23/22 00:35 06/23/22 00:00 06/23/22 02:00 Temperature Pulse Rate 82 58 L 67 Respiratory Rate 18 Blood Pressure Pulse Oximetry 97 Oxygen Delivery Room Air 06/23/22 04:00 06/23/22 04:00 06/23/22 04:00 Temperature 36.6 C Pulse Rate 65 50 L 50 L Respiratory Rate 18 18 Blood Pressure 143/75 H Pulse Oximetry 97 97 Oxygen Delivery Room Air 06/23/22 06:00 06/22/22 21:38 06/23/22 07:59 Temperature 36.5 C Pulse Rate 77 72 Respiratory Rate 14 Blood Pressure 150/52 H Pulse Oximetry 97 98 Oxygen Delivery Room Air Intake/Output Intake/Output: Intake & Output 06/20/22 06/21/22 06/22/22 06/23/22 23:59 23:59 23:59 23:59 Intake Total 3090 3550 Output Total 1300 400 Balance 1790 3150 Meds/Results Medications: Active Me
[2022-06-23] MEDS: ALBUTEROL SULFATE NEB 2.5 MG/3 ML INH INHALATION ×3 (09:53→21:15)
[2022-06-23] MEDS: IPRATROPIUM BR 0.02% INH SOLN 0.5 MG/2.5 ML VIAL INHALATION ×3 (09:53→21:15)
--- NOTE | 2022-06-23 13:05 | PM.IMPN ---
Progress Note: A&P Assessment and Plan (1) Chest pain: Code(s): R07.9 - Chest pain, unspecified Status: Acute Assessment and Plan: Typical/atypical. Hypertension. EKG with nonspecific ST-T changes. Admitted to IMU Nitro paste given Cardiology consulted History of coronary artery disease with stent placement in 2016 Troponins negative ruling out ACS Continue aspirin and statin Echo grade 1 diastolic dysfunction normal systolic function unchanged from previous D-dimer elevated 1.18 however CTA could not be done due to renal failure. Renal failure resolved today. Will consider CTA if remains stable Check lipase history of pancreatitis in the past back in 2020 and 2019. Continue IV fluid (2) Acute kidney injury: Code(s): N17.9 - Acute kidney failure, unspecified Status: Acute Assessment and Plan: Lisinopril hydrochlorothiazide on hold Creatinine 2 point in on admission improved today. Renal ultrasound with mild atrophy of left kidney with moderate left hydronephrosis. Urology consulted. Going for a renal scan Nephrology consulted Baseline creatinine 1.2 in 2020. Back to baseline now Chronic intermittent left hydronephrosis per Urology note (3) HTN (hypertension), malignant: Code(s): I10 - Essential (primary) hypertension Status: Chronic Assessment and Plan: Holding lisinopril and hydrochlorothiazide Hydralazine p.r.n. Nitro paste Will add amlodipine for blood pressure control (4) Gastroesophageal reflux disease: Code(s): K21.9 - Gastro-esophageal reflux disease without esophagitis Status: Acute Assessment and Plan: PPI (5) Tobacco use: Code(s): Z72.0 - Tobacco use Status: Acute Assessment and Plan: Patient is down from 1 pack a day to a 1 or 2 cigarettes a day Plan DVT prophylaxis Lovenox Coronary artery disease status post stent in the past UTI E coli sensitivity pending currently on ceftriaxone with continue same Subjective Date/time seen: 06/23/22 13:05 Interval history: Continues to complain of abdominal pain in the epigastric area. Some nausea no vomiting. Feels lousy. Review of Systems Review of Systems: All systems reviewed & are unremarkable except as noted in HPI and below Exam Narrative: GENERAL: Well-appearing, well-nourished, appears anxious HEAD: Normocephalic, atraumatic. EYES: PERRLA and EOMI. ENT: Nares clear, no rhinorrhea or epistaxis.? Mucous membranes moist.? NECK: Supple.? No adenopathy or masses.? No carotid bruits or JVD CHEST: Clear to auscultation.? No respiratory distress.? No wheezes rales or rhonchi HEART: Tachycardic with regular rhythm.? No murmur heard.? Normal peripheral pulses. ABDOMEN: Soft, tender epigastric area, nondistended, normal active bowel sounds. EXTREMITIES: Normal range of motion.? No edema. SKIN: Warm, dry, no rash. NEURO: No focal deficits.? Alert and oriented x3. PSYCH: Normal mood and affect. Objective Data Vital Signs Vital Signs: Vital Signs - 24 hr 06/22/22 14:39 06/22/22 14:00 06/22/22 16:00 Temperature Pulse Rate 73 67 73 Respiratory Rate 16 Blood Pressure Pulse Oximetry Oxygen Delivery 06/22/22 16:00 06/22/22 16:00 06/22/22 18:00 Temperature 98.7 F Pulse Rate 70 85 72 Respiratory Rate 16 14 Blood Pressure 139/57 L Pulse Oximetry 96 100 Oxygen Delivery Room Air 06/22/22 20:00 06/22/22 20:00 06/22/22 20:00 Temperature 97.8 F Pulse Rate 72 90 112 H Respiratory Rate 14 18 Blood Pressure 149/74 H Pulse Oximetry 100 98 Oxygen Delivery Room Air 06/22/22 22:00 06/23/22 00:00 06/23/22 00:35 Temperature 97.7 F Pulse Rate 69 82 82 Respiratory Rate 18 18 Blood Pressure 132/60 Pulse Oximetry 97 97 Oxygen Delivery Room Air 06/23/22 00:00 06/23/22 02:00 06/23/22 04:00 Temperature 97.9 F Pulse Rate 58 L 67 65 Respiratory Rate 18 Blood Pressure 143/75 H Pulse Oximetry 97 Oxygen
--- NOTE | 2022-06-23 13:21 | PM.PNNEP ---
Progress Note: A&P Assessment and Plan (1) Acute kidney injury: Code(s): N17.9 - Acute kidney failure, unspecified Status: Acute Assessment and Plan: significant improvement noted normal creatinine at baseline etiology(?) suspect volume depletion worsened by ongoing CLARI-I + HCTZ use urinary tract infection possibly playing a role as well evaluation to date noted: holding CLARI-I and HCTZ urine electrolytes not prerenal (but on HCTZ prior to admission) urine eosinophils negative renal ultrasound noted - moderate left hydronephrosis -- Urology following on IVFs - will wean as tolerated follow trend of repeat labs and UOP (2) Chest pain: Code(s): R07.9 - Chest pain, unspecified Status: Acute Assessment and Plan: as noted by symptoms on admission interventions to date reviewed Cardiology recommendations noted (3) Urinary tract infection: Code(s): N39.0 - Urinary tract infection, site not specified Status: Acute Assessment and Plan: as noted by urine culture' on antibiotics (4) Hydronephrosis: Code(s): N13.30 - Unspecified hydronephrosis Status: Acute Assessment and Plan: as noted by renal ultrasound Urology recommendations noted follow-up on renal scan (5) HTN (hypertension), malignant: Code(s): I10 - Essential (primary) hypertension Status: Chronic Assessment and Plan: little high but off lisinopril/HCTZ PRN hydralazine ordered follow trend of hemodynamics Will continue to follow. Subjective Date/time seen: 06/23/22 13:21 Still does not feel very good; reports abdominal pain with on/off nausea but no emesis; renal function improved with IVF resuscitation; results of renal ultrasound noted with subsequent Urology consultation; no other acute issues/events overnight or earlier this AM. Exam Narrative: General: WD/WN but anxious female in NAD Heart: normal S1 and S2; no rub Lungs: clear to auscultation Abdomen: soft, nontender, nondistended, positive bowel sounds Extremities: no cyanosis or clubbing; no edema Skin: warm and dry Objective Data Vital Signs Vital Signs: Vital Signs Temp Pulse Resp BP Pulse Ox O2 Del Method 06/23/22 13:15 82 16 06/23/22 12:00 97.9 F 74 16 161/67 H 98 06/23/22 10:08 81 14 06/23/22 09:55 76 14 06/23/22 09:55 76 96 Room Air 06/23/22 07:59 97.7 F 72 14 150/52 H 98 06/22/22 21:38 97 Room Air 06/23/22 06:00 77 06/23/22 04:00 50 L 18 97 Room Air 06/23/22 04:00 50 L 06/23/22 04:00 97.9 F 65 18 143/75 H 97 06/23/22 02:00 67 06/23/22 00:00 58 L 06/23/22 00:35 82 18 97 Room Air 06/23/22 00:00 97.7 F 82 18 132/60 97 06/22/22 22:00 69 06/22/22 20:00 112 H 06/22/22 20:00 97.8 F 90 18 149/74 H 98 06/22/22 20:00 72 14 100 Room Air 06/22/22 18:00 72 Intake/Output Intake/Output: Intake & Output 06/20/22 06/21/22 06/22/22 06/23/22 23:59 23:59 23:59 23:59 Intake Total 3090 3790 Output Total 1300 900 Balance 1790 2890 Meds/Results Medications: Active Medications Generic Name Dose Route Start Last Admin Trade Name Arnel PRN Reason Stop Dose Admin Acyclovir 800 mg 06/22/22 09:00 06/23/22 09:30 Acyclovir 400 Mg Tablet BY MOUTH Not Given DAILY [facility] Albuterol 2.5 mg 06/22/22 02:00 06/23/22 14:19 Albuterol Sulfate Neb 2.5 Mg/3 Ml Inh INHALATION 2.5 mg Q6HRT [facility] Administration Amlodipine Besylate 5 mg 06/23/22 13:10 Amlodipine Besylate 5 Mg Tablet PO QAM [facility] Amoxicillin/Clavulanate Potassium 1 tablet 06/23/22 21:00 Amoxicillin/Clavulanate K 875-125 Mg Tab PO 06/28/22 21:01 Q12HR [facility] Lipase/Protease/Amylase 1 cap 06/22/22 08:00 06/23/22 13:44 Lipase/Amylase/Protease 12,000 Units Cap PO Not Given TIDWM [facility] Aspirin 81 mg
--- NOTE | 2022-06-23 13:21 | P.PNNP_ITS ---
Progress Note: A&P Assessment and Plan (1) Acute kidney injury: Code(s): N17.9 - Acute kidney failure, unspecified Status: Acute Assessment and Plan: * significant improvement noted * normal creatinine at baseline * etiology(?) * suspect volume depletion worsened by ongoing CLARI-I + HCTZ use * urinary tract infection possibly playing a role as well * evaluation to date noted: * holding CLARI-I and HCTZ * urine electrolytes not prerenal (but on HCTZ prior to admission) * urine eosinophils negative * renal ultrasound noted - moderate left hydronephrosis -- Urology following * on IVFs - will wean as tolerated * follow trend of repeat labs and UOP (2) Chest pain: Code(s): R07.9 - Chest pain, unspecified Status: Acute Assessment and Plan: * as noted by symptoms on admission * interventions to date reviewed * Cardiology recommendations noted (3) Urinary tract infection: Code(s): N39.0 - Urinary tract infection, site not specified Status: Acute Assessment and Plan: * as noted by urine culture' * on antibiotics (4) Hydronephrosis: Code(s): N13.30 - Unspecified hydronephrosis Status: Acute Assessment and Plan: * as noted by renal ultrasound * Urology recommendations noted * follow-up on renal scan (5) HTN (hypertension), malignant: Code(s): I10 - Essential (primary) hypertension Status: Chronic Assessment and Plan: * little high but off lisinopril/HCTZ * PRN hydralazine ordered * follow trend of hemodynamics Will continue to follow. Subjective Date/time seen: 06/23/22 13:21 Still does not feel very good; reports abdominal pain with on/off nausea but no emesis; renal function improved with IVF resuscitation; results of renal ultrasound noted with subsequent Urology consultation; no other acute issues/events overnight or earlier this AM. Exam Narrative: General: WD/WN but anxious female in NAD Heart: normal S1 and S2; no rub Lungs: clear to auscultation Abdomen: soft, nontender, nondistended, positive bowel sounds Extremities: no cyanosis or clubbing; no edema Skin: warm and dry Objective Data Vital Signs Vital Signs: Vital Signs Temp Pulse Resp BP Pulse Ox O2 Del Method 06/23/22 13:15 82 16 06/23/22 12:00 97.9 F 74 16 161/67 H 98 06/23/22 10:08 81 14 06/23/22 09:55 76 14 06/23/22 09:55 76 96 Room Air 06/23/22 07:59 97.7 F 72 14 150/52 H 98 06/22/22 21:38 97 Room Air 06/23/22 06:00 77 06/23/22 04:00 50 L 18 97 Room Air 06/23/22 04:00 50 L 06/23/22 04:00 97.9 F 65 18 143/75 H 97 06/23/22 02:00 67 06/23/22 00:00 58 L 06/23/22 00:35 82 18 97 Room Air 06/23/22 00:00 97.7 F 82 18 132/60 97 06/22/22 22:00 69 06/22/22 20:00 112 H 06/22/22 20:00 97.8 F 90 18 149/74 H 98 06/22/22 20:00 72 14 100 Room Air 06/22/22 18:00 72 Intake/Output Intake/Output: Intake & Output 06/20/22 06/21/22 06/22/22 06/23/22 23:59 23:59 23:59 23:59 Intake Total 3090 3790 Output Total 1300 900
[2022-06-23 13:35] LABS: Lipase 819 U/L (23-300)
[2022-06-23] MEDS: FUROSEMIDE INJ 40 MG/4 ML VIAL IV PUSH (14:03)
[2022-06-23] MEDS: MORPHINE SULFATE (*CRX) 2 MG/ML INJ IV PUSH ×3 (14:30→22:49)
[2022-06-23] MEDS: LIPASE/AMYLASE/PROTEASE 12,000 UNITS CAP 1 CAP PO (17:10)
[2022-06-23] MEDS: amLODIPine BESYLATE 5 MG TABLET PO (17:11)
[2022-06-23] MEDS: oxyCODONE/ACETAMINOPHEN (*CRX) 5-325 MG TABLET 1 TABLET PO (20:34)
[2022-06-23] MEDS: SODIUM CHLORIDE 0.9% IV 1,000 ML 70 ML IV CONT (20:43)
[2022-06-23] MEDS: AMOXICILLIN/CLAVULANATE K 875-125 MG TAB 1 TABLET PO (21:50)
[2022-06-23] MEDS: rOPINIRole HCL 0.5 MG TABLET PO (21:51)
[2022-06-24] VITALS (17 sets, daily range): BP systolic 131–184; BP diastolic 50–82; PULSE 53–82; RESP 16; TEMP 36.6–37.3; O2SAT 96–99
[2022-06-24] MEDS: LORazepam INJ (*CRX) 2 MG/ML VIAL 0.5 MG IV PUSH ×4 (03:21→21:53)
[2022-06-24] MEDS: MORPHINE SULFATE (*CRX) 2 MG/ML INJ IV PUSH ×5 (03:22→21:54)
[2022-06-24 04:01] LABS: Basophils Percent Auto 0.9 % (0.2-1.2); Eosinophils Absolute Auto 0.1 K/mm3 (0-0.3); Eosinophils Percent Auto 2.9 % (0-4.4); Hematocrit 30.4 % (37.0-47.0); Hemoglobin 10.2 g/dL (12.0-15.0); Immature Granulocyte Absolute 0.01 K/mm3 (0.00-0.031); Immature Granulocyte Percent A 0.2 % (0-0.5); Lymphocytes Absolute Auto 2.36 K/mm3 (0.9-3.2); Lymphocytes Percent Auto 52.7 % (18.3-44.2); Mean Corpuscular HGB Conc 33.6 g/dl (32-36); Mean Corpuscular Hemoglobin 30.3 pg (26-34); Mean Corpuscular Volume 90.2 fl (80-100); Mean Platelet Volume 9.9 fl (7.4-10.4); Monocytes Absolute Auto 0.5 K/mm3 (0.1-0.6); Monocytes Percent Auto 11.4 % (2.6-8.5); Neutrophils Absolute Auto 1.4 K/mm3 (1.3-6.7); Neutrophils Percent Auto 31.9 % (45.5-73.1); Platelet Count Result 281 k/mm3 (150-375); Red Blood Count 3.37 M/mm3 (4.2-5.4); Red Cell Distribution Width 14.5 % (11.5-14.5); White Blood Count 4.5 K/mm3 (4.5-10.0)
[2022-06-24 04:17] LABS: Sodium 139 mmol/L (137-145)
[2022-06-24 04:31] LABS: Alanine Aminotransferase 55 U/L (6-35); Albumin Level 3.9 g/dL (3.5-5.1); Alkaline Phosphatase 84 U/L (38-126); Anion Gap 2 mmol/L (8-16); Aspartate Amino Transferase 62 U/L (14-36); Bilirubin,Total 0.6 mg/dL (0.2-1.3); Blood Urea Nitrogen 17 mg/dL (7-17); Calcium 8.9 mg/dL (8.4-10.2); Carbon Dioxide 31 mmol/L (22-30); Chloride 106 mmol/L (98-107); Estimated CRCL calculation 53 ml/min; Estimated Glomerular Filt Rate 57; Glucose 99 mg/dL (65-110); Lipase 151 U/L (23-300); Magnesium 1.8 mg/dL (1.6-2.3); Potassium 3.7 mmol/L (3.4-5.0)
[2022-06-24] MEDS: ONDANSETRON INJ 4 MG/2 ML VIAL IV PUSH ×2 (08:30→12:50)
[2022-06-24] MEDS: ALBUTEROL SULFATE NEB 2.5 MG/3 ML INH INHALATION ×3 (08:54→20:09)
[2022-06-24] MEDS: IPRATROPIUM BR 0.02% INH SOLN 0.5 MG/2.5 ML VIAL INHALATION ×3 (08:55→20:09)
[2022-06-24] MEDS: GABAPENTIN 300 MG CAPSULE PO ×3 (10:44→18:01)
[2022-06-24] MEDS: PANTOPRAZOLE 40 MG TABLET PO ×2 (10:44→21:30)
[2022-06-24] MEDS: LIPASE/AMYLASE/PROTEASE 12,000 UNITS CAP 1 CAP PO ×3 (10:45→18:01)
[2022-06-24] MEDS: oxyCODONE/ACETAMINOPHEN (*CRX) 5-325 MG TABLET 1 TABLET PO ×2 (10:46→18:10)
[2022-06-24] MEDS: AMOXICILLIN/CLAVULANATE K 875-125 MG TAB 1 TABLET PO ×2 (10:46→21:31)
[2022-06-24] MEDS: ACYCLOVIR 400 MG TABLET 800 MG BY MOUTH (10:47)
[2022-06-24] MEDS: SODIUM CHLORIDE 0.9% IV 1,000 ML 70 ML IV CONT (12:30)
[2022-06-24] MEDS: amLODIPine BESYLATE 5 MG TABLET PO (14:10)
[2022-06-24] MEDS: hydrALAZINE HCL 20 MG/ML VIAL 10 MG IV PUSH (14:10)
--- NOTE | 2022-06-24 14:33 | P.PNNP_ITS ---
Progress Note: A&P Assessment and Plan (1) Acute kidney injury: Code(s): N17.9 - Acute kidney failure, unspecified Status: Acute Assessment and Plan: * resolved * normal creatinine at baseline * etiology(?) * suspect volume depletion worsened by ongoing CLARI-I + HCTZ use * urinary tract infection possibly playing a role as well * evaluation to date noted: * holding CLARI-I and HCTZ * urine electrolytes not prerenal (but on HCTZ prior to admission) * urine eosinophils negative * renal ultrasound noted - moderate left hydronephrosis -- Urology following * on IVFs - will wean as tolerated * follow trend of repeat labs and UOP (2) Chest pain: Code(s): R07.9 - Chest pain, unspecified Status: Acute Assessment and Plan: * as noted by symptoms on admission * interventions to date reviewed * Cardiology recommendations noted (3) Urinary tract infection: Code(s): N39.0 - Urinary tract infection, site not specified Status: Acute Assessment and Plan: * as noted by urine culture * on antibiotics (4) Hydronephrosis: Code(s): N13.30 - Unspecified hydronephrosis Status: Acute Assessment and Plan: * as noted by renal ultrasound * Urology recommendations reviewed * renal scan results noted -- any further intervention needed?? (will defer to Urology) (5) HTN (hypertension), malignant: Code(s): I10 - Essential (primary) hypertension Status: Chronic Assessment and Plan: * doing better with addition of amlodipine * off lisinopril/HCTZ due to #1 * PRN hydralazine ordered * follow trend of hemodynamics Not much else to add -- will continue to intermittently. Subjective Date/time seen: 06/24/22 14:33 Still with on/off abdominal pain in the epigastric area as well on/off nausea and recent episode of vomiting; apparently also having chest pain with left arm radiation despite negative testing/evaluation by Cardiology; renal function re ellen stable at this time. Exam Narrative: General: WD/WN but anxious female in NAD Heart: normal S1 and S2; no rub Lungs: clear to auscultation Abdomen: soft, nontender, nondistended, positive bowel sounds Extremities: no cyanosis or clubbing; no edema Skin: warm and intact Objective Data Vital Signs Vital Signs: Vital Signs Temp Pulse Resp BP Pulse Ox O2 Del Method 06/24/22 13:43 97.9 F 65 16 149/69 H 98 06/24/22 12:00 68 06/24/22 10:00 68 06/24/22 08:00 73 06/24/22 13:34 59 L 16 06/24/22 13:27 64 16 06/24/22 12:00 Room Air 06/24/22 12:00 98.4 F 70 16 184/82 H 99 06/24/22 09:08 68 16 06/24/22 08:00 98.4 F 57 L 16 152/66 H 96 06/24/22 08:55 67 16 06/24/22 08:00 82 16 97 Room Air 06/24/22 06:00 82 06/24/22 04:00 Room Air 06/24/22 04:00 53 L 06/24/22 04:00 99.1 F 63 16 131/50 L 97 06/24/22 02:00 75 06/24/22 00:00 70 06/23/22 22:00 71 06/23/22 20:00 78 06/24/22 00:00 Room Air 06/23/22 20:00 98 Room Air 06/24/22 00:00 98 F 76 16 171/63 H 96 06/23/22 20:00 97.8 F 74 20 180/55 H 98
--- NOTE | 2022-06-24 14:33 | PM.PNNEP ---
Progress Note: A&P Assessment and Plan (1) Acute kidney injury: Code(s): N17.9 - Acute kidney failure, unspecified Status: Acute Assessment and Plan: resolved normal creatinine at baseline etiology(?) suspect volume depletion worsened by ongoing CLARI-I + HCTZ use urinary tract infection possibly playing a role as well evaluation to date noted: holding CLARI-I and HCTZ urine electrolytes not prerenal (but on HCTZ prior to admission) urine eosinophils negative renal ultrasound noted - moderate left hydronephrosis -- Urology following on IVFs - will wean as tolerated follow trend of repeat labs and UOP (2) Chest pain: Code(s): R07.9 - Chest pain, unspecified Status: Acute Assessment and Plan: as noted by symptoms on admission interventions to date reviewed Cardiology recommendations noted (3) Urinary tract infection: Code(s): N39.0 - Urinary tract infection, site not specified Status: Acute Assessment and Plan: as noted by urine culture on antibiotics (4) Hydronephrosis: Code(s): N13.30 - Unspecified hydronephrosis Status: Acute Assessment and Plan: as noted by renal ultrasound Urology recommendations reviewed renal scan results noted -- any further intervention needed?? (will defer to Urology) (5) HTN (hypertension), malignant: Code(s): I10 - Essential (primary) hypertension Status: Chronic Assessment and Plan: doing better with addition of amlodipine off lisinopril/HCTZ due to #1 PRN hydralazine ordered follow trend of hemodynamics Not much else to add -- will continue to intermittently. Subjective Date/time seen: 06/24/22 14:33 Still with on/off abdominal pain in the epigastric area as well on/off nausea and recent episode of vomiting; apparently also having chest pain with left arm radiation despite negative testing/evaluation by Cardiology; renal function remains stable at this time. Exam Narrative: General: WD/WN but anxious female in NAD Heart: normal S1 and S2; no rub Lungs: clear to auscultation Abdomen: soft, nontender, nondistended, positive bowel sounds Extremities: no cyanosis or clubbing; no edema Skin: warm and intact Objective Data Vital Signs Vital Signs: Vital Signs Temp Pulse Resp BP Pulse Ox O2 Del Method 06/24/22 13:43 97.9 F 65 16 149/69 H 98 06/24/22 12:00 68 06/24/22 10:00 68 06/24/22 08:00 73 06/24/22 13:34 59 L 16 06/24/22 13:27 64 16 06/24/22 12:00 Room Air 06/24/22 12:00 98.4 F 70 16 184/82 H 99 06/24/22 09:08 68 16 06/24/22 08:00 98.4 F 57 L 16 152/66 H 96 06/24/22 08:55 67 16 06/24/22 08:00 82 16 97 Room Air 06/24/22 06:00 82 06/24/22 04:00 Room Air 06/24/22 04:00 53 L 06/24/22 04:00 99.1 F 63 16 131/50 L 97 06/24/22 02:00 75 06/24/22 00:00 70 06/23/22 22:00 71 06/23/22 20:00 78 06/24/22 00:00 Room Air 06/23/22 20:00 98 Room Air 06/24/22 00:00 98 F 76 16 171/63 H 96 06/23/22 20:00 97.8 F 74 20 180/55 H 98 Intake/Output Intake/Output: Intake & Output 06/21/22 06/22/22 06/23/22 06/24/22 23:59 23:59 23:59 23:59 Intake Total 3090 6130 1000 Output Total 1300 2500 900 Balance 1790 3630 100 Meds/Results Medications: Active Medications Generic Name Dose Route Start Last Admin Trade Name Arnel PRN Reason Stop Dose Admin Acyclovir 800 mg 06/22/22 09:00 06/24/22 10:47 Acyclovir 400 Mg Tablet BY MOUTH 800 mg DAILY [facility] Administration Al Hydrox/Mg Hydrox/Simethicone 30 ml 06/24/22 15:45 Mag Hydrox/Al Hydrox/Simeth 30 Ml Udc PO Q6H [facility] Albuterol 2.5 mg 06/22/22 02:00 06/24/22 13:27 Albuterol Sulfate Neb 2.5 Mg/3 Ml Inh INHALATION 2.5 mg Q6HRT [facility] Administration Amlodipine Besylate 5 mg 06/23/22 13:10 03
--- NOTE | 2022-06-24 15:18 | PC.NURSE ---
This patient, Anny Palmer, was transferred to [[facility] [place]] on 06/24/22 at 1505. Personal belongings sent with patient. Report given to [KASIA Wells ]. Appropriate documentation sent with patient.
--- NOTE | 2022-06-24 15:44 | PM.IMPN ---
Progress Note: A&P Assessment and Plan (1) Chest pain: Code(s): R07.9 - Chest pain, unspecified Status: Acute Assessment and Plan: Typical/atypical. Hypertension. EKG with nonspecific ST-T changes. Admitted to IMU Nitro paste given Cardiology consulted History of coronary artery disease with stent placement in 2016 Troponins negative ruling out ACS Continue aspirin and statin Echo grade 1 diastolic dysfunction normal systolic function unchanged from previous D-dimer elevated 1.18 however CTA could not be done due to renal failure. Renal failure resolved today. Will consider CTA if remains stable lipase checked because of history of pancreatitis in the past back in 2020 and 2019. Continue IV fluid Lipase came back elevated at 800. No history of alcohol use Check triglyceride. Check right upper quadrant ultrasound D-dimer was elevated since renal function is normal will do CTA to rule out PE today. (2) Acute kidney injury: Code(s): N17.9 - Acute kidney failure, unspecified Status: Acute Assessment and Plan: Lisinopril hydrochlorothiazide on hold Creatinine 2 point in on admission improved today. Renal ultrasound with mild atrophy of left kidney with moderate left hydronephrosis. Urology consulted. Going for a renal scan Nephrology consulted Baseline creatinine 1.2 in 2020. Back to baseline now Chronic intermittent left hydronephrosis per Urology note (3) HTN (hypertension), malignant: Code(s): I10 - Essential (primary) hypertension Status: Chronic Assessment and Plan: Holding lisinopril and hydrochlorothiazide Hydralazine p.r.n. Nitro paste Added amlodipine for blood pressure control better (4) Gastroesophageal reflux disease: Code(s): K21.9 - Gastro-esophageal reflux disease without esophagitis Status: Acute Assessment and Plan: PPI Will add sucralfate Also increase PPI to twice a day Mylanta p.r.n. I suspect chest pain is related to worsening reflux disease. (5) Tobacco use: Code(s): Z72.0 - Tobacco use Status: Acute Assessment and Plan: Patient is down from 1 pack a day to a 1 or 2 cigarettes a day Plan DVT prophylaxis Lovenox Coronary artery disease status post stent in the past UTI E coli sensitivity pending currently on ceftriaxone with continue same Subjective Date/time seen: 06/24/22 15:44 Interval history: patient continues to have epigastric area pain. She also complains of retrosternal chest pain that radiates to her left arm. Some nausea and had an episode of vomiting earlier today. Remains afebrile. No cough or shortness of breath. Review of Systems Review of Systems: All systems reviewed & are unremarkable except as noted in HPI and below Exam Narrative: GENERAL: Well-appearing, well-nourished, appears anxious HEAD: Normocephalic, atraumatic. EYES: PERRLA and EOMI. ENT: Nares clear, no rhinorrhea or epistaxis.? Mucous membranes moist.? NECK: Supple.? No adenopathy or masses.? No carotid bruits or JVD CHEST: Clear to auscultation.? No respiratory distress.? No wheezes rales or rhonchi HEART: Regular rate with regular rhythm.? No murmur heard.? Normal peripheral pulses. ABDOMEN: Soft, tender epigastric area, nondistended, normal active bowel sounds. EXTREMITIES: Normal range of motion.? No edema. SKIN: Warm, dry, no rash. NEURO: No focal deficits.? Alert and oriented x3. PSYCH: Normal mood and affect. Objective Data Vital Signs Vital Signs: Vital Signs - 24 hr 06/23/22 16:00 06/23/22 20:00 06/24/22 00:00 Temperature 97.3 F L 97.8 F 98 F Pulse Rate 70 74 76 Respiratory Rate 18 20 16 Blood Pressure 156/62 H 180/55 H 171/63 H Pulse Oximetry 99 98 96 Oxygen Delivery 06/23/22 20:00 06/24/22 00:00 06/23/22 20:00 Temperature Pulse Rate 78 Respiratory Rate Blood Pressure Pulse Oximetry 98 Oxygen Delivery Room Air Room Air 06/23/22 22:00 06/24/22 00
[2022-06-24] MEDS: MAG HYDROX/AL HYDROX/SIMETH 30 ML UDC PO ×2 (16:54→21:37)
[2022-06-24 16:58] LABS: Triglycerides 58 mg/dL (<150)
[2022-06-24] MEDS: SUCRALFATE SUSP 100 MG/ML 10 ML UDC 1000 MG PO ×2 (18:03→21:32)
[2022-06-24] MEDS: rOPINIRole HCL 0.5 MG TABLET PO (22:59)
[2022-06-25] VITALS (7 sets, daily range): BP systolic 136; BP diastolic 56; PULSE 63–90; RESP 14–16; TEMP 36.7; O2SAT 95–98
--- NOTE | 2022-06-25 01:49 | PC.NURSE ---
Spoke with Dr. Chiu at this time r/t patient c/o chest pain radiating to left arm. Asked if we could do a cardiac work-up with EKG and troponins, and patient refuses subligual nitro and is requesting nitro paste instead. Dr. Chiu says to go ahead and give her the dose of morphine and not do a cardiac work-up.
[2022-06-25] MEDS: LORazepam INJ (*CRX) 2 MG/ML VIAL 0.5 MG IV PUSH ×2 (02:00→09:37)
[2022-06-25] MEDS: MORPHINE SULFATE (*CRX) 2 MG/ML INJ IV PUSH ×3 (02:00→10:04)
[2022-06-25] MEDS: ALBUTEROL SULFATE NEB 2.5 MG/3 ML INH INHALATION ×2 (02:19→08:04)
[2022-06-25] MEDS: IPRATROPIUM BR 0.02% INH SOLN 0.5 MG/2.5 ML VIAL INHALATION ×2 (02:19→08:04)
[2022-06-25] MEDS: MAG HYDROX/AL HYDROX/SIMETH 30 ML UDC PO ×2 (05:52→10:04)
[2022-06-25] MEDS: SODIUM CHLORIDE 0.9% IV 1,000 ML 70 ML IV CONT (05:52)
[2022-06-25] MEDS: SUCRALFATE SUSP 100 MG/ML 10 ML UDC 1000 MG PO ×2 (05:52→11:27)
[2022-06-25 06:35] LABS: Basophils Percent Auto 0.7 % (0.2-1.2); Eosinophils Absolute Auto 0.2 K/mm3 (0-0.3); Eosinophils Percent Auto 3.7 % (0-4.4); Hematocrit 29.4 % (37.0-47.0); Hemoglobin 9.8 g/dL (12.0-15.0); Immature Granulocyte Absolute 0.01 K/mm3 (0.00-0.031); Immature Granulocyte Percent A 0.2 % (0-0.5); Lymphocytes Absolute Auto 1.65 K/mm3 (0.9-3.2); Lymphocytes Percent Auto 38.6 % (18.3-44.2); Mean Corpuscular HGB Conc 33.3 g/dl (32-36); Mean Corpuscular Hemoglobin 29.7 pg (26-34); Mean Corpuscular Volume 89.1 fl (80-100); Monocytes Absolute Auto 0.5 K/mm3 (0.1-0.6); Monocytes Percent Auto 11.9 % (2.6-8.5); Neutrophils Absolute Auto 1.9 K/mm3 (1.3-6.7); Neutrophils Percent Auto 44.9 % (45.5-73.1); Platelet Count Result 260 k/mm3 (150-375); Red Cell Distribution Width 14.2 % (11.5-14.5); White Blood Count 4.3 K/mm3 (4.5-10.0)
[2022-06-25 07:15] LABS: Alanine Aminotransferase 42 U/L (6-35); Alkaline Phosphatase 75 U/L (38-126); Anion Gap 3 mmol/L (8-16); Aspartate Amino Transferase 43 U/L (14-36); Bilirubin,Total 0.5 mg/dL (0.2-1.3); Blood Urea Nitrogen 11 mg/dL (7-17); Calcium 8.7 mg/dL (8.4-10.2); Carbon Dioxide 28 mmol/L (22-30); Chloride 108 mmol/L (98-107); Estimated CRCL calculation 59 ml/min; Estimated Glomerular Filt Rate > 60; Glucose 99 mg/dL (65-110); Lipase 119 U/L (23-300); Potassium 3.6 mmol/L (3.4-5.0); Sodium 139 mmol/L (137-145)
[2022-06-25] MEDS: oxyCODONE/ACETAMINOPHEN (*CRX) 5-325 MG TABLET 1 TABLET PO (07:49)
[2022-06-25] MEDS: LIPASE/AMYLASE/PROTEASE 12,000 UNITS CAP 1 CAP PO ×2 (07:52→11:27)
[2022-06-25] MEDS: PANTOPRAZOLE 40 MG TABLET PO (07:53)
[2022-06-25] MEDS: GABAPENTIN 300 MG CAPSULE PO ×2 (09:27→13:10)
[2022-06-25] MEDS: ROSUVASTATIN 10 MG TABLET PO (09:27)
[2022-06-25] MEDS: AMOXICILLIN/CLAVULANATE K 875-125 MG TAB 1 TABLET PO (09:27)
[2022-06-25] MEDS: ACYCLOVIR 400 MG TABLET 800 MG BY MOUTH (10:06)
[2022-06-25] MEDS: amLODIPine BESYLATE 5 MG TABLET PO (10:06)
--- NOTE | 2022-06-25 13:55 | PM.DS ---
DS: Admitting Diagnosis Discharge Date 06/25/2022 Admitting Diagnosis Chest pain/abdominal pain DS: Discharge Diagnosis Discharge Diagnosis (1) Chest pain: Code(s): R07.9 - Chest pain, unspecified Status: Acute (2) Acute kidney injury: Code(s): N17.9 - Acute kidney failure, unspecified Status: Acute (3) HTN (hypertension), malignant: Code(s): I10 - Essential (primary) hypertension Status: Chronic (4) Gastroesophageal reflux disease: Code(s): K21.9 - Gastro-esophageal reflux disease without esophagitis Status: Acute (5) Tobacco use: Code(s): Z72.0 - Tobacco use Status: Acute DS: Summary Hospital Course Hospital Course: # chest pain: Typical/atypical.? Hypertension.? EKG with nonspecific ST-T changes.? Nitro paste given. Cardiology consulted History of coronary artery disease with stent placement in 2015 Troponins negative ruling out ACS Continue aspirin and statin Echo grade 1 diastolic dysfunction normal systolic function unchanged from previous D-dimer elevated 1.18 however CTA could not be done due to renal failure.? Renal failure resolved today.? CT performed which came back negative for PE ?lipase checked because of history of pancreatitis in the past back in 2020 and 2019.? Continue IV fluid Lipase came back elevated at 800.? No history of alcohol use. Triglyceride was normal. Mild LFT increased particularly transaminases. The improving. 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 # acute kidney injury: Lisinopril hydrochlorothiazide on hold. Nephrology consulted Creatinine 2 point in on admission which resolved during the hospital stay with IV hydration Renal ultrasound with mild atrophy of left kidney with moderate left hydronephrosis.? Urology consulted.? Renal scan will mild left renal atrophy and mildly decreased to left total renal function with left kidney contributing 42.6% of the total renal function. Delayed clearance of activity from left kidney consistent with partial obstruction was likely clinically significant. She will follow-up with Dr. Jones as outpatient basis Chronic intermittent left hydronephrosis per Urology note # HTN (hypertension), malignant: Holding lisinopril and hydrochlorothiazide Hydralazine p.r.n. Nitro paste Added amlodipine for blood pressure control better. Will hold high lisinopril hydrochlorothiazide at discharge # GERD: Mostly her chest pain is likely related to this. PPI change to b.i.d.. Added sucralfate. Roselinelanta p.r.n. I suspect chest pain is related to worsening reflux disease. # tobacco use: Patient is down from 1 pack a day to a 1 or 2 cigarettes a day # dVT prophylaxis Lovenox # coronary artery disease status post stent in the past # uTI E coli sensitivity reviewed. Treated with ceftriaxone and switched to Augmentin. Finish the course during the hospital stay Time Spent with Patient Time attestation: Total time spent providing and/or coordinating discharge services: 45 minutes Exam Narrative: GENERAL: Well-appearing, well-nourished, not in acute distress HEAD: Normocephalic, atraumatic. EYES: PERRLA and EOMI. ENT: Nares clear, no rhinorrhea or epistaxis.? Mucous membranes moist.? NECK: Supple.? No adenopathy or masses.? No carotid bruits or JVD CHEST: Clear to auscultation.? No respiratory distress.? No wheezes rales or rhonchi HEART: Regular rate with regular rhythm.? No murmur heard.? Normal peripheral pulses. ABDOMEN: Soft, nontender, nondistended, normal active bowel sounds. EXTREMITIES: Normal range of motion.? No edema. SKIN: Warm, dry, no rash. NEURO: No focal deficits.? Alert and oriented x3. PSYCH: Normal mood and affect. DS: Data Data Completed and Pending Labs on day of discharge: Labs from last 24
[2022-06-27 16:30] LABS: Chloride Rand Ur 28 mmol/L (32-290); Chloride/Creatinine Rand Ur 74 (38-318); Creatinine Random Urine 38 mg/dL (20-275)
== END 2022-06-25 14:20 | disposition home or self-care (01) | DRG 243 ==
LOC: ANHED 19:41 → ANHIMU 21:13 → ANH3MEDSUR 06-24 15:08
PROVIDERS: Internal Medicine Nephrology; Admitting Provider Internal Medicine; Emergency Provider Preventive Medicine Aerospace Medicine; PCP Internal Medicine; Visit Provider Internal Medicine
DX: K21.9 Gastro-esophageal reflux disease without esophagitis (principal); N17.9 Acute kidney failure, unspecified; N13.30 Unspecified hydronephrosis; N39.0 Urinary tract infection, site not specified; R07.89 Other chest pain; I25.10 Atherosclerotic heart disease of native coronary artery without angina pectoris; I10 Essential (primary) hypertension; Z95.5 Presence of coronary angioplasty implant and graft; B96.20 Unspecified Escherichia coli [E. coli] as the cause of diseases classified elsewhere; F17.210 Nicotine dependence, cigarettes, uncomplicated; Z79.82 Long term (current) use of aspirin; Z79.899 Other long term (current) drug therapy
CPT/HCPCS: 36415; 71045; 71275; 74176; 76705; 76775; 78708; 80053; 80307; 81001; 81050; 82436; 82570; 82948; 83690; 83735; 83880; 84156; 84300; 84478; 84484; 84540; 85025; 85380; 85610; 85999; 87077; 87086; 87186; 93005; 93306; 94640; 96361; 96365; 96372; 96374; 96375; 96376; 99285; A9270; A9562; G0378; G0379; J0360; J0696; J1170; J1940; J2060; J2270; J2405; J7030; Q9967

== ENCOUNTER 2022-07-20 21:27 | Emergency (ER) | payer OTHER, SELFPAY ==
[2022-07-20 21:29] VITALS: BP 176/83; PULSE 77; RESP 18; TEMP 36.2; O2SAT 100
[2022-07-20 22:29] VITALS: BP 184/71; PULSE 65; PULSE 68; RESP 14; O2SAT 100
--- NOTE | 2022-07-20 23:32 | ED.GENADULT ---
HPI - General Adult General Chief complaint: Unspecified Stated complaint: headache Time Seen by Provider: 07/20/22 22:44 History of Present Illness HPI narrative: Patient is a 56-year-old female presenting with a migraine. Patient states that since this morning she has had a migraine that has been progressively worsening. States that she feels nauseated and sensitive to light. States that she has a history of migraines and this feels similarly to her prior migraines. States that she has been having a lot of neck problems lately. States that she had neck surgery about a year ago. States that she has been having neck pain with intermittent bilateral hand numbness for several months. She denies any new numbness or weakness. She denies fevers, chest pain, shortness of breath, cough, abdominal pain, diarrhea, dysuria, rashes, leg swelling. Related Data Home Medications Medication Instructions Recorded Confirmed baclofen 10 mg tablet 10 mg PO QPM 02/12/20 06/21/22 gabapentin 300 mg capsule 300 mg PO TID 02/12/20 06/21/22 acyclovir 800 mg tablet 800 mg PO DAILY 02/10/21 06/21/22 ropinirole 0.5 mg tablet 0.5 mg PO HS 02/10/21 06/21/22 Allergies Allergy/AdvReac Type Severity Reaction Status Date / Time butalbital Allergy Unknown hives Verified 04/04/21 11:37 ibuprofen Allergy Unknown Hives Verified 04/04/21 11:37 ketorolac Allergy Unknown Hives Verified 04/04/21 11:37 naproxen Allergy Unknown Hives Verified 04/04/21 11:37 sumatriptan Allergy Unknown Hives Verified 04/04/21 11:37 Fish Containing Products Allergy Hives Verified 04/04/21 11:37 Review of Systems Review of Systems: All systems reviewed & are unremarkable except as noted in HPI and below PMFSH Past Medical History Medical History Acute renal failure Anxiety Aortic stenosis Arthritis Colon cancer screening Coronary artery disease History of stent x2. Diarrhea DVT prophylaxis Elevated lipase Elevated liver enzymes Elevated WBC count Gastroesophageal reflux disease HTN (hypertension), malignant Hypomagnesemia Marijuana smoker Migraines Mild aortic valve stenosis Aortic valve area of 1.4 cm2 on echocardiogram in February 2020. Pancreatitis Tobacco use Vomiting and diarrhea Weight loss Surgical History Surgical History History of cardiac catheterization History of cholecystectomy History of esophagogastroduodenoscopy (02/16/20) Unspecified esophagitis and gastritis. History of heart artery stent (2016) Performed at [facility] in [place]. History of hysterectomy History of open reduction and internal fixation (ORIF) procedure Right ankle fracture. Left elbow fracture. Family History Family History Mother Hypertension Hyperlipidemia Rheumatic fever Kidney disease Heart murmur Sibling Kidney disease Alcoholism Social History Social History Social History: The patient stated that she quit smoking approximately 4 months ago. 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 She lives with a significant other. The patient has 4 sons. 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 Code status: Full code. Smoking packs per day: 0.1 Smoking cigarettes per day: 2.0 Years smoked: 30 Smoking pack-years: 3.00 Smoking status: Current every day smoker Tobacco type: cigarettes Additional smoking assessment comments: was at 1ppd, but has cut down Alcohol intake: never Substance use: current Substance use type: marijuana Other substance usage details: occasional wine, rarely, marijuana once daily for pain management Last use: 02/10/21 Lack of Transportation: No Lack of Food: Never True Current Housing: I Have Housing Concerned About Future H
[2022-07-20] MEDS: diphenhydrAMINE HCl INJ 50 MG/ML VIAL 25 MG IV PUSH (23:57)
[2022-07-20] MEDS: SODIUM CHLORIDE 0.9% IV 1,000 ML 999 ML IV CONT (23:57)
[2022-07-20] MEDS: PROCHLORPERAZINE EDISYLATE 10 MG/2 ML VIAL IV PUSH (23:58)
[2022-07-21 00:03] VITALS: BP 164/71; PULSE 71; RESP 17; O2SAT 100
[2022-07-21 00:51] VITALS: BP 164/71; PULSE 82; RESP 14; O2SAT 100
[2022-07-21 01:08] VITALS: BP 156/59; PULSE 84; RESP 16; O2SAT 99
== END 2022-07-21 01:08 | disposition home or self-care (01) ==
PROVIDERS: Emergency Provider Emergency Medicine; PCP Internal Medicine
DX: G43.909 Migraine, unspecified, not intractable, without status migrainosus (principal); I35.0 Nonrheumatic aortic (valve) stenosis; I25.10 Atherosclerotic heart disease of native coronary artery without angina pectoris; K21.9 Gastro-esophageal reflux disease without esophagitis; M19.90 Unspecified osteoarthritis, unspecified site; Z95.5 Presence of coronary angioplasty implant and graft; Z90.49 Acquired absence of other specified parts of digestive tract; Z90.710 Acquired absence of both cervix and uterus; F17.210 Nicotine dependence, cigarettes, uncomplicated
CPT/HCPCS: 96365; 96375; 99284; J0131; J0780; J1200; J7030

== ENCOUNTER 2022-09-16 17:20 | Inpatient (IN) | payer OTHER, SELFPAY ==
--- NOTE | ~2022-09-16 | CT_ITS ---
EXAMINATION: CTA chest PE abdomen pel DATE: 09/16/2022 21:01 CDT INDICATION: Chest pain. Elevated lipase. TECHNIQUE: Computed tomographic angiography (CTA) of the chest, abdomen, and pelvis was performed wit hout and with 100 mL Omnipaque-350 intravenous contrast. The dose-length product was 455.62 mGy-cm. M aximum intensity projection 3D-reconstructions of the aorta and other arteries were constructed by mattie hayes technologist on a separate workstation. COMPARISON: Comparison to multiple prior studies sequentially, with oldest reviewed study dated 02/01 . FINDINGS: CHEST CTA: Study is technically adequate without evidence for pulmonary embolism. No evidence for aortic aneurys m or dissection. Heart size normal. No significant pleural or pericardial effusion. There is a 3 mm g roundglass nodule in the left upper lobe, best seen on coronal image 107. There are smaller nodules i n the upper lobes measuring 2 mm or less. No endobronchial lesions. No pneumothorax. Mild thoracic sp ondylosis. ABDOMEN AND PELVIS CTA: There is chronic intrahepatic and extrahepatic biliary dilatation. The common bile duct measures appr oximately 1.6 cm. No obstructing stone or mass identified. Status post cholecystectomy. The spleen, r ight adrenal gland, and right kidney are unremarkable. There is dilated left renal pelvis which may r epresent extrarenal pelvis or UPJ obstruction. There is an ill-defined 2.4 x 2 cm left adrenal mass p reviously characterized as an adenoma by MRI.. Nonobstructive bowel gas pattern. No significant vasc ular abnormality. No lymphadenopathy. No acute osseous abnormality. No acute osseous abnormality. IMPRESSION: 1. Small upper lobe nodules measuring 3 mm or less, likely benign. Consider follow-up low dose CT rodolfo st in 12 months. 2: Chronic intrahepatic and extrahepatic biliary dilatation status post cholecystectomy. Reviewed, dictated and finalized at location A. IMPRESSION: 1. Small upper lobe nodules measuring 3 mm or less, likely benign. Consider fol low-up low dose CT chest in 12 months. 2: Chronic intrahepatic and extrahepatic biliary dilatation status post cholecy stectomy.
--- NOTE | ~2022-09-16 | US_ITS ---
US renal BI 09/17/2022 13:08 Procedure: Realtime transabdominal ultrasound of the kidneys and bladder. Indication: Flank pain Comparison: No prior studies for comparison. Findings: Renal echotexture is normal bilaterally without contour deforming mass or renal calculus. T here is mild bilateral hydronephrosis. The right kidney measures 10.6 cm and left kidney measures 10. 1 cm. Bladder within normal limits. Impression: 1: Mild bilateral hydronephrosis. Reviewed, dictated and finalized at location A. Impression: 1: Mild bilateral hydronephrosis.
--- NOTE | ~2022-09-16 | XR_ITS ---
EXAMINATION: XR chest 2V 09/16/2022 18:21 INDICATION: Chest pain PROCEDURE: 2 view chest COMPARISON: Comparison to multiple prior studies sequentially, with oldest reviewed study dated 07/15. FINDINGS: The lungs are clear. The cardiomediastinal silhouette is within normal limits. There are no pleural effusions. There is no pneumothorax suspected. IMPRESSION: 1: NO ACUTE CARDIOPULMONARY DISEASE. Reviewed, dictated and finalized at location A.
--- NOTE | 2022-09-16 17:21 | ECG_ITS ---
Measurements Intervals [place] Rate: 87 P: 73 CT: 144 QRS: -13 QRSD: 98 T: 42 QT: 381 QTc: 460 Interpretive Statements SINUS RHYTHM WITH OCCASIONAL SUPRAVENTRICULAR PREMATURE COMPLEXES INCOMPLETE RIGHT BUNDLE BRANCH BLOCK [90+ ms QRS DURATION, TERMINAL R IN V1/V2, 40+ ms S IN I/aVL/V4/V5/V6] MODERATE ST DEPRESSION [0.05+ mV ST DEPRESSION] ABNORMAL ECG COMPARED TO ECG 06/21/2022 20:16:23 INCOMPLETE RIGHT BUNDLE-BRANCH BLOCK NOW PRESENT ST (T WAVE) DEVIATION NOW PRESENT Electronically Signed On 09-17-2022 9:10:23 CDT by Arturo Mccord M.D.
[2022-09-16 17:26] VITALS: BP 157/112; PULSE 100; RESP 18; TEMP 36.6; O2SAT 100
[2022-09-16 17:39] LABS: Basophils Percent Auto 0.4 % (0.2-1.2); Eosinophils Percent Auto 0.1 % (0-4.4); Hematocrit 37.4 % (37.0-47.0); Hemoglobin 13.2 g/dL (12.0-15.0); Immature Granulocyte Absolute 0.02 K/mm3 (0.00-0.031); Immature Granulocyte Percent A 0.3 % (0-0.5); Lymphocytes Absolute Auto 0.93 K/mm3 (0.9-3.2); Lymphocytes Percent Auto 12.3 % (18.3-44.2); Mean Corpuscular HGB Conc 35.3 g/dl (32-36); Mean Platelet Volume 9.7 fl (7.4-10.4); Monocytes Absolute Auto 0.2 K/mm3 (0.1-0.6); Monocytes Percent Auto 2.4 % (2.6-8.5); Neutrophils Absolute Auto 6.4 K/mm3 (1.3-6.7); Neutrophils Percent Auto 84.5 % (45.5-73.1); Platelet Count Result 348 k/mm3 (150-375); Red Cell Distribution Width 12.8 % (11.5-14.5); White Blood Count 7.6 K/mm3 (4.5-10.0)
[2022-09-16 17:51] LABS: Partial Thromboplastin Time 22.3 SECONDS (22.3-36.8); Prothrombin Time 13.6 Seconds (11.1-14.7)
[2022-09-16 18:05] LABS: Alanine Aminotransferase 48 U/L (6-35); Albumin Level 5.4 g/dL (3.5-5.1); Alkaline Phosphatase 102 U/L (38-126); Anion Gap 13 mmol/L (8-16); Aspartate Amino Transferase 101 U/L (14-36); Bilirubin,Total 0.6 mg/dL (0.2-1.3); Blood Urea Nitrogen 46 mg/dL (7-17); Calcium 9.5 mg/dL (8.4-10.2); Carbon Dioxide 19 mmol/L (22-30); Chloride 105 mmol/L (98-107); Estimated CRCL calculation 36 ml/min; Estimated Glomerular Filt Rate 42; Glucose 150 mg/dL (65-110); Potassium 3.6 mmol/L (3.4-5.0); Sodium 137 mmol/L (137-145)
[2022-09-16 18:10] LABS: Troponin I < 0.012 ng/mL (0.000-0.034)
--- NOTE | 2022-09-16 19:22 | ED.GENADULT ---
HPI - General Adult General Chief complaint: Chest Pain <Christopher Larose PA-C - Last Filed: 09/16/22 22:01> Stated complaint: chest pain <Christopher Larose PA-C - Last Filed: 09/16/22 22:01> Time Seen by Provider: 09/16/22 19:06 <Christopher Larose PA-C - Last Filed: 09/16/22 22:01> Source: patient <Christopher Laorse PA-C - Last Filed: 09/16/22 22:01> Mode of arrival: ambulatory <PRASANNA Arcos Last Filed: 09/16/22 22:01> Limitations: no limitations <Christopher Larose PA-C - Last Filed: 09/16/22 22:01> History of Present Illness HPI narrative: This is a 57-year-old female with PMH of pancreatitis, CAD, [place], HTN who presents to the ED with chief complaint of chest pain beginning 30 minutes prior to arrival. Patient states the pain is constant. She states it is located in the mid sternal area and radiates into the left arm. She states she had 1 episode of vomiting still feels nauseous. denies LOC. Reports some epigastric pain as well. Denies diarrhea or problems with bowel movements. Denies urinary symptoms. Denies fevers, chills, shortness of breath, cough, leg swelling, back pain. Past abdominal surgical history of cholecystectomy. <Christopher Larose PA-C - Last Filed: 09/16/22 22:01> Related Data Home medications: Home Medications Medication Instructions Recorded Confirmed baclofen 10 mg tablet 10 mg PO QPM 02/12/20 06/21/22 gabapentin 300 mg capsule 300 mg PO TID 02/12/20 06/21/22 acyclovir 800 mg tablet 800 mg PO DAILY 02/10/21 06/21/22 ropinirole 0.5 mg tablet 0.5 mg PO HS 02/10/21 06/21/22 <PRASANNA Arcos Last Filed: 09/16/22 22:01> Allergies/adverse reactions: Allergies Allergy/AdvReac Type Severity Reaction Status Date / Time butalbital Allergy Unknown hives Verified 09/16/22 17:20 ibuprofen Allergy Unknown Hives Verified 09/16/22 17:20 ketorolac Allergy Unknown Hives Verified 09/16/22 17:20 naproxen Allergy Unknown Hives Verified 09/16/22 17:20 sumatriptan Allergy Unknown Hives Verified 09/16/22 17:20 Fish Containing Products Allergy Hives Verified 09/16/22 17:20 <Christopher Larose PA-C - Last Filed: 09/16/22 22:01> Review of Systems Review of Systems: CONSTITUTIONAL: Denies fever, chills, or sweats. EYES: Denies visual changes, redness, or discharge. ENT: Denies rhinorrhea, congestion, sore throat, or otalgia. CARDIOVASCULAR: Denies chest pain, palpitations, or edema. RESPIRATORY: Denies cough or dyspnea. GASTROINTESTINAL: Denies abdominal pain, nausea, vomiting, or diarrhea. GENITOURINARY: Denies dysuria or hematuria. SKIN: Denies rash or itching. MUSCULOSKELETAL: Denies back pain, joint pain, or myalgia. NEUROLOGIC: Denies headache, numbness, dizziness, or weakness. PSYCHIATRIC: Denies anxiety or depression. <Christopher Larose PA-C - Last Filed: 09/16/22 22:01> [facility] Past Medical History Medical History: Medical History Acute renal failure Anxiety Aortic stenosis Arthritis Colon cancer screening Coronary artery disease History of stent x2. Diarrhea DVT prophylaxis Elevated lipase Elevated liver enzymes Elevated WBC count Gastroesophageal reflux disease HTN (hypertension), malignant Hypomagnesemia Marijuana smoker Migraines Mild aortic valve stenosis Aortic valve area of 1.4 cm2 on echocardiogram in February 2020. Pancreatitis Tobacco use Vomiting and diarrhea Weight loss <Christopher Larose PA-C - Last Filed: 09/16/22 22:01> Surgical History Surgical History: Surgical History History of cardiac catheterization History of cholecystectomy History of esophagogastroduodenoscopy (02/16/20) Unspecified esophagitis and gastritis. History of heart artery stent (2016) Performed at [facility] in [place]. History of hysterectomy History of open reduction and internal fixation (ORIF) procedure Right ankl
[2022-09-16 19:31] LABS: Lipase 12182 U/L (23-300)
[2022-09-16] MEDS: MORPHINE SULFATE (*CRX) 4 MG/ML INJ IV PUSH (20:34)
[2022-09-16] MEDS: SODIUM CHLORIDE 0.9% IV 1,000 ML 999 ML IV CONT ×2 (20:34→22:34)
[2022-09-16] MEDS: ONDANSETRON INJ 4 MG/2 ML VIAL IV PUSH (20:35)
[2022-09-16 20:54] LABS: Lactate Dehydrogenase 247 U/L (120-246)
[2022-09-16 21:07] LABS: Troponin I < 0.012 ng/mL (0.000-0.034)
--- NOTE | 2022-09-16 22:14 | PM.IMHP ---
H&P: HPI History of Present Illness Date/Time: 09/16/22 22:14 Chief Complaint: Epigastric pain. Narrative: This is a 57-year-old with past medical history significant for chronic pancreatic insufficiency, chronic kidney disease, aortic stenosis, coronary artery disease, chronic diarrhea, gastroesophageal reflux disease, migraine headache, tobacco dependence. Patient comes to the emergency room due to nausea vomiting epigastric pain that started later in the day according to patient she has been able to eat all her meals at the days prior and has been in her usual state of health, patient has been having usual bowel movements denies any hematemesis, coffee-ground emesis, bright red blood per rectum, melena, has early satiety and pain. Denies any fevers, rigors, chills, cough. Preliminary workup was significant for lipase 12,000, creatinine 1.3, BUN [address] of abdomen and pelvis was reported as: EXAMINATION: CTA chest PE abdomen pel DATE: 09/16/2022 21:01 CDT INDICATION: Chest pain. Elevated lipase. TECHNIQUE: Computed tomographic angiography (CTA) of the chest, abdomen, and pelvis was performed without and with 100 mL Omnipaque-350 intravenous contrast. The dose-length product was 455.62 mGy-cm. Maximum intensity projection 3D-reconstructions of the aorta and other arteries were constructed by the technologist on a separate workstation. COMPARISON: Comparison to multiple prior studies sequentially, with oldest reviewed study dated? 02/22/2021 . FINDINGS: CHEST CTA: Study is technically adequate without evidence for pulmonary embolism. No evidence for aortic aneurysm or dissection. Heart size normal. No significant pleural or pericardial effusion. There is a 3 mm groundglass nodule in the left upper lobe, best seen on coronal image 107. There are smaller nodules in the upper lobes measuring 2 mm or less. No endobronchial lesions. No pneumothorax. Mild thoracic spondylosis. ABDOMEN AND PELVIS CTA: There is chronic intrahepatic and extrahepatic biliary dilatation. The common bile duct measures approximately 1.6 cm. No obstructing stone or mass identified. Status post cholecystectomy. The spleen, right adrenal gland, and right kidney are unremarkable. There is dilated left renal pelvis which may represent extrarenal pelvis or UPJ obstruction. There is an ill-defined 2.4 x 2 cm left adrenal mass previously characterized as an adenoma by MRI..? Nonobstructive bowel gas pattern. No significant vascular abnormality. No lymphadenopathy. No acute osseous abnormality. No acute osseous abnormality. IMPRESSION: 1. Small upper lobe nodules measuring 3 mm or less, likely benign. Consider follow-up low dose CT chest in 12 months. 2: Chronic intrahepatic and extrahepatic biliary dilatation status post cholecystectomy. Chest x-ray was reported as: EXAMINATION: XR chest 2V 09/16/2022 18:21 INDICATION: Chest pain PROCEDURE:? 2 view chest COMPARISON: Comparison to multiple prior studies sequentially, with oldest reviewed study dated? 07/15/2018. FINDINGS: The lungs are clear.? The cardiomediastinal silhouette is within normal limits.? There are no pleural effusions.? There is no pneumothorax suspected.? IMPRESSION: 1:? NO ACUTE CARDIOPULMONARY DISEASE. Review of Systems Review of Systems: Epigastric abdominal pain, nausea, vomiting, early satiety, weight loss. Constitutional: Constitutional: Denies chills, Denies fatigue, Denies fever(s), Denies malaise, Denies weakness and Reports weight loss Eyes: Eyes: Denies change in vision ENT: Denies dysphagia and Denies odynophagia Cardiovascular: Cardiovascular: Denies chest pain, Denies radiating jaw, neck or arm pain and Denies palpitations Respiratory: Respiratory: Denies chest congestion, Denies cough, Denies excessive phlegm production, Denies pain on inspiration and Denies dyspnea Gastrointestinal: Gastrointestinal: Reports abdominal pain, Denies melena, Denies hematochezia, Denies
[2022-09-16] MEDS: HYDROmorphone HCL INJ (*CRX) 1 MG/ML SYR 0.5 MG IV PUSH (22:35)
[2022-09-16 22:42] VITALS: BP 190/76; PULSE 99; RESP 20; TEMP 36.8; O2SAT 100
[2022-09-16] MEDS: diphenhydrAMINE HCl INJ 50 MG/ML VIAL IV PUSH (23:19)
[2022-09-16] MEDS: PREGABALIN (*CRX) 75 MG CAPSULE 150 MG PO (23:25)
[2022-09-16] MEDS: PANTOPRAZOLE SODIUM IV 40 MG VIAL IV PUSH (23:25)
[2022-09-16] MEDS: DEXTROSE 5%/LACTATED RINGERS 1,000 ML 100 ML IV CONT (23:25)
[2022-09-16] MEDS: rOPINIRole HCL 0.5 MG TABLET PO (23:25)
[2022-09-17 00:28] LABS: Troponin I < 0.012 ng/mL (0.000-0.034)
[2022-09-17] MEDS: HYDROmorphone HCL INJ (*CRX) 1 MG/ML SYR 0.5 MG IV PUSH ×5 (01:42→21:06)
[2022-09-17 04:00] VITALS: BP 119/61; PULSE 61; RESP 20; TEMP 36.8; O2SAT 100
[2022-09-17] MEDS: ONDANSETRON INJ 4 MG/2 ML VIAL IV PUSH ×4 (07:32→21:09)
[2022-09-17] MEDS: amLODIPine BESYLATE 5 MG TABLET PO (08:43)
[2022-09-17] MEDS: LIPASE/AMYLASE/PROTEASE 12,000 UNITS CAP 1 CAP PO ×3 (08:43→17:05)
[2022-09-17] MEDS: PANTOPRAZOLE SODIUM IV 40 MG VIAL IV PUSH ×2 (08:43→20:17)
[2022-09-17] MEDS: ASPIRIN 81 MG CHEWABLE TABLET PO (08:43)
[2022-09-17] MEDS: PREGABALIN (*CRX) 75 MG CAPSULE 150 MG PO ×2 (08:44→17:05)
--- NOTE | 2022-09-17 10:23 | PM.IMPN ---
Progress Note: A&P Assessment and Plan (1) Acute pancreatitis: Code(s): K85.90 - Acute pancreatitis without necrosis or infection, unspecified Status: Acute Assessment and Plan: Admit to regular medical floor Clear liquid diet, IV fluids CT of abdomen reviewed, no comment on pancreas in findings/impression General surgery consulted admission Currently asymptomatic, recheck lipase (2) Acute kidney injury: Code(s): N17.9 - Acute kidney failure, unspecified Status: Acute Assessment and Plan: Likely to be pre renal azotemia Patient with nausea and vomiting Poor oral intake prior to admission IV fluids, clear liquid diet (3) Weight loss: Code(s): R63.4 - Abnormal weight loss Status: Acute Assessment and Plan: Unsure of etiology, likely multifactorial, failure to thrive workup needed outpatient (4) Nausea and vomiting: Code(s): R11.2 - Nausea with vomiting, unspecified Status: Acute Assessment and Plan: Clear liquid diet, IV fluids, supportive care (5) Gastroesophageal reflux disease: Code(s): K21.9 - Gastro-esophageal reflux disease without esophagitis Status: Acute Assessment and Plan: PPI (6) Coronary artery disease: Code(s): I25.10 - Atherosclerotic heart disease of [place] coronary artery without angina pectoris Status: Acute Assessment and Plan: Chest pain-free, troponin negative x3, coronary artery disease with history of stent EKG slightly abnormal, monitor symptoms Would recommend outpatient stress test, last stress test from 2020 was negative for ischemia Previous admission chest pain was thought to be secondary to GERD, that time she was increased from daily to b.i.d. with her PPI and sucralfate was added (7) HTN (hypertension), malignant: Code(s): I10 - Essential (primary) hypertension Status: Chronic Assessment and Plan: Blood pressures reviewed 09/17 Continue home antihypertensives (8) Aortic stenosis: Code(s): I35.0 - Nonrheumatic aortic (valve) stenosis Status: Acute Assessment and Plan: Follow-up in the outpatient setting No signs of decompensation (9) Tobacco use: Code(s): Z72.0 - Tobacco use Status: Acute Assessment and Plan: Nicotine patch as needed (10) Chronic pancreatitis: Code(s): K86.1 - Other chronic pancreatitis Status: Acute Assessment and Plan: Patient is on pancreatic enzymes (11) Pulmonary nodule: Code(s): R91.1 - Solitary pulmonary nodule Status: Acute Assessment and Plan: Small upper lobe nodules, follow-up low-dose CT chest in 12 months (12) Hydronephrosis: Code(s): N13.30 - Unspecified hydronephrosis Status: Acute Assessment and Plan: History of chronic intermittent left hydronephrosis, renal scan with new med from May 2022 showed delayed clearance of activity from the left kidney consistent with partial obstruction, she is supposed to follow-up outpatient but has not made into the office yet (13) Tobacco dependence: Code(s): F17.200 - Nicotine dependence, unspecified, uncomplicated Status: Acute Assessment and Plan: Smoking cessation recommended, greater than 5 minutes spent in counseling for behavior modification Plan DVT prophylaxis with SCDs GI prophylaxis not indicated Code status full code Subjective Date/time seen: 09/17/22 10:23 Interval history: No overnight events noted. No chest pain or shortness of breath. No nausea, vomiting or diarrhea. No fevers or chills. Patient states she feels much better than when she came in. No abdominal pain today. Upon chart review, she has a history of hydronephrosis with left kidney atrophy and decreased uptake with possible partial obstruction as well as acute interstitial pancreatitis status post cholecystectomy of unknown jose c
[2022-09-17] MEDS: SODIUM CHLORIDE 0.9% IV 1,000 ML 125 ML IV CONT ×2 (10:57→18:46)
[2022-09-17 11:14] LABS: Basophils Percent Auto 0.6 % (0.2-1.2); Eosinophils Absolute Auto 0.1 K/mm3 (0-0.3); Eosinophils Percent Auto 1.3 % (0-4.4); Hematocrit 29.5 % (37.0-47.0); Hemoglobin 10.1 g/dL (12.0-15.0); Immature Granulocyte Absolute 0.02 K/mm3 (0.00-0.031); Immature Granulocyte Percent A 0.3 % (0-0.5); Lymphocytes Absolute Auto 2.86 K/mm3 (0.9-3.2); Lymphocytes Percent Auto 42.9 % (18.3-44.2); Mean Corpuscular HGB Conc 34.2 g/dl (32-36); Mean Corpuscular Hemoglobin 30.1 pg (26-34); Mean Corpuscular Volume 88.1 fl (80-100); Mean Platelet Volume 9.8 fl (7.4-10.4); Monocytes Absolute Auto 0.6 K/mm3 (0.1-0.6); Monocytes Percent Auto 9.6 % (2.6-8.5); Neutrophils Percent Auto 45.3 % (45.5-73.1); Platelet Count Result 264 k/mm3 (150-375); Red Blood Count 3.35 M/mm3 (4.2-5.4); Red Cell Distribution Width 13.2 % (11.5-14.5); White Blood Count 6.7 K/mm3 (4.5-10.0)
--- NOTE | 2022-09-17 11:15 | PM.CNGS ---
Assessment and Plan Assessment and plan (1) Acute on chronic pancreatitis: Code(s): K85.90 - Acute pancreatitis without necrosis or infection, unspecified; K86.1 - Other chronic pancreatitis Status: Acute Assessment and Plan: exam benign at this point, we will get GI consultation for management of acute on chronic pancreatitis, no acute surgical issues at this time (2) Tobacco dependence: Code(s): F17.200 - Nicotine dependence, unspecified, uncomplicated Status: Acute Assessment and Plan: patient not interested in cessation at this point History of Present Illness Consult details Consult date: 09/17/22 Reason for consult: abdominal pain Requesting physician: Guzman Chiu MD Narrative: The patient is a 57-year-old female presenting to the hospital complaining of severe epigastric abdominal pain. Patient reports the pain is constant and sharp with radiation to her back. The patient reports nausea as well some episodes of emesis. The patient reports intermittent symptoms over the last 10 years. The patient does have a diagnosis chronic pancreatic insufficiency. Workup, including imaging, is significant for acute on chronic pancreatitis. Of note, the patient had cholecystectomy greater than 10 years ago. Review of Systems Constitutional: Constitutional: Reports as per HPI, Reports anorexia, Denies chills, Reports fatigue, Denies fever(s), Reports lethargy, Reports malaise, Reports poor appetite, Reports weakness, Denies weight gain and Denies weight loss Eyes: Eyes: Reports no additional eye complaints ENT: Reports system reviewed and no additional complaints, except as documented Cardiovascular: Cardiovascular: Reports no additional cardiovascular complaints Respiratory: Respiratory: Reports no additional respiratory complaints Gastrointestinal: Gastrointestinal: Reports as per HPI, Reports abdominal pain, Reports bloating, Reports GI cramping, Reports dyspepsia, Reports nausea, Reports vomiting and Denies hematemesis Genitourinary: Genitourinary: Reports no additional female genitourinary complaints Musculoskeletal: Musculoskeletal: Reports no additional musculoskeletal complaints Integumentary/Breasts: Skin/Breast: Reports system reviewed and no additional complaints, except as docu Neurologic: Reports system reviewed and no additional complaints, except as documented Psychiatric: Psychiatric: Reports no additional psychiatric complaints Endocrine: Endocrine: Reports no additional endocrine complaints Hematologic/Lymphatic: Hematologic/Lymphatic: Reports no additional hematologic/lymphatic complaints Allergic/Immunologic: Allergic/Immunologic: Reports no additional allergic/immunologic complaints PMFSH Past Medical History Medical History Acute renal failure Anxiety Aortic stenosis Arthritis Colon cancer screening Coronary artery disease History of stent x2. Diarrhea DVT prophylaxis Elevated lipase Elevated liver enzymes Elevated WBC count Gastroesophageal reflux disease HTN (hypertension), malignant Hypomagnesemia Marijuana smoker Migraines Mild aortic valve stenosis Aortic valve area of 1.4 cm2 on echocardiogram in February 2020. Pancreatitis Tobacco use Vomiting and diarrhea Weight loss Surgical History Surgical History History of cardiac catheterization History of cholecystectomy History of esophagogastroduodenoscopy (02/16/20) Unspecified esophagitis and gastritis. History of heart artery stent (2015) Performed at [facility] in [place]. History of hysterectomy History of open reduction and internal fixation (ORIF) procedure Right ankle fracture. Left elbow fracture. Family History Family History Mother Hypertension Hyperlipidemia Rheumatic fever Kidney disease Heart
[2022-09-17 11:37] LABS: Alanine Aminotransferase 109 U/L (6-35); Albumin Level 4.1 g/dL (3.5-5.1); Alkaline Phosphatase 78 U/L (38-126); Anion Gap 13 mmol/L (8-16); Aspartate Amino Transferase 166 U/L (14-36); Bilirubin,Total 0.5 mg/dL (0.2-1.3); Blood Urea Nitrogen 23 mg/dL (7-17); Calcium 8.4 mg/dL (8.4-10.2); Carbon Dioxide 18 mmol/L (22-30); Chloride 107 mmol/L (98-107); Estimated CRCL calculation 52 ml/min; Estimated Glomerular Filt Rate 57; Glucose 108 mg/dL (65-110); Potassium 3.3 mmol/L (3.4-5.0); Sodium 138 mmol/L (137-145)
[2022-09-17 11:57] LABS: Lipase 3185 U/L (23-300)
[2022-09-17 14:00] VITALS: BP 128/51; PULSE 56; RESP 20; TEMP 36.4; O2SAT 100
[2022-09-17] MEDS: rOPINIRole HCL 0.5 MG TABLET PO (20:17)
[2022-09-17 22:00] VITALS: BP 143/43; PULSE 67; RESP 20; TEMP 37; O2SAT 99
[2022-09-18] MEDS: HYDROmorphone HCL INJ (*CRX) 1 MG/ML SYR 0.5 MG IV PUSH ×6 (00:19→20:33)
[2022-09-18] MEDS: ONDANSETRON INJ 4 MG/2 ML VIAL IV PUSH ×6 (00:19→20:34)
[2022-09-18] MEDS: SODIUM CHLORIDE 0.9% IV 1,000 ML 125 ML IV CONT ×2 (02:48→22:44)
[2022-09-18 06:00] VITALS: BP 149/76; PULSE 62; RESP 21; TEMP 36.1; O2SAT 100
[2022-09-18 06:10] LABS: Basophils Absolute Auto 0.1 K/mm3 (0.0-0.1); Basophils Percent Auto 0.8 % (0.2-1.2); Eosinophils Absolute Auto 0.2 K/mm3 (0-0.3); Eosinophils Percent Auto 2.8 % (0-4.4); Hematocrit 28.5 % (37.0-47.0); Hemoglobin 9.4 g/dL (12.0-15.0); Lymphocytes Absolute Auto 3.77 K/mm3 (0.9-3.2); Lymphocytes Percent Auto 61.6 % (18.3-44.2); Mean Corpuscular Hemoglobin 29.9 pg (26-34); Mean Corpuscular Volume 90.8 fl (80-100); Mean Platelet Volume 9.6 fl (7.4-10.4); Monocytes Absolute Auto 0.5 K/mm3 (0.1-0.6); Monocytes Percent Auto 8.2 % (2.6-8.5); Neutrophils Absolute Auto 1.6 K/mm3 (1.3-6.7); Neutrophils Percent Auto 26.6 % (45.5-73.1); Platelet Count Result 251 k/mm3 (150-375); Red Blood Count 3.14 M/mm3 (4.2-5.4); Red Cell Distribution Width 13.5 % (11.5-14.5); White Blood Count 6.1 K/mm3 (4.5-10.0)
[2022-09-18 06:39] LABS: Alanine Aminotransferase 73 U/L (6-35); Albumin Level 3.7 g/dL (3.5-5.1); Alkaline Phosphatase 76 U/L (38-126); Anion Gap 6 mmol/L (8-16); Aspartate Amino Transferase 78 U/L (14-36); Bilirubin,Total 0.2 mg/dL (0.2-1.3); Blood Urea Nitrogen 15 mg/dL (7-17); Calcium 8.1 mg/dL (8.4-10.2); Carbon Dioxide 22 mmol/L (22-30); Chloride 112 mmol/L (98-107); Estimated CRCL calculation 52 ml/min; Estimated Glomerular Filt Rate 57; Glucose 90 mg/dL (65-110); Potassium 4.1 mmol/L (3.4-5.0); Sodium 140 mmol/L (137-145)
[2022-09-18 08:00] VITALS: PULSE 62; RESP 21; O2SAT 100
[2022-09-18] MEDS: PREGABALIN (*CRX) 75 MG CAPSULE 150 MG PO ×2 (08:20→16:39)
[2022-09-18] MEDS: amLODIPine BESYLATE 5 MG TABLET PO (08:20)
[2022-09-18] MEDS: LIPASE/AMYLASE/PROTEASE 12,000 UNITS CAP 1 CAP PO ×3 (08:20→16:38)
[2022-09-18] MEDS: ASPIRIN 81 MG CHEWABLE TABLET PO (08:20)
[2022-09-18] MEDS: PANTOPRAZOLE SODIUM IV 40 MG VIAL IV PUSH ×2 (08:20→20:28)
--- NOTE | 2022-09-18 09:44 | PM.PNGS ---
Progress Note: A&P Assessment and Plan (1) Acute on chronic pancreatitis: Code(s): K85.90 - Acute pancreatitis without necrosis or infection, unspecified; K86.1 - Other chronic pancreatitis Status: Acute Assessment and Plan: exam benign, ?etiology, await GI input, no acute surgical issues, will s/o, call c ?s, issues Subjective Subjective Date/Time Seen: 09/18/22 09:44 Interval history: no acute issues, feels better Review of Systems Review of Systems: All systems reviewed & are unremarkable except as noted in HPI and below Exam Const: General: cooperative, comfortable and no acute distress GI: Inspection: normal to inspection and non-distended GI Palp: Yes abdominal tenderness, Yes Soft to palpation, Yes Tenderness to palpation present (GI), No Guarding due to palpation present (GI) and No Rigid due to palpation Objective Data Vital Signs Vital Signs: Vital Signs - 24 hr 09/17/22 14:00 09/17/22 22:00 09/18/22 06:00 Temperature 36.4 C 37.0 C 36.1 C L Pulse Rate 56 L 67 62 Respiratory Rate 20 20 21 H Blood Pressure 128/51 L 143/43 H 149/76 H Pulse Oximetry 100 99 100 Oxygen Delivery 09/18/22 08:00 Temperature Pulse Rate 62 Respiratory Rate 21 H Blood Pressure Pulse Oximetry 100 Oxygen Delivery Room Air Intake/Output Intake/Output: Intake & Output 09/15/22 09/16/22 09/17/22 09/18/22 23:59 23:59 23:59 23:59 Intake Total 1000 3720 1900 Output Total 3800 1400 Balance 1000 -80 500 Meds/Results Medications: Active Medications Generic Name Dose Route Start Last Admin Trade Name Freq PRN Reason Stop Dose Admin Al Hydrox/Mg Hydrox/Simethicone 30 ml 09/16/22 22:59 Mag Hydrox/Al Hydrox/Simeth 30 Ml Udc PO Q6H PRN Indigestion Amlodipine Besylate 5 mg 09/17/22 09:00 09/18/22 08:20 Amlodipine Besylate 5 Mg Tablet PO 5 mg QAM PRIMITIVO Administration Lipase/Protease/Amylase 1 cap 09/17/22 08:00 09/18/22 08:20 Lipase/Amylase/Protease 12,000 Units Cap PO 1 cap TIDWM PRIMITIVO Administration Aspirin 81 mg 09/17/22 08:00 09/18/22 08:20 Aspirin 81 Mg Chewable Tablet PO 81 mg DAILY@0800 PRIMITIVO Administration Hydralazine HCl 10 mg 09/16/22 23:03 Hydralazine Hcl 20 Mg/Ml Vial IV PUSH Q8H PRN Blood Pressure - High Hydromorphone HCl 0.5 mg 09/16/22 21:42 09/18/22 08:20 Hydromorphone Hcl Inj (*Crx) 1 Mg/Ml Syr IV PUSH 0.5 mg Q4H PRN Administration Pain Rated 7-10 Sodium Chloride 1,000 mls @ 125 mls/hr 09/17/22 10:30 09/18/22 02:48 Normal Saline Iv IV CONT 125 mls/hr .Q8H PRIMITIVO Administration Ondansetron HCl 4 mg 09/16/22 21:42 09/18/22 08:21 Ondansetron Inj 4 Mg/2 Ml Vial IV PUSH 4 mg Q4H PRN Administration Nausea Pantoprazole Sodium 40 mg 09/16/22 23:05 09/18/22 08:20 Pantoprazole Sodium Iv 40 Mg Vial IV PUSH 40 mg Q12HR PRIMITIVO Administration Pregabalin 150 mg 09/16/22 23:05 09/18/22 08:20 Pregabalin (*Crx) 75 Mg Capsule PO 150 mg BID PRIMITIVO Administration Ropinirole HCl 0.5 mg 09/16/22 23:05 09/17/22 20:17 Ropinirole Hcl 0.5 Mg Tablet PO 0.5 mg HS PRIMITIVO Administration Radiology Results: ITS Impressions Chest X-Ray 09/16/22 18:21 IMPRESSION: 1: NO ACUTE CARDIOPULMONARY DISEASE. Chest/Abdomen/Pelvis CTA 09/16/22 21:01 IMPRESSION: 1. Small upper lobe nodules measuring 3 mm or less, likely benign. Consider follow-up low dose CT chest in 12 months. 2: Chronic intrahepatic and extrahepatic biliary dilatation status post cholecystectomy. Renal Ultrasound 09/17/22 14:26 Impression: 1: Mild bilateral hydronephrosis. Labs Labs: Laboratory Results - last 24 hr 09/17/22 09/18/22 10:56 06:04 WBC 6.7 6.1 RBC 3.35 L 3.14 L Hgb 10.1 L D 9.4 L Hct 29.5 L 28.5 L MCV 88.1 90.8 MCH 30.1 29.9 MCHC 34.2 33.0 RDW 13.2 13.5 Plt Count 264 251 MPV 9.8 9.6 Immature Gran % (Auto) 0.3 0.0 Neut % (Auto
[2022-09-18 10:56] LABS: Lipase 510 U/L (23-300)
--- NOTE | 2022-09-18 12:55 | WPDGICN ---
Assessment and Plan Assessment and plan (1) Acute on chronic pancreatitis: Code(s): K85.90 - Acute pancreatitis without necrosis or infection, unspecified; K86.1 - Other chronic pancreatitis Status: Acute Assessment and Plan: Patient appears to have chronic idiopathic pancreatitis. She may have relapsing features. Will ask Radiology to evaluate the pancreas on previous imaging studies as this was not described. Suggest adding Creon enzyme with meals. As lipase decreases we may be able to increase diet intake. (2) Epigastric abdominal pain: Code(s): R10.13 - Epigastric pain Status: Acute Assessment and Plan: Epigastric pain with epigastric fullness appreciated. Follow-up imaging may be of some prudence to evaluate more thoroughly. We may wish to schedule follow-up EGD at some point to assess for ongoing pain. Will cover with Protonix in the interim. (3) Anemia: Code(s): D64.9 - Anemia, unspecified Status: Acute Assessment and Plan: Patient has anemia of uncertain nature. We will check iron studies as well. Colonoscopy within the last several years ago was unremarkable. EGD likewise was unremarkable. (4) Marijuana smoker: Code(s): F12.90 - Cannabis use, unspecified, uncomplicated Status: Acute GI Consult Note Consult date/time: 09/18/22 12:55 Reason for consult: Pancreatitis HPI: Anny Palmer is a 57 year old female seen in the absence of Dr. Marciano Lozada. patient admitted with atypical chest pain. She was foundto have elevated lipase. Patient is quite emotional at present. She has a past medical history hypertension, coronary artery disease with stent placement. She underwent a cholecystectomy in 2011. She has been admitted to the hospital in 2019 again in 2020 with pancreatitis. Workup has revealed this to be idiopathic. Patient currently complains of a sharp persistent substernal discomfort. She states this is worse after eating particularly with drinking liquids. She denies a fever. She has had no weight loss. She denies any radiation of the pain. Patient was noted to have markedly elevated lipase that has gradually been improving. CTA was performed with no specific mention of the pancreas. Patient's family history noncontributory. Imaging studies revealed mild chronic dilatation of the biliary tree after previous cholecystectomy. Two previous MRCP is were unremarkable with no evidence of biliary obstruction. Patient appears quite emotional and anxious at present on exam today. Review of Systems Review of Systems: review of systems noncontributory. [facility] Past Medical History Medical History Acute renal failure Anxiety Aortic stenosis Arthritis Colon cancer screening Coronary artery disease History of stent x2. Diarrhea DVT prophylaxis Elevated lipase Elevated liver enzymes Elevated WBC count Gastroesophageal reflux disease HTN (hypertension), malignant Hypomagnesemia Marijuana smoker Migraines Mild aortic valve stenosis Aortic valve area of 1.4 cm2 on echocardiogram in February 2020. Pancreatitis Tobacco use Vomiting and diarrhea Weight loss Surgical History Surgical History History of cardiac catheterization History of cholecystectomy History of esophagogastroduodenoscopy (02/16/20) Unspecified esophagitis and gastritis. History of heart artery stent (2015) Performed at [facility] in [place]. History of hysterectomy History of open reduction and internal fixation (ORIF) procedure Right ankle fracture. Left elbow fracture. Family History Family History Mother Hypertension Hyperlipidemia Rheumatic fever Kidney disease Heart murmur Sibling Kidney disease Alcoholism Social History Social Hist
--- NOTE | 2022-09-18 13:13 | PCCCNOTE ---
On 09/18/22, the student, [Marylou Mcdaniel ], provided care and [facility] on this patient. I have reviewed the student's documentation and agree with the findings.
--- NOTE | 2022-09-18 13:22 | PM.IMPN ---
Progress Note: A&P Assessment and Plan (1) Acute pancreatitis: Code(s): K85.90 - Acute pancreatitis without necrosis or infection, unspecified Status: Acute Assessment and Plan: Admit to regular medical floor, ADAT, CT of abdomen reviewed, no comment on pancreas in findings/impression--addendum added showing no concerns with pancreas General surgery consulted admission, already signed off, no surgical intervention needed Lipase trending down to 510 today, still with significant abdominal pain EGD 09/19 (2) Acute kidney injury: Code(s): N17.9 - Acute kidney failure, unspecified Status: Acute Assessment and Plan: resolved (3) Weight loss: Code(s): R63.4 - Abnormal weight loss Status: Acute Assessment and Plan: Unsure of etiology, likely multifactorial, failure to thrive workup needed outpatient (4) Nausea and vomiting: Code(s): R11.2 - Nausea with vomiting, unspecified Status: Acute Assessment and Plan: ADAT, IV fluids, supportive care (5) Gastroesophageal reflux disease: Code(s): K21.9 - Gastro-esophageal reflux disease without esophagitis Status: Acute Assessment and Plan: PPI (6) Coronary artery disease: Code(s): I25.10 - Atherosclerotic heart disease of [place] coronary artery without angina pectoris Status: Acute Assessment and Plan: Chest pain-free, troponin negative x3, coronary artery disease with history of stent EKG slightly abnormal, monitor symptoms Would recommend outpatient stress test, last stress test from 2020 was negative for ischemia Previous admission chest pain was thought to be secondary to GERD, that time she was increased from daily to b.i.d. with her PPI and sucralfate was added (7) HTN (hypertension), malignant: Code(s): I10 - Essential (primary) hypertension Status: Chronic Assessment and Plan: Blood pressures reviewed 09/18 Continue home antihypertensives (8) Aortic stenosis: Code(s): I35.0 - Nonrheumatic aortic (valve) stenosis Status: Acute Assessment and Plan: Follow-up in the outpatient setting No signs of decompensation (9) Tobacco use: Code(s): Z72.0 - Tobacco use Status: Acute Assessment and Plan: Nicotine patch as needed (10) Chronic pancreatitis: Code(s): K86.1 - Other chronic pancreatitis Status: Acute Assessment and Plan: Patient is on pancreatic enzymes (11) Pulmonary nodule: Code(s): R91.1 - Solitary pulmonary nodule Status: Acute Assessment and Plan: Small upper lobe nodules, follow-up low-dose CT chest in 12 months (12) Hydronephrosis: Code(s): N13.30 - Unspecified hydronephrosis Status: Acute Assessment and Plan: History of chronic intermittent left hydronephrosis, renal scan with new med from May 2022 showed delayed clearance of activity from the left kidney consistent with partial obstruction, she is supposed to follow-up outpatient but has not made into the office yet (13) Tobacco dependence: Code(s): F17.200 - Nicotine dependence, unspecified, uncomplicated Status: Acute Assessment and Plan: Smoking cessation recommended, greater than 5 minutes spent in counseling for behavior modification Plan DVT prophylaxis with SCDs GI prophylaxis not indicated Code status full code Subjective Date/time seen: 09/18/22 13:22 Interval history: No overnight events noted. No chest pain or shortness of breath. No nausea, vomiting or diarrhea. No fevers or chills. Review of Systems Review of Systems: 12 point review of systems was assessed and was negative except as noted in the HPI Exam Narrative: General: No acute distress, alert and oriented per baseline HEENT: Atraumatic, normocephalic, mucous membranes moist CV: Regular rate and rhythm, S1, S2 Lungs: C
[2022-09-18 14:03] VITALS: BP 159/72; PULSE 58; RESP 16; TEMP 36.8; O2SAT 100
[2022-09-18] MEDS: rOPINIRole HCL 0.5 MG TABLET PO (20:28)
[2022-09-18 21:27] VITALS: BP 178/58; PULSE 64; RESP 18; TEMP 36.7; O2SAT 100
[2022-09-19] VITALS (11 sets, daily range): BP systolic 134–217; BP diastolic 56–96; PULSE 53–74; RESP 16–20; TEMP 36.3–36.8; O2SAT 100
[2022-09-19] MEDS: HYDROmorphone HCL INJ (*CRX) 1 MG/ML SYR 0.5 MG IV PUSH ×4 (01:05→16:56)
[2022-09-19 05:46] LABS: Basophils Absolute Auto 0.1 K/mm3 (0.0-0.1); Basophils Percent Auto 0.8 % (0.2-1.2); Eosinophils Absolute Auto 0.3 K/mm3 (0-0.3); Eosinophils Percent Auto 4.4 % (0-4.4); Hematocrit 26.3 % (37.0-47.0); Hemoglobin 8.8 g/dL (12.0-15.0); Immature Granulocyte Absolute 0.01 K/mm3 (0.00-0.031); Immature Granulocyte Percent A 0.1 % (0-0.5); Lymphocytes Absolute Auto 3.42 K/mm3 (0.9-3.2); Lymphocytes Percent Auto 45.4 % (18.3-44.2); Mean Corpuscular HGB Conc 33.5 g/dl (32-36); Mean Corpuscular Hemoglobin 30.3 pg (26-34); Mean Corpuscular Volume 90.7 fl (80-100); Mean Platelet Volume 9.9 fl (7.4-10.4); Monocytes Absolute Auto 0.5 K/mm3 (0.1-0.6); Monocytes Percent Auto 6.9 % (2.6-8.5); Neutrophils Absolute Auto 3.2 K/mm3 (1.3-6.7); Neutrophils Percent Auto 42.4 % (45.5-73.1); Platelet Count Result 240 k/mm3 (150-375); Red Cell Distribution Width 13.5 % (11.5-14.5); White Blood Count 7.5 K/mm3 (4.5-10.0)
[2022-09-19 05:57] LABS: Alanine Aminotransferase 51 U/L (6-35); Albumin Level 3.3 g/dL (3.5-5.1); Alkaline Phosphatase 65 U/L (38-126); Anion Gap 2 mmol/L (8-16); Aspartate Amino Transferase 37 U/L (14-36); Bilirubin,Total < 0.1 mg/dL (0.2-1.3); Blood Urea Nitrogen 12 mg/dL (7-17); Calcium 8.1 mg/dL (8.4-10.2); Carbon Dioxide 27 mmol/L (22-30); Chloride 113 mmol/L (98-107); Estimated CRCL calculation 64 ml/min; Estimated Glomerular Filt Rate > 60; Glucose 91 mg/dL (65-110); Potassium 4.2 mmol/L (3.4-5.0); Sodium 142 mmol/L (137-145)
[2022-09-19] MEDS: SODIUM CHLORIDE 0.9% IV 1,000 ML 125 ML IV CONT (06:27)
[2022-09-19] MEDS: PREGABALIN (*CRX) 75 MG CAPSULE 150 MG PO ×2 (08:22→16:56)
[2022-09-19] MEDS: amLODIPine BESYLATE 5 MG TABLET PO (08:22)
[2022-09-19] MEDS: PANTOPRAZOLE SODIUM IV 40 MG VIAL IV PUSH ×2 (08:22→21:15)
[2022-09-19] MEDS: LACTATED RINGERS 1,000 ML 150 ML IV CONT (10:29)
--- NOTE | 2022-09-19 11:14 | WPDANESEPPF ---
Anes - Initial Pre Proc Eval Procedure: Operation Date: 09/19/22 14:00 Proposed Procedures p Esophagogastroduodenoscopy - Brad Mata MD Date/Time: 09/19/22 11:14 Surgeon: Guzman Chiu MD Pre Op Diagnosis: acute pancreatitis Patient Data Age: 57 Gender: F Height: 1.7 m Weight: 60.5 kg Last Vital Signs Temp 97.3 F L 09/19/22 10:23 Pulse 60 09/19/22 10:23 Resp 20 09/19/22 10:23 BP 180/59 H 09/19/22 10:31 Pulse Ox 100 09/19/22 10:23 O2 Del Method Room Air 09/19/22 10:23 Allergies Allergy/AdvReac Type Severity Reaction Status Date / Time butalbital Allergy Unknown hives Verified 09/16/22 22:51 ibuprofen Allergy Unknown Hives Verified 09/16/22 22:51 ketorolac Allergy Unknown Hives Verified 09/16/22 22:51 naproxen Allergy Unknown Hives Verified 09/16/22 22:51 sumatriptan Allergy Unknown Hives Verified 09/16/22 22:51 Fish Containing Products Allergy Hives Verified 09/16/22 22:51 Home Medications Medication Instructions Recorded Confirmed Type ropinirole 0.5 mg tablet 0.5 mg PO HS 02/10/21 09/16/22 History aspirin 81 mg chewable tablet 81 mg PO DAILY@0800 #30 tabs 02/11/21 09/16/22 Rx (Children's Aspirin) rosuvastatin 10 mg tablet (Crestor) 10 mg PO QAM #30 tabs 02/11/21 09/16/22 Rx pqbppc-hlmdiaug-kimlcat 1 cap PO TIDWM 30 days #90 caps 02/28/21 09/16/22 Rx 12,000-38,000-60,000 unit capsule,delayed rel (Creon) amlodipine 5 mg tablet (Norvasc) 5 mg PO QAM #30 tabs 06/25/22 09/16/22 Rx pantoprazole 40 mg tablet,delayed 40 mg PO Q12HR #60 tabs 06/25/22 09/16/22 Rx release lisinopril 20 1 tablet PO DAILY 09/16/22 09/16/22 History mg-hydrochlorothiazide 25 mg tablet pregabalin 150 mg capsule 150 mg PO BID 09/16/22 09/16/22 History Laboratory Tests 09/19/22 05:29 WBC 7.5 K/mm3 (4.5-10.0) RBC 2.90 L M/mm3 (4.2-5.4) Hgb 8.8 L g/dL (12.0-15.0) Hct 26.3 L % (37.0-47.0) MCV 90.7 fl (80-100) MCH 30.3 pg (26-34) MCHC 33.5 g/dl (32-36) RDW 13.5 % (11.5-14.5) Plt Count 240 k/mm3 (150-375) MPV 9.9 fl (7.4-10.4) Immature Gran % (Auto) 0.1 % (0-0.5) Neut % (Auto) 42.4 L % (45.5-73.1) Lymph % (Auto) 45.4 H % (18.3-44.2) [place] % (Auto) 6.9 % (2.6-8.5) Eos % (Auto) 4.4 % (0-4.4) Baso % (Auto) 0.8 % (0.2-1.2) Lymph # (Auto) 3.42 H K/mm3 (0.9-3.2) [place] # (Auto) 0.5 K/mm3 (0.1-0.6) Eos # (Auto) 0.3 K/mm3 (0-0.3) Baso # (Auto) 0.1 K/mm3 (0.0-0.1) Abs Immat Gran (auto) 0.01 K/mm3 (0.00-0.031) Absolute Neuts (auto) 3.2 K/mm3 (1.3-6.7) Absolute Nucleated RBC 0.0 K/mm3 (0.0-0.012) Nucleated RBC % 0.0 % (0.0-0.2) Sodium 142 mmol/L (137-145) Potassium 4.2 mmol/L (3.4-5.0) Chloride 113 H mmol/L (98-107) Carbon Dioxide 27 mmol/L (22-30) Anion Gap 2 L mmol/L (8-16) BUN 12 mg/dL (7-17) Creatinine 0.80 mg/dL (0.7-1.0) Estim Creat Clear Calc 64 ml/min Estimated GFR > 60 (59 - ) Glucose 91 mg/dL (65-110) Calcium 8.1 L mg/dL (8.4-10.2) Total Bilirubin < 0.1 L mg/dL (0.2-1.3) AST 37 H U/L (14-36) ALT 51 H U/L (6-35) Alkaline Phosphatase 65 U/L (38-126) Total Protein 6.0 L g/dL (6.3-8.2) Albumin 3.3 L g/dL (3.5-5.1) Patient hx anesthesia problems: none Family hx anesthesia problems: none Results Review: All pre-operative results and documents have been reviewed as part of the pre-operative evaluation. [facility] Past Medical History Medical History Acute renal failure Anxiety Aortic stenosis Arthritis Colon cancer screening Coronary artery disease History of stent x2. Diarrhea DVT prophylaxis Elevated lipase Elevated liver enzymes Elevated WBC count Gastroesophageal reflux disease HTN (hypertension), malignant Hypomagnesemia Marijuana smoker Migraines Mild aortic valve steno
--- NOTE | 2022-09-19 11:20 | SUR.PREOP ---
Fentanyl ordered per Dr. Valdivia for pain. TIFFANY Tate came to get patient for procedure soon after. Wishes to hold Fentanyl at this time. Ok to give post-op if needed per Dr. Valdivia.
[2022-09-19] MEDS: fentaNYL CITRATE INJ (*CRX) 100 MCG/2 ML VIAL 50 MCG IV PUSH (11:56)
--- NOTE | 2022-09-19 12:20 | PC.NURSE ---
Returned from GI Lab via stretcher. Family at bedside.
[2022-09-19] MEDS: LIPASE/AMYLASE/PROTEASE 12,000 UNITS CAP 1 CAP PO ×2 (12:31→16:52)
[2022-09-19] MEDS: hydrALAZINE HCL 20 MG/ML VIAL 10 MG IV PUSH (13:04)
--- NOTE | 2022-09-19 19:05 | PM.IMPN ---
Progress Note: A&P Assessment and Plan (1) Acute pancreatitis: Code(s): K85.90 - Acute pancreatitis without necrosis or infection, unspecified Status: Acute Assessment and Plan: Admit to regular medical floor, ADAT, CT of abdomen reviewed, no comment on pancreas in findings/impression--addendum added showing no concerns with pancreas General surgery consulted admission, already signed off, no surgical intervention needed Lipase trending down to 510, still with significant abdominal pain EGD 09/19 essentially normal, being treated for idiopathic chronic pancreatitis (2) Acute kidney injury: Code(s): N17.9 - Acute kidney failure, unspecified Status: Acute Assessment and Plan: resolved (3) Weight loss: Code(s): R63.4 - Abnormal weight loss Status: Acute Assessment and Plan: Unsure of etiology, likely multifactorial, failure to thrive workup needed outpatient (4) Nausea and vomiting: Code(s): R11.2 - Nausea with vomiting, unspecified Status: Acute Assessment and Plan: ADAT, IV fluids, supportive care (5) Gastroesophageal reflux disease: Code(s): K21.9 - Gastro-esophageal reflux disease without esophagitis Status: Acute Assessment and Plan: PPI (6) Coronary artery disease: Code(s): I25.10 - Atherosclerotic heart disease of [place] coronary artery without angina pectoris Status: Acute Assessment and Plan: Chest pain-free, troponin negative x3, coronary artery disease with history of stent EKG slightly abnormal, monitor symptoms Would recommend outpatient stress test, last stress test from 2020 was negative for ischemia Previous admission chest pain was thought to be secondary to GERD, that time she was increased from daily to b.i.d. with her PPI and sucralfate was added (7) HTN (hypertension), malignant: Code(s): I10 - Essential (primary) hypertension Status: Chronic Assessment and Plan: Blood pressures reviewed 09/19 Continue home antihypertensives (8) Aortic stenosis: Code(s): I35.0 - Nonrheumatic aortic (valve) stenosis Status: Acute Assessment and Plan: Follow-up in the outpatient setting No signs of decompensation (9) Tobacco use: Code(s): Z72.0 - Tobacco use Status: Acute Assessment and Plan: Nicotine patch as needed (10) Chronic pancreatitis: Code(s): K86.1 - Other chronic pancreatitis Status: Acute Assessment and Plan: Patient is on pancreatic enzymes (11) Pulmonary nodule: Code(s): R91.1 - Solitary pulmonary nodule Status: Acute Assessment and Plan: Small upper lobe nodules, follow-up low-dose CT chest in 12 months (12) Hydronephrosis: Code(s): N13.30 - Unspecified hydronephrosis Status: Acute Assessment and Plan: History of chronic intermittent left hydronephrosis, renal scan with new med from May 2022 showed delayed clearance of activity from the left kidney consistent with partial obstruction, she is supposed to follow-up outpatient but has not made into the office yet (13) Tobacco dependence: Code(s): F17.200 - Nicotine dependence, unspecified, uncomplicated Status: Acute Assessment and Plan: Smoking cessation recommended, greater than 5 minutes spent in counseling for behavior modification Plan DVT prophylaxis with SCDs GI prophylaxis not indicated Code status full code Subjective Date/time seen: 09/19/22 19:05 Interval history: patient in egd Exam Narrative: per gi Objective Data Vital Signs Vital Signs: Vital Signs - 24 hr 09/18/22 21:27 09/19/22 05:29 09/19/22 08:22 Temperature 98.1 F 98.3 F Pulse Rate 64 54 L Respiratory Rate 18 18 18 Blood Pressure 178/58 H 165/56 H Pulse Oximetry 100 100 100 Oxygen Delivery Room Air 09/19/22 10:23 09/19/22 10:31 09/19/22 1
[2022-09-19 20:18] LABS: Cholesterol 139 mg/dL (0-200); HDL Direct 52 mg/dL; Triglycerides 153 mg/dL (<150)
[2022-09-19 20:28] LABS: LDL Cholesterol Direct 50 mg/dL
[2022-09-19 20:34] LABS: Hemoglobin A1C 5.3 % (<5.7)
[2022-09-19] MEDS: rOPINIRole HCL 0.5 MG TABLET PO (21:15)
[2022-09-19] MEDS: MAG HYDROX/AL HYDROX/SIMETH 30 ML UDC PO (21:21)
--- NOTE | 2022-09-19 22:10 | PC.NURSE ---
PATIENT ASKING FOR SODA FREQUENTLY THEN ASKING FOR PAIN MEDS. PT STATES SHE DRINKS SODA ALL DAY LONG AT HOME. DISCUSSED WITH PATIENT THAT THE SODA COULD BE CAUSING SOME OF THE DISCOMFORT.
[2022-09-19] MEDS: traMADol HCL (*CRX) 25 MG TABLET PO (22:50)
[2022-09-20 06:00] VITALS: BP 163/72; PULSE 56; RESP 18; TEMP 36.4; O2SAT 100
[2022-09-20 06:30] LABS: Basophils Percent Auto 0.5 % (0.2-1.2); Eosinophils Absolute Auto 0.4 K/mm3 (0-0.3); Eosinophils Percent Auto 6.1 % (0-4.4); Hematocrit 33.2 % (37.0-47.0); Immature Granulocyte Absolute 0.01 K/mm3 (0.00-0.031); Immature Granulocyte Percent A 0.2 % (0-0.5); Lymphocytes Absolute Auto 2.09 K/mm3 (0.9-3.2); Lymphocytes Percent Auto 32.6 % (18.3-44.2); Mean Corpuscular HGB Conc 33.1 g/dl (32-36); Mean Corpuscular Hemoglobin 29.5 pg (26-34); Mean Platelet Volume 9.8 fl (7.4-10.4); Monocytes Absolute Auto 0.5 K/mm3 (0.1-0.6); Monocytes Percent Auto 8.1 % (2.6-8.5); Neutrophils Absolute Auto 3.4 K/mm3 (1.3-6.7); Neutrophils Percent Auto 52.5 % (45.5-73.1); Platelet Count Result 311 k/mm3 (150-375); Red Blood Count 3.73 M/mm3 (4.2-5.4); Red Cell Distribution Width 13.3 % (11.5-14.5); White Blood Count 6.4 K/mm3 (4.5-10.0)
[2022-09-20 06:37] LABS: Alanine Aminotransferase 46 U/L (6-35); Albumin Level 3.9 g/dL (3.5-5.1); Alkaline Phosphatase 73 U/L (38-126); Anion Gap 3 mmol/L (8-16); Aspartate Amino Transferase 37 U/L (14-36); Bilirubin,Total 0.3 mg/dL (0.2-1.3); Blood Urea Nitrogen 12 mg/dL (7-17); Calcium 9.1 mg/dL (8.4-10.2); Carbon Dioxide 37 mmol/L (22-30); Chloride 101 mmol/L (98-107); Estimated CRCL calculation 57 ml/min; Estimated Glomerular Filt Rate > 60; Glucose 99 mg/dL (65-110); Potassium 4.3 mmol/L (3.4-5.0); Sodium 141 mmol/L (137-145)
--- NOTE | 2022-09-20 07:35 | WPDGIPROGNO ---
Progress Note: A&P Assessment and Plan (1) Epigastric abdominal pain: Code(s): R10.13 - Epigastric pain Status: Acute Assessment and Plan: Patient with significant ongoing epigastric pain. Repairs to be influenced somewhat by her anxiety and emotions. Recent EGD was unremarkable. Elevated LFTs and lipase are gradually improving. Diet at this point does not appear to be affecting the discomfort. Plan to advance to a low-fat diet. Continue pain control. May be prudent to try Elavil 25 mg at bedtime as there appears to be a functional component to this discomfort. (2) Acute pancreatitis: Code(s): K85.90 - Acute pancreatitis without necrosis or infection, unspecified Status: Acute Assessment and Plan: Laboratory tests are consistent with acute pancreatitis. CT scan however was unremarkable in regards to the pancreas. Continue to monitor labs to ensure they are resolved. She has had similar episodes to this in the past. Most likely on the basis of idiopathic pancreatitis. Supportive care for now. Pancreatic enzymes are being utilized. Subjective Date/time seen: 09/20/22 07:35 Interval history: patient continues to complain rather significant epigastric pain. She appears quite anxious and emotional. She states she tolerated the liquid diet with no alteration in her discomfort. She states the discomfort is rather constant ongoing. Review of Systems Review of Systems: Review of systems noncontributory. Exam Narrative: Physical exam reveals patient be alert, afebrile and anicteric. HEENT exam reveals no icterus. Lungs are clear. Heart without murmur. Abdomen bowel sounds present soft she appears tender in the mid epigastric area. No masses are appreciated. Objective Data Vital Signs Vital Signs: Vital Signs - 24 hr 09/19/22 08:22 09/19/22 10:23 09/19/22 10:31 Temperature 97.3 F L Pulse Rate 60 Respiratory Rate 18 20 Blood Pressure 207/96 H 180/59 H Pulse Oximetry 100 100 Oxygen Delivery Room Air Room Air 09/19/22 11:37 09/19/22 11:47 09/19/22 11:57 Temperature Pulse Rate 53 L 57 L 57 L Respiratory Rate 20 20 20 Blood Pressure 172/76 H 134/91 H 178/83 H Pulse Oximetry 100 100 100 Oxygen Delivery Room Air Room Air Room Air 09/19/22 12:30 09/19/22 12:57 09/19/22 14:00 Temperature Pulse Rate 74 Respiratory Rate 20 Blood Pressure 217/80 H 212/68 H 183/61 H Pulse Oximetry 100 Oxygen Delivery 09/19/22 22:00 09/20/22 06:00 Temperature 97.9 F 97.6 F Pulse Rate 69 56 L Respiratory Rate 16 18 Blood Pressure 170/76 H 163/72 H Pulse Oximetry 100 100 Oxygen Delivery Intake/Output Intake/Output: Intake & Output 09/17/22 09/18/22 09/19/22 09/20/22 23:59 23:59 23:59 23:59 Intake Total 3720 6130 1530 Output Total 3800 2900 1000 Balance -80 3230 530 Meds/Results Medications: Active Medications Generic Name Dose Route Start Last Admin Trade Name Freq PRN Reason Stop Dose Admin Al Hydrox/Mg Hydrox/Simethicone 30 ml 09/16/22 22:59 09/19/22 21:21 Mag Hydrox/Al Hydrox/Simeth 30 Ml Udc PO 30 ml Q6H PRN Administration Indigestion Amlodipine Besylate 5 mg 09/17/22 09:00 09/19/22 08:22 Amlodipine Besylate 5 Mg Tablet PO 5 mg QAM PRIMITIVO Administration Lipase/Protease/Amylase 1 cap 09/17/22 08:00 09/19/22 16:52 Lipase/Amylase/Protease 12,000 Units Cap PO 1 cap TIDWM PRIMITIVO Administration Aspirin 81 mg 09/17/22 08:00 09/19/22 07:57 Aspirin 81 Mg Chewable Tablet PO Not Given DAILY@0800 [facility] Hydralazine HCl 10 mg 09/16/22 23:03 09/19/22 13:04 Hydralazine Hcl 20 Mg/Ml Vial IV PUSH 10 mg Q8H PRN Administration Blood Pressure - High Hydromorphone HCl 0.5 mg 09/16/22 21:42 09/19/22 16:56 Hydromorphone Hcl Inj (*Crx) 1 Mg/Ml Syr IV PUSH 0.5 mg Q4H PRN Administration Pain Rated 7-10 Ondansetron HCl 4 mg 09/16/22 21:42 09/18/22 20:34 On
[2022-09-20] MEDS: HYDROmorphone HCL INJ (*CRX) 1 MG/ML SYR 0.5 MG IV PUSH (07:40)
[2022-09-20] MEDS: LIPASE/AMYLASE/PROTEASE 12,000 UNITS CAP 1 CAP PO ×2 (07:40→11:50)
[2022-09-20 07:47] VITALS: RESP 18; O2SAT 100
[2022-09-20] MEDS: PANTOPRAZOLE 40 MG TABLET PO (08:19)
[2022-09-20] MEDS: ROSUVASTATIN 10 MG TABLET PO (08:19)
[2022-09-20] MEDS: lisinopriL 20 MG TABLET PO (08:19)
[2022-09-20] MEDS: hydroCHLOROthiazide 25 MG TABLET PO (08:19)
[2022-09-20] MEDS: amLODIPine BESYLATE 5 MG TABLET PO (08:20)
[2022-09-20] MEDS: ASPIRIN 81 MG CHEWABLE TABLET PO (08:20)
[2022-09-20] MEDS: PREGABALIN (*CRX) 75 MG CAPSULE 150 MG PO (08:24)
[2022-09-20 11:33] VITALS: BP 152/60; PULSE 62; RESP 18; TEMP 36.6; O2SAT 100
--- NOTE | 2022-09-20 12:19 | PM.DS ---
DS: Admitting Diagnosis Discharge Date 09/20/22 Admitting Diagnosis Abdominal pain DS: Discharge Diagnosis Discharge Diagnosis (1) Acute pancreatitis: Code(s): K85.90 - Acute pancreatitis without necrosis or infection, unspecified Status: Acute (2) Acute kidney injury: Code(s): N17.9 - Acute kidney failure, unspecified Status: Acute (3) Weight loss: Code(s): R63.4 - Abnormal weight loss Status: Acute (4) Nausea and vomiting: Code(s): R11.2 - Nausea with vomiting, unspecified Status: Acute (5) Gastroesophageal reflux disease: Code(s): K21.9 - Gastro-esophageal reflux disease without esophagitis Status: Acute (6) Coronary artery disease: Code(s): I25.10 - Atherosclerotic heart disease of [place] coronary artery without angina pectoris Status: Acute (7) HTN (hypertension), malignant: Code(s): I10 - Essential (primary) hypertension Status: Chronic (8) Aortic stenosis: Code(s): I35.0 - Nonrheumatic aortic (valve) stenosis Status: Acute (9) Tobacco use: Code(s): Z72.0 - Tobacco use Status: Acute (10) Chronic pancreatitis: Code(s): K86.1 - Other chronic pancreatitis Status: Acute (11) Pulmonary nodule: Code(s): R91.1 - Solitary pulmonary nodule Status: Acute (12) Hydronephrosis: Code(s): N13.30 - Unspecified hydronephrosis Status: Acute (13) Tobacco dependence: Code(s): F17.200 - Nicotine dependence, unspecified, uncomplicated Status: Acute DS: Summary Hospital Course Reason for hospitalization: 57yo female with chronic pancreatic insufficiency, CKD and CAD whos comes to the emergency room due to nausea, vomiting and epigastric pain. Please see H&P for details. Hospital Course: Patient presents with nausea, vomiting and abdominal pain. [place] [address]. CXR was clear. CTA chest/abdomin/pelvis showing small upper lung nodules measuring <3mm and chronic intra and extrahepatic biliary ductal dilitation status post cholecystectomy. No evidence of acute pancreatitis. UA noted with moderate squamous epithelial cells. No UCx reflexed. BUN 46 and Cr 1.3 on admission. She was made NPO. GI consulted. IV fluids started. Hgb was 13.2 on admission but dropped with IV fluids. Hgb climbed to 11 off IV fluids. Lipase trended down and diet resumed and advanced as she tolerated. EGD performed 09/19 essentially normal. Patient with coronary artery disease. She was chest pain-free, troponin negative x3. 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 Patient was educated about the benefits of smoking cessation. Renal US did show mild bilateral hydronephrosis. She has a hx of chronic intermittent left hydronephrosis and renal scan in May 2022 showed delayed clearance of activity from the left kidney consistent with partial obstruction. She is supposed to follow-up outpatient but has not made into the office yet. She was noted to have small pulmonary nodules that will need to followup with repeat imaging in 12 months given her smoking history. She did well. Her abdominal pain resolved. She was tolerating oral intake. She was able to be discharged home on 09/20/22. Status at Discharge Cognitive/behavioral status at discharge: stable Time Spent with Patient Time attestation: Total time spent providing and/or coordinating discharge services:35 minutes Time spent: Greater than 30 minutes Exam Narrative: AF 97.9 152/60 62 18 100% ra Gen - NARD Chest - CTA bilaterally, nml RR CV - RRR S1/S2 with 2/6 rt USB murmur Abd - soft, NT/ND, +BS Ext - No pedal edema Psych - Nml mood and affect Skin - Warm and dry DS: Data Data Completed and Pending Labs on day of discharge: Labs from last 24 hours 09/20/22 09/19/22 06:21 20:00 WBC 6.4 RBC 3.73 L Hgb 11.0 L Hct 33.2 L MCV 89.0 MCH 29.5 MCHC 33.1 RDW 13.3 Plt Count 311 MPV 9.8
--- NOTE | 2022-09-20 13:53 | PCCCNOTE ---
On 09/20/22, the student, [Marylou Mcdaniel ], provided care and completed [facility] documentation on this patient. I have reviewed the student's documentation and agree with the findings.
== END 2022-09-20 13:30 | disposition home or self-care (01) | DRG 282 ==
LOC: ANHED 21:41 → ANH2MED 22:13
PROVIDERS: Emergency Medicine; Internal Medicine Gastroenterology; Student in an Organized Health Care Education/Training Program; Admitting Provider Internal Medicine; Emergency Provider Physician Assistant; PCP Internal Medicine; Visit Provider Internal Medicine
PROC: 0DJ08ZZ Inspection of Upper Intestinal Tract, Via Natural or Artificial Opening Endoscopic (ICD-10-PCS; CPT 43235; principal; 2022-09-19 14:00)
DX: K85.00 Idiopathic acute pancreatitis without necrosis or infection (principal); N17.9 Acute kidney failure, unspecified; N13.30 Unspecified hydronephrosis; I25.10 Atherosclerotic heart disease of native coronary artery without angina pectoris; I10 Essential (primary) hypertension; I35.0 Nonrheumatic aortic (valve) stenosis; D64.9 Anemia, unspecified; K21.9 Gastro-esophageal reflux disease without esophagitis; K86.1 Other chronic pancreatitis; K86.89 Other specified diseases of pancreas; R63.4 Abnormal weight loss; R91.1 Solitary pulmonary nodule; M19.90 Unspecified osteoarthritis, unspecified site; F41.9 Anxiety disorder, unspecified; F17.210 Nicotine dependence, cigarettes, uncomplicated; I25.2 Old myocardial infarction; Z79.82 Long term (current) use of aspirin; Z95.5 Presence of coronary angioplasty implant and graft; Z90.49 Acquired absence of other specified parts of digestive tract
CPT/HCPCS: 36415; 71046; 71275; 74177; 76775; 80053; 80061; 83036; 83615; 83690; 84484; 85025; 85610; 85730; 87081; 93005; 96361; 96374; 96375; 96376; 99285; A9270; C9113; G0378; G0379; J0360; J1170; J1200; J2270; J2405; J2704; J3010; J7030; J7120; J7121; Q9967

== ENCOUNTER 2022-10-06 22:13 | Inpatient (IN) | payer OTHER, SELFPAY ==
--- NOTE | ~2022-10-06 | CT_ITS ---
EXAMINATION: CT abdomen pelvis w con DATE: 10/06/2022 23:12 INDICATION: Abdominal pain. TECHNIQUE: Computed tomography (CT) of the abdomen and pelvis was performed with 100 mL Omnipaque 350 intravenous contrast. Automated exposure control and iterative reconstruction technique were employe d. The dose-length product was 332.09 mGy-cm. COMPARISON: CT abdomen and pelvis 09/16/2022, 02/20/2021 FINDINGS: The visualized portions of the lung bases demonstrate mild atelectasis. No pleural effusion . The heart size is normal. No pericardial effusion. There is mild pectus excavatum. There is mild in trahepatic biliary duct dilatation. The common duct is dilated to 14 mm. There are changes of cholecy stectomy. The pancreas, spleen, and right adrenal gland are normal. There is a 2.8 cm mass in left ad renal gland that is stable from 02/20/2021, likely an adenoma. There is cortical thinning of the kidn eys. There are no dilated loops of bowel. The appendix is normal. There are no pathologically enlarge d lymph nodes. There is no free intraperitoneal fluid. There is mild aortic atherosclerosis. There is mild thoracolumbar spondylosis. IMPRESSION: 1. Chronic mild intrahepatic and extrahepatic biliary duct dilatation status post cholecystectomy. Reviewed, dictated and finalized at location A. IMPRESSION: 1. Chronic mild intrahepatic and extrahepatic biliary duct dilatation status po st cholecystectomy.
[2022-10-06 22:14] VITALS: BP 154/66; PULSE 108; RESP 18; TEMP 36.7; O2SAT 100
[2022-10-06 22:31] LABS: Basophils Percent Auto 0.2 % (0.2-1.2); Eosinophils Absolute Auto 0.1 K/mm3 (0-0.3); Hematocrit 35.4 % (37.0-47.0); Immature Granulocyte Absolute 0.03 K/mm3 (0.00-0.031); Immature Granulocyte Percent A 0.4 % (0-0.5); Lymphocytes Absolute Auto 1.78 K/mm3 (0.9-3.2); Lymphocytes Percent Auto 21.6 % (18.3-44.2); Mean Corpuscular HGB Conc 33.9 g/dl (32-36); Mean Corpuscular Hemoglobin 30.3 pg (26-34); Mean Corpuscular Volume 89.4 fl (80-100); Mean Platelet Volume 9.4 fl (7.4-10.4); Monocytes Absolute Auto 0.8 K/mm3 (0.1-0.6); Monocytes Percent Auto 9.4 % (2.6-8.5); Neutrophils Absolute Auto 5.6 K/mm3 (1.3-6.7); Neutrophils Percent Auto 67.4 % (45.5-73.1); Platelet Count Result 518 k/mm3 (150-375); Red Blood Count 3.96 M/mm3 (4.2-5.4); Red Cell Distribution Width 14.6 % (11.5-14.5); White Blood Count 8.2 K/mm3 (4.5-10.0)
[2022-10-06 22:58] LABS: Alanine Aminotransferase 81 U/L (6-35); Alkaline Phosphatase 96 U/L (38-126); Anion Gap 11 mmol/L (8-16); Aspartate Amino Transferase 156 U/L (14-36); Bilirubin,Total 0.9 mg/dL (0.2-1.3); Blood Urea Nitrogen 32 mg/dL (7-17); Calcium 9.6 mg/dL (8.4-10.2); Carbon Dioxide 24 mmol/L (22-30); Chloride 107 mmol/L (98-107); Estimated CRCL calculation 37 ml/min; Estimated Glomerular Filt Rate 36; Glucose 125 mg/dL (65-110); Potassium 4.1 mmol/L (3.4-5.0); Sodium 142 mmol/L (137-145)
--- NOTE | 2022-10-06 23:02 | ED.GENADULT ---
HPI - General Adult General Chief complaint: Abdominal Pain Stated complaint: pancreas attack Time Seen by Provider: 10/06/22 22:23 History of Present Illness HPI narrative: Patient 57-year-old female who presents the emergency department with chief complaint of pancreatitis. The patient reports that she has prior history of pancreatitis and was recently in the hospital after an episode. The patient reports she had a prior cholecystectomy and reports that she is unsure what triggers her attacks patient reports that she does not drink alcohol reports that she has been adhering to the diet that she was supposed to and reports that today the pain became severe and started having nausea and vomiting. The patient reports this feels exactly like her previous episodes. Related Data Home Medications Medication Instructions Recorded Confirmed ropinirole 0.5 mg tablet 0.5 mg PO HS 02/10/21 09/16/22 lisinopril 20 1 tablet PO DAILY 09/16/22 09/16/22 mg-hydrochlorothiazide 25 mg tablet pregabalin 150 mg capsule 150 mg PO BID 09/16/22 09/16/22 Allergies Allergy/AdvReac Type Severity Reaction Status Date / Time butalbital Allergy Unknown hives Verified 10/06/22 22:13 ibuprofen Allergy Unknown Hives Verified 10/06/22 22:13 ketorolac Allergy Unknown Hives Verified 10/06/22 22:13 naproxen Allergy Unknown Hives Verified 10/06/22 22:13 sumatriptan Allergy Unknown Hives Verified 10/06/22 22:13 Fish Containing Products Allergy Hives Verified 10/06/22 22:13 Review of Systems Review of Systems: A 10 system review of systems was completed on the patient and is negative except for what is stated in the HPI. Nursing and ancillary documentation was reviewed. [facility] Past Medical History Medical History Acute renal failure Anxiety Aortic stenosis Arthritis Colon cancer screening Coronary artery disease History of stent x2. Diarrhea DVT prophylaxis Elevated lipase Elevated liver enzymes Elevated WBC count Gastroesophageal reflux disease HTN (hypertension), malignant Hypomagnesemia Marijuana smoker Migraines Mild aortic valve stenosis Aortic valve area of 1.4 cm2 on echocardiogram in February 2020. Pancreatitis Tobacco use Vomiting and diarrhea Weight loss Surgical History Surgical History History of cardiac catheterization History of cholecystectomy History of esophagogastroduodenoscopy (02/16/20) Unspecified esophagitis and gastritis. History of heart artery stent (2016) Performed at [facility] in [place]. History of hysterectomy History of open reduction and internal fixation (ORIF) procedure Right ankle fracture. Left elbow fracture. Family History Family History Mother Hypertension Hyperlipidemia Rheumatic fever Kidney disease Heart murmur Sibling Kidney disease Alcoholism Social History Social History Social History: The patient stated that she quit smoking approximately 4 months ago. 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 She lives with a significant other. The patient has 4 sons. 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 Code status: Full code. Smoking packs per day: 1 Smoking cigarettes per day: 20.0 Years smoked: 40 Smoking pack-years: 40.00 Smoking status: Current every day smoker Tobacco type: cigarettes Additional smoking assessment comments: was at 1ppd, but has cut down Alcohol intake: never Substance use: current Substance use type: marijuana Other substance usage details: occasional wine, rarely, marijuana once daily for pain management Last use: 02/10/21 Lack of Transportation: No Lack of Food: Never True Current Housing: I Have Housing Conc
[2022-10-06] MEDS: MORPHINE SULFATE (*CRX) 4 MG/ML INJ IV PUSH (23:03)
[2022-10-06] MEDS: SODIUM CHLORIDE 0.9% IV 1,000 ML 999 ML IV CONT (23:03)
[2022-10-06] MEDS: ONDANSETRON INJ 4 MG/2 ML VIAL IV PUSH (23:03)
[2022-10-06 23:13] LABS: Lipase 13942 U/L (23-300)
[2022-10-06 23:37] VITALS: BP 136/72; PULSE 105; RESP 15; O2SAT 100
[2022-10-06 23:56] LABS: Appearance Urine Clear (Clear); Bacteria Urine 1+ /hpf; Bilirubin Urine Negative (Negative); Blood Urine Negative (Negative); Color Urine Yellow (Yellow); Glucose Urine UA Negative (Negative); Ketones Urine Negative (Negative); Leukocyte Esterase Ur Negative LEU/UL (Negative); Need Manual Microscopic Reviewed; Nitrate Urine Negative (Negative); Protein Urine Trace mg/dL (Negative); RBC Urine 0-2 /hpf (0-2); Squamous Epithelial Cell Urine Few /hpf (Few); WBC Urine 0-5 /hpf; pH Urine 5.5 (5.0-9.0)
[2022-10-07] VITALS (7 sets, daily range): BP systolic 115–144; BP diastolic 62–78; PULSE 54–86; RESP 14–20; TEMP 36.4–36.7; O2SAT 97–100; BMI 21.6
[2022-10-07 00:04] LABS: Specific Grav Ur 1.041 (1.001-1.035)
[2022-10-07 00:05] LABS: Add Urine Microscopic? YES
[2022-10-07] MEDS: HYDROmorphone HCL INJ (*CRX) 1 MG/ML SYR 0.5 MG IV PUSH ×6 (00:15→19:18)
--- NOTE | 2022-10-07 03:05 | ADMGEN ---
This patient, Anny Palmer, was admitted to Medical Room 258-01. Patient/family oriented to hospital policies and general routines including ID bracelet, bed and alarms, visiting hours, pain management, procedures, bathroom and other care routines, personal items, smoking policy, room service/diet, and visiting hours. Information on how to activate the Rapid Response Team has been discussed. Patient/Family are encouraged to report perceived risks to care and to ask questions if they do not understand what they are told or what they should do.
[2022-10-07] MEDS: SODIUM CHLORIDE 0.9% IV 1,000 ML 200 ML IV CONT ×4 (03:29→19:20)
[2022-10-07] MEDS: ONDANSETRON INJ 4 MG/2 ML VIAL IV PUSH ×3 (03:30→17:09)
--- NOTE | 2022-10-07 04:49 | PM.IMHP ---
H&P: HPI History of Present Illness Date/Time: 10/07/22 04:49 Chief Complaint: Pancreatitis symptoms Narrative: 49-year-old female with a past medical history of recurrent pancreatitis, coronary artery disease, hypertension, GERD and anxiety who presented to the ER with recurrent abdominal pain similar to her prior episodes of idiopathic pancreatitis. Patient has been admitted to the hospital multiple times in the last couple of years due to recurrent pancreatitis. Usually the patient's CT does not demonstrate any significant evidence of pancreatic inflammation. The patient has had multiple EGDs to rule out gastric ulcer or other causes that could elevate lipase other than pancreatitis. Her last hospitalization in August she was evaluated by Gastroenterology. At that time she was started on Creon and Elavil was recommended as there was some component of functional abdominal pain suspected. The patient reports that her symptoms started about mid morning or early afternoon on the . She had eaten some applesauce prior to onset of symptoms. She has been having some nausea but no significant amounts of vomiting. She does not want to eat. She reports the pain is a 9/10 in intensity and is worse with palpation of her abdomen. It is helped with the narcotics given in the ER but not relieved completely. She denies any associated chest pain. She has not had any changes in her bowel habits. She has been taking Creon as directed. She has not been having any respiratory symptoms. She has been having normal voiding. The patient reports that she felt really warm and flushed and thought that she may have a fever so came to the ER. On arrival to the ER the patient was afebrile. Review of Systems Review of Systems: 12 systems were reviewed with pertinent positives and negatives per HPI. Except as documented in the HPI, all other systems were reviewed and are negative. [facility] Past Medical History Medical History (Updated 10/07/22 @ 07:28 by Raven Amaya DO) Anxiety Aortic stenosis Arthritis Colon cancer screening Coronary artery disease History of stent x2. Diastolic dysfunction, left ventricle Echocardiogram 2022 Gastroesophageal reflux disease HTN (hypertension), malignant Marijuana smoker Migraines Mild aortic valve stenosis Aortic valve area of 1.4 cm noted on echocardiogram from 2019. However echocardiogram from 2022 actually demonstrates mild aortic valve sclerosis but no stenosis with aortic valve area 1.8 cm Normal nuclear stress test (02/10/21) Recurrent pancreatitis RLS (restless legs syndrome) Surgical History Surgical History (Updated 10/07/22 @ 07:20 by Raven Amaya DO) H/O cervical spine surgery (08/08/21) X2 with most recent 1 in 2021 History of cardiac catheterization History of cholecystectomy History of esophagogastroduodenoscopy (02/16/20) Unspecified esophagitis and gastritis. History of heart artery stent (2016) Performed at [facility] in [place]. History of hysterectomy History of open reduction and internal fixation (ORIF) procedure Right ankle fracture. Left elbow fracture. Bilateral foot fractures Family History Family History Mother Hypertension Hyperlipidemia Rheumatic fever Kidney disease Heart murmur Sibling Kidney disease Alcoholism Social History Social History (Updated 10/07/22 @ 07:21 by Raven Amaya DO) Social History: The patient stated that she quit smoking 2021. 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 she lives with a significant other. The patient has 4 sons. Code status: Full code. Smoking packs per day: 1 Smoking cigarettes per day: 20.0 Years smoked: 40 Smoking pack-years: 40.00 Smoking status: Former smoker Tobacco type: cigarettes Smoking end date: 10/07/21 Additional smoking assessment comments: was at 1ppd, but has cut
[2022-10-07 08:06] LABS: Hematocrit 29.1 % (37.0-47.0); Hemoglobin 9.4 g/dL (12.0-15.0); Mean Corpuscular HGB Conc 32.3 g/dl (32-36); Mean Corpuscular Hemoglobin 29.8 pg (26-34); Mean Corpuscular Volume 92.4 fl (80-100); Mean Platelet Volume 9.3 fl (7.4-10.4); Platelet Count Result 401 k/mm3 (150-375); Red Blood Count 3.15 M/mm3 (4.2-5.4); White Blood Count 5.5 K/mm3 (4.5-10.0)
[2022-10-07 08:16] LABS: Alanine Aminotransferase 113 U/L (6-35); Albumin Level 3.8 g/dL (3.5-5.1); Alkaline Phosphatase 77 U/L (38-126); Anion Gap 0 mmol/L (8-16); Aspartate Amino Transferase 178 U/L (14-36); Bilirubin,Total 0.9 mg/dL (0.2-1.3); Blood Urea Nitrogen 29 mg/dL (7-17); Calcium 8.1 mg/dL (8.4-10.2); Carbon Dioxide 24 mmol/L (22-30); Chloride 112 mmol/L (98-107); Estimated CRCL calculation 43 ml/min; Estimated Glomerular Filt Rate 42; Glucose 96 mg/dL (65-110); Potassium 4.2 mmol/L (3.4-5.0); Sodium 136 mmol/L (137-145)
[2022-10-07] MEDS: LIPASE/AMYLASE/PROTEASE 12,000 UNITS CAP 1 CAP PO ×3 (08:32→17:07)
[2022-10-07] MEDS: amLODIPine BESYLATE 5 MG TABLET PO (08:32)
[2022-10-07] MEDS: hydroCHLOROthiazide 25 MG TABLET PO (08:33)
[2022-10-07] MEDS: lisinopriL 20 MG TABLET PO (08:33)
[2022-10-07] MEDS: PANTOPRAZOLE 40 MG TABLET PO ×2 (08:33→20:23)
[2022-10-07] MEDS: PREGABALIN (*CRX) 75 MG CAPSULE 150 MG PO ×2 (08:33→17:07)
[2022-10-07] MEDS: ROSUVASTATIN 10 MG TABLET PO (08:33)
--- NOTE | 2022-10-07 14:01 | PM.IMPN ---
Progress Note: A&P Assessment and Plan (1) Acute on chronic pancreatitis: Code(s): K85.90 - Acute pancreatitis without necrosis or infection, unspecified; K86.1 - Other chronic pancreatitis Status: Acute Assessment and Plan: Patient with history of recurrent pancreatitis. The patient's cause of pancreatitis is most likely idiopathic. Patient has been evaluated by Gastroenterology in the past with no discernible cause for pancreatitis identified. She has even had prior MRCP is a did not demonstrate any evidence [place] [address]. Continue aggressive IV fluid hydration normal saline. NPO status except for sips with meds--will advanced by it wants abdominal pain subsides. Pain medications and nausea medications as needed. Continue Creon (home medication) Monitor CBC and CMP daily. Trend lipase (2) Acute kidney injury: Code(s): N17.9 - Acute kidney failure, unspecified Status: Acute Assessment and Plan: Patient does have acute kidney injury most likely due to hypovolemia. Continue aggressive IV fluid BUN and creatinine on admission 32/1.5. Today BUN and creatinine 29/1.3. Trend BUN and creatinine. (3) Essential hypertension: Code(s): I10 - Essential (primary) hypertension Status: Acute Assessment and Plan: Monitor blood pressures. Continue home lisinopril-hydrochlorothiazide and amlodipine. (4) Gastroesophageal reflux disease: Code(s): K21.9 - Gastro-esophageal reflux disease without esophagitis Status: Acute Assessment and Plan: Patient takes pantoprazole 40 mg b.i.d. at home. Initiate IV pantoprazole 40 mg q.12. Subjective Date/time seen: 10/07/22 14:01 Interval history: Patient continues to have epigastric pain. She does have appointment set up with GI specialist but it is not for several more weeks. I advised her to keep this appointment. Plan to continue IV fluids and trend lipase. Will keep NPO until abdominal pain has subsided and will slowly advance diet. She denies any nausea and vomiting, body aches and chills. Review of Systems Review of Systems: All systems reviewed & are unremarkable except as noted in HPI and below Exam Narrative: GENERAL: Comfortable, no acute distress HENMT: moist mucous membranes EYES: EOM intact b/l NECK: no lymphadenopathy RESPIRATORY: clear to auscultation CARDIO: RRR GI: soft, mild distension, epigastric tenderness, bowel sounds present SKIN: no rashes EXTREMITIES: no edema, redness or tenderness Objective Data Vital Signs Vital Signs: Vital Signs - 24 hr 10/06/22 22:14 10/06/22 23:37 10/07/22 00:34 Temperature 98.1 F Pulse Rate 108 H 105 H 86 Respiratory Rate 18 15 15 Blood Pressure 154/66 H 136/72 138/70 Pulse Oximetry 100 100 100 Oxygen Delivery Room Air 10/07/22 02:31 10/07/22 03:06 10/07/22 08:24 Temperature 97.6 F Pulse Rate 62 73 Respiratory Rate 14 20 Blood Pressure 134/78 144/71 H Pulse Oximetry 98 99 97 Oxygen Delivery Room Air 10/07/22 08:00 Temperature Pulse Rate Respiratory Rate Blood Pressure Pulse Oximetry Oxygen Delivery Room Air Intake/Output Intake/Output: Intake & Output 10/04/22 10/05/22 10/06/22 10/07/22 23:59 23:59 23:59 23:59 Intake Total 1999 Balance 1999 Meds/Results Medications: Active Medications Generic Name Dose Route Start Last Admin Trade Name Freq PRN Reason Stop Dose Admin Amlodipine Besylate 5 mg 10/07/22 09:00 10/07/22 08:32 Amlodipine Besylate 5 Mg Tablet PO 5 mg QAM PRIM[facility]O Administration Lipase/Protease/Amylase 1 cap 10/07/22 08:00 10/07/22 11:49 Lipase/Amylase/Protease 12,000 Units Cap PO 1 cap TIDWM PRIMITIVO Administration Aspirin 81 mg 10/07/22 08:00 10/07/22 08:32 Aspirin 81 Mg Chewable Tablet PO 81 mg DAILY@0800 PRIMITIVO Administration Hydrochlorothiazide 25 mg 10/07/22 09:00 10/07/22 08:33
[2022-10-07] MEDS: rOPINIRole HCL 0.5 MG TABLET PO (20:23)
[2022-10-08] MEDS: SODIUM CHLORIDE 0.9% IV 1,000 ML 200 ML IV CONT ×4 (00:17→15:14)
[2022-10-08] MEDS: HYDROmorphone HCL INJ (*CRX) 1 MG/ML SYR 0.5 MG IV PUSH ×7 (01:01→23:04)
[2022-10-08] MEDS: ONDANSETRON INJ 4 MG/2 ML VIAL IV PUSH ×6 (01:01→23:04)
[2022-10-08 04:39] VITALS: BP 111/50; PULSE 53; RESP 20; TEMP 36.9; O2SAT 99
[2022-10-08 06:03] LABS: Basophils Percent Auto 0.8 % (0.2-1.2); Eosinophils Absolute Auto 0.2 K/mm3 (0-0.3); Hematocrit 26.5 % (37.0-47.0); Hemoglobin 8.5 g/dL (12.0-15.0); Lymphocytes Absolute Auto 1.97 K/mm3 (0.9-3.2); Mean Corpuscular HGB Conc 32.1 g/dl (32-36); Mean Corpuscular Hemoglobin 30.4 pg (26-34); Mean Corpuscular Volume 94.6 fl (80-100); Mean Platelet Volume 9.7 fl (7.4-10.4); Monocytes Absolute Auto 0.4 K/mm3 (0.1-0.6); Neutrophils Absolute Auto 1.3 K/mm3 (1.3-6.7); Neutrophils Percent Auto 33.2 % (45.5-73.1); Platelet Count Result 348 k/mm3 (150-375); Red Cell Distribution Width 15.1 % (11.5-14.5); White Blood Count 3.8 K/mm3 (4.5-10.0)
[2022-10-08] MEDS: PREGABALIN (*CRX) 75 MG CAPSULE 150 MG PO ×2 (08:06→16:53)
[2022-10-08] MEDS: hydroCHLOROthiazide 25 MG TABLET PO (08:06)
[2022-10-08] MEDS: lisinopriL 20 MG TABLET PO (08:06)
[2022-10-08] MEDS: PANTOPRAZOLE 40 MG TABLET PO ×2 (08:06→20:18)
[2022-10-08] MEDS: amLODIPine BESYLATE 5 MG TABLET PO (08:06)
[2022-10-08] MEDS: LIPASE/AMYLASE/PROTEASE 12,000 UNITS CAP 1 CAP PO ×3 (08:06→16:53)
[2022-10-08] MEDS: ROSUVASTATIN 10 MG TABLET PO (08:07)
[2022-10-08 08:59] LABS: Alanine Aminotransferase 85 U/L (6-35); Albumin Level 3.3 g/dL (3.5-5.1); Alkaline Phosphatase 90 U/L (38-126); Anion Gap 7 mmol/L (8-16); Aspartate Amino Transferase 80 U/L (14-36); Bilirubin,Total 0.6 mg/dL (0.2-1.3); Blood Urea Nitrogen 22 mg/dL (7-17); Calcium 8.2 mg/dL (8.4-10.2); Carbon Dioxide 16 mmol/L (22-30); Chloride 115 mmol/L (98-107); Estimated CRCL calculation 55 ml/min; Estimated Glomerular Filt Rate 57; Glucose 66 mg/dL (65-110); Lipase 916 U/L (23-300); Potassium 4.3 mmol/L (3.4-5.0); Sodium 138 mmol/L (137-145)
--- NOTE | 2022-10-08 11:30 | PM.IMPN ---
Progress Note: A&P Assessment and Plan (1) Acute on chronic pancreatitis: Code(s): K85.90 - Acute pancreatitis without necrosis or infection, unspecified; K86.1 - Other chronic pancreatitis Status: Acute Assessment and Plan: Patient with history of recurrent pancreatitis. The patient's cause of pancreatitis is most likely idiopathic. Patient has been evaluated by Gastroenterology in the past with no discernible cause for pancreatitis identified. She has even had prior MRCP is a did not demonstrate any evidence [place] [address]. Today it is 916. Continue aggressive IV fluid hydration normal saline. NPO status except for sips with meds--will advanced by it wants abdominal pain subsides. Pain medications and nausea medications as needed. Continue Creon (home medication) Monitor CBC and CMP daily. Trend lipase (2) Acute kidney injury: Code(s): N17.9 - Acute kidney failure, unspecified Status: Acute Assessment and Plan: Patient does have acute kidney injury most likely due to hypovolemia. Continue aggressive IV fluid BUN and creatinine on admission 32/1.5. Today BUN and creatinine 29/1.3. Trend BUN and creatinine. (3) Essential hypertension: Code(s): I10 - Essential (primary) hypertension Status: Acute Assessment and Plan: Monitor blood pressures. Continue home lisinopril-hydrochlorothiazide and amlodipine. (4) Gastroesophageal reflux disease: Code(s): K21.9 - Gastro-esophageal reflux disease without esophagitis Status: Acute Assessment and Plan: Patient takes pantoprazole 40 mg b.i.d. at home. Initiate IV pantoprazole 40 mg q.12. Subjective Date/time seen: 10/08/22 11:30 Interval history: Patient continues to have upper abdominal pain. She is not believe she be able to initiate foods yet. Discussed with her that we will likely initiate liquids tomorrow. She does have intermittent nausea but no vomiting. She admits to having 1-2 watery stools but denies urgency. Review of Systems Review of Systems: All systems reviewed & are unremarkable except as noted in HPI and below Exam Narrative: GENERAL: Comfortable, no acute distress HENMT: moist mucous membranes EYES: EOM intact b/l NECK: no lymphadenopathy RESPIRATORY: clear to auscultation CARDIO: RRR GI: soft, mild distension, epigastric tenderness, bowel sounds present SKIN: no rashes EXTREMITIES: no edema, redness or tenderness Objective Data Vital Signs Vital Signs: Vital Signs - 24 hr 10/07/22 14:12 10/07/22 19:36 10/07/22 21:00 Temperature 97.6 F 98.1 F Pulse Rate 54 L 63 63 Respiratory Rate 18 20 Blood Pressure 115/67 144/62 H Pulse Oximetry 99 100 100 Oxygen Delivery Room Air Fraction of Inspired Oxygen 21 10/08/22 04:39 10/08/22 08:00 Temperature 98.4 F Pulse Rate 53 L Respiratory Rate 20 Blood Pressure 111/50 L Pulse Oximetry 99 Oxygen Delivery Room Air Fraction of Inspired Oxygen Intake/Output Intake/Output: Intake & Output 10/05/22 10/06/22 10/07/22 10/08/22 23:59 23:59 23:59 23:59 Intake Total 4000 3000 Output Total 2000 Balance 4000 1000 Meds/Results Medications: Active Medications Generic Name Dose Route Start Last Admin Trade Name Freq PRN Reason Stop Dose Admin Amlodipine Besylate 5 mg 10/07/22 09:00 10/08/22 08:06 Amlodipine Besylate 5 Mg Tablet PO 5 mg QAM [facility] Administration Lipase/Protease/Amylase 1 cap 10/07/22 08:00 10/08/22 08:06 Lipase/Amylase/Protease 12,000 Units Cap PO 1 cap TIDWM PRIMITIVO Administration Aspirin 81 mg 10/07/22 08:00 10/08/22 08:06 Aspirin 81 Mg Chewable Tablet PO Not Given DAILY@0800 [facility] Hydrochlorothiazide 25 mg 10/07/22 09:00 10/08/22 08:06 Hydrochlorothiazide 25 Mg Tablet PO 25 mg QAM [facility] Administration Hydromorphone HCl 0.5 mg 10/07/22 01:58 10/08/22 09:34 Hydromo
[2022-10-08 13:56] VITALS: BP 161/60; PULSE 50; RESP 17; TEMP 36.9; O2SAT 99
[2022-10-08 19:48] VITALS: BP 191/58; PULSE 50; RESP 20; TEMP 37; O2SAT 99
[2022-10-08] MEDS: rOPINIRole HCL 0.5 MG TABLET PO (20:18)
[2022-10-08] MEDS: ACETAMINOPHEN 500 MG TABLET 1000 MG PO (20:49)
[2022-10-08] MEDS: SODIUM CHLORIDE 0.9% IV 1,000 ML 150 ML IV CONT (21:55)
[2022-10-09] MEDS: HYDROmorphone HCL INJ (*CRX) 1 MG/ML SYR 0.5 MG IV PUSH ×9 (01:47→22:34)
[2022-10-09] MEDS: SODIUM CHLORIDE 0.9% IV 1,000 ML 150 ML IV CONT (02:41)
[2022-10-09] MEDS: ONDANSETRON INJ 4 MG/2 ML VIAL IV PUSH ×4 (03:10→17:41)
[2022-10-09 04:47] VITALS: BP 158/66; PULSE 50; RESP 20; TEMP 36.8; O2SAT 97
[2022-10-09 05:33] LABS: Hemoglobin 8.9 g/dL (12.0-15.0); Mean Corpuscular HGB Conc 31.8 g/dl (32-36); Mean Corpuscular Hemoglobin 29.7 pg (26-34); Mean Corpuscular Volume 93.3 fl (80-100); Mean Platelet Volume 9.4 fl (7.4-10.4); Platelet Count Result 343 k/mm3 (150-375); Red Cell Distribution Width 14.7 % (11.5-14.5); White Blood Count 4.7 K/mm3 (4.5-10.0)
[2022-10-09 05:48] LABS: Alanine Aminotransferase 68 U/L (6-35); Albumin Level 3.8 g/dL (3.5-5.1); Alkaline Phosphatase 99 U/L (38-126); Anion Gap 6 mmol/L (8-16); Aspartate Amino Transferase 61 U/L (14-36); Bilirubin,Total 0.6 mg/dL (0.2-1.3); Blood Urea Nitrogen 17 mg/dL (7-17); Calcium 8.5 mg/dL (8.4-10.2); Carbon Dioxide 16 mmol/L (22-30); Chloride 114 mmol/L (98-107); Estimated CRCL calculation 50 ml/min; Estimated Glomerular Filt Rate 51; Glucose 60 mg/dL (65-110); Lipase 210 U/L (23-300); Potassium 4.3 mmol/L (3.4-5.0); Sodium 136 mmol/L (137-145)
[2022-10-09 05:53] LABS: Glucose Point of Care 59 mg/dl (65-105)
[2022-10-09] MEDS: DEXTROSE 50% 25 GM/50 ML SYRINGE IV PUSH (06:02)
[2022-10-09 06:31] LABS: Glucose Point of Care 129 mg/dl (65-105)
[2022-10-09] MEDS: hydroCHLOROthiazide 25 MG TABLET PO (09:11)
[2022-10-09] MEDS: lisinopriL 20 MG TABLET PO (09:11)
[2022-10-09] MEDS: ASPIRIN 81 MG CHEWABLE TABLET PO (09:11)
[2022-10-09] MEDS: ROSUVASTATIN 10 MG TABLET PO (09:11)
[2022-10-09] MEDS: LIPASE/AMYLASE/PROTEASE 12,000 UNITS CAP 1 CAP PO ×3 (09:11→17:38)
[2022-10-09] MEDS: PANTOPRAZOLE 40 MG TABLET PO ×2 (09:12→20:05)
[2022-10-09 09:17] VITALS: BP 182/66; PULSE 50; RESP 14; O2SAT 100
[2022-10-09] MEDS: PREGABALIN (*CRX) 75 MG CAPSULE 150 MG PO ×2 (09:17→17:38)
[2022-10-09] MEDS: amLODIPine BESYLATE 5 MG TABLET PO (09:18)
[2022-10-09] MEDS: SODIUM CHLORIDE 0.9% IV 1,000 ML 75 ML IV CONT (11:00)
--- NOTE | 2022-10-09 13:15 | PM.IMPN ---
Progress Note: A&P Assessment and Plan (1) Acute on chronic pancreatitis: Code(s): K85.90 - Acute pancreatitis without necrosis or infection, unspecified; K86.1 - Other chronic pancreatitis Status: Acute Assessment and Plan: Patient with history of recurrent pancreatitis. The patient's cause of pancreatitis is most likely idiopathic. Patient has been evaluated by Gastroenterology in the past with no discernible cause for pancreatitis identified. She has even had prior MRCP is a did not demonstrate any evidence [place] [address] on admission and now back WNL Continue aggressive IV fluid hydration normal saline. Advance diet as tolerated. Pain medications and nausea medications as needed. Continue Creon (home medication) Monitor CBC and CMP daily. Trend lipase (2) Acute kidney injury: Code(s): N17.9 - Acute kidney failure, unspecified Status: Resolved Assessment and Plan: Patient does have acute kidney injury most likely due to hypovolemia. Continue aggressive IV fluid BUN and creatinine on admission 32/1.5 on admission Trend BUN and creatinine. (3) Essential hypertension: Code(s): I10 - Essential (primary) hypertension Status: Acute Assessment and Plan: Monitor blood pressures. Continue home lisinopril-hydrochlorothiazide and amlodipine. (4) Gastroesophageal reflux disease: Code(s): K21.9 - Gastro-esophageal reflux disease without esophagitis Status: Acute Assessment and Plan: Patient takes pantoprazole 40 mg b.i.d. at home. Initiate IV pantoprazole 40 mg q.12. Subjective Date/time seen: 10/09/22 13:15 Interval history: Patient feeling slightly better today. She has started a liquid diet and had some discomfort with it. She will stay on liquid diet until she feels better to advance. She continues to have some nausea but no vomiting. Review of Systems Review of Systems: All systems reviewed & are unremarkable except as noted in HPI and below Exam Narrative: GENERAL: Comfortable, no acute distress HENMT: moist mucous membranes EYES: EOM intact b/l NECK: no lymphadenopathy RESPIRATORY: clear to auscultation CARDIO: RRR GI: soft, mild distension, epigastric tenderness, bowel sounds present SKIN: no rashes EXTREMITIES: no edema, redness or tenderness Objective Data Vital Signs Vital Signs: Vital Signs - 24 hr 10/08/22 13:56 10/08/22 19:48 10/09/22 04:47 Temperature 98.5 F 98.6 F 98.3 F Pulse Rate 50 L 50 L 50 L Respiratory Rate 17 20 20 Blood Pressure 161/60 H 191/58 H 158/66 H Pulse Oximetry 99 99 97 Oxygen Delivery 10/09/22 09:17 10/09/22 09:10 Temperature Pulse Rate 50 L Respiratory Rate 14 Blood Pressure 182/66 H Pulse Oximetry 100 Oxygen Delivery Room Air Intake/Output Intake/Output: Intake & Output 10/06/22 10/07/22 10/08/22 10/09/22 23:59 23:59 23:59 23:59 Intake Total 4000 5550 2120 Output Total 3500 1400 Balance 4000 2050 720 Meds/Results Medications: Active Medications Generic Name Dose Route Start Last Admin Trade Name Freq PRN Reason Stop Dose Admin Acetaminophen 1,000 mg 10/08/22 20:20 10/08/22 20:49 Acetaminophen 500 Mg Tablet PO 1,000 mg Q6H PRN Administration Mild Pain 4-6 Amlodipine Besylate 5 mg 10/07/22 09:00 10/09/22 09:18 Amlodipine Besylate 5 Mg Tablet PO 5 mg QAM PRIMITIVO Administration Lipase/Protease/Amylase 1 cap 10/07/22 08:00 10/09/22 12:35 Lipase/Amylase/Protease 12,000 Units Cap PO 1 cap TIDWM PRIMITIVO Administration Aspirin 81 mg 10/07/22 08:00 10/09/22 09:11 Aspirin 81 Mg Chewable Tablet PO 81 mg DAILY@0800 PRIMITIVO Administration Dextrose 12.5 gm 10/09/22 05:52 10/09/22 06:02 Dextrose 50% 25 Gm/50 Ml Syringe IV PUSH 12.5 gm PRN PRN Administration Hypoglycemia Protocol Glucagon 1 mg 10/09/22 05:52 Glucagon For I
[2022-10-09 14:14] VITALS: BP 162/82; PULSE 56; RESP 17; TEMP 36.7; O2SAT 99
[2022-10-09] MEDS: rOPINIRole HCL 0.5 MG TABLET PO (20:06)
[2022-10-09 20:18] VITALS: BP 180/76; PULSE 86; RESP 18; TEMP 36.3; O2SAT 97
[2022-10-10] MEDS: SODIUM CHLORIDE 0.9% IV 1,000 ML 75 ML IV CONT ×2 (00:01→13:33)
[2022-10-10] MEDS: HYDROmorphone HCL INJ (*CRX) 1 MG/ML SYR 0.5 MG IV PUSH ×7 (00:32→22:22)
[2022-10-10] MEDS: ONDANSETRON INJ 4 MG/2 ML VIAL IV PUSH ×3 (04:09→20:12)
[2022-10-10 04:13] VITALS: BP 152/98; PULSE 61; RESP 18; TEMP 36.3; O2SAT 100
[2022-10-10 05:45] LABS: Hematocrit 27.6 % (37.0-47.0); Hemoglobin 8.8 g/dL (12.0-15.0); Mean Corpuscular HGB Conc 31.9 g/dl (32-36); Mean Corpuscular Hemoglobin 29.2 pg (26-34); Mean Corpuscular Volume 91.7 fl (80-100); Platelet Count Result 328 k/mm3 (150-375); Red Blood Count 3.01 M/mm3 (4.2-5.4); Red Cell Distribution Width 14.7 % (11.5-14.5); White Blood Count 5.3 K/mm3 (4.5-10.0)
[2022-10-10 06:08] LABS: Alanine Aminotransferase 53 U/L (6-35); Albumin Level 3.5 g/dL (3.5-5.1); Alkaline Phosphatase 80 U/L (38-126); Anion Gap 2 mmol/L (8-16); Aspartate Amino Transferase 43 U/L (14-36); Bilirubin,Total 0.5 mg/dL (0.2-1.3); Blood Urea Nitrogen 9 mg/dL (7-17); Calcium 8.6 mg/dL (8.4-10.2); Carbon Dioxide 23 mmol/L (22-30); Chloride 113 mmol/L (98-107); Estimated CRCL calculation 55 ml/min; Estimated Glomerular Filt Rate 57; Glucose 83 mg/dL (65-110); Potassium 3.8 mmol/L (3.4-5.0); Sodium 138 mmol/L (137-145)
[2022-10-10] MEDS: lisinopriL 20 MG TABLET PO (10:02)
[2022-10-10] MEDS: ASPIRIN 81 MG CHEWABLE TABLET PO (10:02)
[2022-10-10] MEDS: hydroCHLOROthiazide 25 MG TABLET PO (10:02)
[2022-10-10] MEDS: LIPASE/AMYLASE/PROTEASE 12,000 UNITS CAP 1 CAP PO ×3 (10:03→18:00)
[2022-10-10] MEDS: ROSUVASTATIN 10 MG TABLET PO (10:03)
[2022-10-10] MEDS: PANTOPRAZOLE 40 MG TABLET PO ×2 (10:03→20:12)
[2022-10-10] MEDS: PREGABALIN (*CRX) 75 MG CAPSULE 150 MG PO ×2 (10:11→18:00)
[2022-10-10 10:12] VITALS: BP 189/90; PULSE 62; RESP 14; O2SAT 100
[2022-10-10] MEDS: amLODIPine BESYLATE 5 MG TABLET PO (10:12)
--- NOTE | 2022-10-10 13:30 | PM.IMPN ---
Progress Note: A&P Assessment and Plan (1) Acute on chronic pancreatitis: Code(s): K85.90 - Acute pancreatitis without necrosis or infection, unspecified; K86.1 - Other chronic pancreatitis Status: Acute Assessment and Plan: Patient with history of recurrent pancreatitis. The patient's cause of pancreatitis is most likely idiopathic. Patient has been evaluated by Gastroenterology in the past with no discernible cause for pancreatitis identified. She has even had prior MRCP is a did not demonstrate any evidence [place] [address] on admission and now back WNL Continue aggressive IV fluid hydration normal saline. Advance diet as tolerated. Pain medications and nausea medications as needed. Continue Creon (home medication) Monitor CBC and CMP daily. (2) Acute kidney injury: Code(s): N17.9 - Acute kidney failure, unspecified Status: Resolved Assessment and Plan: Patient does have acute kidney injury most likely due to hypovolemia. Continue aggressive IV fluid BUN and creatinine on admission 32/1.5 on admission Trend BUN and creatinine. AK resolved (3) Essential hypertension: Code(s): I10 - Essential (primary) hypertension Status: Acute Assessment and Plan: Monitor blood pressures. Continue home lisinopril-hydrochlorothiazide and amlodipine. (4) Gastroesophageal reflux disease: Code(s): K21.9 - Gastro-esophageal reflux disease without esophagitis Status: Acute Assessment and Plan: Patient takes pantoprazole 40 mg b.i.d. at home. Initiate IV pantoprazole 40 mg q.12. Subjective Date/time seen: 10/10/22 13:30 Interval history: Adam the patient she had really bad night last night. She stated that she did not get her pain medications like she needed them. Patient was in pretty significant amount of abdominal pain this morning. She is still on a full liquid diet. Hopefully the patient can discharge soon if her abdominal pain improves. She continues to get IV fluids and analgesics p.r.n.. Review of Systems Review of Systems: All systems reviewed & are unremarkable except as noted in HPI and below Exam Narrative: GENERAL: Comfortable, no acute distress HENMT: moist mucous membranes EYES: EOM intact b/l NECK: no lymphadenopathy RESPIRATORY: clear to auscultation CARDIO: RRR GI: soft, mild distension, epigastric tenderness, bowel sounds present SKIN: no rashes EXTREMITIES: no edema, redness or tenderness Objective Data Vital Signs Vital Signs: Vital Signs - 24 hr 10/09/22 14:14 10/09/22 20:18 10/10/22 04:13 Temperature 98.1 F 97.4 F L 97.3 F L Pulse Rate 56 L 86 61 Respiratory Rate 17 18 18 Blood Pressure 162/82 H 180/76 H 152/98 H Pulse Oximetry 99 97 100 10/10/22 10:12 Temperature Pulse Rate 62 Respiratory Rate 14 Blood Pressure 189/90 H Pulse Oximetry 100 Intake/Output Intake/Output: Intake & Output 10/07/22 10/08/22 10/09/22 10/10/22 23:59 23:59 23:59 23:59 Intake Total 4000 5550 4330 2190 Output Total 3500 5400 1900 Balance 4000 2050 -1070 290 Meds/Results Medications: Active Medications Generic Name Dose Route Start Last Admin Trade Name Freq PRN Reason Stop Dose Admin Acetaminophen 1,000 mg 10/08/22 20:20 10/08/22 20:49 Acetaminophen 500 Mg Tablet PO 1,000 mg Q6H PRN Administration Mild Pain 4-6 Amlodipine Besylate 5 mg 10/07/22 09:00 10/10/22 10:12 Amlodipine Besylate 5 Mg Tablet PO 5 mg QAM [facility] Administration Lipase/Protease/Amylase 1 cap 10/07/22 08:00 10/10/22 12:28 Lipase/Amylase/Protease 12,000 Units Cap PO 1 cap TIDWM PRIMITIVO Administration Aspirin 81 mg 10/07/22 08:00 10/10/22 10:02 Aspirin 81 Mg Chewable Tablet PO 81 mg DAILY@0800 [facility] Administration Dextrose 12.5 gm 10/09/22 05:52 10/09/22 06:02 Dextrose 50% 25 Gm/50 Ml Syringe IV PUSH 12.5 gm PRN PRN A
[2022-10-10 14:00] VITALS: BP 152/113; PULSE 72; RESP 12; TEMP 36.7; O2SAT 100
[2022-10-10] MEDS: HYDROcodone/acetaminophen (*CRX) 5-325 MG TABLET 1 TAB PO ×2 (14:31→20:12)
[2022-10-10 19:50] VITALS: BP 174/108; PULSE 73; RESP 18; TEMP 36.3; O2SAT 99
[2022-10-10] MEDS: rOPINIRole HCL 0.5 MG TABLET PO (20:12)
[2022-10-11 00:12] VITALS: PULSE 64; O2SAT 98
[2022-10-11] MEDS: HYDROmorphone HCL INJ (*CRX) 1 MG/ML SYR 0.5 MG IV PUSH ×2 (03:23→06:50)
[2022-10-11] MEDS: SODIUM CHLORIDE 0.9% IV 1,000 ML 75 ML IV CONT (03:23)
[2022-10-11 03:54] VITALS: BP 95/70; PULSE 52; RESP 18; TEMP 36.1; O2SAT 98
[2022-10-11 05:22] LABS: Hematocrit 27.4 % (37.0-47.0); Hemoglobin 9.1 g/dL (12.0-15.0); Mean Corpuscular HGB Conc 33.2 g/dl (32-36); Mean Corpuscular Hemoglobin 30.4 pg (26-34); Mean Corpuscular Volume 91.6 fl (80-100); Mean Platelet Volume 9.8 fl (7.4-10.4); Platelet Count Result 313 k/mm3 (150-375); Red Blood Count 2.99 M/mm3 (4.2-5.4); Red Cell Distribution Width 14.6 % (11.5-14.5); White Blood Count 5.1 K/mm3 (4.5-10.0)
[2022-10-11 05:36] LABS: Alanine Aminotransferase 46 U/L (6-35); Albumin Level 3.7 g/dL (3.5-5.1); Alkaline Phosphatase 72 U/L (38-126); Anion Gap 4 mmol/L (8-16); Aspartate Amino Transferase 38 U/L (14-36); Bilirubin,Total 0.4 mg/dL (0.2-1.3); Blood Urea Nitrogen 6 mg/dL (7-17); Carbon Dioxide 24 mmol/L (22-30); Chloride 110 mmol/L (98-107); Estimated CRCL calculation 67 ml/min; Estimated Glomerular Filt Rate > 60; Glucose 137 mg/dL (65-110); Potassium 3.4 mmol/L (3.4-5.0); Sodium 138 mmol/L (137-145)
[2022-10-11] MEDS: HYDROcodone/acetaminophen (*CRX) 5-325 MG TABLET 1 TAB PO ×2 (05:38→10:49)
[2022-10-11 05:58] LABS: Calcium 8.5 mg/dL (8.4-10.2)
[2022-10-11 07:30] VITALS: BP 161/69; PULSE 53; RESP 18; TEMP 36.5; O2SAT 100
[2022-10-11] MEDS: ROSUVASTATIN 10 MG TABLET PO (08:31)
[2022-10-11] MEDS: PANTOPRAZOLE 40 MG TABLET PO (08:31)
[2022-10-11] MEDS: ASPIRIN 81 MG CHEWABLE TABLET PO (08:31)
[2022-10-11] MEDS: LIPASE/AMYLASE/PROTEASE 12,000 UNITS CAP 1 CAP PO (08:31)
[2022-10-11] MEDS: lisinopriL 20 MG TABLET PO (08:32)
[2022-10-11] MEDS: hydroCHLOROthiazide 25 MG TABLET PO (08:32)
[2022-10-11] MEDS: amLODIPine BESYLATE 5 MG TABLET PO (08:32)
[2022-10-11] MEDS: PREGABALIN (*CRX) 75 MG CAPSULE 150 MG PO (08:32)
[2022-10-11] MEDS: ONDANSETRON INJ 4 MG/2 ML VIAL IV PUSH (08:33)
--- NOTE | 2022-10-11 10:29 | PM.DS ---
DS: Admitting Diagnosis Discharge Date 10/11/22 Admitting Diagnosis pancreatitis DS: Discharge Diagnosis Discharge Diagnosis (1) Acute on chronic pancreatitis: Code(s): K85.90 - Acute pancreatitis without necrosis or infection, unspecified; K86.1 - Other chronic pancreatitis Status: Acute Assessment and Plan: Patient with history of recurrent pancreatitis. The patient's cause of pancreatitis is most likely idiopathic. Patient has been evaluated by Gastroenterology in the past with no discernible cause for pancreatitis identified. She has even had prior MRCP is a did not demonstrate any evidence of [place] [address] on admission and now back WNL Continue aggressive IV fluid hydration normal saline. Advance diet as tolerated. Pain medications and nausea medications as needed. Continue Creon (home medication) Monitor CBC and CMP daily. (2) Acute kidney injury: Code(s): N17.9 - Acute kidney failure, unspecified Status: Resolved Assessment and Plan: Patient does have acute kidney injury most likely due to hypovolemia. Continue aggressive IV fluid BUN and creatinine on admission 32/1.5 on admission Trend BUN and creatinine. AK resolved (3) Essential hypertension: Code(s): I10 - Essential (primary) hypertension Status: Acute Assessment and Plan: Monitor blood pressures. Continue home lisinopril-hydrochlorothiazide and amlodipine. (4) Gastroesophageal reflux disease: Code(s): K21.9 - Gastro-esophageal reflux disease without esophagitis Status: Acute Assessment and Plan: Patient takes pantoprazole 40 mg b.i.d. at home. Initiate IV pantoprazole 40 mg q.12. DS: Summary Hospital Course Hospital Course: admitted for pancreatitis treated conservatively doing better tolerating diet ok to be dc home Time Spent with Patient Time attestation: Total time spent providing and/or coordinating discharge services: Exam Narrative: GENERAL: Comfortable, no acute distress HENMT: moist mucous membranes EYES: EOM intact b/l NECK: no lymphadenopathy RESPIRATORY: clear to auscultation CARDIO: RRR GI: soft, mild distension, epigastric tenderness, bowel sounds present SKIN: no rashes EXTREMITIES: no edema, redness or tenderness Const: Other: No acute distress, well-developed well-nourished HENMT: Other: Mucous membranes are dry, edentulous in upper and lower jaw, no oral pharyngeal erythema Eyes: Other: Pupils are equal and reactive, no scleral icterus, no conjunctival pallor Neck: Other: No JVD, trachea midline, nontender, 2 postoperative scars are present on the anterior neck Resp: Other: Decreased breath sounds bilaterally no increased work of breathing Cardio: Other: Regular rate, regular rhythm, 2+ bilateral radial pedal pulses GI: Other: Normoactive bowel sounds, flat, nondistended, no guarding, no rebound, severe tenderness in the epigastric region tell high palpation Skin: Other: Tanned, non jaundice Neuro: Other: Alert oriented, speech is clear, no facial asymmetry, moves all extremities equally, no localizing neurologic deficits noted during the course of conversation Extrem: Other: No clubbing, cyanosis or edema, good strength bilateral upper and lower extremities Psych: Other: Appropriate mood and affect, pleasant and cooperative DS: Data Data Completed and Pending Labs on day of discharge: Labs from last 24 hours 10/11/22 05:08 WBC 5.1 RBC 2.99 L Hgb 9.1 L Hct 27.4 L MCV 91.6 MCH 30.4 MCHC 33.2 RDW 14.6 H Plt Count 313 MPV 9.8 Sodium 138 Potassium 3.4 Chloride 110 H Carbon Dioxide 24 Anion Gap 4 L BUN 6 L Creatinine 0.80 Estim Creat Clear Calc 67 Estimated GFR > 60 Glucose 137 H Calcium 8.5 Total Bilirubin 0.4 AST 38 H ALT 46 H Alkaline Phospha
== END 2022-10-11 11:00 | disposition home or self-care (01) | DRG 282 ==
LOC: ANHED 22:28 → ANH2MED 10-07 03:17
PROVIDERS: Internal Medicine Critical Care Medicine; Admitting Provider Internal Medicine; Emergency Provider Emergency Medicine; PCP Internal Medicine; Visit Provider Chiropractor
DX: K85.90 Acute pancreatitis without necrosis or infection, unspecified (principal); K86.1 Other chronic pancreatitis; N17.9 Acute kidney failure, unspecified; I10 Essential (primary) hypertension; K21.9 Gastro-esophageal reflux disease without esophagitis; F17.210 Nicotine dependence, cigarettes, uncomplicated; Z90.49 Acquired absence of other specified parts of digestive tract; Z95.5 Presence of coronary angioplasty implant and graft; Z90.710 Acquired absence of both cervix and uterus; Z87.891 Personal history of nicotine dependence
CPT/HCPCS: 36415; 74177; 80053; 81001; 82948; 83690; 85025; 85027; 96361; 96374; 96375; 96376; 99285; A9270; G0378; G0379; J1170; J2270; J2405; J7030; Q9967

== ENCOUNTER 2022-11-02 14:00 | Inpatient (IN) | payer OTHER, SELFPAY ==
[2022-11-02] VITALS (42 sets, daily range): BP systolic 103–181; BP diastolic 46–103; PULSE 58–90; RESP 9–32; TEMP 36.1–36.3; O2SAT 86–100
--- NOTE | ~2022-11-02 | CT_ITS ---
EXAMINATION: CT abdomen pelvis w con DATE: 11/03/2022 08:47 INDICATION: Abnormal liver function tests. TECHNIQUE: Computed tomography (CT) of the abdomen and pelvis was performed with 100 mL Omnipaque 350 intravenous contrast. Automated exposure control and iterative reconstruction technique were employe d. The dose-length product was 327.10 mGy-cm. COMPARISON: CT abdomen and pelvis 10/06/2022, 02/20/21 FINDINGS: The visualized portions of the lung bases demonstrate mild atelectasis. No pleural effusion . The heart size is normal. No pericardial effusion. There is moderate intrahepatic biliary duct dila tation. The common duct is dilated to 14 mm. There are changes of cholecystectomy. The spleen, pancre as, and right adrenal gland are normal. There is a chronic 2.5 cm mass in left adrenal gland measurin g soft tissue attenuation, consistent with an adenoma. There is cortical thinning of the kidneys. The re are no dilated loops of bowel. The appendix is normal. Aortic atherosclerosis is noted. There are no pathologically enlarged lymph nodes. There is no free intraperitoneal fluid. There is mild lumbar spondylosis. IMPRESSION: 1. Moderate intrahepatic and extrahepatic biliary duct dilatation status post cholecystectomy, stable from 09/16/2022. Reviewed, dictated and finalized at location B. IMPRESSION: 1. Moderate intrahepatic and extrahepatic biliary duct dilatation status post c holecystectomy, stable from 09/16/2022.
--- NOTE | 2022-11-02 16:24 | PC.NURSE ---
Gi doctor scheduled for 11/07
[2022-11-02 16:25] LABS: Basophils Percent Auto 0.3 % (0.2-1.2); Eosinophils Absolute Auto 0.1 K/mm3 (0-0.3); Eosinophils Percent Auto 0.6 % (0-4.4); Hematocrit 40.7 % (37.0-47.0); Hemoglobin 12.6 g/dL (12.0-15.0); Immature Granulocyte Absolute 0.04 K/mm3 (0.00-0.031); Immature Granulocyte Percent A 0.3 % (0-0.5); Lymphocytes Absolute Auto 2.43 K/mm3 (0.9-3.2); Mean Corpuscular Hemoglobin 29.2 pg (26-34); Mean Corpuscular Volume 94.2 fl (80-100); Mean Platelet Volume 9.3 fl (7.4-10.4); Monocytes Absolute Auto 1.2 K/mm3 (0.1-0.6); Monocytes Percent Auto 9.1 % (2.6-8.5); Neutrophils Percent Auto 70.7 % (45.5-73.1); Platelet Count Result 439 k/mm3 (150-375); Red Blood Count 4.32 M/mm3 (4.2-5.4); Red Cell Distribution Width 14.8 % (11.5-14.5); White Blood Count 12.8 K/mm3 (4.5-10.0)
[2022-11-02 16:39] LABS: Appearance Urine Cloudy (Clear); Bacteria Urine 1+ /hpf; Bilirubin Urine Negative (Negative); Blood Urine Negative (Negative); Color Urine Yellow (Yellow); Glucose Urine UA Negative (Negative); Hyaline Casts Urine Present /lpf; Ketones Urine Negative (Negative); Leukocyte Esterase Ur Negative LEU/UL (Negative); Nitrate Urine Negative (Negative); Protein Urine Negative (Negative); RBC Urine 0-2 /hpf (0-2); Specific Grav Ur 1.015 (1.001-1.035); Squamous Epithelial Cell Urine Moderate /hpf (Few); WBC Urine 0-5 /hpf
[2022-11-02 16:40] LABS: Add Urine Microscopic? YES
--- NOTE | 2022-11-02 17:02 | ED.ABDPAIN ---
HPI - Abdominal Pain General Chief Complaint: Abdominal Pain Stated Complaint: i'm having a pancreas attack hx of pancreatitis Time Seen by Provider: 11/02/22 16:50 History of Present Illness HPI narrative: Patient is a 57-year-old female with history of recurrent idiopathic pancreatitis here with epigastric abdominal pain consistent with her prior pancreatitis attacks . She notes she was recently admitted hospital a couple of weeks ago for the same and was doing fairly well until around 11:00 a.m. this morning. She notes that she has been having severe epigastric abdominal pain which radiates into her back and her lower chest. Pain is severe, and associated with significant nausea. She is unsure of what makes the pain worse and nothing makes her pain better. She denies any diarrhea. She notes she felt warm this morning when the pain was severe but did not check her temperature for fever. No cough or congestion. No prior cardiac history. She notes she had a prior negative cardiac workup in the past. No urinary symptoms. Related Data Home Medications Medication Instructions Recorded Confirmed ropinirole 0.5 mg tablet 0.5 mg PO HS 02/10/21 11/02/22 lisinopril 20 1 tablet PO DAILY 09/16/22 11/02/22 mg-hydrochlorothiazide 25 mg tablet pregabalin 150 mg capsule (Lyrica) 150 mg PO BID 09/16/22 11/02/22 Allergies Allergy/AdvReac Type Severity Reaction Status Date / Time butalbital Allergy Unknown hives Verified 10/06/22 22:13 ibuprofen Allergy Unknown Hives Verified 10/06/22 22:13 ketorolac Allergy Unknown Hives Verified 10/06/22 22:13 naproxen Allergy Unknown Hives Verified 10/06/22 22:13 sumatriptan Allergy Unknown Hives Verified 10/06/22 22:13 Fish Containing Products Allergy Hives Verified 10/06/22 22:13 Review of Systems Review of Systems: CONSTITUTIONAL: Denies fever, has had chills and sweats. EYES: Denies visual changes, redness, or discharge. ENT: Denies rhinorrhea, congestion, sore throat, or otalgia. CARDIOVASCULAR: Denies chest pain, palpitations, or edema. RESPIRATORY: Denies cough or dyspnea. GASTROINTESTINAL: Epigastric abdominal pain, nausea, n diarrhea. GENITOURINARY: Denies dysuria or hematuria. SKIN: Denies rash or itching. MUSCULOSKELETAL: pain radiates into her back, no joint pain, or myalgia. NEUROLOGIC: Denies headache, numbness, or weakness. PSYCHIATRIC: Denies anxiety or depression. [facility] Past Medical History Medical History (Updated 11/02/22 @ 22:09 by Berna Banegas MD) Anxiety Aortic stenosis Arthritis Colon cancer screening Coronary artery disease History of stent x2. Diastolic dysfunction, left ventricle Echocardiogram 2022 Gastroesophageal reflux disease HTN (hypertension), malignant Marijuana smoker Migraines Mild aortic valve stenosis Aortic valve area of 1.4 cm noted on echocardiogram from 2019. However echocardiogram from 2022 actually demonstrates mild aortic valve sclerosis but no stenosis with aortic valve area 1.8 cm Normal nuclear stress test (02/10/21) Recurrent pancreatitis RLS (restless legs syndrome) Surgical History Surgical History (Updated 10/07/22 @ 07:20 by Raven Amaya DO) H/O cervical spine surgery (08/08/21) X2 with most recent 1 in 2021 History of cardiac catheterization History of cholecystectomy History of esophagogastroduodenoscopy (02/16/20) Unspecified esophagitis and gastritis. History of heart artery stent (2016) Performed at [facility] in [place]. History of hysterectomy History of open reduction and internal fixation (ORIF) procedure Right ankle fracture. Left elbow fracture. Bilateral foot fractures Family History Family History Mother Hypertension Hyperlipidemia Rheumatic fever Kidney disease Heart murmur Sibling Kidney disease Alcoholism Social History Social History (Updated 10/07/22 @ 07:21 by Raven Amaya DO) Social History:
[2022-11-02] MEDS: ONDANSETRON INJ 4 MG/2 ML VIAL IV PUSH (17:06)
[2022-11-02] MEDS: SODIUM CHLORIDE 0.9% IV 1,000 ML 999 ML IV CONT ×2 (17:06→18:24)
[2022-11-02] MEDS: MORPHINE SULFATE (*CRX) 4 MG/ML INJ IV PUSH (17:08)
--- NOTE | 2022-11-02 17:10 | PC.NURSE ---
pt had hysterectomy
--- NOTE | 2022-11-02 17:15 | PC.NURSE ---
Provider at bedside at this time.
[2022-11-02 17:19] LABS: Alanine Aminotransferase 98 U/L (6-35); Albumin Level 4.6 g/dL (3.5-5.1); Alkaline Phosphatase 105 U/L (38-126); Anion Gap 8 mmol/L (8-16); Aspartate Amino Transferase 213 U/L (14-36); Bilirubin,Total 0.5 mg/dL (0.2-1.3); Blood Urea Nitrogen 27 mg/dL (7-17); Calcium 9.3 mg/dL (8.4-10.2); Carbon Dioxide 21 mmol/L (22-30); Chloride 110 mmol/L (98-107); Estimated CRCL calculation 50 ml/min; Estimated Glomerular Filt Rate 57; Glucose 96 mg/dL (65-110); Potassium 4.1 mmol/L (3.4-5.0); Sodium 139 mmol/L (137-145)
[2022-11-02 17:39] LABS: Magnesium 2.1 mg/dL (1.6-2.3)
[2022-11-02 18:05] LABS: Lipase > 40000 U/L (23-300)
[2022-11-02] MEDS: HYDROmorphone HCL INJ (*CRX) 1 MG/ML SYR IV PUSH ×2 (18:24→20:56)
--- NOTE | 2022-11-02 21:26 | ADMGEN ---
This patient, Anny Palmer, was admitted to [address] [place] [address] Room 325-02. Patient/family oriented to hospital policies and general routines including ID bracelet, bed and alarms, visiting hours, pain management, procedures, bathroom and other care routines, personal items, smoking policy, room service/diet, and visiting hours. Information on how to activate the Rapid Response Team has been discussed. Patient/Family are encouraged to report perceived risks to care and to ask questions if they do not understand what they are told or what they should do.
--- NOTE | 2022-11-02 21:51 | PM.IMHP ---
H&P: HPI History of Present Illness Date/Time: 11/02/22 21:51 Chief Complaint: Abdominal pain Narrative: This is a 57-year-old female patient who denies any alcohol use. The patient was discharged from this hospital on 10/11/2022 with pancreatitis. Patient stated she has idiopathic pancreatitis. Patient stated that she has been taking her Creon and watching her diet. Patient stated that she was doing very well until around 11:00 a.m. this morning. She started to have severe epigastric discomfort at this time and she knew in her mind that she had pancreatitis again. Her pain was severe and had nausea vomiting with this is well. She denies any diarrhea. No fever chills. She notes that she has had a prior negative cardiac workup. Her white count is 12.8. AST is 213 ALT is 98. Lipase is greater than 40,000. The patient was made NPO and given Dilaudid and IV fluids as well as morphine in the emergency room. The patient is being admitted to observation status on the date of service of 11/02/2022 Review of Systems Review of Systems: All systems reviewed & are unremarkable except as noted in HPI and below Constitutional: Constitutional: Reports as per HPI and Reports no additional constitutional complaints Eyes: Eyes: Reports as per HPI and Reports no additional eye complaints ENT: Reports system reviewed and no additional complaints, except as documented and Reports Normal hearing present Cardiovascular: Cardiovascular: Reports no additional cardiovascular complaints Respiratory: Respiratory: Reports no additional respiratory complaints and Reports no additional respiratory complaints Gastrointestinal: Gastrointestinal: Reports as per HPI and Reports no additional gastrointestinal complaints Musculoskeletal: Musculoskeletal: Reports no additional musculoskeletal complaints Integumentary/Breasts: Skin/Breast: Reports system reviewed and no additional complaints, except as docu and Reports as per HPI Neurologic: Reports system reviewed and no additional complaints, except as documented, Reports as per HPI and Reports Normal hearing present Psychiatric: Psychiatric: Reports no additional psychiatric complaints and Reports as per HPI Endocrine: Endocrine: Reports no additional endocrine complaints Hematologic/Lymphatic: Hematologic/Lymphatic: Reports no additional hematologic/lymphatic complaints Allergic/Immunologic: Allergic/Immunologic: Reports no additional allergic/immunologic complaints [facility] Past Medical History Medical History (Updated 11/03/22 @ 00:13 by Bhumi Akins NP) Anxiety Aortic stenosis Arthritis Colon cancer screening Coronary artery disease History of stent x2. Diastolic dysfunction, left ventricle Echocardiogram 2022 Gastroesophageal reflux disease HTN (hypertension), malignant Marijuana smoker Migraines Mild aortic valve stenosis Aortic valve area of 1.4 cm noted on echocardiogram from 2019. However echocardiogram from 2022 actually demonstrates mild aortic valve sclerosis but no stenosis with aortic valve area 1.8 cm Normal nuclear stress test (02/10/21) Pancreatitis Recurrent pancreatitis RLS (restless legs syndrome) Surgical History Surgical History H/O cervical spine surgery (08/08/21) X2 with most recent 1 in 2021 History of cardiac catheterization History of cholecystectomy History of esophagogastroduodenoscopy (02/16/20) Unspecified esophagitis and gastritis. History of heart artery stent (2015) Performed at [facility] in [place]. History of hysterectomy History of open reduction and internal fixation (ORIF) procedure Right ankle fracture. Left elbow fracture. Bilateral foot fractures Family History Family History Mother Hypertension Hyperlipidemia Rheumatic fever Kidney disease Heart murmur Sibling Kidney disease Alcoholism Social
[2022-11-03] MEDS: SODIUM CHLORIDE 0.9% IV 1,000 ML 100 ML IV CONT ×2 (00:44→11:15)
[2022-11-03] MEDS: HYDROmorphone HCL INJ (*CRX) 1 MG/ML SYR IV PUSH ×6 (00:47→21:50)
[2022-11-03 06:00] VITALS: BP 144/44; PULSE 67; RESP 18; TEMP 36.3; O2SAT 100
[2022-11-03 10:15] LABS: Cholesterol 188 mg/dL (0-200); HDL Direct 62 mg/dL; Triglycerides 83 mg/dL (<150)
[2022-11-03 10:26] LABS: LDL Cholesterol Direct 72 mg/dL
[2022-11-03] MEDS: ONDANSETRON INJ 4 MG/2 ML VIAL IV PUSH ×3 (10:58→22:37)
--- NOTE | 2022-11-03 11:20 | PM.IMPN ---
Progress Note: A&P Assessment and Plan (1) Recurrent pancreatitis: Status: Acute Assessment and Plan: History of idiopathic pancreatitis. One of the side effects of lisinopril with hydrochlorothiazide as well as Crestor and pantoprazole can lead to pancreatitis. Hold these meds. the patient stated she does not drink any alcohol. The patient stated that she has been taking her Creon. GI has been consulted. A CT of the abdomen has been ordered. Her liver enzymes are elevated. Continue with IV fluids. (2) RLS (restless legs syndrome): Code(s): G25.81 - Restless legs syndrome Status: Acute Assessment and Plan: The patient was on Lyrica at home as well as ropinirole. she is NPO now. (3) Essential hypertension: Code(s): I10 - Essential (primary) hypertension Status: Acute Assessment and Plan: Recommend the patient be taken off lisinopril hydrochlorothiazide indefinitely as the side effect his pancreatitis. For now continue hydralazine p.r.n.. The patient stated that she was on Benicar in the past and would like to go back on Benicar if possible. (4) Anxiety: Code(s): F41.9 - Anxiety disorder, unspecified Status: Chronic Assessment and Plan: P.r.n. Ativan. Subjective Date/time seen: 11/03/22 11:20 Interval history: Patient reports epigastric tenderness and nausea Review of Systems Review of Systems: All systems reviewed & are unremarkable except as noted in HPI and below Constitutional: Constitutional: Reports as per HPI and Reports no additional constitutional complaints Eyes: Eyes: Reports as per HPI and Reports no additional eye complaints ENT: Reports system reviewed and no additional complaints, except as documented and Reports Normal hearing present Cardiovascular: Cardiovascular: Reports no additional cardiovascular complaints Respiratory: Respiratory: Reports no additional respiratory complaints and Reports no additional respiratory complaints Gastrointestinal: Gastrointestinal: Reports as per HPI and Reports no additional gastrointestinal complaints Musculoskeletal: Musculoskeletal: Reports no additional musculoskeletal complaints Integumentary/Breasts: Skin/Breast: Reports system reviewed and no additional complaints, except as docu and Reports as per HPI Neurologic: Reports system reviewed and no additional complaints, except as documented, Reports as per HPI and Reports Normal hearing present Psychiatric: Psychiatric: Reports no additional psychiatric complaints and Reports as per HPI Endocrine: Endocrine: Reports no additional endocrine complaints Hematologic/Lymphatic: Hematologic/Lymphatic: Reports no additional hematologic/lymphatic complaints Allergic/Immunologic: Allergic/Immunologic: Reports no additional allergic/immunologic complaints Exam Const: General: cooperative, comfortable, no acute distress, well developed, alert, awake, Physically active, average body habitus and well nourished Nutritional Appearance: thin Orientation/consciousness: oriented to person, oriented to place, oriented to time and patient oriented x3 Limitations: no limitations HENMT: Head: normal to inspection, No palpable skull fracture present, normocephalic, atraumatic and abrasion Ears: hearing grossly normal bilaterally and external ears normal Face/Nose/Sinus: Normal external nose present and Normal nares present Eyes: General: appearance normal, both eyes and all related structures Alignment and Position: alignment normal Periorbital: periorbital findings normal Eyelids: eyelids normal Sclera: sclerae normal Pupils: Equal, round and reactive pupils present EOM: EOMs intact bilaterally Neck: Neck: normal visual inspection, full ROM, no lymphadenopathy, trachea midline and supple Chest: Chest palpation & inspection: normal inspection of the chest Resp: Effort & Inspection: normal respiratory effort Auscultation: clear to auscultation
--- NOTE | 2022-11-03 13:48 | WPDGICN ---
Assessment and Plan Assessment and plan (1) Acute on chronic pancreatitis: Code(s): K85.90 - Acute pancreatitis without necrosis or infection, unspecified; K86.1 - Other chronic pancreatitis Status: Acute Assessment and Plan: beginning in February of 2020 she has had numerous episodes of pancreatitis with the episode becoming closer together. She was just discharged from here about 2 weeks ago with an episode of pancreatitis. The etiology has never been determined. She does not have hypertriglyceridemia. Previous MRCP did not reveal any evidence of pancreas divisum. She takes no drugs that are known to cause pancreatitis. However she states that she thinks lisinopril is the culprit because a nursing staff member looked it up for her and mentioned to her that it could be a cause. Hydrochlorothiazide and other diuretics have been associated pancreatitis but to my knowledge not lisinopril. She denies drinking alcohol. It is interesting however looking back in the Record that on each episode of acute pancreatitis her AST is elevated, and comes down if as improves, and in between attacks it is often normal. Also the AST is always greater than the ALT, suggestive of alcohol use which she vehemently denies. Likewise she states she only uses cannabis occasionally and had not had a for 2 weeks. She also states that she is not on any opioid analgesics. pancreas divisum would be a possibility but was not seen on previous MRCP (2) Tobacco dependence: Code(s): F17.200 - Nicotine dependence, unspecified, uncomplicated Status: Acute (3) Essential hypertension: Code(s): I10 - Essential (primary) hypertension Status: Acute Assessment and Plan: currently on amlodipine and lisinopril/HCTZ (4) Transaminitis: Code(s): R74.01 - Elevation of levels of liver transaminase levels Status: Acute Assessment and Plan: as noted above, her transaminases are usually elevated concurrent with elevations of the lipase. Alkaline phosphatase is always normal. This suggests that is probably not a biliary pancreatitis i.e. caused by sludge. She states she uses cannabis but infrequently, only in her back is bothering her and has not used it for 2 weeks. Plan I will start her on a liquid diet and advanced as tolerated. I think that she ought to be referred to a hepato biliary, pancreatic specialist suc h as who may be able to help delineate the etiology. Stenting may be necessary. GI Consult Note Consult date/time: 11/03/22 13:48 HPI: Anny Palmer is a 57 year old female Who was admitted with acute pancreatitis. She states that on Sunday she had had a cheeseburger on the grill and sometime afterwards developed sharp acute pain in the epigastric area. She states this is the pain she always has with pancreatitis and you that she should come to the emergency room. She was nauseated but had no vomiting this time. She was just discharged from here 2 weeks ago with an episode of acute pancreatitis and this is her 4th episode this year. The 1st documented case of her pancreatitis that I can find is February of 2020. The patient was not on lisinopril that admission or least according to the notes. This is important because she states that she is suspicious that lisinopril /hctz has been the cause her pancreatitis. She says the nightmares look that up for her. She denies drinking alcohol. She is not aware any family history of pancreatic disease. Her imaging studies generally reveal a normal pancreas as on this admission. He it seems that each time she has an episode of pancreatitis her lipase is higher. Review of Systems Review of Systems: All systems reviewed & are unremarkable except as noted in HPI and below [facility] Past Medical History Medical History Anxiety Aortic stenosis Arthritis Colon cancer sc
[2022-11-03 14:00] VITALS: BP 144/76; PULSE 51; RESP 20; TEMP 36.2; O2SAT 99
[2022-11-03 21:56] VITALS: BP 180/62; PULSE 66; RESP 20; TEMP 36.4; O2SAT 98
[2022-11-04] MEDS: HYDROmorphone HCL INJ (*CRX) 1 MG/ML SYR IV PUSH ×6 (01:18→21:10)
[2022-11-04] MEDS: SODIUM CHLORIDE 0.9% IV 1,000 ML 100 ML IV CONT (01:19)
[2022-11-04 06:00] VITALS: BP 152/65; PULSE 57; RESP 20; TEMP 36.5; O2SAT 100
[2022-11-04 06:54] LABS: Basophils Absolute Auto 0.1 K/mm3 (0.0-0.1); Basophils Percent Auto 0.9 % (0.2-1.2); Eosinophils Absolute Auto 0.3 K/mm3 (0-0.3); Eosinophils Percent Auto 6.2 % (0-4.4); Hematocrit 31.3 % (37.0-47.0); Immature Granulocyte Absolute 0.01 K/mm3 (0.00-0.031); Immature Granulocyte Percent A 0.2 % (0-0.5); Lymphocytes Absolute Auto 2.46 K/mm3 (0.9-3.2); Lymphocytes Percent Auto 45.1 % (18.3-44.2); Mean Corpuscular HGB Conc 31.9 g/dl (32-36); Mean Corpuscular Hemoglobin 29.8 pg (26-34); Mean Corpuscular Volume 93.2 fl (80-100); Mean Platelet Volume 9.7 fl (7.4-10.4); Monocytes Absolute Auto 0.5 K/mm3 (0.1-0.6); Monocytes Percent Auto 9.4 % (2.6-8.5); Neutrophils Absolute Auto 2.1 K/mm3 (1.3-6.7); Neutrophils Percent Auto 38.2 % (45.5-73.1); Platelet Count Result 346 k/mm3 (150-375); Red Blood Count 3.36 M/mm3 (4.2-5.4); Red Cell Distribution Width 14.7 % (11.5-14.5); White Blood Count 5.5 K/mm3 (4.5-10.0)
[2022-11-04 07:04] LABS: Lactic Acid Reflex 0.7 mmol/L (0.7-2.0)
[2022-11-04 07:06] LABS: Alanine Aminotransferase 169 U/L (6-35); Albumin Level 4.4 g/dL (3.5-5.1); Alkaline Phosphatase 167 U/L (38-126); Anion Gap 10 mmol/L (8-16); Aspartate Amino Transferase 144 U/L (14-36); Bilirubin,Total 0.7 mg/dL (0.2-1.3); Blood Urea Nitrogen 16 mg/dL (7-17); Calcium 9.1 mg/dL (8.4-10.2); Carbon Dioxide 21 mmol/L (22-30); Chloride 110 mmol/L (98-107); Estimated CRCL calculation 53 ml/min; Estimated Glomerular Filt Rate 57; Glucose 94 mg/dL (65-110); Magnesium 1.9 mg/dL (1.6-2.3); Sodium 141 mmol/L (137-145)
[2022-11-04 07:43] LABS: Lipase 2460 U/L (23-300)
--- NOTE | 2022-11-04 11:24 | PM.IMPN ---
Progress Note: A&P Assessment and Plan (1) Recurrent pancreatitis: Status: Acute Assessment and Plan: History of idiopathic pancreatitis. Appreciate GI input. Agree with GI about lisinopril hydrochlorothiazide and other meds not being the culprit. Patient takes cannabis which according to UpToDate is a high likelihood of causing acute pancreatitis. the patient stated she does not drink any alcohol although on admission LFTs were elevated and AST was elevated greater than 2 times than ALT suggesting alcohol-induced pancreatitis. The patient stated that she has been taking her Creon. Patient started on clear liquid diet. Advance diet as tolerated (2) RLS (restless legs syndrome): Code(s): G25.81 - Restless legs syndrome Status: Acute Assessment and Plan: Resume home med (3) Essential hypertension: Code(s): I10 - Essential (primary) hypertension Status: Acute Assessment and Plan: Resume lisinopril hydrochlorothiazide. continue hydralazine p.r.n.. (4) Anxiety: Code(s): F41.9 - Anxiety disorder, unspecified Status: Chronic Assessment and Plan: P.r.n. Ativan. Subjective Date/time seen: 11/04/22 11:24 Interval history: Abdominal pain is better Review of Systems Review of Systems: All systems reviewed & are unremarkable except as noted in HPI and below Exam Const: General: cooperative, comfortable, no acute distress, well developed, alert, awake, Physically active, average body habitus and well nourished Nutritional Appearance: thin Orientation/consciousness: oriented to person, oriented to place, oriented to time and patient oriented x3 Limitations: no limitations HENMT: Head: normal to inspection, No palpable skull fracture present, normocephalic, atraumatic and abrasion Ears: hearing grossly normal bilaterally and external ears normal Face/Nose/Sinus: Normal external nose present and Normal nares present Eyes: General: appearance normal, both eyes and all related structures Alignment and Position: alignment normal Periorbital: periorbital findings normal Eyelids: eyelids normal Sclera: sclerae normal Pupils: Equal, round and reactive pupils present EOM: EOMs intact bilaterally Neck: Neck: normal visual inspection, full ROM, no lymphadenopathy, trachea midline and supple Chest: Chest palpation & inspection: normal inspection of the chest Resp: Effort & Inspection: normal respiratory effort Auscultation: clear to auscultation bilaterally Percussion: percussion normal Cardio: Palpation: normal PMI Rate: regular rate Rhythm: regular rhythm Heart sounds: S1 normal heart sound present and S2 normal heart sound present Peripheral pulses: Peripheral pulses 2+ throughout GI: Auscultation: normal bowel sounds Rectal Exam: deferred Other: Tenderness epigastric area Back/Spine/Pelvis: Cervical Spine: cervical ROM normal Skin: General skin exam: normal color Lesions: no lesions Rashes: no rashes Trauma: no lacerations or abrasions Wounds: no wounds Hair: normal Nails: normal Neuro: General: oriented to person, oriented to place, oriented to time and patient oriented x3 Cranial nerves: Yes Equal, round and reactive pupils present and Yes Normal hearing present Cognition (Neuro): normal cognition Speech: normal speech Gait exam (Neuro): Normal gait present Motor exam (neuro): 5/5 motor strength present throughout Sensory Exam: normal sensation Extrem: General: normal to inspection Right upper extremity: normal to inspection and shoulder/upper arm Left upper extremity: normal to inspection and shoulder/upper arm Right lower extremity: normal to inspection Left lower extremity: normal to inspection Psych: Appearance: grossly normal Mental Status: mental status grossly normal Speech and movement: Normal speech and movement present Affect: normal affect Attitude: cooperative Thought process: Normal thought process present Jaun
--- NOTE | 2022-11-04 11:39 | WPDGIPROGNO ---
Progress Note: A&P Assessment and Plan (1) Acute on chronic pancreatitis: Code(s): K85.90 - Acute pancreatitis without necrosis or infection, unspecified; K86.1 - Other chronic pancreatitis Status: Acute Assessment and Plan: beginning in February of 2020 she has had numerous episodes of pancreatitis with the episode becoming closer together. She was just discharged from here about 2 weeks ago with an episode of pancreatitis. The etiology has never been determined. She does not have hypertriglyceridemia. Previous MRCP did not reveal any evidence of pancreas divisum. She takes no drugs that are known to cause pancreatitis. However she states that she thinks lisinopril is the culprit because a nursing staff member looked it up for her and mentioned to her that it could be a cause. Hydrochlorothiazide and other diuretics have been associated pancreatitis but to my knowledge not lisinopril. She denies drinking alcohol. It is interesting however looking back in the Record that on each episode of acute pancreatitis her AST is elevated, and comes down if as improves, and in between attacks it is often normal. Also the AST is always greater than the ALT, suggestive of alcohol use which she vehemently denies. Likewise she states she only uses cannabis occasionally and had not had a for 2 weeks. She also states that she is not on any opioid analgesics. pancreas divisum would be a possibility but was not seen on previous MRCP (2) Tobacco dependence: Code(s): F17.200 - Nicotine dependence, unspecified, uncomplicated Status: Acute Assessment and Plan: She does smoke tobacco regularly and also uses cannabis, mostly gummies. (3) Essential hypertension: Code(s): I10 - Essential (primary) hypertension Status: Acute Assessment and Plan: currently on amlodipine and lisinopril/HCTZ (4) Transaminitis: Code(s): R74.01 - Elevation of levels of liver transaminase levels Status: Acute Assessment and Plan: as noted above, her transaminases are usually elevated concurrent with elevations of the lipase. Alkaline phosphatase is always normal. This suggests that is probably not a biliary pancreatitis i.e. caused by sludge. She states she uses cannabis but infrequently, only when her back is bothering her and has not used it for 2 weeks. Plan I will start her on a liquid diet and advanced as tolerated. I think that she ought to be referred to a hepato biliary, pancreatic specialist suc h as who may be able to help delineate the etiology. Stenting may be necessary. I discussed with her the possible cause of pancreatitis that could be treated but Dr Valdivia, including ampullary stenosis, pancreas divisum, sphincter of Oddi dysfunction for example. manometric studies of the sphincter of OD might be necessary. More than likely she would need a sphincterotomy and stent placement ( pancreatic and/or biliary). I explained to her that although some of these could be done here, such as sphincterotomy, that I think she would be in best hands seen by an individual like Dr. Negro Subjective Date/time seen: 11/04/22 11:39 Today she says she feels a bit better. The pain is not as bad. She is hungry and willing to try full liquid diet. I clarified with her that she had been taking Creon at home and she says that she was. Exam Const: General: cooperative, healthy appearing and uncomfortable Orientation/consciousness: patient oriented x3 HENMT: Head: normal to inspection Ears: hearing grossly normal bilaterally Mouth: Yes Normal oral and palatal mucosa present Eyes: General: appearance normal, both eyes and all related structures Neck: Neck: normal visual inspection Chest: Chest palpation & inspection: normal inspection of the chest Resp: Effort & Inspection: normal respiratory effort Auscultation: clear to auscultation bilaterally Cardio: Rate
[2022-11-04] MEDS: hydroCHLOROthiazide 25 MG TABLET PO (12:12)
[2022-11-04] MEDS: lisinopriL 20 MG TABLET PO (12:12)
[2022-11-04 14:00] VITALS: BP 166/61; PULSE 52; RESP 18; TEMP 35.7; O2SAT 99
[2022-11-04] MEDS: PREGABALIN (*CRX) 75 MG CAPSULE 150 MG PO (16:42)
[2022-11-04] MEDS: rOPINIRole HCL 0.5 MG TABLET PO (20:09)
[2022-11-04] MEDS: ONDANSETRON INJ 4 MG/2 ML VIAL IV PUSH (20:09)
[2022-11-04 21:29] VITALS: BP 147/58; PULSE 57; RESP 18; TEMP 36.6; O2SAT 99
[2022-11-05] MEDS: HYDROmorphone HCL INJ (*CRX) 1 MG/ML SYR IV PUSH ×6 (01:30→22:19)
[2022-11-05] MEDS: SODIUM CHLORIDE 0.9% IV 1,000 ML 100 ML IV CONT (03:31)
[2022-11-05 06:00] VITALS: BP 121/65; PULSE 48; RESP 18; TEMP 36.4; O2SAT 99
[2022-11-05] MEDS: ONDANSETRON INJ 4 MG/2 ML VIAL IV PUSH ×4 (06:01→18:14)
[2022-11-05] MEDS: hydroCHLOROthiazide 25 MG TABLET PO (09:23)
[2022-11-05] MEDS: PREGABALIN (*CRX) 75 MG CAPSULE 150 MG PO ×2 (09:23→18:15)
[2022-11-05] MEDS: lisinopriL 20 MG TABLET PO (09:23)
[2022-11-05 09:34] VITALS: O2SAT 98
[2022-11-05] MEDS: amLODIPine BESYLATE 5 MG TABLET 10 MG PO (09:44)
--- NOTE | 2022-11-05 11:54 | PM.IMPN ---
Progress Note: A&P Assessment and Plan (1) Recurrent pancreatitis: Status: Acute Assessment and Plan: History of idiopathic pancreatitis. Appreciate GI input. Agree with GI about lisinopril hydrochlorothiazide and other meds not being the culprit. Patient takes cannabis which according to [employer] is a high likelihood of causing acute pancreatitis. the patient stated she does not drink any alcohol although on admission LFTs were elevated and AST was elevated greater than 2 times than ALT suggesting alcohol-induced pancreatitis. The patient stated that she has been taking her Creon. Patient started on clear liquid diet but reported significant worsening of her pain. Keep her strict NPO. Continue IV pain medications (2) Tobacco dependence: Code(s): F17.200 - Nicotine dependence, unspecified, uncomplicated Status: Acute Assessment and Plan: She does smoke tobacco regularly and also uses cannabis, mostly gummies. (3) Essential hypertension: Code(s): I10 - Essential (primary) hypertension Status: Acute Assessment and Plan: currently on amlodipine and lisinopril/HCTZ (4) RLS (restless legs syndrome): Code(s): G25.81 - Restless legs syndrome Status: Acute Assessment and Plan: Resume home med (5) Anxiety: Code(s): F41.9 - Anxiety disorder, unspecified Status: Chronic Assessment and Plan: P.r.mini Lombardi. Subjective Date/time seen: 11/05/22 11:54 Interval history: Patient reports significant abdominal pain and diarrhea although the staff has not noticed any diarrhea Review of Systems Review of Systems: All systems reviewed & are unremarkable except as noted in HPI and below Exam Const: General: cooperative, healthy appearing and uncomfortable Orientation/consciousness: patient oriented x3 HENMT: Head: normal to inspection Ears: hearing grossly normal bilaterally Mouth: Yes Normal oral and palatal mucosa present Eyes: General: appearance normal, both eyes and all related structures Neck: Neck: normal visual inspection Chest: Chest palpation & inspection: normal inspection of the chest Resp: Effort & Inspection: normal respiratory effort Auscultation: clear to auscultation bilaterally Cardio: Rate: regular rate Rhythm: regular rhythm GI: Inspection: normal to inspection GI Palp: Yes Tenderness to palpation present (GI) ( Epigastric area), No Guarding due to palpation present (GI) and Yes No hepatosplenomegaly present Auscultation: normal bowel sounds and no bruits Skin: General skin exam: normal color and no jaundice Neuro: General: patient oriented x3 Speech: normal speech Objective Data Vital Signs Vital Signs: Vital Signs - 24 hr 11/04/22 14:00 11/04/22 21:29 11/04/22 20:00 Temperature 96.2 F L 97.9 F Pulse Rate 52 L 57 L Respiratory Rate 18 18 Blood Pressure 166/61 H 147/58 H Pulse Oximetry 99 99 Oxygen Delivery Room Air 11/05/22 06:00 11/05/22 09:34 Temperature 97.6 F Pulse Rate 48 L Respiratory Rate 18 Blood Pressure 121/65 Pulse Oximetry 99 98 Oxygen Delivery Room Air Intake/Output Intake/Output: Intake & Output 11/02/22 11/03/22 11/04/22 11/05/22 23:59 23:59 23:59 23:59 Intake Total 1000 / 1000 2460 / 2460 3490 / 3490 0 / 0 Balance 1000 / 1000 2460 / 2460 3490 / 3490 0 / 0 Meds/Results Medications: Active Medications Generic Name Dose Route Start Last Admin Trade Name Freq PRN Reason Stop Dose Admin Amlodipine Besylate 10 mg 11/05/22 09:00 11/05/22 09:44 Amlodipine Besylate 5 Mg Tablet PO 10 mg QAM PRIMITIVO Administration Hydrochlorothiazide 25 mg 11/04/22 09:00 11/05/22 09:23 Hydrochlorothiazide 25 Mg Tablet PO 12/05/22 08:59 25 mg DAILY PRIMITIVO Administration Hydromorphone HCl 1 mg 11/04/22 15:56 11/05/22 09:43 Hydromorphone Hcl Inj (*Crx) 1 Mg/Ml Syr IV PUSH 1 mg Q4H PRN Administration Pain Rated 7-10 Sodium Chloride
--- NOTE | 2022-11-05 11:54 | WPDGIPROGNO ---
Progress Note: A&P Assessment and Plan (1) Acute on chronic pancreatitis: Code(s): K85.90 - Acute pancreatitis without necrosis or infection, unspecified; K86.1 - Other chronic pancreatitis Status: Acute Assessment and Plan: beginning in February of 2020 she has had numerous episodes of pancreatitis with the episode becoming closer together. She was just discharged from here about 2 weeks ago with an episode of pancreatitis. The etiology has never been determined. She does not have hypertriglyceridemia. Previous MRCP did not reveal any evidence of pancreas divisum. She takes no drugs that are known to cause pancreatitis. However she states that she thinks lisinopril is the culprit because a nursing staff member looked it up for her and mentioned to her that it could be a cause. Hydrochlorothiazide and other diuretics have been associated pancreatitis but to my knowledge not lisinopril. She denies drinking alcohol. It is interesting however looking back in the Record that on each episode of acute pancreatitis her AST is elevated, and comes down if as improves, and in between attacks it is often normal. Also the AST is always greater than the ALT, suggestive of alcohol use which she vehemently denies. Likewise she states she only uses cannabis occasionally and had not had a for 2 weeks. She also states that she is not on any opioid analgesics. pancreas divisum would be a possibility but was not seen on previous MRCP 11/05/2022 still having significant pain. She tried eating a little yesterday but it caused more pain in she is not hungry now. (2) Tobacco dependence: Code(s): F17.200 - Nicotine dependence, unspecified, uncomplicated Status: Acute Assessment and Plan: She does smoke tobacco regularly and also uses cannabis, mostly gummies. (3) Essential hypertension: Code(s): I10 - Essential (primary) hypertension Status: Acute Assessment and Plan: currently on amlodipine and lisinopril/HCTZ (4) Transaminitis: Code(s): R74.01 - Elevation of levels of liver transaminase levels Status: Acute Assessment and Plan: as noted above, her transaminases are usually elevated concurrent with elevations of the lipase. Alkaline phosphatase is always normal. This suggests that is probably not a biliary pancreatitis i.e. caused by sludge. She states she uses cannabis but infrequently, only when her back is bothering her and has not used it for 2 weeks. Transaminases are slowly coming down. (5) Diarrhea: Code(s): R19.7 - Diarrhea, unspecified Status: Acute Assessment and Plan: she states she began having diarrhea about 2 days ago. It is watery and now uncontrollable. There is no blood her stools. She had not been on antibiotics prior to her admission. I do not think C diff is likely but will obtain cultures and also Elastase . However, I doubt that this is due to pancreatic insufficiency, as 1 would expect her to have had chronic diarrhea. Plan I will start her on a liquid diet and advanced as tolerated. I think that she ought to be referred to a hepato biliary, pancreatic specialist suc h as who may be able to help delineate the etiology. Stenting may be necessary. I discussed with her the possible cause of pancreatitis that could be treated but Dr Valdivia, including ampullary stenosis, pancreas divisum, sphincter of Oddi dysfunction for example. manometric studies of the sphincter of OD might be necessary. More than likely she would need a sphincterotomy and stent placement ( pancreatic and/or biliary). I explained to her that although some of these could be done here, such as sphincterotomy, that I think she would be in best hands seen by an individual like Dr. Negro Time Spent With Patient Time with patient: 25 - 35 minutes Subjective Date/time seen: 11/04/22? 11:39 ? Today she says she feels a bit better.
[2022-11-05 14:00] VITALS: BP 110/62; PULSE 55; RESP 16; TEMP 37.1; O2SAT 99
[2022-11-05] MEDS: rOPINIRole HCL 0.5 MG TABLET PO (20:15)
[2022-11-05 21:30] LABS: Toxigenic C. Diff POSITIVE (NEGATIVE)
[2022-11-05 22:00] VITALS: BP 131/65; PULSE 73; RESP 18; TEMP 36.8; O2SAT 100
[2022-11-06] MEDS: VANCOMYCIN ORAL 125 MG/2.5 ML SYRUP PO ×3 (00:05→11:49)
[2022-11-06] MEDS: HYDROmorphone HCL INJ (*CRX) 1 MG/ML SYR IV PUSH ×2 (05:50→10:21)
[2022-11-06 06:00] VITALS: BP 107/85; PULSE 52; RESP 16; TEMP 36.4; O2SAT 100
[2022-11-06] MEDS: PREGABALIN (*CRX) 75 MG CAPSULE 150 MG PO ×2 (09:56→15:59)
[2022-11-06] MEDS: lisinopriL 20 MG TABLET PO (10:20)
[2022-11-06] MEDS: hydroCHLOROthiazide 25 MG TABLET PO (10:20)
[2022-11-06] MEDS: amLODIPine BESYLATE 5 MG TABLET 10 MG PO (10:20)
--- NOTE | 2022-11-06 10:47 | PM.IMPN ---
Progress Note: A&P Assessment and Plan (1) Recurrent pancreatitis: Status: Acute Assessment and Plan: History of idiopathic pancreatitis. Appreciate GI input. Agree with GI about lisinopril hydrochlorothiazide and other meds not being the culprit. Patient takes cannabis which, according to UpToDate, has a high likelihood of causing acute pancreatitis. the patient stated she does not drink any alcohol although on admission LFTs were elevated and AST was elevated greater than 2 times than ALT suggesting alcohol-induced pancreatitis. The patient stated that she has been taking her Creon. Patient started on clear liquid diet. Taper IV pain medication (2) Tobacco dependence: Code(s): F17.200 - Nicotine dependence, unspecified, uncomplicated Status: Acute Assessment and Plan: She does smoke tobacco regularly and also uses cannabis, mostly gummies. (3) Essential hypertension: Code(s): I10 - Essential (primary) hypertension Status: Acute Assessment and Plan: currently on amlodipine and lisinopril/HCTZ (4) RLS (restless legs syndrome): Code(s): G25.81 - Restless legs syndrome Status: Acute Assessment and Plan: Resume home med (5) Anxiety: Code(s): F41.9 - Anxiety disorder, unspecified Status: Chronic Assessment and Plan: P.r.n. Ativan. (6) C. difficile colitis: Code(s): A04.72 - Enterocolitis due to Clostridium difficile, not specified as recurrent Status: Acute Assessment and Plan: Continue p.o. vancomycin. Monitor BMP. Hold hydrochlorothiazide, lisinopril since she is having diarrhea prevent SOL. Continue IV fluids Subjective Date/time seen: 11/06/22 10:47 Interval history: Patient reports abdominal pain is better. Still has watery diarrhea Review of Systems Review of Systems: All systems reviewed & are unremarkable except as noted in HPI and below Exam Const: General: cooperative, anxious, uncomfortable and other ( Sobbing) Orientation/consciousness: patient oriented x3 HENMT: Head: normal to inspection Ears: hearing grossly normal bilaterally Mouth: Yes Normal oral and palatal mucosa present Eyes: General: appearance normal, both eyes and all related structures Neck: Neck: normal visual inspection Chest: Chest palpation & inspection: normal inspection of the chest Resp: Effort & Inspection: normal respiratory effort Auscultation: clear to auscultation bilaterally Cardio: Rate: regular rate Rhythm: regular rhythm GI: Inspection: normal to inspection GI Palp: Yes Tenderness to palpation present (GI) ( Epigastric area), No Guarding due to palpation present (GI) and Yes No hepatosplenomegaly present Auscultation: normal bowel sounds and no bruits Skin: General skin exam: normal color and no jaundice Neuro: General: patient oriented x3 Speech: normal speech Objective Data Vital Signs Vital Signs: Vital Signs - 24 hr 11/05/22 14:00 11/05/22 22:00 11/05/22 20:00 Temperature 98.7 F 98.2 F Pulse Rate 55 L 73 Respiratory Rate 16 18 Blood Pressure 110/62 131/65 Pulse Oximetry 99 100 Oxygen Delivery Room Air 11/06/22 06:00 Temperature 97.6 F Pulse Rate 52 L Respiratory Rate 16 Blood Pressure 107/85 Pulse Oximetry 100 Oxygen Delivery Intake/Output Intake/Output: Intake & Output 11/03/22 11/04/22 11/05/22 11/06/22 23:59 23:59 23:59 23:59 Intake Total 2460 / 2460 3490 / 3490 0 / 0 600 / 600 Balance 2460 / 2460 3490 / 3490 0 / 0 600 / 600 Meds/Results Medications: Active Medications Generic Name Dose Route Start Last Admin Trade Name Freq PRN Reason Stop Dose Admin Amlodipine Besylate 10 mg 11/05/22 09:00 11/06/22 10:20 Amlodipine Besylate 5 Mg Tablet PO 10 mg QAM PRIMITIVO Administration Hydrochlorothiazide 25 mg 11/04/22 09:00 11/06/22 10:20 Hydrochlorothiazide 25 Mg Tablet PO 12/05/22 08:59 25 mg DAILY PRIMITIVO Administration Hydrom
[2022-11-06] MEDS: ONDANSETRON INJ 4 MG/2 ML VIAL IV PUSH (11:59)
--- NOTE | 2022-11-06 12:52 | WPDGIPROGNO ---
Progress Note: A&P Assessment and Plan (1) Acute on chronic pancreatitis: Code(s): K85.90 - Acute pancreatitis without necrosis or infection, unspecified; K86.1 - Other chronic pancreatitis Status: Acute Assessment and Plan: beginning in February of 2020 she has had numerous episodes of pancreatitis with the episode becoming closer together. She was just discharged from here about 2 weeks ago with an episode of pancreatitis. The etiology has never been determined. She does not have hypertriglyceridemia. Previous MRCP did not reveal any evidence of pancreas divisum. She takes no drugs that are known to cause pancreatitis. However she states that she thinks lisinopril is the culprit because a nursing staff member looked it up for her and mentioned to her that it could be a cause. Hydrochlorothiazide and other diuretics have been associated pancreatitis but to my knowledge not lisinopril. She denies drinking alcohol. It is interesting however looking back in the record that on each episode of acute pancreatitis her AST is elevated, and comes down if as improves, and in between attacks it is often normal. Also the AST is always greater than the ALT, suggestive of alcohol use which she vehemently denies. Likewise she states she only uses cannabis occasionally and had not had a for 2 weeks. She also states that she is not on any opioid analgesics. pancreas divisum would be a possibility but was not seen on previous MRCP 11/05/2022 still having significant pain. She tried eating a little yesterday but it caused more pain in she is not hungry now. (2) Tobacco dependence: Code(s): F17.200 - Nicotine dependence, unspecified, uncomplicated Status: Acute Assessment and Plan: She does smoke tobacco regularly and also uses cannabis, mostly gummies. (3) Essential hypertension: Code(s): I10 - Essential (primary) hypertension Status: Acute Assessment and Plan: currently on amlodipine and lisinopril/HCTZ (4) Transaminitis: Code(s): R74.01 - Elevation of levels of liver transaminase levels Status: Acute Assessment and Plan: as noted above, her transaminases are usually elevated concurrent with elevations of the lipase. Alkaline phosphatase is always normal. This suggests that is probably not a biliary pancreatitis i.e. caused by sludge. She states she uses cannabis but infrequently, only when her back is bothering her and has not used it for 2 weeks. Transaminases are slowly coming down. (5) Diarrhea: Code(s): R19.7 - Diarrhea, unspecified Status: Acute Assessment and Plan: she states she began having diarrhea about 2 days ago. It is watery and now uncontrollable. There is no blood her stools. She had not been on antibiotics prior to her admission. I do not think C diff is likely but will obtain cultures and also Elastase . However, I doubt that this is due to pancreatic insufficiency, as 1 would expect her to have had chronic diarrhea. 11/06/2022 stool is positive for C diff. will begin therapy with Dificid Plan Stool is positive for C diff. Will begin Dificid. Time Spent With Patient Time with patient: 25 - 35 minutes Subjective Date/time seen: 11/04/22? 11:39 ? Today she says she feels a bit better.? The pain is not as bad.? She is hungry and willing to try full liquid diet. ? I clarified with her that she had been taking Creon at home and she says that she was. 11/05/22? 11:54 This morning found the patient crying as I entered the room.? She told me that when she tried to eat little yesterday she had a great deal of pain almost immediately.? She is currently NPO.? She states that she is not hungry at all.? Her pain subsides after morphine for about 2 hours. ? She was upset ? Because a providertold her this morning the that they were going to stop the IV fluids and have her eat and stopper pain medications.? at the time of that inte
[2022-11-06 14:00] VITALS: BP 110/83; PULSE 56; RESP 14; TEMP 36.6; O2SAT 100
[2022-11-06] MEDS: LORazepam INJ (*CRX) 2 MG/ML VIAL 0.5 MG IV PUSH (15:56)
[2022-11-06] MEDS: rOPINIRole HCL 0.5 MG TABLET PO (21:20)
[2022-11-06] MEDS: FIDAXOMICIN 200 MG TABLET PO (21:20)
[2022-11-06 21:31] VITALS: BP 135/60; PULSE 57; RESP 12; TEMP 36.1; O2SAT 100
[2022-11-07] MEDS: HYDROmorphone HCL INJ (*CRX) 1 MG/ML SYR IV PUSH ×2 (01:06→09:20)
[2022-11-07] MEDS: ONDANSETRON INJ 4 MG/2 ML VIAL IV PUSH ×2 (03:22→12:34)
[2022-11-07 05:54] VITALS: BP 130/95; PULSE 76; RESP 14; TEMP 36.1; O2SAT 99
--- NOTE | 2022-11-07 07:03 | WPDGIPROGNO ---
Progress Note: A&P Assessment and Plan (1) Acute on chronic pancreatitis: Code(s): K85.90 - Acute pancreatitis without necrosis or infection, unspecified; K86.1 - Other chronic pancreatitis Status: Acute Assessment and Plan: beginning in February of 2020 she has had numerous episodes of pancreatitis with the episode becoming closer together. She was just discharged from here about 2 weeks ago with an episode of pancreatitis. The etiology has never been determined. She does not have hypertriglyceridemia. Previous MRCP did not reveal any evidence of pancreas divisum. She takes no drugs that are known to cause pancreatitis. However she states that she thinks lisinopril is the culprit because a nursing staff member looked it up for her and mentioned to her that it could be a cause. Hydrochlorothiazide and other diuretics have been associated pancreatitis but to my knowledge not lisinopril. She denies drinking alcohol. It is interesting however looking back in the record that on each episode of acute pancreatitis her AST is elevated, and comes down if as improves, and in between attacks it is often normal. Also the AST is always greater than the ALT, suggestive of alcohol use which she vehemently denies. Likewise she states she only uses cannabis occasionally and had not had a for 2 weeks. She also states that she is not on any opioid analgesics. pancreas divisum would be a possibility but was not seen on previous MRCP 11/05/2022 still having significant pain. She tried eating a little yesterday but it caused more pain in she is not hungry now. 11/07/2022 she is tolerating full liquid diet but not anxious to try eating anymore just yet. (2) Tobacco dependence: Code(s): F17.200 - Nicotine dependence, unspecified, uncomplicated Status: Acute Assessment and Plan: She does smoke tobacco regularly and also uses cannabis, mostly gummies. (3) Essential hypertension: Code(s): I10 - Essential (primary) hypertension Status: Acute Assessment and Plan: currently on amlodipine and lisinopril/HCTZ (4) Transaminitis: Code(s): R74.01 - Elevation of levels of liver transaminase levels Status: Acute Assessment and Plan: as noted above, her transaminases are usually elevated concurrent with elevations of the lipase. Alkaline phosphatase is always normal. This suggests that is probably not a biliary pancreatitis i.e. caused by sludge. She states she uses cannabis but infrequently, only when her back is bothering her and has not used it for 2 weeks. Transaminases are slowly coming down. 11/22 will recheck transaminases today (5) Diarrhea: Code(s): R19.7 - Diarrhea, unspecified Status: Acute Assessment and Plan: she states she began having diarrhea about 2 days ago. It is watery and now uncontrollable. There is no blood her stools. She had not been on antibiotics prior to her admission. I do not think C diff is likely but will obtain cultures and also Elastase . However, I doubt that this is due to pancreatic insufficiency, as 1 would expect her to have had chronic diarrhea. 11/06/2022 stool is positive for C diff. will begin therapy with Dificid Plan Stool is positive for C diff. Will begin Dificid. will refer her as an outpatient to for investigation and possible ERCP. Time Spent With Patient Time with patient: 15 - 25 minutes Subjective Date/time seen: 11/04/22? 11:39 ? Today she says she feels a bit better.? The pain is not as bad.? She is hungry and willing to try full liquid diet. ? I clarified with her that she had been taking Creon at home and she says that she was. 11/05/22? 11:54 This morning found the patient crying as I entered the room.? She told me that when she tried to eat little yesterday she had a great deal of pain almost immediately.? She is currently NPO.? She states that she is not hungry at all.?
[2022-11-07 07:29] LABS: Basophils Percent Auto 0.6 % (0.2-1.2); Eosinophils Absolute Auto 0.2 K/mm3 (0-0.3); Eosinophils Percent Auto 4.3 % (0-4.4); Hematocrit 31.8 % (37.0-47.0); Hemoglobin 10.2 g/dL (12.0-15.0); Immature Granulocyte Absolute 0.02 K/mm3 (0.00-0.031); Immature Granulocyte Percent A 0.4 % (0-0.5); Lymphocytes Absolute Auto 1.79 K/mm3 (0.9-3.2); Lymphocytes Percent Auto 34.8 % (18.3-44.2); Mean Corpuscular HGB Conc 32.1 g/dl (32-36); Mean Corpuscular Hemoglobin 29.2 pg (26-34); Mean Corpuscular Volume 91.1 fl (80-100); Mean Platelet Volume 9.9 fl (7.4-10.4); Monocytes Absolute Auto 0.5 K/mm3 (0.1-0.6); Monocytes Percent Auto 8.9 % (2.6-8.5); Neutrophils Absolute Auto 2.6 K/mm3 (1.3-6.7); Platelet Count Result 335 k/mm3 (150-375); Red Blood Count 3.49 M/mm3 (4.2-5.4); Red Cell Distribution Width 14.4 % (11.5-14.5); White Blood Count 5.2 K/mm3 (4.5-10.0)
[2022-11-07 07:43] LABS: Alanine Aminotransferase 73 U/L (6-35); Albumin Level 4.2 g/dL (3.5-5.1); Alkaline Phosphatase 128 U/L (38-126); Anion Gap 10 mmol/L (8-16); Aspartate Amino Transferase 43 U/L (14-36); Bilirubin,Total 0.3 mg/dL (0.2-1.3); Blood Urea Nitrogen 10 mg/dL (7-17); Calcium 9.2 mg/dL (8.4-10.2); Carbon Dioxide 20 mmol/L (22-30); Chloride 110 mmol/L (98-107); Estimated CRCL calculation 58 ml/min; Estimated Glomerular Filt Rate > 60; Glucose 86 mg/dL (65-110); Lipase 137 U/L (23-300); Potassium 4.2 mmol/L (3.4-5.0); Sodium 140 mmol/L (137-145)
[2022-11-07] MEDS: amLODIPine BESYLATE 5 MG TABLET 10 MG PO (09:19)
[2022-11-07] MEDS: PREGABALIN (*CRX) 75 MG CAPSULE 150 MG PO ×2 (09:19→17:13)
[2022-11-07] MEDS: FIDAXOMICIN 200 MG TABLET PO (09:19)
[2022-11-07] MEDS: SODIUM CHLORIDE 0.9% IV 1,000 ML 100 ML IV CONT ×2 (10:00→19:54)
--- NOTE | 2022-11-07 11:47 | PM.IMPN ---
Progress Note: A&P Assessment and Plan (1) Recurrent pancreatitis: Status: Acute Assessment and Plan: History of idiopathic pancreatitis. Appreciate GI input. Agree with GI about lisinopril hydrochlorothiazide and other meds not being the culprit. Patient takes cannabis which, according to [employer], has a high likelihood of causing acute pancreatitis. the patient stated she does not drink any alcohol although on admission LFTs were elevated and AST was elevated greater than 2 times than ALT suggesting alcohol-induced pancreatitis. The patient stated that she has been taking her Creon. Patient started on clear liquid diet. Taper IV pain medication (2) Tobacco dependence: Code(s): F17.200 - Nicotine dependence, unspecified, uncomplicated Status: Acute Assessment and Plan: She does smoke tobacco regularly and also uses cannabis, mostly gummies. (3) Essential hypertension: Code(s): I10 - Essential (primary) hypertension Status: Acute Assessment and Plan: currently on amlodipine and lisinopril/HCTZ (4) RLS (restless legs syndrome): Code(s): G25.81 - Restless legs syndrome Status: Acute Assessment and Plan: Resume home med (5) Anxiety: Code(s): F41.9 - Anxiety disorder, unspecified Status: Chronic Assessment and Plan: P.r.n. Ativan. (6) C. difficile colitis: Code(s): A04.72 - Enterocolitis due to Clostridium difficile, not specified as recurrent Status: Acute Assessment and Plan: Continue p.o. vancomycin (insurance doesn't cover dificid) Monitor BMP. Hold hydrochlorothiazide, lisinopril since she is having diarrhea prevent SOL. Continue IV fluids Subjective Date/time seen: 11/07/22 11:47 Interval history: ongoing abd pain Exam Const: General: cooperative, healthy appearing, comfortable, no acute distress, well developed, alert, awake, Physically active, anxious, uncomfortable, average body habitus, well nourished, thin and other ( Sobbing) Nutritional Appearance: average body habitus, well nourished and thin Orientation/consciousness: oriented to person, oriented to place, oriented to time and patient oriented x3 Limitations: no limitations HENMT: Head: normal to inspection, No palpable skull fracture present, normocephalic, atraumatic and abrasion Ears: hearing grossly normal bilaterally and external ears normal Face/Nose/Sinus: Normal external nose present and Normal nares present Mouth: Yes Normal oral and palatal mucosa present Eyes: General: appearance normal, both eyes and all related structures Alignment and Position: alignment normal Periorbital: periorbital findings normal Eyelids: eyelids normal Sclera: sclerae normal Pupils: Equal, round and reactive pupils present EOM: EOMs intact bilaterally Neck: Neck: normal visual inspection, full ROM, no lymphadenopathy, trachea midline and supple Chest: Chest palpation & inspection: normal inspection of the chest Resp: Effort & Inspection: normal respiratory effort Auscultation: clear to auscultation bilaterally Percussion: percussion normal Cardio: Palpation: normal PMI Rate: regular rate Rhythm: regular rhythm Heart sounds: S1 normal heart sound present and S2 normal heart sound present Peripheral pulses: Peripheral pulses 2+ throughout GI: Inspection: normal to inspection Auscultation: normal bowel sounds and no bruits Rectal Exam: deferred Other: Tenderness epigastric area Back/Spine/Pelvis: Cervical Spine: cervical ROM normal Skin: General skin exam: normal color and no jaundice Lesions: no lesions Rashes: no rashes Trauma: no lacerations or abrasions Wounds: no wounds Hair: normal Nails: normal Neuro: General: oriented to person, oriented to place, oriented to time and patient oriented x3 Cranial nerves: Yes Equal, round and reactive pupils present and Yes Normal hearing present Cognition (Neuro): normal cognition Speech:
[2022-11-07] MEDS: VANCOMYCIN ORAL 125 MG/2.5 ML SYRUP PO ×2 (12:09→17:14)
[2022-11-07] MEDS: HYDROcodone/acetaminophen (*CRX) 5-325 MG TABLET 1 TAB PO ×2 (12:34→18:23)
[2022-11-07 14:51] VITALS: BP 136/100; PULSE 60; RESP 16; TEMP 36.8; O2SAT 100
[2022-11-07] MEDS: rOPINIRole HCL 0.5 MG TABLET PO (20:03)
[2022-11-07 22:00] VITALS: BP 138/55; PULSE 60; RESP 16; TEMP 37.2; O2SAT 100
[2022-11-08] MEDS: VANCOMYCIN ORAL 125 MG/2.5 ML SYRUP PO ×3 (00:21→11:59)
[2022-11-08] MEDS: HYDROcodone/acetaminophen (*CRX) 5-325 MG TABLET 1 TAB PO ×2 (04:07→10:07)
[2022-11-08 06:00] VITALS: BP 142/82; PULSE 74; RESP 18; TEMP 35.6; O2SAT 100
[2022-11-08] MEDS: SODIUM CHLORIDE 0.9% IV 1,000 ML 100 ML IV CONT (06:04)
[2022-11-08 06:43] LABS: Anion Gap 8 mmol/L (8-16); Blood Urea Nitrogen 7 mg/dL (7-17); Carbon Dioxide 20 mmol/L (22-30); Chloride 114 mmol/L (98-107); Estimated CRCL calculation 65 ml/min; Estimated Glomerular Filt Rate > 60; Glucose 90 mg/dL (65-110); Potassium 4.3 mmol/L (3.4-5.0); Sodium 142 mmol/L (137-145)
[2022-11-08] MEDS: PREGABALIN (*CRX) 75 MG CAPSULE 150 MG PO (09:27)
[2022-11-08] MEDS: amLODIPine BESYLATE 5 MG TABLET 10 MG PO (09:27)
--- NOTE | 2022-11-08 11:09 | PM.DS ---
DS: Admitting Diagnosis Discharge Date November 08, 2022 Admitting Diagnosis Pancreatitis, abdominal pain, seated DS: Discharge Diagnosis Discharge Diagnosis (1) Recurrent pancreatitis: Status: Acute Assessment and Plan: History of idiopathic pancreatitis. Appreciate GI input. Agree with GI about lisinopril hydrochlorothiazide and other meds not being the culprit. Patient takes cannabis which, according to [employer], has a high likelihood of causing acute pancreatitis. the patient stated she does not drink any alcohol although on admission LFTs were elevated and AST was elevated greater than 2 times than ALT suggesting alcohol-induced pancreatitis. The patient stated that she has been taking her Creon. Patient started on clear liquid diet. Taper IV pain medication (2) Tobacco dependence: Code(s): F17.200 - Nicotine dependence, unspecified, uncomplicated Status: Acute Assessment and Plan: She does smoke tobacco regularly and also uses cannabis, mostly gummies. (3) Essential hypertension: Code(s): I10 - Essential (primary) hypertension Status: Acute Assessment and Plan: currently on amlodipine and lisinopril/HCTZ (4) RLS (restless legs syndrome): Code(s): G25.81 - Restless legs syndrome Status: Acute Assessment and Plan: Resume home med (5) Anxiety: Code(s): F41.9 - Anxiety disorder, unspecified Status: Chronic Assessment and Plan: P.r.n. Ativan. (6) C. difficile colitis: Code(s): A04.72 - Enterocolitis due to Clostridium difficile, not specified as recurrent Status: Acute Assessment and Plan: Continue p.o. vancomycin (insurance doesn't cover dificid) Monitor BMP. Hold hydrochlorothiazide, lisinopril since she is having diarrhea prevent SOL. Continue IV fluids DS: Summary Hospital Course Hospital Course: 49-year-old female history of pancreatitis came in with abdominal pain and elevated lipase. It conservatively for pancreatitis and she improved. She also has noted some diarrhea and was C diff positive. She will be sent home on oral vancomycin for a total of 10 days. Time Spent with Patient Time attestation: Total time spent providing and/or coordinating discharge services: Exam Const: General: cooperative, healthy appearing, comfortable, no acute distress, well developed, alert, awake, Physically active, anxious, uncomfortable, average body habitus, well nourished, thin and other ( Sobbing) Nutritional Appearance: average body habitus, well nourished and thin Orientation/consciousness: oriented to person, oriented to place, oriented to time and patient oriented x3 Limitations: no limitations HENMT: Head: normal to inspection, No palpable skull fracture present, normocephalic, atraumatic and abrasion Ears: hearing grossly normal bilaterally and external ears normal Face/Nose/Sinus: Normal external nose present and Normal nares present Mouth: Yes Normal oral and palatal mucosa present Eyes: General: appearance normal, both eyes and all related structures Alignment and Position: alignment normal Periorbital: periorbital findings normal Eyelids: eyelids normal Sclera: sclerae normal Pupils: Equal, round and reactive pupils present EOM: EOMs intact bilaterally Neck: Neck: normal visual inspection, full ROM, no lymphadenopathy, trachea midline and supple Chest: Chest palpation & inspection: normal inspection of the chest Resp: Effort & Inspection: normal respiratory effort Auscultation: clear to auscultation bilaterally Percussion: percussion normal Cardio: Palpation: normal PMI Rate: regular rate Rhythm: regular rhythm Heart sounds: S1 normal heart sound present and S2 normal heart sound present Peripheral pulses: Peripheral pulses 2+ throughout GI: Inspection: normal to inspection Auscultation: normal bowel sounds and no bruits Rectal Exam: deferred Other: Tenderness epigastric area Salome
[2022-11-13 17:27] LABS: Pancreatic Elastase, Stool 201 mcg/g
== END 2022-11-08 12:20 | disposition home or self-care (01) | DRG 282 ==
LOC: ANHED 18:30 → ANH3MEDSUR 20:53
PROVIDERS: Hospitalist; Internal Medicine Gastroenterology; Nurse Practitioner; Physician Assistant; Admitting Provider Internal Medicine; Emergency Provider Student in an Organized Health Care Education/Training Program; PCP Internal Medicine; Visit Provider Chiropractor
DX: K85.00 Idiopathic acute pancreatitis without necrosis or infection (principal); A04.72 Enterocolitis due to Clostridium difficile, not specified as recurrent; I10 Essential (primary) hypertension; I25.10 Atherosclerotic heart disease of native coronary artery without angina pectoris; I35.0 Nonrheumatic aortic (valve) stenosis; M19.90 Unspecified osteoarthritis, unspecified site; K21.9 Gastro-esophageal reflux disease without esophagitis; G25.81 Restless legs syndrome; F12.90 Cannabis use, unspecified, uncomplicated; F17.210 Nicotine dependence, cigarettes, uncomplicated; F41.9 Anxiety disorder, unspecified; Z95.5 Presence of coronary angioplasty implant and graft; Z79.82 Long term (current) use of aspirin
CPT/HCPCS: 36415; 74177; 80048; 80053; 80061; 81001; 82653; 83605; 83690; 83735; 84443; 85025; 87045; 87427; 87449; 87493; 89055; 96361; 96374; 96375; 96376; 99285; A9270; G0378; G0379; J1170; J2060; J2270; J2405; J7030; Q9967

== ENCOUNTER 2024-03-24 13:36 | Outpatient (CLI) | payer OTHER, SELFPAY ==
--- NOTE | 2024-03-24 14:45 | NEURO_ITS ---
Impression: # Complains of severe pain in both hands. Only right hand tested due to severe pain intolerance. ? # Severe right Carpal Tunnel Syndrome. ? # Needle/EMG exam not requested. ? # Can be referred back for left hand after surgery on right hand done. Nerve Conduction Studies Anti Sensory Summary Table ?Stim Site NR Peak (ms) P-T Amp (?V) Site1 Site2 Delta-P (ms) Dist (cm) Jed (m/s) Right Median Anti Sensory (2-3nd Digit) Wrist ? 5.8 6.7 Wrist 2-3nd Digit 5.8 14.0 24 Wrist ? 6.6 11.6 Wrist 2-3nd Digit 5.8 14.0 24 Right Ulnar Anti Sensory (5th Digit) Wrist ? 2.3 13.8 Wrist 5th Digit 2.3 14.0 61 Motor Summary Table ?Stim Site NR Onset (ms) O-P Amp (mV) Site1 Site2 Delta-0 (ms) Dist (cm) Jed (m/s) Right Median Motor (Abd Poll Brev)??? NO RESPONSE Wrist NR Elbow NR Right Ulnar Motor (Abd Dig Minimi) Wrist ? 2.3 3.7 A Elbow Wrist 5.0 26.0 52 A Elbow ? 7.3 2.8 MTDD
== END 2024-03-24 13:37 | disposition home or self-care (01) ==
LOC: ANHNEURO 13:37
PROVIDERS: PCP Internal Medicine; Visit Provider Nurse Practitioner Family
DX: G56.03 Carpal tunnel syndrome, bilateral upper limbs (principal)
CPT/HCPCS: 95909